=== PATIENT | male | born 1950 | race Caucasian/White ===

== ENCOUNTER 2017-01-14 12:26 | Inpatient (IN) | payer MEDICARE, OTHER ==
--- NOTE | 2017-01-14 12:41 | PDOC ---
History of Present Illness - General History Source: Patient Exam Limitations: Language Barrier - History of Present Illness Initial Comments: 01/14/17 13:52 The patient is a 67-year-old male with a significant past medical history of diabetes, HTN, HLD, CAD s/p cath, a-fib, DVT, COPD, hypothyroidism, prior GI bleed, CVA, renal stones hx, obesity, and prostate and bladder CA (2016), ( compliant with medications), and is sent to the emergency department by his PCP for further evaluation of an abdominal mass and abdominal pain that started 15 days ago. The patient reports that the abdominal pain is located to the left lower quadrant and radiates down the left groin region. He reports the abdominal pain is constant in nature, worse with touch, and is a severity of 10/ 10. The patient denies any recent injury or trauma. The patient speaks Fijian and a rehabilitation therapist was utilized (#[id number]). The patient denies chest pain, back pain, leg pain, shortness of breath, headache and dizziness. The patient denies fever, chills, nausea, vomit, diarrhea and constipation. The patient denies dysuria, frequency, urgency and hematuria. Past surgical history: CABG, venous surgery 3 years ago PCP: Dr. Suazo <Adrianne Sanches - Last Filed: 01/14/17 14:44> <Inge Flores - Last Filed: 01/14/17 14:54> - General Chief Complaint: Pain Stated Complaint: ADMIT, ABD MASS (PCP SENT) Time Seen by Provider: 01/14/17 12:40 Past History <Adrianne Sanches - Last Filed: 01/14/17 14:44> - Past Medical History Anemia: No Asthma: Yes Cancer: Yes (prostate) Cardiac Disorders: Yes (ANGINA, RLE DVT) CVA: Yes (rt side) COPD: Yes CHF: No (atrial fib) DVT: Yes Dementia: No Diabetes: Yes GI Disorders: No Disorders: Yes (renal stones) HTN: Yes Hypercholesterolemia: Yes Liver Disease: No Suicide Attempt (Hx): No Seizures: Yes Thyroid Disease: No - Surgical History Abdominal Surgery: Yes (Hernia repair) Appendectomy: Yes Cardiac Surgery: No Cholecystectomy: Yes Lung Surgery: No Neurologic Surgery: No Orthopedic Surgery: Yes (lft arm surgery--plate) - Immunization History Immunization Up to Date: Yes - Psycho/Social/Smoking Cessation Hx Anxiety: No Suicidal Ideation: No Smoking Status: No Smoking History: Never smoked Have you smoked in the past 12 months: Yes Number of Cigarettes Smoked Daily: 0 If you are a former smoker, when did you quit?: 25 years Hx Alcohol Use: No Drug/Substance Use Hx: No Substance Use Type: None Hx Substance Use Treatment: No <Inge Flores - Last Filed: 01/14/17 14:54> - Past Medical History Allergies/Adverse Reactions: Allergies Allergy/AdvReac Type Severity Reaction Status Date / Time amoxicillin Allergy Mild Rash Verified 01/14/17 12:31 carbamazepine [From Tegretol] Allergy Mild Rash Verified 01/14/17 12:31 cephalexin [Cephalexin] Allergy Mild Rash Verified 01/14/17 12:31 ciprofloxacin Allergy Mild Rash Verified 01/14/17 12:31 fluconazole Allergy Mild Verified 01/14/17 12:31 lamotrigine [From Lamictal] Allergy Mild Rash Verified 01/14/17 12:31 metronidazole Allergy Mild Rash Verified 01/14/17 12:31 phenobarbital Allergy Mild Rash Verified 01/14/17 12:31 phenytoin sodium Allergy Mild Rash Verified 01/14/17 12:31 [From Dilantin] phenytoin sodium extended Allergy Mild Rash Verified 01/14/17 12:31 [From Dilantin] sulfamethoxazole Allergy Mild Rash Verified 01/14/17 12:31 [From Sulfatrim] trimethoprim [From Sulfatrim] Allergy Mild Rash Verified 01/14/17 12:31 amoxicillin trihydrate Allergy Unknown Verified 01/14/17 12:31 [From Augmentin] potassium clavulanate Allergy Unknown Verified 01/14/17 12:31 [From Augmentin] SHRIMP Allergy Mild Rash Uncoded 01/14/17 12:31 ciproflux Allergy Uncoded 01/14/17 12:31 shrimp Allergy Uncoded 01/14/17 12:31 Home Medications: Ambulatory Orders Aspirin [Aspirin EC] 81 mg PO DAILY 02/13/16 Atorvastatin Ca [Lipitor] 20 mg PO HS 02/13/16 Bicalutamide 50 mg PO DAILY 02/13/16 Clonazepam [Klonopin -] 0.5 mg PO TID 02/13/16 Divalproex [Depakote -] 500 mg PO BID 02/13/16 Levetiracetam [Keppra Xr -] 1,000 mg PO TID 02/13/16 Lisinopril 5 mg PO DAILY 02/13/16 Oxybutynin Chloride [Oxybutynin Chloride ER] 10 mg PO DAILY 02/13/16 Ranolazine [Ranexa] 500 mg PO BID 02/13/16 Tamsulosin HCl 0.8 mg PO DAILY 02/13/16 Citalopram Hydrobromide [Citalopram HBr] 10 mg PO DAILY 01/14/17 Fesoterodine Fumarate [Toviaz] 4 mg PO DAILY 01/14/17 Magnesium Oxide 500 mg PO BID 01/14/17 Nitrofurantoin Monohyd/M-Cryst [Macrobid -] 100 mg PO BID 01/14/17 Tramadol HCl [Ultram] 50 mg PO DAILY 01/14/17 Review of Systems - Review of Systems Able to Perform ROS?: Yes Comments:: 01/14/17 13:52 CONSTITUTIONAL: Absent: fever, chills, diaphoresis, generalized weakness, malaise, loss of appetite HEENT: Absent: rhinorrhea, nasal congestion, throat pain, throat swelling, difficulty swallowing, mouth swelling, ear pain, eye pain, visual changes CARDIOVASCULAR: Absent: chest pain, syncope, palpitations, irregular heart rate, lightheadedness , peripheral edema RESPIRATORY: Absent: cough, shortness of breath, dyspnea with exertion, orthopnea, wheezing, stridor, hemoptysis GASTROINTESTINAL: Present: (+) abdominal mass, (+) abdominal pain Absent: abdominal distension, nausea, vomiting, diarrhea, constipation, melena, hematochezia GENITOURINARY: Absent: dysuria, frequency, urgency, hesitancy, hematuria, flank pain, genital pain MUSCULOSKELETAL: Absent: myalgia, arthralgia, joint swelling SKIN: Absent: rash, itching, pallor HEMATOLOGIC/IMMUNOLOGIC: Absent: easy bleeding, easy bruising, lymphadenopathy, frequent infections ENDOCRINE: Absent: unexplained weight gain, unexplained weight loss, heat intolerance, cold intolerance NEUROLOGIC: Absent: headache, focal weakness or paresthesias, dizziness, unsteady gait, seizure, mental status changes, bladder or bowel incontinence PSYCHIATRIC: Absent: anxiety, depression, suicidal or homicidal ideation, hallucinations. <Adrianne Sanches - Last Filed: 01/14/17 14:44> *Physical Exam - Vital Signs Last Vital Signs Temp Pulse Resp BP Pulse Ox 98.1 F 68 18 159/74 97 01/14/17 12:29 01/14/17 12:29 01/14/17 12:29 01/14/17 12:29 01/14/17 12:29 - Physical Exam Comments: 01/14/17 13:53 GENERAL: Well developed, well nourished. Awake and alert. No acute distress. HEENT: Normocephalic, atraumatic. PERRLA, EOMI. No conjunctival pallor. Sclera are non- icteric. Moist mucous membranes. Oropharynx is clear. NECK: Supple. Full ROM. No JVD. Carotid pulses 2+ and symmetric, without bruits. No thyromegaly. No lymphadenopathy. CARDIOVASCULAR: (+) Systolic murmur over the right sternal border. Regular rate and rhythm. No rubs, or gallops. Distal pulses are 2+ and symmetric. PULMONARY: No evidence of respiratory distress. Lungs clear to auscultation bilaterally. No wheezing, rales or rhonchi. ABDOMINAL: (+) Left lower quadrant tender to palpation. (+) Obese abdomen. Soft. Non- distended. No rebound or guarding. No organomegaly. Normoactive bowel sounds. MUSCULOSKELETAL Normal range of motion at all joints. No bony deformities or tenderness. No CVA tenderness. EXTREMITIES: (+) Venous stasis changes to the bilateral lower extremities. (+) Varicose veins visible underneath the skin on the left lower quadrant and left groin area. No cyanosis. No clubbing. No edema. No calf tenderness. SKIN: Warm and dry. Normal capillary refill. No rashes. No jaundice. NEUROLOGICAL: Alert, awake, appropriate. Cranial nerves 2-12 intact. No deficits to light touch and temperature in face, upper extremities and lower extremities. No motor deficits in the in face, upper extremities and lower extremities. Normoreflexic in the upper and lower extremities. Normal speech. Toes are down- going bilaterally. PSYCHIATRIC: Cooperative. Good eye contact. Appropriate mood and affect. <Adrianne Sanches - Last Filed: 01/14/17 14:44> - Vital Signs Last Vital Signs Temp Pulse Resp BP Pulse Ox 98.1 F 68 18 159/74 97 01/14/17 12:29 01/14/17 12:29 01/14/17 12:29 01/14/17 12:29 01/14/17 12:29 <Inge Flores - Last Filed: 01/14/17 14:54> ED Treatment Course - LABORATORY CBC & Chemistry Diagram: 01/14/17 13:26 01/14/17 13:26 - ADDITIONAL ORDERS Additional order review: Laboratory Results 01/14/17 13:26 Urine Color Ltyellow Urine Appearance Clear Urine pH 5.0 Ur Specific [place] 1.016 Urine Protein Negative Urine Glucose (UA) 1+ H Urine Ketones Negative Urine Blood Negative Urine Nitrite Negative Urine Bilirubin Negative Urine Urobilinogen Negative Ur Leukocyte Esterase Negative 01/14/17 13:26 RBC 4.25 MCV 86.9 MCHC 32.6 RDW 16.5 H D MPV 8.3 Neutrophils % Research Development Manager Lymphocytes % Research Development Manager Monocytes % Research Development Manager Eosinophils % Research Development Manager Basophils % Research Development Manager <Adrianne Sanches - Last Filed: 01/14/17 14:44> - LABORATORY CBC & Chemistry Diagram: 01/14/17 13:26 01/14/17 13:26 <Inge Flores - Last Filed: 01/14/17 14:54> Medical Decision Making - Medical Decision Making 01/14/17 12:41 THe pt is a67 year old male with a significant PMH who presents referred from PCP office for LLQ abdominal pain/mass. We ordered CBC, CMP, CXR, EKG, US of abd -soft tissue. Will admit to service. 01/14/17 14:53 US abdomen: superficial thrombosed varicose veins, CBC: elevated WBC. <Inge Flores - Last Filed: 01/14/17 14:54> *DC/Admit/Observation/Transfer - Attestations Scribe Attestion: 01/14/17 13:53 Documentation prepared by Adrianne Sanches, acting as medical technologist blood bank for Sam Chamberlain MD. <Adrianne Sanches - Last Filed: 01/14/17 14:44> - Discharge Dispostion Admit: Yes <Inge Flores - Last Filed: 01/14/17 14:54> Diagnosis at time of Disposition: Abdominal mass, LLQ (left lower quadrant) - Discharge Dispostion Condition at time of disposition: Fair - Referrals
[2017-01-14 13:37] LABS: MCH 28.3 pg (25.7-33.7); MCHC 32.6 g/dl (32.0-35.9); MEAN CELL VOLUME 86.9 fl (80-96); MEAN PLT VOLUME 8.3 fl (7.5-11.1); PLATELET COUNT 114 K/MM3 (134-434); RDW 16.5 % (11.9-15.9); WHITE BLOOD COUNT 10.5 K/mm3 (4.0-10.0)
[2017-01-14 13:39] LABS: URINE APPEARANCE CLEAR; URINE BILIRUBIN NEGATIVE (NEGATIVE); URINE BLOOD NEGATIVE (NEGATIVE); URINE COLOR LTYELLOW; URINE GLUCOSE (UA) 1+ (NEGATIVE); URINE KETONE NEGATIVE (NEGATIVE); URINE LEUK ESTERASE NEGATIVE (NEGATIVE); URINE NITRITE NEGATIVE (NEGATIVE); URINE PROTEIN NEGATIVE (NEGATIVE); URINE UROBILINOGEN NEGATIVE E.U./dl (0.2-1.0)
[2017-01-14 14:04] LABS: HYPOCHROMIA FEW; PLATELET ESTIMATE DECREASED (NORMAL); POLYCHROMASIA 1+
--- NOTE | 2017-01-14 14:54 | PDOC ---
Attending Attestation - Resident Resident Name: Inge Flores - ED Attending Attestation I have performed the following: I have examined & evaluated the patient, The case was reviewed & discussed with the resident, I agree w/resident's findings & plan, Exceptions are as noted - HPI HPI: 01/14/17 14:52 The patient is a 67-year-old male with extensive past medical history, including DVT, who was sent to the emergency department by his primary care physician to be admitted for further evaluation and workup of abdominal pain, with superficial abdominal wall masses. - Physicial Exam PE: 01/14/17 14:53 He is well-appearing and in no acute distress Superficial abdominal wall mass is noted - Medical Decision Making 01/14/17 14:53 Labs and ultrasound noted Clinical impression: Abdominal pain Superficial thrombosed varicose veins of the abdomen
[2017-01-14 14:56] LABS: ALBUMIN 3.9 g/dl (3.4-5.0); ALK PHOS 101 U/L (45-117); ANION GAP 10 (8-16); BILIRUBIN,TOTAL 0.4 mg/dL (0.2-1.0); CALCIUM 9.1 mg/dL (8.5-10.1); CO2 28 mmol/L (21-32); CREATININE 1.2 mg/dL (0.7-1.3); GLUCOSE,RANDOM 121 mg/dL (74-106); SGOT/AST 16 U/L (15-37); SGPT/ALT 20 U/L (12-78); TOT PROT 7.6 g/dl (6.4-8.2)
[2017-01-14 15:29] LABS: INR 1.22 (0.82-1.09); PROTHROMBIN TIME (PATIENT) 13.5 SEC (9.98-11.88)
[2017-01-14 16:32] VITALS: BMI 45.6
[2017-01-14] MEDS ORDERED: PNEUMOC 13-VAL CONJ-DIP CRM/PF 0.5 ML DISP.SYRIN IM ONE (17:00)
[2017-01-14] MEDS ORDERED: clonazePAM 0.5 MG TABLET PO PRN (18:17)
[2017-01-14] MEDS: traMADol HCL 50 MG TABLET PO PRN (18:39)
[2017-01-14] MEDS: ATORVASTATIN CA 20 MG TABLET (FP) PO SCH (21:04)
[2017-01-14] MEDS: RANOLAZINE E.R. 500 MG TABLET (FP) PO SCH (21:04)
[2017-01-14] MEDS: OXYBUTYNIN CHLORIDE 5 MG TABLET PO SCH (21:05)
[2017-01-14] MEDS: DIVALPROEX SODIUM 500 MG TABLET E.C. PO SCH (21:05)
[2017-01-14] MEDS: levETIRAcetam 500 MG TABLET (FP) PO SCH (21:05)
[2017-01-14] MEDS: HEPARIN NA (PORCINE) 5,000 UNITS/ML 1ML VIAL SQ SCH (21:06)
[2017-01-14] MEDS: MAGNESIUM OXIDE 400 MG TABLET (FP) PO SCH (21:06)
[2017-01-15] MEDS: traMADol HCL 50 MG TABLET PO PRN (06:23)
[2017-01-15 08:47] LABS: CHOLESTEROL 151 mg/dL (50-200); LDL CHOLESTEROL (ONLY SJRH) 69 mg/dL (5-100)
[2017-01-15] MEDS: TAMSULOSIN HCL 0.4 MG CAP.ER.24H (FP) PO SCH (08:56)
--- NOTE | 2017-01-15 11:04 | PN ---
Progress Note (short form) - Note Progress Note: patient seen consult dictated. I will discuss case with Dr. Goyal and follow hospital course.
--- NOTE | 2017-01-15 11:23 | CONSULT ---
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 No: AFIB, CHF Pulmonary: Yes: COPD Gastrointestinal: Yes: Diverticulitis, Diverticulosis, Other (hepatic granuloma) Renal/: Yes: Hematuria, Renal Calculi Psych: Yes: Anxiety Endocrine: Yes: Diabetes Mellitus - Past Surgical History Past Surgical History: Yes: Appendectomy, Cholecystectomy, Hernia Repair (x2), Joint Replacement (left shoulder) - Alcohol/Substance Use Hx Alcohol Use: No History of Substance Use: reports: None - Smoking History Smoking history: Former smoker Have you smoked in the past 12 months: Yes Aproximately how many cigarettes per day: 0 If you are a former smoker, when did you quit?: 25 years - Social History Usual Living Arrangement: Other (roomate) ADL: Independent History of Recent Travel: No Home Medications - Allergies Allergies/Adverse Reactions: Allergies Allergy/AdvReac Type Severity Reaction Status Date / Time amoxicillin Allergy Mild Rash Verified 01/14/17 12:31 carbamazepine [From Tegretol] Allergy Mild Rash Verified 01/14/17 12:31 cephalexin [Cephalexin] Allergy Mild Rash Verified 01/14/17 12:31 ciprofloxacin Allergy Mild Rash Verified 01/14/17 12:31 fluconazole Allergy Mild Verified 01/14/17 12:31 lamotrigine [From Lamictal] Allergy Mild Rash Verified 01/14/17 12:31 metronidazole Allergy Mild Rash Verified 01/14/17 12:31 phenobarbital Allergy Mild Rash Verified 01/14/17 12:31 phenytoin sodium Allergy Mild Rash Verified 01/14/17 12:31 [From Dilantin] phenytoin sodium extended Allergy Mild Rash Verified 01/14/17 12:31 [From Dilantin] sulfamethoxazole Allergy Mild Rash Verified 01/14/17 12:31 [From Sulfatrim] trimethoprim [From Sulfatrim] Allergy Mild Rash Verified 01/14/17 12:31 amoxicillin trihydrate Allergy Unknown Verified 01/14/17 12:31 [From Augmentin] potassium clavulanate Allergy Unknown Verified 01/14/17 12:31 [From Augmentin] SHRIMP Allergy Mild Rash Uncoded 01/14/17 12:31 ciproflux Allergy Uncoded 01/14/17 12:31 shrimp Allergy Uncoded 01/14/17 12:31 - Home Medications Home Medications: Ambulatory Orders Aspirin [Aspirin EC] 81 mg PO DAILY 02/13/16 Atorvastatin Ca [Lipitor] 20 mg PO DAILY 02/13/16 Bicalutamide 50 mg PO DAILY 02/13/16 Clonazepam [Klonopin -] 0.5 mg PO TID 02/13/16 Divalproex [Depakote -] 500 mg PO BID 02/13/16 Levetiracetam [Keppra Xr -] 1,000 mg PO TID 02/13/16 Lisinopril 5 mg PO DAILY 02/13/16 Oxybutynin Chloride [Oxybutynin Chloride ER] 10 mg PO DAILY 02/13/16 Ranolazine [Ranexa] 500 mg PO BID 02/13/16 Tamsulosin HCl 0.8 mg PO DAILY 02/13/16 Citalopram Hydrobromide [Citalopram HBr] 10 mg PO DAILY 01/14/17 Fesoterodine Fumarate [Toviaz] 4 mg PO DAILY 01/14/17 Magnesium Oxide 500 mg PO BID 01/14/17 Nitrofurantoin Monohyd/M-Cryst [Macrobid -] 100 mg PO BID 01/14/17 Tramadol HCl [Ultram] 50 mg PO DAILY 01/14/17 Family Disease History - Family Disease History Family Disease History: Diabetes: Mother (htn), CA: Father, Other: Mother Physical Exam Vital Signs: Vital Signs Temperature 97.9 F 01/15/17 07:45 Pulse Rate 57 L 01/15/17 07:45 Respiratory Rate 20 01/15/17 07:45 Blood Pressure 125/64 01/15/17 07:45 O2 Sat by Pulse Oximetry (%) 99 01/14/17 21:00 Assessment/Plan Vascular Surgery The patient is a 67-year-old male with a significant past medical history of diabetes, HTN, HLD, CAD s/p cath, a-fib, DVT, COPD, hypothyroidism, prior GI bleed, CVA, renal stones hx, obesity, and prostate and bladder CA (2016), ( compliant with medications), and is sent to the emergency department by his PCP for further evaluation of an abdominal mass and abdominal pain that started 15 days ago. The patient reports that the abdominal pain is located to the left lower quadrant and radiates down the left groin region. He reports the abdominal pain is constant in nature, worse with touch, and is a severity of 10/ 10. The patient denies any recent injury or trauma. The patient speaks Khmer and a oil well drilling manager was utilized (#[id number]). The patient denies chest pain, back pain, leg pain, shortness of breath, headache and dizziness. The patient denies fever, chills, nausea, vomit, diarrhea and constipation. The patient denies dysuria, frequency, urgency and hematuria. Past surgical history: CABG, venous surgery 3 years ago PCP: Dr. Gabriele WICK head - NC/AT Lung - CTA Heart - RRR abd - soft,nt,nd. In left lower quad -- there is a thrombosed varicose vein. Tender to touch . Rope like feel. EXt - warm, pink. A/P Thrombosed superficial varicose vein on abdominal wall . Would treat as SVT Warm compresses to abd wall, NSAID for pain. No need for AC Can do further imaging with CT scan if ruling out intrabdominal mass. Javier Bundy DO
[2017-01-15] MEDS ORDERED: PT OWN MED DRAWER 7, Y5N ONE (11:29)
[2017-01-15] MEDS: HEPARIN NA (PORCINE) 5,000 UNITS/ML 1ML VIAL SQ SCH ×2 (11:30→22:27)
[2017-01-15] MEDS: RANOLAZINE E.R. 500 MG TABLET (FP) PO SCH ×2 (11:30→22:28)
[2017-01-15] MEDS: DIVALPROEX SODIUM 500 MG TABLET E.C. PO SCH ×2 (11:31→22:23)
[2017-01-15] MEDS: LISINOPRIL 5 MG TABLET (FP) PO SCH (11:31)
[2017-01-15] MEDS: BICALUTAMIDE 50 MG TABLET (FP) PO SCH (11:31)
[2017-01-15] MEDS: levETIRAcetam 500 MG TABLET (FP) PO SCH ×2 (11:31→22:27)
[2017-01-15] MEDS: MAGNESIUM OXIDE 400 MG TABLET (FP) PO SCH ×2 (11:31→22:27)
[2017-01-15] MEDS: CITALOPRAM HYDROBROMIDE 10 MG TABLET (FP) PO SCH (11:31)
[2017-01-15] MEDS: ASPIRIN COATED 81 MG TABLET.EC PO SCH (11:31)
[2017-01-15] MEDS: OXYBUTYNIN CHLORIDE 5 MG TABLET PO SCH ×2 (11:31→22:27)
--- NOTE | 2017-01-15 12:18 | HP ---
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 No: AFIB, CHF Pulmonary: Yes: COPD Gastrointestinal: Yes: Diverticulitis, Diverticulosis, Other (hepatic granuloma) Renal/: Yes: Hematuria, Renal Calculi Heme/Onc: Yes: Cancer (bladder cancer, prostate cancer) Psych: Yes: Anxiety Endocrine: Yes: Diabetes Mellitus - Past Surgical History Past Surgical History: Yes: Appendectomy, Cholecystectomy, Hernia Repair (x2), Joint Replacement (left shoulder) - Smoking History Smoking history: Former smoker Have you smoked in the past 12 months: Yes Aproximately how many cigarettes per day: 0 If you are a former smoker, when did you quit?: 25 years - Alcohol/Substance Use Hx Alcohol Use: No History of Substance Use: reports: None - Social History ADL: Independent History of Recent Travel: No Home Medications - Allergies Allergies/Adverse Reactions: Allergies Allergy/AdvReac Type Severity Reaction Status Date / Time amoxicillin Allergy Mild Rash Verified 01/14/17 12:31 carbamazepine [From Tegretol] Allergy Mild Rash Verified 01/14/17 12:31 cephalexin [Cephalexin] Allergy Mild Rash Verified 01/14/17 12:31 ciprofloxacin Allergy Mild Rash Verified 01/14/17 12:31 fluconazole Allergy Mild Verified 01/14/17 12:31 lamotrigine [From Lamictal] Allergy Mild Rash Verified 01/14/17 12:31 metronidazole Allergy Mild Rash Verified 01/14/17 12:31 phenobarbital Allergy Mild Rash Verified 01/14/17 12:31 phenytoin sodium Allergy Mild Rash Verified 01/14/17 12:31 [From Dilantin] phenytoin sodium extended Allergy Mild Rash Verified 01/14/17 12:31 [From Dilantin] sulfamethoxazole Allergy Mild Rash Verified 01/14/17 12:31 [From Sulfatrim] trimethoprim [From Sulfatrim] Allergy Mild Rash Verified 01/14/17 12:31 amoxicillin trihydrate Allergy Unknown Verified 01/14/17 12:31 [From Augmentin] potassium clavulanate Allergy Unknown Verified 01/14/17 12:31 [From Augmentin] SHRIMP Allergy Mild Rash Uncoded 01/14/17 12:31 ciproflux Allergy Uncoded 01/14/17 12:31 shrimp Allergy Uncoded 01/14/17 12:31 - Home Medications Home Medications: Ambulatory Orders Aspirin [Aspirin EC] 81 mg PO DAILY 02/13/16 Atorvastatin Ca [Lipitor] 20 mg PO DAILY 02/13/16 Bicalutamide 50 mg PO DAILY 02/13/16 Clonazepam [Klonopin -] 0.5 mg PO TID 02/13/16 Divalproex [Depakote -] 500 mg PO BID 02/13/16 Levetiracetam [Keppra Xr -] 1,000 mg PO TID 02/13/16 Lisinopril 5 mg PO DAILY 02/13/16 Oxybutynin Chloride [Oxybutynin Chloride ER] 10 mg PO DAILY 02/13/16 Ranolazine [Ranexa] 500 mg PO BID 02/13/16 Tamsulosin HCl 0.8 mg PO DAILY 02/13/16 Citalopram Hydrobromide [Citalopram HBr] 10 mg PO DAILY 01/14/17 Fesoterodine Fumarate [Toviaz] 4 mg PO DAILY 01/14/17 Magnesium Oxide 500 mg PO BID 01/14/17 Nitrofurantoin Monohyd/M-Cryst [Macrobid -] 100 mg PO BID 01/14/17 Tramadol HCl [Ultram] 50 mg PO DAILY 01/14/17 Family Disease History - Family Disease History Family Disease History: Diabetes: Mother (htn), CA: Father, Other: Mother Review of Systems - Review of Systems Constitutional: denies: Chills, Fever Cardiovascular: denies: Chest Pain Respiratory: denies: SOB Gastrointestinal: reports: Abdominal Pain Physical Examination Vital Signs: Vital Signs Temperature 97.9 F 01/15/17 07:45 Pulse Rate 57 L 01/15/17 07:45 Respiratory Rate 20 01/15/17 07:45 Blood Pressure 125/64 01/15/17 07:45 O2 Sat by Pulse Oximetry (%) 99 01/14/17 21:00 Constitutional: Yes: Calm Cardiovascular: Yes: WNL Respiratory: Yes: WNL Gastrointestinal: Yes: Tenderness (LLQ PROMINENT TENDER BLOOD VESSEL) Edema: No Imaging - Results Chest X-ray: Report Reviewed Ultrasound: Report Reviewed Problem List - Problems (1) Abdominal mass, LLQ (left lower quadrant) Code(s): R19.04 - LEFT LOWER QUADRANT ABDOMINAL SWELLING, MASS AND LUMP (2) CAD (coronary artery disease) Code(s): I25.10 - ATHSCL HEART DISEASE OF [place] CORONARY ARTERY W/O ANG PCTRS (3) CHF (congestive heart failure) Code(s): I50.9 - HEART FAILURE, UNSPECIFIED Qualifiers: Congestive heart failure chronicity: chronic (4) COPD (chronic obstructive pulmonary disease) Code(s): J44.9 - CHRONIC OBSTRUCTIVE PULMONARY DISEASE, UNSPECIFIED (5) Diabetes mellitus type 2 in obese Code(s): E11.9 - TYPE 2 DIABETES MELLITUS WITHOUT COMPLICATIONS E66.9 - OBESITY, UNSPECIFIED (6) DVT (deep venous thrombosis) Code(s): I82.409 - ACUTE EMBOLISM AND THOMBOS UNSP DEEP VN UNSP LOWER EXTREMITY Qualifiers: DVT location: lower extremity Affected thrombotic vein of extremity: unspecified vein of extremity Laterality: left Chronicity: acute Qualified Code(s): I82.402 - Acute embolism and thrombosis of unspecified deep veins of left lower extremity Assessment/Plan The patient is a 67-year-old male with a significant past medical history of diabetes, HTN, HLD, CAD s/p cath, a-fib, DVT, COPD, hypothyroidism, prior GI bleed, CVA, renal stones hx, obesity, and prostate and bladder CA (2016), ( compliant with medications), and is sent to the emergency department by his PCP for further evaluation of an abdominal mass and abdominal pain that started 15 days ago. The patient reports that the abdominal pain is located to the left lower quadrant and radiates down the left groin region. He reports the abdominal pain is constant in nature, worse with touch, and is a severity of 10/ 10. The patient denies any recent injury or trauma. The patient speaks Malay and a industrial truck mechanic was utilized (#[id number]). The patient denies chest pain, back pain, leg pain, shortness of breath, headache and dizziness. The patient denies fever, chills, nausea, vomit, diarrhea and constipation. The patient denies dysuria, frequency, urgency and hematuria. Past surgical history: CABG, venous surgery 3 years ago PCP: Dr. Suazo (1) Abdominal mass, LLQ (left lower quadrant) Code(s): R19.04 - LEFT LOWER QUADRANT ABDOMINAL SWELLING, MASS AND LUMP APPRECIATE VASC SURG CONSULT NO NEED AC H/O DVT HEME CONSULTED TO R/O NEOPLASM CT CHEST/ABD/PELVIS C-/+ TO R/O NEOPLASM (2) CAD (coronary artery disease) Code(s): I25.10 - ATHSCL HEART DISEASE OF [place] CORONARY ARTERY W/O ANG PCTRS HAS AFIB? LAST EKG DID NOT SHOW IT - EKG (3) CHF (congestive heart failure) Code(s): I50.9 - HEART FAILURE, UNSPECIFIED Qualifiers: Congestive heart failure chronicity: chronic (4) COPD (chronic obstructive pulmonary disease) Code(s): J44.9 - CHRONIC OBSTRUCTIVE PULMONARY DISEASE, UNSPECIFIED ALB NEB PRN (5) Diabetes mellitus type 2 in obese Code(s): E11.9 - TYPE 2 DIABETES MELLITUS WITHOUT COMPLICATIONS E66.9 - OBESITY, UNSPECIFIED BGM/ISS (6) DVT (deep venous thrombosis) Code(s): I82.409 - ACUTE EMBOLISM AND THOMBOS UNSP DEEP VN UNSP LOWER EXTREMITY Qualifiers: DVT location: lower extremity Affected thrombotic vein of extremity: unspecified vein of extremity Laterality: left Chronicity: acute Qualified Code(s): I82.402 - Acute embolism and thrombosis of unspecified deep veins of left lower extremity H/O NOT ON AC MANAGER DEPARTMENT FM
[2017-01-15] MEDS ORDERED: ALBUTEROL SO4 0.083% IH SOL 2.5 MG/3 ML VIAL.NEB. NEB PRN (12:27)
--- NOTE | 2017-01-15 12:36 | CON.GI ---
Consult Consult Specialty:: gastroenterology Referred by:: Pippa Suazo/ - History of Present Illness History of Present Illness: 67 y/o obese mal with PMH od DVT was admitted for further evaluation and management of left lower quadrant abdominal wall superficial vein thrombosis. He denies rectal bleeding , melena, dysphagia, weight loss, and change in bowel habits. 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 No: AFIB, CHF Pulmonary: Yes: COPD Gastrointestinal: Yes: Diverticulitis, Diverticulosis, Other (hepatic granuloma) Renal/: Yes: Hematuria, Renal Calculi Psych: Yes: Anxiety Endocrine: Yes: Diabetes Mellitus - Past Surgical History Past Surgical History: Yes: Appendectomy, Cholecystectomy, Hernia Repair (x2), Joint Replacement (left shoulder) - Alcohol/Substance Use Hx Alcohol Use: No History of Substance Use: reports: None - Smoking History Smoking history: Former smoker Have you smoked in the past 12 months: Yes Aproximately how many cigarettes per day: 0 If you are a former smoker, when did you quit?: 25 years - Social History Usual Living Arrangement: Other (roomate) ADL: Independent History of Recent Travel: No Home Medications - Allergies Allergies/Adverse Reactions: Allergies Allergy/AdvReac Type Severity Reaction Status Date / Time amoxicillin Allergy Mild Rash Verified 01/14/17 12:31 carbamazepine [From Tegretol] Allergy Mild Rash Verified 01/14/17 12:31 cephalexin [Cephalexin] Allergy Mild Rash Verified 01/14/17 12:31 ciprofloxacin Allergy Mild Rash Verified 01/14/17 12:31 fluconazole Allergy Mild Verified 01/14/17 12:31 lamotrigine [From Lamictal] Allergy Mild Rash Verified 01/14/17 12:31 metronidazole Allergy Mild Rash Verified 01/14/17 12:31 phenobarbital Allergy Mild Rash Verified 01/14/17 12:31 phenytoin sodium Allergy Mild Rash Verified 01/14/17 12:31 [From Dilantin] phenytoin sodium extended Allergy Mild Rash Verified 01/14/17 12:31 [From Dilantin] sulfamethoxazole Allergy Mild Rash Verified 01/14/17 12:31 [From Sulfatrim] trimethoprim [From Sulfatrim] Allergy Mild Rash Verified 01/14/17 12:31 amoxicillin trihydrate Allergy Unknown Verified 01/14/17 12:31 [From Augmentin] potassium clavulanate Allergy Unknown Verified 01/14/17 12:31 [From Augmentin] SHRIMP Allergy Mild Rash Uncoded 01/14/17 12:31 ciproflux Allergy Uncoded 01/14/17 12:31 shrimp Allergy Uncoded 01/14/17 12:31 - Home Medications Home Medications: Ambulatory Orders Aspirin [Aspirin EC] 81 mg PO DAILY 02/13/16 Atorvastatin Ca [Lipitor] 20 mg PO DAILY 02/13/16 Bicalutamide 50 mg PO DAILY 02/13/16 Clonazepam [Klonopin -] 0.5 mg PO TID 02/13/16 Divalproex [Depakote -] 500 mg PO BID 02/13/16 Levetiracetam [Keppra Xr -] 1,000 mg PO TID 02/13/16 Lisinopril 5 mg PO DAILY 02/13/16 Oxybutynin Chloride [Oxybutynin Chloride ER] 10 mg PO DAILY 02/13/16 Ranolazine [Ranexa] 500 mg PO BID 02/13/16 Tamsulosin HCl 0.8 mg PO DAILY 02/13/16 Citalopram Hydrobromide [Citalopram HBr] 10 mg PO DAILY 01/14/17 Fesoterodine Fumarate [Toviaz] 4 mg PO DAILY 01/14/17 Magnesium Oxide 500 mg PO BID 01/14/17 Nitrofurantoin Monohyd/M-Cryst [Macrobid -] 100 mg PO BID 01/14/17 Tramadol HCl [Ultram] 50 mg PO DAILY 01/14/17 Family Disease History - Family Disease History Family History: Denies (colon and gastric cancer) Family Disease History: Diabetes: Mother (htn), CA: Father, Other: Mother Review of Systems - Review of Systems Constitutional: denies: Fever Eyes: denies: Blind Spots HENT: denies: Difficult Swallowing Neck: denies: Decreased ROM Cardiovascular: denies: Chest Pain Respiratory: denies: SOB Gastrointestinal: reports: Abdominal Pain. denies: Bloating, Constipation, Diarrhea, Indigestion, Melena, Rectal Bleeding, Vomiting Blood Physical Exam-GI Vital Signs: Vital Signs Temperature 97.9 F 01/15/17 07:45 Pulse Rate 57 L 01/15/17 07:45 Respiratory Rate 20 01/15/17 07:45 Blood Pressure 125/64 01/15/17 07:45 O2 Sat by Pulse Oximetry (%) 99 01/14/17 21:00 Constitutional: Yes: Well Nourished Eyes: Yes: Conjunctiva Clear Neck: Yes: Supple Cardiovascular: Yes: Regular Rate and Rhythm Respiratory: Yes: Regular Gastrointestinal Inspection: No: Ascites, Distention ...Palpate: Yes: Soft, Tenderness (large varicose veins, tender in the left lower quadrant). No: Firm/Rigid, Guarding, Hepatomegaly, Splenomegaly Labs: INR, PTT INR 1.22 (0.82-1.09) H 01/14/17 14:50 Problem List - Problems (1) Thrombosis Assessment/Plan: superficial veins of the abdomen r/o underlying malignancy causing hypercoaguable state R> CT of chest, abdomen and pelvis cea, ca19-9, PSA made aware to ff-up for out patient colonoscopy Code(s): I82.90 - ACUTE EMBOLISM AND THROMBOSIS OF UNSPECIFIED VEIN
--- NOTE | 2017-01-15 13:32 | CONS ---
DATE OF CONSULTATION: 01/15/2017 at 11:44 a.m. DIAGNOSIS: Prostate cancer. HISTORY OF PRESENT ILLNESS: The patient was seen in followup in my office yesterday and found to have scrotal pain and subcutaneous nodules. I referred him to Dr. Suazo, who also examined him and directed him to the emergency room for additional workup. In the emergency room, he was admitted for workup of the abdominal pain. The admitting physician noted that the pain was in the left lower quadrant and radiating down into his thigh. It is aggravated by touch, and he denies any recent history of injury or trauma. PAST MEDICAL HISTORY: Significant for hypertension, hyperlipidemia, coronary artery disease, postoperative catheterization, atrial fibrillation, deep vein thrombosis, chronic obstructive pulmonary disease, hypothyroidism, prior GI bleed, renal stones, obesity, prostate and bladder cancer. He received radiation for the prostate cancer in the past. REVIEW OF SYSTEMS: Other than the abdominal pain and the tenderness, he denies any other symptoms. No symptoms related to the head, ears, eyes, nose, and throat. No cardiac, respiratory, gastrointestinal, genitourinary, neurologic, musculoskeletal, hematologic, or allergic complaints. PHYSICAL EXAMINATION: Vital signs: Include a temperature of 97.9 degrees Fahrenheit, his blood pressure is 125/64, his pulse is 57, and his respiratory rate is 20. His KPS is 70. Head, ears, eyes, nose, and throat: Face is symmetric. Tongue is midline. No adenopathy in the neck, axilla, or groin. Heart: Normal heart sounds are present. Lungs: Clear. Abdomen: Tender in the left lower quadrant. No abdominal tenderness on the right side or in the left upper quadrant. He also has pain in the scrotum. X-RAYS: An abdominal ultrasound done yesterday of the subcutaneous nodules was read as thrombosed varicose veins within the subcutaneous tissue of the anterior abdominal wall. IMPRESSION/PLAN: No intervention at this time with regard to radiation. Additional workup may be needed. The cause of the inflammation is not clear, but several etiologies need to be considered. I will discuss the case with Dr. Suazo. LONI OLGUIN M.D. LES/[id number] [facility]
[2017-01-15] MEDS ORDERED: SODIUM CHLORIDE 1,000 ML IV SCH ×2 (15:00→15:07)
[2017-01-15] MEDS: INSULIN SLIDING SCALE (NOVOLOG) 1 VIAL SQ SCH ×2 (17:31→22:21)
--- NOTE | 2017-01-15 18:20 | EKG ---
Test Reason : Blood Pressure : / mmHG Vent. Rate : 054 BPM Atrial Rate : 054 BPM P-R Int : 162 ms QRS Dur : 084 ms QT Int : 442 ms P-R-T Axes : 053 -22 029 degrees QTc Int : 419 ms SINUS BRADYCARDIA OTHERWISE NORMAL ECG WHEN COMPARED WITH ECG OF 14-JAN-2017 13:08, PREMATURE VENTRICULAR COMPLEXES ARE NO LONGER PRESENT Confirmed by KEILA HENRY, ROSIE ([id number]) on 01/15/2017 6:20:25 PM Referred By: Birdie WILDER Confirmed By:ROSIE PEDRAZA MD
--- NOTE | 2017-01-15 18:31 | EKG ---
Test Reason : Blood Pressure : / mmHG Vent. Rate : 066 BPM Atrial Rate : 066 BPM P-R Int : 158 ms QRS Dur : 082 ms QT Int : 410 ms P-R-T Axes : 030 -13 038 degrees QTc Int : 429 ms POOR DATA QUALITY, INTERPRETATION MAY BE ADVERSELY AFFECTED SINUS RHYTHM WITH OCCASIONAL PREMATURE VENTRICULAR COMPLEXES OTHERWISE NORMAL ECG WHEN COMPARED WITH ECG OF 13-FEB-2016 13:26, PREMATURE VENTRICULAR COMPLEXES ARE NOW PRESENT Confirmed by ROSIE PEDRAZA MD ([id number]) on 01/15/2017 6:31:36 PM Referred By: Confirmed By:ROSIE PEDRAZA MD
--- NOTE | 2017-01-15 21:25 | CONSULT ---
Consult - text type - Consultation Consultation Note: 67 y/o obese mal with PMH od DVT was admitted for further evaluation and management of left lower quadrant abdominal wall superficial vein thrombosis. He denies rectal bleeding , melena, dysphagia, weight loss, and change in bowel habits. denies hematuria/hematochezia, does report some loss of appetite. also repots LLQ abd. pain , now for 2 weeks. stopped taking lovenox for 5 days now due to pain. Vicente been o n lovenox for 1 rs. now. ?? 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 No: AFIB, CHF Pulmonary: Yes: COPD Gastrointestinal: Yes: Diverticulitis, Diverticulosis, Other (hepatic granuloma) Renal/: Yes: Hematuria, Renal Calculi Psych: Yes: Anxiety Endocrine: Yes: Diabetes Mellitus - Past Surgical History Past Surgical History: Yes: Appendectomy, Cholecystectomy, Hernia Repair (x2), Joint Replacement (left shoulder) - Smoking History Smoking history: Former smoker - Social History Usual Living Arrangement: Other (roomate) ADL: Independent Home Medications - Allergies Allergies/Adverse Reactions: Allergies Allergy/AdvReac Type Severity Reaction Status Date / Time amoxicillin Allergy Mild Rash Verified 01/14/17 12:31 carbamazepine [From Tegretol] Allergy Mild Rash Verified 01/14/17 12:31 cephalexin [Cephalexin] Allergy Mild Rash Verified 01/14/17 12:31 ciprofloxacin Allergy Mild Rash Verified 01/14/17 12:31 fluconazole Allergy Mild Verified 01/14/17 12:31 lamotrigine [From Lamictal] Allergy Mild Rash Verified 01/14/17 12:31 metronidazole Allergy Mild Rash Verified 01/14/17 12:31 phenobarbital Allergy Mild Rash Verified 01/14/17 12:31 phenytoin sodium Allergy Mild Rash Verified 01/14/17 12:31 [From Dilantin] phenytoin sodium extended Allergy Mild Rash Verified 01/14/17 12:31 [From Dilantin] sulfamethoxazole Allergy Mild Rash Verified 01/14/17 12:31 [From Sulfatrim] trimethoprim [From Sulfatrim] Allergy Mild Rash Verified 01/14/17 12:31 amoxicillin trihydrate Allergy Unknown Verified 01/14/17 12:31 [From Augmentin] potassium clavulanate Allergy Unknown Verified 01/14/17 12:31 [From Augmentin] SHRIMP Allergy Mild Rash Uncoded 01/14/17 12:31 ciproflux Allergy Uncoded 01/14/17 12:31 shrimp Allergy Uncoded 01/14/17 12:31 - Home Medications Home Medications: Ambulatory Orders Aspirin [Aspirin EC] 81 mg PO DAILY 02/13/16 Atorvastatin Ca [Lipitor] 20 mg PO DAILY 02/13/16 Bicalutamide 50 mg PO DAILY 02/13/16 Clonazepam [Klonopin -] 0.5 mg PO TID 02/13/16 Divalproex [Depakote -] 500 mg PO BID 02/13/16 Levetiracetam [Keppra Xr -] 1,000 mg PO TID 02/13/16 Lisinopril 5 mg PO DAILY 02/13/16 Oxybutynin Chloride [Oxybutynin Chloride ER] 10 mg PO DAILY 02/13/16 Ranolazine [Ranexa] 500 mg PO BID 02/13/16 Tamsulosin HCl 0.8 mg PO DAILY 02/13/16 Citalopram Hydrobromide [Citalopram HBr] 10 mg PO DAILY 01/14/17 Fesoterodine Fumarate [Toviaz] 4 mg PO DAILY 01/14/17 Magnesium Oxide 500 mg PO BID 01/14/17 Nitrofurantoin Monohyd/M-Cryst [Macrobid -] 100 mg PO BID 01/14/17 Tramadol HCl [Ultram] 50 mg PO DAILY 01/14/17 Current Medications Generic Name Dose Route Start Last Admin Trade Name Freq PRN Reason Stop Dose Admin Albuterol Sulfate 1 amp 01/15/17 12:27 Ventolin 0.083% Nebulizer Soln - NEB Q6H PRN SHORT OF BREATH/WHEEZING Aspirin 81 mg 01/15/17 10:00 01/15/17 11:31 Ecotrin - PO 81 mg DAILY MICHEL Administration Atorvastatin Calcium 20 mg 01/14/17 22:00 01/15/17 22:27 Lipitor - PO 20 mg HS MICHEL Administration Bicalutamide 50 mg 01/15/17 10:00 01/15/17 11:31 Casodex - PO 50 mg DAILY MICHEL Administration Citalopram Hydrobromide 10 mg 01/15/17 10:00 01/15/17 11:31 Celexa - PO 10 mg DAILY MICHEL Administration Clonazepam 0.5 mg 01/14/17 18:17 Klonopin - PO BID PRN ANXIETY Divalproex Sodium 500 mg 01/14/17 22:00 01/15/17 22:23 Depakote - PO 500 mg BID MICHEL Administration Heparin Sodium (Porcine) 5,000 unit 01/14/17 22:00 01/15/17 22:27 Heparin - SQ 5,000 unit BID MICHEL Administration Sodium Chloride 1,000 mls @ 42 mls/hr 01/15/17 15:07 01/15/17 15:41 Normal Saline - IV 01/16/17 15:00 42 mls/hr ASDIR MICHEL Administration Insulin Aspart 1 vial 01/15/17 16:30 01/15/17 22:21 Novolog Vial Sliding Scale - SQ Not Given ACHS [facility] Protocol Levetiracetam 1,000 mg 01/14/17 22:00 01/15/17 22:27 Keppra - PO 1,000 mg BID MICHEL Administration Lisinopril 5 mg 01/15/17 10:00 01/15/17 11:31 Prinivil PO 5 mg DAILY MICHEL Administration Magnesium Oxide 400 mg 01/14/17 22:00 01/15/17 22:27 Mag-Ox - PO 400 mg BID MICHEL Administration Oxybutynin Chloride 5 mg 01/14/17 22:00 01/15/17 22:27 Ditropan - PO 5 mg BID MICHEL Administration Ranolazine 500 mg 01/14/17 22:00 01/15/17 22:28 Ranexa - PO 500 mg BID MICHEL Administration Tamsulosin HCl 0.8 mg 01/15/17 08:30 01/15/17 08:56 Flomax - PO 0.8 mg DAILY@0830 MICHEL Administration Tramadol HCl 50 mg 01/14/17 18:17 01/15/17 06:23 Ultram - PO 50 mg Q8H PRN Administration PAIN Physical Exam-GI Vital Signs: Vital Signs Temperature 97.9 F 01/15/17 07:45 Pulse Rate 57 L 01/15/17 07:45 Respiratory Rate 20 01/15/17 07:45 Blood Pressure 125/64 01/15/17 07:45 O2 Sat by Pulse Oximetry (%) 99 01/14/17 21:00 Constitutional: Yes: Well Nourished Eyes: Yes: Conjunctiva Clear Neck: Yes: Supple Cardiovascular: Yes: Regular Rate and Rhythm Respiratory: Yes: Regular p/a--thrombosed superficial veins, LLQ tenderness. soft, no guarding/rigidity. BS+ Abnormal Lab Results 01/15/17 06:00 HDL Cholesterol 66 H D a/p 67 m hx cad s/p pci [place] [facility] [place] to mlad and ptca d2; residual 30-50 plad), obesity, dchf/venous insuff/le edema, cva, htn, hld, dm, seizures, copd, prostate/bladder ca, right dvt 2014 s/p cath/groin compression, also LLE DVT in 12/09, here with superficial vein thrombosis of abdominal wall veins. Also h/o pseudogout, h/o ivc filter LLQ abdominal pain -- ?? abdominal wall superficial vein thrombophlebitis. symptoms ongoing for 2 weeeks and increase with movement had been on lovenox for last year since LLE DVT on coumadin. Stopped last week. ? compliance will r/o hematoma check duplex lower ext. scrotal pain --check u/s scrotum h/o bladder cancer --early stgae. Being followed by Dr. Glaser--last cycstoscopy monthago --nl per patient h/o prostate cancer -- S/p RT. on casodex? check PSA Awaitng CT cans to r/o active malignancy given hypercoagulable state will also r/o hematoma check thrombophilia w/u mild thrombocytopenia/nl coags
[2017-01-15] MEDS: ATORVASTATIN CA 20 MG TABLET (FP) PO SCH (22:27)
[2017-01-16] MEDS: INSULIN SLIDING SCALE (NOVOLOG) 1 VIAL SQ SCH ×4 (06:45→21:29)
[2017-01-16] MEDS: TAMSULOSIN HCL 0.4 MG CAP.ER.24H (FP) PO SCH (08:03)
[2017-01-16 08:23] LABS: MCH 28.4 pg (25.7-33.7); MCHC 33.4 g/dl (32.0-35.9); PLATELET COUNT 111 K/MM3 (134-434); RDW 16.3 % (11.9-15.9); WHITE BLOOD COUNT 9.3 K/mm3 (4.0-10.0)
[2017-01-16 08:54] LABS: ALBUMIN 3.5 g/dl (3.4-5.0); ALK PHOS 80 U/L (45-117); ANION GAP 13 (8-16); BILIRUBIN,TOTAL 0.7 mg/dL (0.2-1.0); CALCIUM 9.2 mg/dL (8.5-10.1); CO2 24 mmol/L (21-32); CREATININE 1.1 mg/dL (0.7-1.3); GLUCOSE,RANDOM 93 mg/dL (74-106); SGOT/AST 16 U/L (15-37); SGPT/ALT 16 U/L (12-78); TOT PROT 7.3 g/dl (6.4-8.2)
[2017-01-16] MEDS ORDERED: HEPARIN NA (PORCINE) 5,000 UNITS/ML 1ML VIAL IVPUSH PRN (08:54)
[2017-01-16] MEDS ORDERED: PT OWN MED DRAWER 7, Y5N ONE (10:02)
[2017-01-16] MEDS ORDERED: HEPARIN INFUSION - 500 ML IVPB ONE (10:04)
[2017-01-16] MEDS: levETIRAcetam 500 MG TABLET (FP) PO SCH ×2 (10:10→21:29)
[2017-01-16] MEDS: BICALUTAMIDE 50 MG TABLET (FP) PO SCH (10:10)
[2017-01-16] MEDS: LISINOPRIL 5 MG TABLET (FP) PO SCH (10:10)
[2017-01-16] MEDS: OXYBUTYNIN CHLORIDE 5 MG TABLET PO SCH ×2 (10:10→21:28)
[2017-01-16] MEDS: DIVALPROEX SODIUM 500 MG TABLET E.C. PO SCH ×2 (10:10→21:28)
[2017-01-16] MEDS: MAGNESIUM OXIDE 400 MG TABLET (FP) PO SCH ×2 (10:10→21:29)
[2017-01-16] MEDS: ASPIRIN COATED 81 MG TABLET.EC PO SCH (10:10)
[2017-01-16] MEDS: RANOLAZINE E.R. 500 MG TABLET (FP) PO SCH ×2 (10:10→21:29)
[2017-01-16] MEDS: CITALOPRAM HYDROBROMIDE 10 MG TABLET (FP) PO SCH (10:11)
[2017-01-16] MEDS: HEPARIN - 25,000 UNIT in SODIUM CHLORIDE 495 ML IV SCH ×2 (10:15→11:03)
--- NOTE | 2017-01-16 10:40 | PN ---
Progress Note, Physician Chief Complaint: NO COMPLAINTS - Current Medication List Current Medications: Active Medications Albuterol Sulfate (Ventolin 0.083% Nebulizer Soln -) 1 amp NEB Q6H PRN PRN Reason: SHORT OF BREATH/WHEEZING Aspirin (Ecotrin -) 81 mg PO DAILY [facility] Last Admin: 01/16/17 10:10 Dose: 81 mg Atorvastatin Calcium (Lipitor -) 20 mg PO HS [facility] Last Admin: 01/15/17 22:27 Dose: 20 mg Bicalutamide (Casodex -) 50 mg PO DAILY [facility] Last Admin: 01/16/17 10:10 Dose: 50 mg Citalopram Hydrobromide (Celexa -) 10 mg PO DAILY [facility] Last Admin: 01/16/17 10:11 Dose: 10 mg Clonazepam (Klonopin -) 0.5 mg PO BID PRN PRN Reason: ANXIETY Divalproex Sodium (Depakote -) 500 mg PO BID [facility] Last Admin: 01/16/17 10:10 Dose: 500 mg Heparin Sodium (Porcine) (Heparin -) 1,000 unit IVPUSH PRN PRN PRN Reason: Heparin Heparin Sodium (Porcine) (Heparin -) 5,000 unit IVPUSH PRN PRN PRN Reason: Heparin Sodium Chloride (Normal Saline -) 1,000 mls @ 42 mls/hr IV ASDIR [facility] Stop: 01/16/17 15:00 Last Admin: 01/15/17 15:41 Dose: 42 mls/hr Heparin Sodium (Porcine) 25, (000 unit/ Sodium Chloride) 500 mls @ 20 mls/hr IV TITR MICHEL; 1,000 UNIT/HR PRN Reason: Protocol Last Admin: 01/16/17 10:15 Dose: 20 mls/hr Insulin Aspart (Novolog Vial Sliding Scale -) 1 vial SQ ACHS MICHEL PRN Reason: Protocol Last Admin: 01/16/17 06:45 Dose: Not Given Levetiracetam (Keppra -) 1,000 mg PO BID [facility] Last Admin: 01/16/17 10:10 Dose: 1,000 mg Lisinopril (Prinivil) 5 mg PO DAILY [facility] Last Admin: 01/16/17 10:10 Dose: 5 mg Magnesium Oxide (Mag-Ox -) 400 mg PO BID [facility] Last Admin: 01/16/17 10:10 Dose: 400 mg Oxybutynin Chloride (Ditropan -) 5 mg PO BID [facility] Last Admin: 01/16/17 10:10 Dose: 5 mg Ranolazine (Ranexa -) 500 mg PO BID [facility] Last Admin: 01/16/17 10:10 Dose: 500 mg Tamsulosin HCl (Flomax -) 0.8 mg PO DAILY@0830 [facility] Last Admin: 01/16/17 08:03 Dose: 0.8 mg Tramadol HCl (Ultram -) 50 mg PO Q8H PRN PRN Reason: PAIN Last Admin: 01/15/17 06:23 Dose: 50 mg - Objective Vital Signs: Vital Signs Temperature 98.2 F 01/16/17 08:36 Pulse Rate 56 L 01/16/17 08:36 Respiratory Rate 20 01/16/17 08:36 Blood Pressure 119/62 01/16/17 08:36 O2 Sat by Pulse Oximetry (%) 100 01/15/17 21:00 Constitutional: Yes: Calm Neck: Yes: WNL Cardiovascular: Yes: WNL Respiratory: Yes: WNL Gastrointestinal: Yes: Tenderness (LLQ SUPERFICIAL VEIN) Labs: CBC, BMP 01/16/17 06:30 01/16/17 06:30 INR, PTT INR 1.22 (0.82-1.09) H 01/14/17 14:50 Problem List - Problems (1) Abdominal mass, LLQ (left lower quadrant) Code(s): R19.04 - LEFT LOWER QUADRANT ABDOMINAL SWELLING, MASS AND LUMP (2) CAD (coronary artery disease) Code(s): I25.10 - ATHSCL HEART DISEASE OF [place] CORONARY ARTERY W/O ANG PCTRS (3) CHF (congestive heart failure) Code(s): I50.9 - HEART FAILURE, UNSPECIFIED Qualifiers: Congestive heart failure chronicity: chronic (4) COPD (chronic obstructive pulmonary disease) Code(s): J44.9 - CHRONIC OBSTRUCTIVE PULMONARY DISEASE, UNSPECIFIED (5) Diabetes mellitus type 2 in obese Code(s): E11.9 - TYPE 2 DIABETES MELLITUS WITHOUT COMPLICATIONS E66.9 - OBESITY, UNSPECIFIED (6) DVT (deep venous thrombosis) Code(s): I82.409 - ACUTE EMBOLISM AND THOMBOS UNSP DEEP VN UNSP LOWER EXTREMITY Qualifiers: DVT location: lower extremity Affected thrombotic vein of extremity: unspecified vein of extremity Laterality: left Chronicity: acute Qualified Code(s): I82.402 - Acute embolism and thrombosis of unspecified deep veins of left lower extremity Assessment/Plan (1) Abdominal mass, LLQ (left lower quadrant) Code(s): R19.04 - LEFT LOWER QUADRANT ABDOMINAL SWELLING, MASS AND LUMP APPRECIATE VASC SURG CONSULT CASE D/W HEME -> IV HEPARIN STARTED 2/2 H/O CLOTS H/O DVT HEME CONSULT APPRECIATED F/U CT CHEST/ABD/PELVIS C- (SHRIMP ALLERGY) TO R/O MASS & HEMATOMA (2) CAD (coronary artery disease) Code(s): I25.10 - ATHSCL HEART DISEASE OF [place] CORONARY ARTERY W/O ANG PCTRS HAS AFIB? -> LAST & LAST EKG DID NOT SHOW IT CARDIO ON CASE (3) CHF (congestive heart failure) Code(s): I50.9 - HEART FAILURE, UNSPECIFIED Qualifiers: Congestive heart failure chronicity: chronic (4) COPD (chronic obstructive pulmonary disease) Code(s): J44.9 - CHRONIC OBSTRUCTIVE PULMONARY DISEASE, UNSPECIFIED ALB NEB PRN (5) Diabetes mellitus type 2 in obese Code(s): E11.9 - TYPE 2 DIABETES MELLITUS WITHOUT COMPLICATIONS E66.9 - OBESITY, UNSPECIFIED BGM/ISS (6) DVT (deep venous thrombosis) Code(s): I82.409 - ACUTE EMBOLISM AND THOMBOS UNSP DEEP VN UNSP LOWER EXTREMITY Qualifiers: DVT location: lower extremity Affected thrombotic vein of extremity: unspecified vein of extremity Laterality: left Chronicity: acute Qualified Code(s): I82.402 - Acute embolism and thrombosis of unspecified deep veins of left lower extremity HAS IVC FILTER NOW ON IV HEPARIN F/U DUPLEX & SCROTAL SONO F/U PSA 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
--- NOTE | 2017-01-16 14:53 | PN ---
Progress Note (short form) - Note Progress Note: Patient seen and examined feels better. LLQ pain improved Last Vital Signs Temp Pulse Resp BP Pulse Ox 98.2 F 56 L 20 119/62 98 01/16/17 08:36 01/16/17 08:36 01/16/17 08:36 01/16/17 08:36 01/16/17 09:00 Cor: RSR, No murmurs, No gallops Lungs: Clear to P&A Abd: Soft, Normal bowel sounds, No organomegaly.Decreased varicosities over abdominal wall Ext:No significant edema Skin: stasis dermatitis Abnormal Lab Results 01/15/17 01/16/17 06:00 06:30 RDW 16.3 H Plt Count 111 L Hemoglobin A1c % 7.3 H D Home Medication List Medication Instructions Recorded Confirmed Type Aspirin [Aspirin EC] 81 mg PO DAILY 02/13/16 01/14/17 History Atorvastatin Ca [Lipitor] 20 mg PO DAILY 02/13/16 01/14/17 History Bicalutamide 50 mg PO DAILY 02/13/16 01/14/17 History Clonazepam [Klonopin -] 0.5 mg PO TID 02/13/16 01/14/17 History Divalproex [Depakote -] 500 mg PO BID 02/13/16 01/14/17 History Levetiracetam [Keppra Xr -] 1,000 mg PO TID 02/13/16 01/14/17 History Lisinopril 5 mg PO DAILY 02/13/16 01/14/17 History Oxybutynin Chloride [Oxybutynin 10 mg PO DAILY 02/13/16 01/14/17 History Chloride ER] Ranolazine [Ranexa] 500 mg PO BID 02/13/16 01/14/17 History Tamsulosin HCl 0.8 mg PO DAILY 02/13/16 01/14/17 History Citalopram Hydrobromide 10 mg PO DAILY 01/14/17 01/14/17 History [Citalopram HBr] Fesoterodine Fumarate [Toviaz] 4 mg PO DAILY 01/14/17 01/14/17 History Magnesium Oxide 500 mg PO BID 01/14/17 01/14/17 History Nitrofurantoin Monohyd/M-Cryst 100 mg PO BID 01/14/17 01/14/17 History [Macrobid -] Tramadol HCl [Ultram] 50 mg PO DAILY 01/14/17 01/14/17 History Active Medications Generic Name Dose Route Start Last Admin Trade Name Jamia PRN Reason Stop Dose Admin Albuterol Sulfate 1 amp 01/15/17 12:27 Ventolin 0.083% Nebulizer Soln - NEB Q6H PRN SHORT OF BREATH/WHEEZING Aspirin 81 mg 01/15/17 10:00 01/16/17 10:10 Ecotrin - PO 81 mg DAILY MICHEL Administration Atorvastatin Calcium 20 mg 01/14/17 22:00 01/15/17 22:27 Lipitor - PO 20 mg HS MICHEL Administration Bicalutamide 50 mg 01/15/17 10:00 01/16/17 10:10 Casodex - PO 50 mg DAILY MICHEL Administration Citalopram Hydrobromide 10 mg 01/15/17 10:00 01/16/17 10:11 Celexa - PO 10 mg DAILY MICHEL Administration Clonazepam 0.5 mg 01/14/17 18:17 Klonopin - PO BID PRN ANXIETY Divalproex Sodium 500 mg 01/14/17 22:00 01/16/17 10:10 Depakote - PO 500 mg BID MICHEL Administration Heparin Sodium (Porcine) 1,000 unit 01/16/17 08:54 Heparin - IVPUSH PRN PRN Heparin Heparin Sodium (Porcine) 5,000 unit 01/16/17 08:54 Heparin - IVPUSH PRN PRN Heparin Sodium Chloride 1,000 mls @ 42 mls/hr 01/15/17 15:07 01/15/17 15:41 Normal Saline - IV 01/16/17 15:00 42 mls/hr ASDIR MICHEL Administration Heparin Sodium (Porcine) 25, 500 mls @ 20 mls/hr 01/16/17 10:00 01/16/17 11:03 000 unit/ Sodium Chloride IV 20 mls/hr TITR MICHEL Administration Protocol 1,000 UNIT/HR Insulin Aspart 1 vial 01/15/17 16:30 01/16/17 12:19 Novolog Vial Sliding Scale - SQ Not Given ACHS MICHEL Protocol Levetiracetam 1,000 mg 01/14/17 22:00 01/16/17 10:10 Keppra - PO 1,000 mg BID MICHEL Administration Lisinopril 5 mg 01/15/17 10:00 01/16/17 10:10 Prinivil PO 5 mg DAILY MICHEL Administration Magnesium Oxide 400 mg 01/14/17 22:00 01/16/17 10:10 Mag-Ox - PO 400 mg BID MICHEL Administration Oxybutynin Chloride 5 mg 01/14/17 22:00 01/16/17 10:10 Ditropan - PO 5 mg BID MICHEL Administration Ranolazine 500 mg 01/14/17 22:00 01/16/17 10:10 Ranexa - PO 500 mg BID MICHEL Administration Tamsulosin HCl 0.8 mg 01/15/17 08:30 01/16/17 08:03 Flomax - PO 0.8 mg DAILY@0830 MICHEL Administration Tramadol HCl 50 mg 01/14/17 18:17 01/15/17 06:23 Ultram - PO 50 mg Q8H PRN Administration PAIN A/P 67 m hx cad s/p pci , obesity, dchf/venous insuff/le edema, cva, htn, hld, dm, seizures, copd, prostate/bladder ca, right dvt 2014 s/p cath/groin compression, also LLE DVT in 12/09, here with superficial vein thrombosis of abdominal wall veins. Also h/o pseudogout, h/o ivc filter LLQ abdominal pain -- ?? abdominal wall superficial vein thrombophlebitis. symptoms ongoing for 2 weeeks and increase with movement had been on lovenox for last year since LLE DVT on coumadin. Stopped last week. ? compliance hgb stable. no hematoma Patient wiull need thrombophilia/malignancy w/u restarted heparin h/o bladder cancer --early stgae. Being followed by Dr. Glaser--last cycstoscopy monthago --nl per patient h/o prostate cancer -- S/p RT. on casodex check PSA Awaitng CT cans to r/o active malignancy given hypercoagulable state check thrombophilia w/u mild thrombocytopenia/nl coags/nl Cr/LFts f/u Scan results
[2017-01-16] MEDS: HEPARIN NA (PORCINE) 5,000 UNITS/ML 1ML VIAL IVPUSH PRN ×2 (16:45→22:49)
[2017-01-16] MEDS: ATORVASTATIN CA 20 MG TABLET (FP) PO SCH (21:29)
--- NOTE | 2017-01-17 00:59 | CONS ---
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 Patient has a long and complicated medical history including diabetes, high blood pressure, obesity, diverticulosis, recurrent prostatism with hematuria. He has undergone radiation seed implantation 12 years earlier. The patient complains of bilateral orchalgia. He does not appear to be in any distress. He is on multiple medications including Casodex and Ditropan, a well as Flomax for his prostatism, overactive bladder and prostate cancer. DIAGNOSTICS: The patient underwent a renal ultrasound and this revealed the kidneys to be unremarkable. There was a postvoid residual of 170 mL. No acute pathology was noted. Because of the orchalgia, an ultrasound was performed and this revealed a 4-mm nonspecific hypoechogenic focus noted within the right testicle. This was noted previously. The results were of a very small right-sided hydrocele. Patient has a long history of bilateral orchalgia secondary to prostatism. Multiple urine cultures revealed no growth. His latest white count is 9300. Hemoglobin is 12.2 and hematocrit is 36.5. The patient's BUN is 16 and creatinine is 1.1. Random glucose was 93. His urine was nitrite as well as blood negative. IMPRESSION: At present is to continue with genitourinary treatment including bicalutamide, Flomax, and Ditropan. Will follow as outpatient. Gonzalo [id number]
[2017-01-17] MEDS: INSULIN SLIDING SCALE (NOVOLOG) 1 VIAL SQ SCH ×4 (06:58→22:53)
[2017-01-17] MEDS: TAMSULOSIN HCL 0.4 MG CAP.ER.24H (FP) PO SCH (08:28)
[2017-01-17 08:31] LABS: BILIRUBIN,TOTAL 0.7 mg/dL (0.2-1.0); CALCIUM 9.5 mg/dL (8.5-10.1); CREATININE 1.3 mg/dL (0.7-1.3)
[2017-01-17 08:33] LABS: MCH 28.3 pg (25.7-33.7); MEAN CELL VOLUME 85.8 fl (80-96); MEAN PLT VOLUME 9.5 fl (7.5-11.1); PLATELET COUNT 127 K/MM3 (134-434); RDW 16.2 % (11.9-15.9); WHITE BLOOD COUNT 9.8 K/mm3 (4.0-10.0)
[2017-01-17] MEDS ORDERED: PT OWN MED DRAWER 7, Y5N ONE ×3 (09:26→21:47)
[2017-01-17] MEDS: CITALOPRAM HYDROBROMIDE 10 MG TABLET (FP) PO SCH (09:30)
[2017-01-17] MEDS: BICALUTAMIDE 50 MG TABLET (FP) PO SCH (09:30)
[2017-01-17] MEDS: OXYBUTYNIN CHLORIDE 5 MG TABLET PO SCH ×2 (09:31→22:52)
[2017-01-17] MEDS: MAGNESIUM OXIDE 400 MG TABLET (FP) PO SCH ×2 (09:31→22:53)
[2017-01-17] MEDS: ASPIRIN COATED 81 MG TABLET.EC PO SCH (09:31)
[2017-01-17] MEDS: DIVALPROEX SODIUM 500 MG TABLET E.C. PO SCH ×2 (09:31→22:52)
[2017-01-17] MEDS: levETIRAcetam 500 MG TABLET (FP) PO SCH ×2 (09:31→22:53)
[2017-01-17] MEDS: RANOLAZINE E.R. 500 MG TABLET (FP) PO SCH ×2 (09:32→22:53)
[2017-01-17] MEDS: LISINOPRIL 5 MG TABLET (FP) PO SCH (09:32)
[2017-01-17] MEDS: HEPARIN - 25,000 UNIT in SODIUM CHLORIDE 495 ML IV SCH ×2 (11:40→11:41)
--- NOTE | 2017-01-17 18:24 | PN ---
Progress Note, Physician Chief Complaint: NO COMPLAINTS ANXIOUS TO GO HOME - Current Medication List Current Medications: Active Medications Albuterol Sulfate (Ventolin 0.083% Nebulizer Soln -) 1 amp NEB Q6H PRN PRN Reason: SHORT OF BREATH/WHEEZING Aspirin (Ecotrin -) 81 mg PO DAILY [facility] Last Admin: 01/17/17 09:31 Dose: 81 mg Atorvastatin Calcium (Lipitor -) 20 mg PO HS [facility] Last Admin: 01/16/17 21:29 Dose: 20 mg Bicalutamide (Casodex -) 50 mg PO DAILY [facility] Last Admin: 01/17/17 09:30 Dose: 50 mg Citalopram Hydrobromide (Celexa -) 10 mg PO DAILY [facility] Last Admin: 01/17/17 09:30 Dose: 10 mg Divalproex Sodium (Depakote -) 500 mg PO BID [facility] Last Admin: 01/17/17 09:31 Dose: 500 mg Heparin Sodium (Porcine) (Heparin -) 1,000 unit IVPUSH PRN PRN PRN Reason: Heparin Last Admin: 01/16/17 22:49 Dose: 1,000 unit Heparin Sodium (Porcine) (Heparin -) 5,000 unit IVPUSH PRN PRN PRN Reason: Heparin Heparin Sodium (Porcine) 25, (000 unit/ Sodium Chloride) 500 mls @ 20 mls/hr IV TITR MICHEL; 1,000 UNIT/HR PRN Reason: Protocol Last Admin: 01/17/17 11:41 Dose: Not Given Insulin Aspart (Novolog Vial Sliding Scale -) 1 vial SQ ACHS MICHEL PRN Reason: Protocol Last Admin: 01/17/17 16:34 Dose: Not Given Levetiracetam (Keppra -) 1,000 mg PO BID [facility] Last Admin: 01/17/17 09:31 Dose: 1,000 mg Lisinopril (Prinivil) 5 mg PO DAILY [facility] Last Admin: 01/17/17 09:32 Dose: 5 mg Magnesium Oxide (Mag-Ox -) 400 mg PO BID [facility] Last Admin: 01/17/17 09:31 Dose: 400 mg Oxybutynin Chloride (Ditropan -) 5 mg PO BID [facility] Last Admin: 01/17/17 09:31 Dose: 5 mg Ranolazine (Ranexa -) 500 mg PO BID [facility] Last Admin: 01/17/17 09:32 Dose: 500 mg Tamsulosin HCl (Flomax -) 0.8 mg PO DAILY@0830 [facility] Last Admin: 01/17/17 08:28 Dose: 0.8 mg - Objective Vital Signs: Vital Signs Temperature 97.8 F 01/17/17 15:19 Pulse Rate 68 01/17/17 15:19 Respiratory Rate 18 01/17/17 15:19 Blood Pressure 135/62 01/17/17 15:19 O2 Sat by Pulse Oximetry (%) 98 01/16/17 21:00 Constitutional: Yes: Calm Neck: Yes: WNL Cardiovascular: Yes: WNL Respiratory: Yes: WNL Gastrointestinal: Yes: WNL, Other (LLQ DISTENDED TENDER VEIN) Edema: Yes Integumentary: Yes: Venous Stasis Changes Labs: CBC, BMP 01/17/17 06:30 01/17/17 06:30 INR, PTT INR 1.22 (0.82-1.09) H 01/14/17 14:50 Problem List - Problems (1) Abdominal mass, LLQ (left lower quadrant) Code(s): R19.04 - LEFT LOWER QUADRANT ABDOMINAL SWELLING, MASS AND LUMP (2) CAD (coronary artery disease) Code(s): I25.10 - ATHSCL HEART DISEASE OF [place] CORONARY ARTERY W/O ANG PCTRS (3) CHF (congestive heart failure) Code(s): I50.9 - HEART FAILURE, UNSPECIFIED Qualifiers: Congestive heart failure chronicity: chronic (4) COPD (chronic obstructive pulmonary disease) Code(s): J44.9 - CHRONIC OBSTRUCTIVE PULMONARY DISEASE, UNSPECIFIED (5) Diabetes mellitus type 2 in obese Code(s): E11.9 - TYPE 2 DIABETES MELLITUS WITHOUT COMPLICATIONS E66.9 - OBESITY, UNSPECIFIED (6) DVT (deep venous thrombosis) Code(s): I82.409 - ACUTE EMBOLISM AND THOMBOS UNSP DEEP VN UNSP LOWER EXTREMITY Qualifiers: DVT location: lower extremity Affected thrombotic vein of extremity: unspecified vein of extremity Laterality: left Chronicity: acute Qualified Code(s): I82.402 - Acute embolism and thrombosis of unspecified deep veins of left lower extremity (7) Urinary retention Code(s): R33.9 - RETENTION OF URINE, UNSPECIFIED Assessment/Plan (1) Abdominal mass, LLQ (left lower quadrant) Code(s): R19.04 - LEFT LOWER QUADRANT ABDOMINAL SWELLING, MASS AND LUMP APPRECIATE VASC SURG CONSULT CASE D/W HEME -> IV HEPARIN STARTED 2/2 H/O CLOTS H/O LLE DVT -> CONFIRMED BY DUPLEX HEME CONSULT APPRECIATED CT CHEST/ABD/PELVIS SHOWS NO MASS. (2) CAD (coronary artery disease) Code(s): I25.10 - ATHSCL HEART DISEASE OF [place] CORONARY ARTERY W/O ANG PCTRS HAS AFIB? -> LAST & LAST EKG DID NOT SHOW IT CARDIO ON CASE (3) CHF (congestive heart failure) Code(s): I50.9 - HEART FAILURE, UNSPECIFIED Qualifiers: Congestive heart failure chronicity: chronic (4) COPD (chronic obstructive pulmonary disease) Code(s): J44.9 - CHRONIC OBSTRUCTIVE PULMONARY DISEASE, UNSPECIFIED ALB NEB PRN (5) Diabetes mellitus type 2 in obese Code(s): E11.9 - TYPE 2 DIABETES MELLITUS WITHOUT COMPLICATIONS E66.9 - OBESITY, UNSPECIFIED BGM/ISS (6) DVT (deep venous thrombosis) Code(s): I82.409 - ACUTE EMBOLISM AND THOMBOS UNSP DEEP VN UNSP LOWER EXTREMITY Qualifiers: DVT location: lower extremity Affected thrombotic vein of extremity: unspecified vein of extremity Laterality: left Chronicity: acute Qualified Code(s): I82.402 - Acute embolism and thrombosis of unspecified deep veins of left lower extremity HAS IVC FILTER NOW ON IV HEPARIN REFUSES LOVENOX -> PLANNED ELIQUIS. WILL START IF NO URO & VASC SURG INTERVENTION F/U DUPLEX & SCROTAL SONO F/U PSA CT SHOWS CHRONIC OCCLUSION -> VASC SURG ON CASE (7) Urinary retention Code(s): R33.9 - RETENTION OF URINE, UNSPECIFIED SONO -> RVR 170cc URO CONSULTED Cr 1.3 [employer]
[2017-01-17] MEDS ORDERED: traMADol HCL 50 MG TABLET PO PRN (18:59)
--- NOTE | 2017-01-17 19:01 | PN ---
GI Progress Note Subjective: abdominal pain in the left lower quadrant has improved after iv hydration and in heparin, discussed case with Dr Thomas. He will need chronic anticoagulation to prevent end organ damage including chronic mesenteric vein thrombosis, at present the patient is asymptomatic - Objective Vital Signs: Vital Signs Temperature 97.8 F 01/17/17 15:19 Pulse Rate 68 01/17/17 15:19 Respiratory Rate 18 01/17/17 15:19 Blood Pressure 135/62 01/17/17 15:19 O2 Sat by Pulse Oximetry (%) 98 01/16/17 21:00 Constitutional: No Distress, Obese Eyes: Yes: Conjunctiva Clear HENT: Yes: Atraumatic Neck: Yes: Trachea Midline Cardiovascular: Yes: Regular Rate and Rhythm Respiratory: Yes: CTA Bilaterally ...Palpate: Yes: Soft. No: Firm/Rigid, Guarding, Hepatomegaly, Mass, Pulsatile Mass, Splenomegaly, Tenderness Labs: CBC, BMP 01/17/17 06:30 01/17/17 06:30 INR, PTT INR 1.22 (0.82-1.09) H 01/14/17 14:50 Problem List - Problems (1) Thrombosis Assessment/Plan: causing abdominal pain secondary to vascular compromise R> will need chronic anticoagulation made aware to ff-up, for out patient colonoscopy Code(s): I82.90 - ACUTE EMBOLISM AND THROMBOSIS OF UNSPECIFIED VEIN
[2017-01-17] MEDS ORDERED: oxyCODONE HCL 5 MG TABLET PO PRN (21:29)
[2017-01-17] MEDS ORDERED: INSULIN (NOVOLOG) ASPART 100 UNITS/ML 10ML VIAL ONE (21:45)
--- NOTE | 2017-01-17 22:24 | PN ---
Progress Note (short form) - Note Progress Note: Patient seen and examined feels better. LLQ pain improved Last Vital Signs Temp Pulse Resp BP Pulse Ox 98.2 F 56 L 20 119/62 98 01/16/17 08:36 01/16/17 08:36 01/16/17 08:36 01/16/17 08:36 01/16/17 09:00 Cor: RSR, No murmurs, No gallops Lungs: Clear to P&A Abd: Soft, Normal bowel sounds, No organomegaly.Decreased varicosities over abdominal wall Ext:No significant edema Skin: stasis dermatitis Abnormal Lab Results 01/15/17 01/16/17 06:00 06:30 RDW 16.3 H Plt Count 111 L Hemoglobin A1c % 7.3 H D Home Medication List Medication Instructions Recorded Confirmed Type Aspirin [Aspirin EC] 81 mg PO DAILY 02/13/16 01/14/17 History Atorvastatin Ca [Lipitor] 20 mg PO DAILY 02/13/16 01/14/17 History Bicalutamide 50 mg PO DAILY 02/13/16 01/14/17 History Clonazepam [Klonopin -] 0.5 mg PO TID 02/13/16 01/14/17 History Divalproex [Depakote -] 500 mg PO BID 02/13/16 01/14/17 History Levetiracetam [Keppra Xr -] 1,000 mg PO TID 02/13/16 01/14/17 History Lisinopril 5 mg PO DAILY 02/13/16 01/14/17 History Oxybutynin Chloride [Oxybutynin 10 mg PO DAILY 02/13/16 01/14/17 History Chloride ER] Ranolazine [Ranexa] 500 mg PO BID 02/13/16 01/14/17 History Tamsulosin HCl 0.8 mg PO DAILY 02/13/16 01/14/17 History Citalopram Hydrobromide 10 mg PO DAILY 01/14/17 01/14/17 History [Citalopram HBr] Fesoterodine Fumarate [Toviaz] 4 mg PO DAILY 01/14/17 01/14/17 History Magnesium Oxide 500 mg PO BID 01/14/17 01/14/17 History Nitrofurantoin Monohyd/M-Cryst 100 mg PO BID 01/14/17 01/14/17 History [Macrobid -] Tramadol HCl [Ultram] 50 mg PO DAILY 01/14/17 01/14/17 History Active Medications Generic Name Dose Route Start Last Admin Trade Name Jamia PRN Reason Stop Dose Admin Albuterol Sulfate 1 amp 01/15/17 12:27 Ventolin 0.083% Nebulizer Soln - NEB Q6H PRN SHORT OF BREATH/WHEEZING Aspirin 81 mg 01/15/17 10:00 01/16/17 10:10 Ecotrin - PO 81 mg DAILY MICHEL Administration Atorvastatin Calcium 20 mg 01/14/17 22:00 01/15/17 22:27 Lipitor - PO 20 mg HS MICHEL Administration Bicalutamide 50 mg 01/15/17 10:00 01/16/17 10:10 Casodex - PO 50 mg DAILY MICHEL Administration Citalopram Hydrobromide 10 mg 01/15/17 10:00 01/16/17 10:11 Celexa - PO 10 mg DAILY MICHEL Administration Clonazepam 0.5 mg 01/14/17 18:17 Klonopin - PO BID PRN ANXIETY Divalproex Sodium 500 mg 01/14/17 22:00 01/16/17 10:10 Depakote - PO 500 mg BID MICHEL Administration Heparin Sodium (Porcine) 1,000 unit 01/16/17 08:54 Heparin - IVPUSH PRN PRN Heparin Heparin Sodium (Porcine) 5,000 unit 01/16/17 08:54 Heparin - IVPUSH PRN PRN Heparin Sodium Chloride 1,000 mls @ 42 mls/hr 01/15/17 15:07 01/15/17 15:41 Normal Saline - IV 01/16/17 15:00 42 mls/hr ASDIR MICHEL Administration Heparin Sodium (Porcine) 25, 500 mls @ 20 mls/hr 01/16/17 10:00 01/16/17 11:03 000 unit/ Sodium Chloride IV 20 mls/hr TITR MICHEL Administration Protocol 1,000 UNIT/HR Insulin Aspart 1 vial 01/15/17 16:30 01/16/17 12:19 Novolog Vial Sliding Scale - SQ Not Given ACHS MICHEL Protocol Levetiracetam 1,000 mg 01/14/17 22:00 01/16/17 10:10 Keppra - PO 1,000 mg BID MICHEL Administration Lisinopril 5 mg 01/15/17 10:00 01/16/17 10:10 Prinivil PO 5 mg DAILY MICHEL Administration Magnesium Oxide 400 mg 01/14/17 22:00 01/16/17 10:10 Mag-Ox - PO 400 mg BID MICHEL Administration Oxybutynin Chloride 5 mg 01/14/17 22:00 01/16/17 10:10 Ditropan - PO 5 mg BID MICHEL Administration Ranolazine 500 mg 01/14/17 22:00 01/16/17 10:10 Ranexa - PO 500 mg BID MICHEL Administration Tamsulosin HCl 0.8 mg 01/15/17 08:30 01/16/17 08:03 Flomax - PO 0.8 mg DAILY@0830 MICHEL Administration Tramadol HCl 50 mg 01/14/17 18:17 01/15/17 06:23 Ultram - PO 50 mg Q8H PRN Administration PAIN A/P 67 m hx cad s/p pci , obesity, dchf/venous insuff/le edema, cva, htn, hld, dm, seizures, copd, prostate/bladder ca, right dvt 2014 s/p cath/groin compression, also LLE DVT in 12/09, here with superficial vein thrombosis of abdominal wall veins. Also h/o pseudogout, h/o ivc filter LLQ abdominal pain -- abdominal wall superficial vein thrombophlebitis. symptoms ongoing for 2 weeeks and increase with movement had been on lovenox for last year since LLE DVT on coumadin. Stopped 2 weeks ago ? ? compliance hgb stable. no hematoma CT c/a/p--no obvious malignancy. + granulomatous disease sequela in liver and hilar nodes. 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 Being followed by Dr. Glaser--last cycstoscopy monthago --nl per patient h/o prostate cancer -- S/p RT. on casodex check PSA mild thrombocytopenia/nl coags/nl Cr/LFts will need chronic a/c. discussed in great detail with patient via sign letterer.patient failed coumadin in the past. he is reluctant to do lovenox realizing that it is the most potent in coumadin fsilures. hence will try NOACs. He understands the downsides including lack of antidote. can switch heparin to eliquis 5mg bid ordered thrombophilia w/u needs colonoscopy and f/u for bladder/prostate ca as outpatient discussed with gi team
[2017-01-17] MEDS: ATORVASTATIN CA 20 MG TABLET (FP) PO SCH (22:53)
[2017-01-18 06:07] LABS: CA 19-9 7 U/mL (0-35); PROSTATE SPECIFIC ANTIGEN < 0.10 ng/mL (0.0-4.0)
[2017-01-18] MEDS: INSULIN SLIDING SCALE (NOVOLOG) 1 VIAL SQ SCH ×3 (06:11→16:43)
[2017-01-18] MEDS: TAMSULOSIN HCL 0.4 MG CAP.ER.24H (FP) PO SCH (08:10)
[2017-01-18 08:21] LABS: MCH 28.4 pg (25.7-33.7); MEAN PLT VOLUME 9.2 fl (7.5-11.1); PLATELET COUNT 117 K/MM3 (134-434); RDW 16.3 % (11.9-15.9); WHITE BLOOD COUNT 9.7 K/mm3 (4.0-10.0)
[2017-01-18 09:28] LABS: ALBUMIN 3.5 g/dl (3.4-5.0); ALK PHOS 73 U/L (45-117); ANION GAP 13 (8-16); BILIRUBIN,TOTAL 0.7 mg/dL (0.2-1.0); CALCIUM 9.5 mg/dL (8.5-10.1); CO2 26 mmol/L (21-32); CREATININE 1.2 mg/dL (0.7-1.3); GLUCOSE,RANDOM 91 mg/dL (74-106); SGOT/AST 25 U/L (15-37); SGPT/ALT 23 U/L (12-78); TOT PROT 7.2 g/dl (6.4-8.2)
[2017-01-18] MEDS ORDERED: PT OWN MED DRAWER 7, Y5N ONE ×2 (09:38→17:48)
[2017-01-18] MEDS: DIVALPROEX SODIUM 500 MG TABLET E.C. PO SCH (09:41)
[2017-01-18] MEDS: CITALOPRAM HYDROBROMIDE 10 MG TABLET (FP) PO SCH (09:41)
[2017-01-18] MEDS: BICALUTAMIDE 50 MG TABLET (FP) PO SCH (09:41)
[2017-01-18] MEDS: MAGNESIUM OXIDE 400 MG TABLET (FP) PO SCH (09:42)
[2017-01-18] MEDS: levETIRAcetam 500 MG TABLET (FP) PO SCH (09:42)
[2017-01-18] MEDS: OXYBUTYNIN CHLORIDE 5 MG TABLET PO SCH (09:42)
[2017-01-18] MEDS: ASPIRIN COATED 81 MG TABLET.EC PO SCH (09:42)
[2017-01-18] MEDS: RANOLAZINE E.R. 500 MG TABLET (FP) PO SCH (09:43)
[2017-01-18] MEDS: LISINOPRIL 5 MG TABLET (FP) PO SCH (09:43)
[2017-01-18] MEDS: HEPARIN - 25,000 UNIT in SODIUM CHLORIDE 495 ML IV SCH (11:24)
[2017-01-18 12:30] LABS: PLATELET ESTIMATE DECREASED (NORMAL)
--- NOTE | 2017-01-18 14:12 | DS ---
Physical Examination Vital Signs: Vital Signs Temperature 97.3 F L 01/18/17 09:00 Pulse Rate 59 L 01/18/17 09:00 Respiratory Rate 18 01/18/17 09:00 Blood Pressure 121/62 01/18/17 09:00 O2 Sat by Pulse Oximetry (%) 98 01/16/17 21:00 Findings/Remarks: ANXIOUS TO GO HOME Constitutional: Yes: No Distress Eyes: Yes: WNL HENT: Yes: WNL Neck: Yes: WNL Cardiovascular: Yes: WNL Respiratory: Yes: WNL Gastrointestinal: Yes: Tenderness Renal/: Yes: WNL Musculoskeletal: Yes: Muscle Pain, Muscle Weakness Extremities: Yes: Other Edema: Yes Edema: LLE: 2+, RLE: 2+ Peripheral Pulses WNL: Yes Integumentary: Yes: Pressure Ulcer, Rash, Venous Stasis Changes Wound/Incision: Yes: Dressing Dry and Intact Neurological: Yes: Pre-Existing Deficit, Unsteady Gait ...Motor Strength: LLE, RLE Psychiatric: Yes: Agitated Labs: CBC, BMP 01/18/17 06:30 01/18/17 06:30 Discharge Summary Reason For Visit: LEFT LOWER QUADRANT ABDOMINAL MASS Current Active Problems Abdominal mass, LLQ (left lower quadrant) (Acute) Thrombosis (Acute) Urinary retention (Acute) Procedures: Principal: CT SCAN Other Procedures: SONO TESTICLES Hospital Course: ADMITTED FOR ACUTE THROMBUS, HAS BEEN OFF AC BECAUSE DOES NOT WANT TO TAKE IT, NON-COMPLIANT. RESTARTED IV HEPARIN, WORKED UP BY GI AND ONCOLOGY, STARTED ELIQUIS 5MG BID WITH HOPES HE STAYS ADHERENT TO MEDS. VNS AND PMD F/U Condition: Fair - Instructions Diet, Activity, Other Instructions: ADA/LOW SODIUM/FAT Referrals: Ruth Suazo MD [Primary Care Provider] - Disposition: VNS/HOME HEALTH CARE - Home Medications Comprehensive Discharge Medication List: Ambulatory Orders Aspirin [Aspirin EC] 81 mg PO DAILY 02/13/16 Atorvastatin Ca [Lipitor] 20 mg PO DAILY 02/13/16 Bicalutamide 50 mg PO DAILY 02/13/16 Clonazepam [Klonopin -] 0.5 mg PO TID 02/13/16 Divalproex [Depakote -] 500 mg PO BID 02/13/16 Levetiracetam [Keppra Xr -] 1,000 mg PO TID 02/13/16 Lisinopril 5 mg PO DAILY 02/13/16 Oxybutynin Chloride [Oxybutynin Chloride ER] 10 mg PO DAILY 02/13/16 Ranolazine [Ranexa] 500 mg PO BID 02/13/16 Tamsulosin HCl 0.8 mg PO DAILY 02/13/16 Citalopram Hydrobromide [Citalopram HBr] 10 mg PO DAILY 01/14/17 Fesoterodine Fumarate [Toviaz] 4 mg PO DAILY 01/14/17 Magnesium Oxide 500 mg PO BID 01/14/17 Nitrofurantoin Monohyd/M-Cryst [Macrobid -] 100 mg PO BID 01/14/17 Tramadol HCl [Ultram] 50 mg PO DAILY 01/14/17
[2017-01-18 15:14] VITALS: BP 130/65; PULSE 61; TEMP 98.4
--- NOTE | 2017-01-18 18:38 | HOSP ---
Subjective - Review of Symptoms Events since last encounter: witnessed fall. while patient strapped in stretcher with EMS, stretcher flips over and stretcher hits the ground. I was 15 feet away when i heard the sound of the stretcher hit the floor and quickly assessed the patient while in and out of the stretcher. patient did not hit ground or head, patient fell on right side. patient carefully taking out of stretcher with spine and neck stabilized. patient assess on the ground assessed. PE no point tenderness on spine, chest, extremities, head, abdomen. no visible injuries, patient reports no pain, no discomfort and denies hitting his head or LOC. patient denies hitting any part of his body. shoulders and hips assessed and full range of motion no point tenderness. The patient denies Chest pain, SOB, dizziness, lightheadedness, or palpitation. The patient denies head injury. The patient denies any LOC, PARTIDA, fever, chills, cough, N/V/D, visual changes, neck pain, dysuria, hematuria, frequency, bowel/bladder incontinence or retention, abdominal pain,. The patient. denies other bodily pain or injury. Dr Suazo was called and and would like to see him in the office tomorrow. In light of anticoagulation therapy patient is instructed of bleeding risk and symptoms, and if any PARTIDA, light headedness, CP, palpitations, fevers, chills, n/v /d/, urine or stool discoloration to return to ED. Temp 98.3 hr 62 BP 151/67. Physical Examination Vital Signs: Vital Signs Temperature 98.4 F 01/18/17 15:11 Pulse Rate 61 01/18/17 15:11 Respiratory Rate 18 01/18/17 15:11 Blood Pressure 130/65 01/18/17 15:11 O2 Sat by Pulse Oximetry (%) 98 01/16/17 21:00 Constitutional: Yes: No Distress, Calm, Obese Eyes: Yes: WNL, Conjunctiva Clear, EOM Intact, PERRL HENT: Yes: WNL, Atraumatic, Normocephalic Neck: Yes: WNL, Supple (full range of motion no point tenderness.) Cardiovascular: Yes: WNL (no tappreciated, distent heart sounds) Respiratory: Yes: WNL, Regular, CTA Bilaterally Gastrointestinal: Yes: WNL, Normal Bowel Sounds, Soft, Abdomen, Obese ...Rectal Exam: Yes: Deferred Musculoskeletal: Yes: WNL Extremities: Yes: WNL (no point tendernes, full range of motion, 5/5 strength,) Edema: LLE: Trace, RLE: Trace Neurological: Yes: WNL, Alert, Oriented, Cran Nerves II-XII Intact ...Motor Strength: WNL Psychiatric: Yes: WNL, Alert, Oriented Labs: CBC, BMP 01/18/17 06:30 01/18/17 06:30 Hospitalist Encounter Assessment: s/p fall in light of history and PE finding no imaging is necessary at this time. No lOC, no direct trauma, PE exam benign, vitals normal, patient instructed to see DR Suazo in office tomorrow. contact and will see patient tomorrow in office. patient instructed to reports to the ER or the nearest ER if he has any persistent and worsening symptoms, chest pain, palpitation, fevers, chills, night sweats, Nausea, Vomiting, severe headache dizziness or loss of consciousness. Visit type - Emergency Visit Emergency Visit: Yes ED Registration Date: 01/14/17 Care time: The patient presented to the Emergency Department on the above date and was hospitalized for further evaluation of their emergent condition. - New Patient This patient is new to me today: Yes Date on this admission: 01/14/17 - Critical Care Critical Care patient: No
[2017-01-18] MEDS ORDERED: APIXABAN 5 MG TABLET PO SCH (22:00)
[2017-01-21 10:18] LABS: HIGH DOSE HEPARIN SRA 11 % (0-20); LOW DOSE HEPARIN SRA 4 % (0-20)
== END 2017-01-18 18:30 | disposition home health service (06) | DRG 300 ==
LOC: JER 12:26 → JERBED 14:39 → J8W 15:39
PROVIDERS: ADMIT Family Medicine; ATTEND Family Medicine
DX: I82.90 Acute embolism and thrombosis of unspecified vein (principal); Z68.42 Body mass index [BMI] 45.0-49.9, adult; R19.04 Left lower quadrant abdominal swelling, mass and lump; R33.9 Retention of urine, unspecified; D69.6 Thrombocytopenia, unspecified; J44.9 Chronic obstructive pulmonary disease, unspecified; E11.9 Type 2 diabetes mellitus without complications; Z85.46 Personal history of malignant neoplasm of prostate; Z85.51 Personal history of malignant neoplasm of bladder; Z87.891 Personal history of nicotine dependence; I25.10 Atherosclerotic heart disease of native coronary artery without angina pectoris; Z95.1 Presence of aortocoronary bypass graft; E66.9 Obesity, unspecified; E78.5 Hyperlipidemia, unspecified
CPT/HCPCS: 36415; 71010-TC; 71250-TC; 74176-TC; 76705; 76775-TC; 76856-TC; 76870-TC; 80053; 80061; 81003; 82272; 82542; 83036; 83605; 83690; 83721; 84153; 85025; 85610; 85730; 86022; 86301; 87086; 90670; 93005; 93010; 93970-TC; 99284-25; J1644

== ENCOUNTER 2017-03-20 13:29 | Inpatient (IN) | payer MEDICARE, OTHER ==
--- NOTE | 2017-03-20 13:36 | PDOC ---
History of Present Illness - General History Source: Patient Exam Limitations: No Limitations - History of Present Illness Initial Comments: 03/20/17 15:31 The patient is a 67 year old male with past medical history of hypertension, hyperlipidemia, CAD, s/p cardiac catheterization, A-fib, DVT, hypothyroidism, CVA, renal stones, obesity, and prostate cancer (2016) who presents to the ED with complaints of one day of hematuria. The patient states that today he is experiencing difficulty passing urine as well as some mild suprapubic pain. He denies any fever, recent illness, chills, nausea, vomiting, diarrhea, cough, shortness of breath or chest pain. PCP: Dr. Suazo <Sushila Martinez - Last Filed: 03/20/17 15:31> <Deidre Garcia - Last Filed: 03/20/17 16:51> - General Chief Complaint: Hematuria Stated Complaint: BLOOD IN URINE Time Seen by Provider: 03/20/17 13:34 Past History <Sushila Martinez - Last Filed: 03/20/17 15:31> - Past Medical History Anemia: No Asthma: Yes Cancer: Yes (prostate) Cardiac Disorders: Yes (ANGINA, RLE DVT) CVA: Yes (rt side) COPD: Yes CHF: No (atrial fib) DVT: Yes Dementia: No Diabetes: Yes GI Disorders: No Disorders: Yes (renal stones) HTN: Yes Hypercholesterolemia: Yes Liver Disease: No Suicide Attempt (Hx): No Seizures: Yes Thyroid Disease: No - Surgical History Abdominal Surgery: Yes (Hernia repair) Appendectomy: Yes Cardiac Surgery: No Cholecystectomy: Yes Lung Surgery: No Neurologic Surgery: No Orthopedic Surgery: Yes (lft arm surgery--plate) - Immunization History Immunization Up to Date: Yes - Psycho/Social/Smoking Cessation Hx Anxiety: No Suicidal Ideation: No Smoking Status: No Smoking History: Former smoker Have you smoked in the past 12 months: Yes Number of Cigarettes Smoked Daily: 0 If you are a former smoker, when did you quit?: 25 years Hx Alcohol Use: No Drug/Substance Use Hx: No Substance Use Type: None Hx Substance Use Treatment: No <Deidre Garcia - Last Filed: 03/20/17 16:51> - Past Medical History Allergies/Adverse Reactions: Allergies Allergy/AdvReac Type Severity Reaction Status Date / Time amoxicillin Allergy Mild Rash Verified 01/14/17 12:31 carbamazepine [From Tegretol] Allergy Mild Rash Verified 01/14/17 12:31 cephalexin [Cephalexin] Allergy Mild Rash Verified 01/14/17 12:31 ciprofloxacin Allergy Mild Rash Verified 01/14/17 12:31 fluconazole Allergy Mild Verified 01/14/17 12:31 lamotrigine [From Lamictal] Allergy Mild Rash Verified 01/14/17 12:31 metronidazole Allergy Mild Rash Verified 01/14/17 12:31 phenobarbital Allergy Mild Rash Verified 01/14/17 12:31 phenytoin sodium Allergy Mild Rash Verified 01/14/17 12:31 [From Dilantin] phenytoin sodium extended Allergy Mild Rash Verified 01/14/17 12:31 [From Dilantin] sulfamethoxazole Allergy Mild Rash Verified 01/14/17 12:31 [From Sulfatrim] trimethoprim [From Sulfatrim] Allergy Mild Rash Verified 01/14/17 12:31 amoxicillin trihydrate Allergy Unknown Verified 01/14/17 12:31 [From Augmentin] potassium clavulanate Allergy Unknown Verified 01/14/17 12:31 [From Augmentin] SHRIMP Allergy Mild Rash Uncoded 01/14/17 12:31 ciproflux Allergy Uncoded 01/14/17 12:31 shrimp Allergy Uncoded 01/14/17 12:31 Home Medications: Ambulatory Orders Aspirin [ASA -] 81 mg PO DAILY 03/20/17 Atorvastatin Ca [Lipitor] 20 mg PO HS 03/20/17 Bicalutamide [Casodex -] 50 mg PO DAILY 03/20/17 Citalopram Hydrobromide [Celexa -] 10 mg PO DAILY 03/20/17 Clonazepam [Klonopin -] 0.5 mg PO TID 03/20/17 Divalproex *ER* [Depakote *ER* -] 500 mg PO BID 03/20/17 Ferrous Sulfate [Feosol] 325 mg PO DAILY 03/20/17 Fesoterodine Fumarate [Toviaz] 4 mg PO DAILY 03/20/17 Folic Acid 1 mg PO DAILY 03/20/17 Levetiracetam 1,000 mg PO TID 03/20/17 Lisinopril [Prinivil] 5 mg PO DAILY 03/20/17 Magnesium Oxide [Magnesium] 500 mg PO BID 03/20/17 Nitrofurantoin Macrocrystal [Nitrofurantoin] 100 mg PO BID 03/20/17 Oxybutynin Chloride [Ditropan -] 10 mg PO DAILY 03/20/17 Ranolazine [Ranexa] 500 mg PO BID 03/20/17 Rivaroxaban [Xarelto -] 20 mg PO DAILY 03/20/17 Tamsulosin HCl [Flomax] 0.4 mg PO BID 03/20/17 Tramadol HCl [Ultram -] 50 mg PO DAILY 03/20/17 Review of Systems - Review of Systems Able to Perform ROS?: Yes Comments:: 03/20/17 15:32 GENERAL/CONSTITUTIONAL: No fever or chills. No weakness. HEAD, EYES, EARS, NOSE AND THROAT: No change in vision. No ear pain or discharge. No sore throat. CARDIOVASCULAR: No chest pain or shortness of breath. RESPIRATORY: No cough, wheezing, or hemoptysis. GASTROINTESTINAL: No nausea, vomiting, diarrhea or constipation. GENITOURINARY: Present: hematuria, hesitancy, suprapubic pain No dysuria, frequency. MUSCULOSKELETAL: No joint or muscle swelling or pain. No neck or back pain. SKIN: No rash NEUROLOGIC: No headache, vertigo, loss of consciousness, or change in strength/ sensation. ENDOCRINE: No increased thirst. No abnormal weight change. HEMATOLOGIC/LYMPHATIC: No anemia, easy bleeding, or history of blood clots. ALLERGIC/IMMUNOLOGIC: No hives or skin allergy. All Other Systems: Reviewed and Negative <Sushila Martinez - Last Filed: 03/20/17 15:31> *Physical Exam - Vital Signs Last Vital Signs Temp Pulse Resp BP Pulse Ox 97.6 F 74 20 189/77 98 03/20/17 13:48 03/20/17 13:48 03/20/17 13:48 03/20/17 13:48 03/20/17 13:48 - Physical Exam Comments: 03/20/17 15:33 GENERAL: Awake, alert, and fully oriented, in no acute distress HEAD: No signs of trauma EYES: PERRLA, EOMI, sclera anicteric, conjunctiva clear ENT: Auricles normal inspection, hearing grossly normal, nares patent, oropharynx clear without exudates. Moist mucosa NECK: Normal ROM, supple, no lymphadenopathy, JVD, or masses LUNGS: Breath sounds equal, clear to auscultation bilaterally. No wheezes, and no crackles HEART: Regular rate and rhythm, normal S1 and S2, no murmurs, rubs or gallops ABDOMEN: Suprapubic tenderness, Soft, normoactive bowel sounds. No guarding, no rebound. No masses EXTREMITIES: 3+ pitting edema with chronic stasis changes of bilateral lower extremities. Normal range of motion. No clubbing or cyanosis. No cords, erythema , or tenderness NEUROLOGICAL: Cranial nerves II through XII grossly intact. Normal speech, normal gait SKIN: Warm, Dry, normal turgor, no rashes or lesions noted. <Sushila Martinez - Last Filed: 03/20/17 15:31> ED Treatment Course - ADDITIONAL ORDERS Additional order review: Laboratory Results 03/20/17 14:00 Urine Color Dk. red Urine Appearance Clear Urine pH 7.0 D Urine Protein 3+ H Urine Glucose (UA) Trace H Urine Ketones 1+ H Urine Blood 3+ H Urine Nitrite Positive Urine Bilirubin 3+ H Urine Urobilinogen >=8.0 e.u./dl Ur Leukocyte Esterase 2+ H Urine RBC Urine WBC Moderate Ur Epithelial Cells Moderate Urine Bacteria Moderate Urine Mucus 2+ <Sushila Martinez - Last Filed: 03/20/17 15:31> - LABORATORY CBC & Chemistry Diagram: 03/20/17 15:37 03/20/17 15:37 <Deidre Garcia - Last Filed: 03/20/17 16:51> Medical Decision Making - Medical Decision Making Urine was grossly bloody on initial soto placement- dark maroon in color. Pt reported relief in symptoms upon placement. After the initial urine was emptied from the bag (1800 cc), it started to clear to a more pink color with some blood sediment. As it is clearing, will not irrigate the soto, there does not appear to be acute bleeding. Discussed with Dr. Bo, will admit for serial CBCs, as the amount of blood in the urine appears significant. <Deidre Garcia - Last Filed: 03/20/17 16:51> *DC/Admit/Observation/Transfer - Attestations Scribe Attestion: 03/20/17 15:35 Documentation prepared by Sushila Martinez, acting as chief medical technologist for Deidre Garcia MD. <Sushila Martinez - Last Filed: 03/20/17 15:31> - Discharge Dispostion Admit: Yes <Deidre Garcia - Last Filed: 03/20/17 16:51> Diagnosis at time of Disposition: Hematuria UTI (urinary tract infection) Qualifiers: Urinary tract infection type: site unspecified Hematuria presence: with hematuria Qualified Code(s): N39.0 - Urinary tract infection, site not specified - Discharge Dispostion Condition at time of disposition: Stable - Referrals
[2017-03-20 13:58] VITALS: BMI 42.0
[2017-03-20 14:51] LABS: URINE APPEARANCE CLEAR; URINE BILIRUBIN 3+ (NEGATIVE); URINE COLOR DK. RED; URINE GLUCOSE (UA) TRACE (NEGATIVE); URINE KETONE 1+ (NEGATIVE); URINE UROBILINOGEN >=8.0 E.U./dl E.U./dl (0.2-1.0)
[2017-03-20 14:56] LABS: URINE BLOOD 3+ (NEGATIVE)
[2017-03-20 14:57] LABS: URINE LEUK ESTERASE 2+ (NEGATIVE); URINE NITRITE POSITIVE (NEGATIVE); URINE PROTEIN 3+ (NEGATIVE)
[2017-03-20 15:13] LABS: URINE BACTERIA MODERATE /hpf (NONE SEEN); URINE WBC MODERATE /hpf (3-5)
[2017-03-20 15:14] LABS: URINE MUCUS 2+
[2017-03-20] MEDS ORDERED: NITROFURANTOIN MACROCRYSTAL 50 MG CAPSULE (FP) PO SCH (15:30)
[2017-03-20 15:45] LABS: BASOPHIL 0.9 % (0-2.0); EOSINOPHIL 0.3 % (0-4.5); MCH 27.9 pg (25.7-33.7); MCHC 32.4 g/dl (32.0-35.9); MEAN CELL VOLUME 86.2 fl (80-96); MEAN PLT VOLUME 8.6 fl (7.5-11.1); NEUTROPHILS 86.4 % (42.8-82.8); PLATELET COUNT 139 K/MM3 (134-434); RDW 15.2 % (11.9-15.9); WHITE BLOOD COUNT 12.8 K/mm3 (4.0-10.0)
[2017-03-20 15:59] LABS: INR 1.96 (0.82-1.09); PROTHROMBIN TIME (PATIENT) 21.9 SEC (9.98-11.88)
[2017-03-20 16:18] LABS: ALBUMIN 4.2 g/dl (3.4-5.0); ALK PHOS 103 U/L (45-117); ANION GAP 13 (8-16); BILIRUBIN,TOTAL 0.7 mg/dL (0.2-1.0); CALCIUM 9.7 mg/dL (8.5-10.1); CO2 26 mmol/L (21-32); COCKROFT - GAULT 109.22; CREATININE 1.2 mg/dL (0.7-1.3); GLUCOSE,RANDOM 143 mg/dL (74-106); SGOT/AST 13 U/L (15-37); SGPT/ALT 18 U/L (12-78)
[2017-03-20] MEDS ORDERED: ACETAMINOPHEN 325 MG TABLET (FP) PO PRN (18:28)
[2017-03-20] MEDS ORDERED: D5-1/2NS+20 MEQ KCL - 1,000 ML IV SCH (18:30)
[2017-03-20] MEDS ORDERED: traMADol HCL 50 MG TABLET PO PRN (22:00)
[2017-03-20] MEDS: levETIRAcetam 500 MG TABLET (FP) PO SCH (23:29)
[2017-03-20] MEDS: RANOLAZINE E.R. 500 MG TABLET (FP) PO SCH (23:29)
[2017-03-20] MEDS: TAMSULOSIN HCL 0.4 MG CAP.ER.24H (FP) PO SCH (23:30)
[2017-03-20] MEDS: clonazePAM 0.5 MG TABLET PO SCH (23:30)
[2017-03-20] MEDS: ATORVASTATIN CA 20 MG TABLET (FP) PO SCH (23:30)
[2017-03-20] MEDS: DIVALPROEX NA *ER* EXTEND REL 500 MG TABLET.SA (FP) PO SCH (23:45)
[2017-03-21] MEDS: clonazePAM 0.5 MG TABLET PO SCH ×3 (06:02→22:22)
[2017-03-21] MEDS: levETIRAcetam 500 MG TABLET (FP) PO SCH ×3 (06:03→22:22)
[2017-03-21] MEDS ORDERED: PT OWN MED DRAWER 7, Y5N ONE ×3 (06:42→22:32)
--- NOTE | 2017-03-21 07:22 | EKG ---
Test Reason : Blood Pressure : / mmHG Vent. Rate : 066 BPM Atrial Rate : 066 BPM P-R Int : 138 ms QRS Dur : 086 ms QT Int : 430 ms P-R-T Axes : 042 -20 029 degrees QTc Int : 450 ms NORMAL SINUS RHYTHM NORMAL ECG WHEN COMPARED WITH ECG OF 15-JAN-2017 13:16, NO SIGNIFICANT CHANGE WAS FOUND Confirmed by KYM SANDERS MD (2016) on 03/21/2017 7:21:36 AM Referred By: Confirmed By:KYM SANDERS MD
[2017-03-21 07:23] LABS: BASOPHIL 0.7 % (0-2.0); EOSINOPHIL 0.8 % (0-4.5); MCH 28.8 pg (25.7-33.7); MCHC 33.4 g/dl (32.0-35.9); MEAN CELL VOLUME 86.2 fl (80-96); MEAN PLT VOLUME 8.6 fl (7.5-11.1); NEUTROPHILS 81.5 % (42.8-82.8); PLATELET COUNT 136 K/MM3 (134-434); RDW 15.2 % (11.9-15.9); WHITE BLOOD COUNT 11.1 K/mm3 (4.0-10.0)
[2017-03-21 07:33] LABS: ALBUMIN 3.8 g/dl (3.4-5.0); ANION GAP 7 (8-16); BILIRUBIN,TOTAL 0.7 mg/dL (0.2-1.0); CALCIUM 9.6 mg/dL (8.5-10.1); CO2 29 mmol/L (21-32); COCKROFT - GAULT 119.15; CREATININE 1.1 mg/dL (0.7-1.3); GLUCOSE,RANDOM 147 mg/dL (74-106); SGOT/AST 15 U/L (15-37); SGPT/ALT 17 U/L (12-78); TOT PROT 7.6 g/dl (6.4-8.2)
[2017-03-21 07:34] LABS: ALK PHOS 99 U/L (45-117)
[2017-03-21 07:40] LABS: INR 1.72 (0.82-1.09); PROTHROMBIN TIME (PATIENT) 19.1 SEC (9.98-11.88)
--- NOTE | 2017-03-21 09:53 | HP ---
Admitting History and Physical - Admission History of Present Illness: 67 year old male with past medical history of hypertension, hyperlipidemia, CAD , s/p cardiac catheterization, A-fib, DVT, hypothyroidism, CVA, renal stones, obesity, and prostate cancer (2016) who presents to the ED with complaints of one day of hematuria. The patient states that he was experiencing difficulty passing urine as well as some mild suprapubic pain. He denies any fever, recent illness, chills, nausea, vomiting, diarrhea, cough, shortness of breath or chest pain. PCP: Dr. 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 No: AFIB, CHF Pulmonary: Yes: COPD Gastrointestinal: Yes: Diverticulitis, Diverticulosis, Other (hepatic granuloma) Renal/: Yes: Hematuria, Renal Calculi Heme/Onc: Yes: Cancer (bladder cancer, prostate cancer) Psych: Yes: Anxiety Endocrine: Yes: Diabetes Mellitus - Past Surgical History Past Surgical History: Yes: Appendectomy, Cholecystectomy, Hernia Repair (x2), Joint Replacement (left shoulder) - Smoking History Smoking history: Former smoker Have you smoked in the past 12 months: No Aproximately how many cigarettes per day: 0 If you are a former smoker, when did you quit?: 25 years - Alcohol/Substance Use Hx Alcohol Use: No History of Substance Use: reports: None - Social History ADL: Independent History of Recent Travel: No Home Medications - Allergies Allergies/Adverse Reactions: Allergies Allergy/AdvReac Type Severity Reaction Status Date / Time amoxicillin Allergy Mild Rash Verified 01/14/17 12:31 carbamazepine [From Tegretol] Allergy Mild Rash Verified 01/14/17 12:31 cephalexin [Cephalexin] Allergy Mild Rash Verified 01/14/17 12:31 ciprofloxacin Allergy Mild Rash Verified 01/14/17 12:31 fluconazole Allergy Mild Verified 01/14/17 12:31 lamotrigine [From Lamictal] Allergy Mild Rash Verified 01/14/17 12:31 metronidazole Allergy Mild Rash Verified 01/14/17 12:31 phenobarbital Allergy Mild Rash Verified 01/14/17 12:31 phenytoin sodium Allergy Mild Rash Verified 01/14/17 12:31 [From Dilantin] phenytoin sodium extended Allergy Mild Rash Verified 01/14/17 12:31 [From Dilantin] sulfamethoxazole Allergy Mild Rash Verified 01/14/17 12:31 [From Sulfatrim] trimethoprim [From Sulfatrim] Allergy Mild Rash Verified 01/14/17 12:31 amoxicillin trihydrate Allergy Unknown Verified 01/14/17 12:31 [From Augmentin] potassium clavulanate Allergy Unknown Verified 01/14/17 12:31 [From Augmentin] SHRIMP Allergy Mild Rash Uncoded 01/14/17 12:31 ciproflux Allergy Uncoded 01/14/17 12:31 shrimp Allergy Uncoded 01/14/17 12:31 - Home Medications Home Medications: Ambulatory Orders Aspirin [ASA -] 81 mg PO DAILY 03/20/17 Atorvastatin Ca [Lipitor] 20 mg PO HS 03/20/17 Bicalutamide [Casodex -] 50 mg PO DAILY 03/20/17 Citalopram Hydrobromide [Celexa -] 10 mg PO DAILY 03/20/17 Clonazepam [Klonopin -] 0.5 mg PO TID 03/20/17 Divalproex *ER* [Depakote *ER* -] 500 mg PO BID 03/20/17 Ferrous Sulfate [Feosol] 325 mg PO DAILY 03/20/17 Fesoterodine Fumarate [Toviaz] 4 mg PO DAILY 03/20/17 Folic Acid 1 mg PO DAILY 03/20/17 Levetiracetam 1,000 mg PO TID 03/20/17 Lisinopril [Prinivil] 5 mg PO DAILY 03/20/17 Magnesium Oxide [Magnesium] 500 mg PO BID 03/20/17 Nitrofurantoin Macrocrystal [Nitrofurantoin] 100 mg PO BID 03/20/17 Oxybutynin Chloride [Ditropan -] 10 mg PO DAILY 03/20/17 Ranolazine [Ranexa] 500 mg PO BID 03/20/17 Rivaroxaban [Xarelto -] 20 mg PO DAILY 03/20/17 Tamsulosin HCl [Flomax] 0.4 mg PO BID 03/20/17 Tramadol HCl [Ultram -] 50 mg PO DAILY 03/20/17 Family Disease History - Family Disease History Family Disease History: Diabetes: Mother (htn), CA: Father, Other: Mother Physical Examination Vital Signs: Vital Signs Temperature 97.9 F 03/21/17 06:54 Pulse Rate 73 03/21/17 06:54 Respiratory Rate 16 03/21/17 06:54 Blood Pressure 129/62 03/21/17 06:54 O2 Sat by Pulse Oximetry (%) 100 03/20/17 22:00 Cardiovascular: Yes: Regular Rate and Rhythm Respiratory: Yes: Regular, CTA Bilaterally Gastrointestinal: Yes: Normal Bowel Sounds, Soft Renal/: Yes: Sharma Present, Hematuria Labs: CBC, BMP 03/21/17 06:00 03/21/17 06:00 Problem List - Problems (1) Hematuria Assessment/Plan: SHARMA UROLOGY Code(s): R31.9 - HEMATURIA, UNSPECIFIED (2) CAD (coronary artery disease) Assessment/Plan: STABLE MONITOR Code(s): I25.10 - ATHSCL HEART DISEASE OF [place] CORONARY ARTERY W/O ANG PCTRS (3) COPD (chronic obstructive pulmonary disease) Code(s): J44.9 - CHRONIC OBSTRUCTIVE PULMONARY DISEASE, UNSPECIFIED (4) Diabetes mellitus type 2 in obese Assessment/Plan: BGM Code(s): E11.9 - TYPE 2 DIABETES MELLITUS WITHOUT COMPLICATIONS E66.9 - OBESITY, UNSPECIFIED (5) ESBL (extended spectrum beta-lactamase) producing bacteria infection Assessment/Plan: MUST R/O RECURRENCE INVANZ ID Code(s): A49.9 - BACTERIAL INFECTION, UNSPECIFIED Z16.12 - EXTENDED SPECTRUM BETA LACTAMASE (ESBL) RESISTANCE (6) DVT (deep venous thrombosis) Code(s): I82.409 - ACUTE EMBOLISM AND THOMBOS UNSP DEEP VN UNSP LOWER EXTREMITY Qualifiers: DVT location: lower extremity Affected thrombotic vein of extremity: unspecified vein of extremity Laterality: left Chronicity: acute Qualified Code(s): I82.402 - Acute embolism and thrombosis of unspecified deep veins of left lower extremity (7) Afib Assessment/Plan: RESUME XARELTO Code(s): I48.91 - UNSPECIFIED ATRIAL FIBRILLATION
[2017-03-21] MEDS: OXYBUTYNIN CHLORIDE 5 MG TABLET PO SCH (10:16)
[2017-03-21] MEDS: LISINOPRIL 5 MG TABLET (FP) PO SCH (10:16)
[2017-03-21] MEDS: CITALOPRAM HYDROBROMIDE 10 MG TABLET (FP) PO SCH (10:16)
[2017-03-21] MEDS: FOLIC ACID 1 MG TABLET (FP) PO SCH (10:16)
[2017-03-21] MEDS: RANOLAZINE E.R. 500 MG TABLET (FP) PO SCH ×2 (10:16→22:22)
[2017-03-21] MEDS: ASPIRIN 81 MG CHEWABLE TABLETS PO SCH (10:16)
[2017-03-21] MEDS: FERROUS SO4 325 MG TABLET (FP) PO SCH (10:16)
[2017-03-21] MEDS: TAMSULOSIN HCL 0.4 MG CAP.ER.24H (FP) PO SCH ×2 (10:16→22:23)
[2017-03-21] MEDS: DIVALPROEX NA *ER* EXTEND REL 500 MG TABLET.SA (FP) PO SCH ×2 (10:16→22:23)
[2017-03-21] MEDS: BICALUTAMIDE 50 MG TABLET (FP) PO SCH (10:17)
[2017-03-21] MEDS ORDERED: ERTAPENEM SODIUM 1 GM in SODIUM CHLORIDE 50 ML IVPB SCH (10:45)
--- NOTE | 2017-03-21 12:27 | PN ---
Progress Note (short form) - Note Progress Note: ID consult dictated imp/reccd 67 year old man history of DVT/afib on a/c, history on nephrolithiasis, prostate cancer admitted with gross hematuria no fevers or chills no flank pain gross hematuria uti multiple antibiotic allergies all characterized by mild rash history of esbl ecoli 2016 in urine obtain blood cultures, f/u urine culture contact isolation, will treat with gentamicin (history of seizure disorder) Problem List - Problems (1) Hematuria Code(s): R31.9 - HEMATURIA, UNSPECIFIED (2) UTI (urinary tract infection) Code(s): N39.0 - URINARY TRACT INFECTION, SITE NOT SPECIFIED Qualifiers: Urinary tract infection type: site unspecified Hematuria presence: with hematuria Qualified Code(s): N39.0 - Urinary tract infection, site not specified (3) Allergy to multiple antibiotics Code(s): Z88.1 - ALLERGY STATUS TO OTHER ANTIBIOTIC AGENTS STATUS (4) History of ESBL E. coli infection Code(s): Z86.19 - PERSONAL HISTORY OF OTHER INFECTIOUS AND PARASITIC DISEASES
[2017-03-21] MEDS: INSULIN SLIDING SCALE (NOVOLOG) 1 VIAL SQ SCH ×3 (12:56→21:56)
[2017-03-21] MEDS ORDERED: GENTAMICIN INJECTION 180 MG in SODIUM CHLORIDE 100 ML IVPB ONE (14:00)
[2017-03-21] MEDS: SODIUM CHLORIDE 0.45% 1,000 ML IV SCH (14:22)
[2017-03-21] MEDS: RIVAROXABAN 20 MG TABLET PO SCH (14:23)
--- NOTE | 2017-03-21 16:11 | CON.GU ---
Consult Consult Specialty:: urology Referred by:: Anupam Reason for Consultation:: uti - History of Present Illness Chief Complaint: uti History of Present Illness: Patient with history of TCC of bladder and CAP. Patient on monthly BCG intravesical treatments and Lupron depot injections with casodex. Patient has been doing well. The patient develped urinary frequncy and urgency with dysuria. Patient subsequently had difficulty voiding. Denies nausea, fever, chills, or gross hematuria. 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 No: AFIB, CHF Pulmonary: Yes: COPD Gastrointestinal: Yes: Diverticulitis, Diverticulosis, Other (hepatic granuloma) Renal/: Yes: Hematuria, Renal Calculi Psych: Yes: Anxiety Endocrine: Yes: Diabetes Mellitus - Past Surgical History Past Surgical History: Yes: Appendectomy, Cholecystectomy, Hernia Repair (x2), Joint Replacement (left shoulder) - Alcohol/Substance Use Hx Alcohol Use: No History of Substance Use: reports: None - Smoking History Smoking history: Former smoker Have you smoked in the past 12 months: No Aproximately how many cigarettes per day: 0 If you are a former smoker, when did you quit?: 25 years - Social History Usual Living Arrangement: Other (roomate) ADL: Independent History of Recent Travel: No Home Medications - Allergies Allergies/Adverse Reactions: Allergies Allergy/AdvReac Type Severity Reaction Status Date / Time amoxicillin Allergy Mild Rash Verified 01/14/17 12:31 carbamazepine [From Tegretol] Allergy Mild Rash Verified 01/14/17 12:31 cephalexin [Cephalexin] Allergy Mild Rash Verified 01/14/17 12:31 ciprofloxacin Allergy Mild Rash Verified 01/14/17 12:31 fluconazole Allergy Mild Verified 01/14/17 12:31 lamotrigine [From Lamictal] Allergy Mild Rash Verified 01/14/17 12:31 metronidazole Allergy Mild Rash Verified 01/14/17 12:31 phenobarbital Allergy Mild Rash Verified 01/14/17 12:31 phenytoin sodium Allergy Mild Rash Verified 01/14/17 12:31 [From Dilantin] phenytoin sodium extended Allergy Mild Rash Verified 01/14/17 12:31 [From Dilantin] sulfamethoxazole Allergy Mild Rash Verified 01/14/17 12:31 [From Sulfatrim] trimethoprim [From Sulfatrim] Allergy Mild Rash Verified 01/14/17 12:31 amoxicillin trihydrate Allergy Unknown Verified 01/14/17 12:31 [From Augmentin] potassium clavulanate Allergy Unknown Verified 01/14/17 12:31 [From Augmentin] SHRIMP Allergy Mild Rash Uncoded 01/14/17 12:31 ciproflux Allergy Uncoded 01/14/17 12:31 shrimp Allergy Uncoded 01/14/17 12:31 - Home Medications Home Medications: Ambulatory Orders Aspirin [ASA -] 81 mg PO DAILY 03/20/17 Atorvastatin Ca [Lipitor] 20 mg PO HS 03/20/17 Bicalutamide [Casodex -] 50 mg PO DAILY 03/20/17 Citalopram Hydrobromide [Celexa -] 10 mg PO DAILY 03/20/17 Clonazepam [Klonopin -] 0.5 mg PO TID 03/20/17 Divalproex *ER* [Depakote *ER* -] 500 mg PO BID 03/20/17 Ferrous Sulfate [Feosol] 325 mg PO DAILY 03/20/17 Fesoterodine Fumarate [Toviaz] 4 mg PO DAILY 03/20/17 Folic Acid 1 mg PO DAILY 03/20/17 Levetiracetam 1,000 mg PO TID 03/20/17 Lisinopril [Prinivil] 5 mg PO DAILY 03/20/17 Magnesium Oxide [Magnesium] 500 mg PO BID 03/20/17 Nitrofurantoin Macrocrystal [Nitrofurantoin] 100 mg PO BID 03/20/17 Oxybutynin Chloride [Ditropan -] 10 mg PO DAILY 03/20/17 Ranolazine [Ranexa] 500 mg PO BID 03/20/17 Rivaroxaban [Xarelto -] 20 mg PO DAILY 03/20/17 Tamsulosin HCl [Flomax] 0.4 mg PO BID 03/20/17 Tramadol HCl [Ultram -] 50 mg PO DAILY 03/20/17 Family Disease History - Family Disease History Family Disease History: Diabetes: Mother (htn), CA: Father, Other: Mother Physical Exam- Vital Signs: Vital Signs Temperature 98.1 F 03/21/17 13:59 Pulse Rate 80 03/21/17 13:59 Respiratory Rate 18 03/21/17 13:59 Blood Pressure 127/65 03/21/17 13:59 O2 Sat by Pulse Oximetry (%) 98 03/21/17 10:00 Constitutional: Yes: Well Nourished, No Distress, Calm Eyes: Yes: WNL, Conjunctiva Clear, EOM Intact HENT: Yes: WNL, Atraumatic, Normocephalic Neck: Yes: WNL, Supple, Trachea Midline Cardiovascular: Yes: WNL, Regular Rate and Rhythm Respiratory: Yes: WNL, Regular Gastrointestinal: Yes: WNL, Normal Bowel Sounds, Soft Renal/: Yes: WNL, Soto Present (clear urine draining from soto) Kidneys: Yes: WNL Pelvis: Yes: WNL, Bladder Non Palpable Testicles: Yes: WNL Scrotum: Yes: WNL Penis: Yes: WNL Labs: CBC, BMP 03/21/17 06:00 03/21/17 06:00 Assessment/Plan impression uti bph neurogenic bladder TCC of bladder prostate cancer plan continue anitbiotics as per id continue flomax soto may be d/c'ed randa
--- NOTE | 2017-03-21 17:52 | CONS ---
DATE OF CONSULTATION: DATE OF DICTATION: 03/21/2017 INFECTIOUS DISEASE CONSULTATION REQUESTING PHYSICIAN: Ruiz Bo M.D. CONSULTING PHYSICIAN: Emma Rodriguez M.D. HISTORY OF PRESENT ILLNESS: This is a 67-year-old man with a past medical history of atrial fibrillation, DVT. He is on chronic anticoagulation. He has a history of nephrolithiasis and prostate cancer as well. He presented to the emergency room with 1 day of hematuria. Denied fever, chills, nausea, vomiting, diarrhea, or dysuria. He had gross hematuria. He had a Last catheter placed in the ER and was admitted for further evaluation. He otherwise feels well. He is currently eating lunch. He has no nausea, vomiting, chest pain, abdominal pain, flank pain, and he has a Last in place which is now cleared. PAST MEDICAL HISTORY: Notable for asthma, prostate cancer, he has had a history of right lower extremity DVT. He has had a right-sided CVA, COPD, atrial fibrillation, diabetes, nephrolithiasis, hypertension, hypercholesterolemia, seizure disorder. He has had a hernia repair in the past and appendectomy, cholecystectomy. ALLERGIES: He has multiple allergies, all of which are reported as mild with a rash including AMOXICILLIN, CARBAMAZEPINE, CEPHALEXIN, CIPROFLOXACIN, DIFLUCAN, LAMICTAL, METRONIDAZOLE, PHENOBARBITAL, DILANTIN, BACTRIM, AUGMENTIN, SHRIMP. MEDICATION: His medications at home include aspirin, atorvastatin, Casodex, Celexa, Klonopin, Depakote, Feosol, Toviaz, folic acid, Keppra, lisinopril, magnesium oxide, Macrodantin crystal, Ditropan, Ranexa, Xarelto, Flomax, and Ultram. FAMILY HISTORY: Noncontributory. SOCIAL HISTORY: Lives in the community. REVIEW OF SYSTEMS: Except for hematuria, is otherwise negative. PHYSICAL EXAMINATION: Vital signs: He is afebrile. Temperature is 97.9, pulse is 73, blood pressure is 129/62, respiratory rate 16, he weighs 285 pounds. HEENT: Normocephalic. Eyes are anicteric. Neck: Supple. Lungs: Clear to auscultation. Heart: Regular rate and rhythm. Abdomen: Soft, nontender. Extremities: Without edema. He has a Last is now draining clear urine. LABORATORY: White count on admission was 12.8, today is 11.1. BUN and creatinine are 13 and 1.1, LFTs are normal. Urinalysis has 2+ leukocytes, with moderate red cells and blood. A urine culture has been sent. IMPRESSION: In summary, this is a 67-year-old man with a history of deep vein thrombosis, atrial fibrillation on anticoagulation, history of nephrolithiasis, prostate cancer, admitted with gross hematuria. Has multiple antibiotic allergies all characterized by mild rash. History of Escherichia coli extended-spectrum beta-lactamase on his urine in 2016. Would obtain blood culture, urine culture has been sent, and would treat him, would keep him in contact isolation given the prior extended-spectrum beta-lactamase organism and would treat him with ertapenem. He will be need to be observed carefully as he does have a history of seizure disorder, but he is on his current seizure medications. Further recommendations to follow based on clinical course. Gonzalo [id number]
[2017-03-21] MEDS: ATORVASTATIN CA 20 MG TABLET (FP) PO SCH (22:23)
[2017-03-22] MEDS: clonazePAM 0.5 MG TABLET PO SCH ×3 (05:41→22:58)
[2017-03-22] MEDS: levETIRAcetam 500 MG TABLET (FP) PO SCH ×3 (05:41→22:59)
[2017-03-22] MEDS: SODIUM CHLORIDE 0.45% 1,000 ML IV SCH ×2 (06:05→13:00)
[2017-03-22] MEDS: INSULIN SLIDING SCALE (NOVOLOG) 1 VIAL SQ SCH ×4 (06:05→22:54)
[2017-03-22] MEDS ORDERED: PT OWN MED DRAWER 7, Y5N ONE ×2 (09:31→22:56)
[2017-03-22] MEDS: FERROUS SO4 325 MG TABLET (FP) PO SCH (09:33)
[2017-03-22] MEDS: BICALUTAMIDE 50 MG TABLET (FP) PO SCH (09:33)
[2017-03-22] MEDS: DIVALPROEX NA *ER* EXTEND REL 500 MG TABLET.SA (FP) PO SCH ×2 (09:33→22:58)
[2017-03-22] MEDS: OXYBUTYNIN CHLORIDE 5 MG TABLET PO SCH (09:33)
[2017-03-22] MEDS: LISINOPRIL 5 MG TABLET (FP) PO SCH (09:33)
[2017-03-22] MEDS: FOLIC ACID 1 MG TABLET (FP) PO SCH (09:33)
[2017-03-22] MEDS: CITALOPRAM HYDROBROMIDE 10 MG TABLET (FP) PO SCH (09:33)
[2017-03-22] MEDS: RANOLAZINE E.R. 500 MG TABLET (FP) PO SCH ×2 (09:33→22:58)
[2017-03-22] MEDS: RIVAROXABAN 20 MG TABLET PO SCH (09:33)
[2017-03-22] MEDS: TAMSULOSIN HCL 0.4 MG CAP.ER.24H (FP) PO SCH ×2 (09:34→22:58)
[2017-03-22] MEDS: ASPIRIN 81 MG CHEWABLE TABLETS PO SCH (09:47)
--- NOTE | 2017-03-22 15:42 | HP ---
Admitting History and Physical - Primary Care Physician PCP: Ruth Suazo - Admission Chief Complaint: URINARY FREQUENCY/DYSUREA/ACUTE CYSTITIS History of Present Illness: The patient is a 67 year old male with past medical history of hypertension, hyperlipidemia, CAD, s/p cardiac catheterization, A-fib, DVT, hypothyroidism, CVA, renal stones, obesity, and prostate cancer (2016) who presents to the ED with complaints of one day of hematuria. The patient states that today he is experiencing difficulty passing urine as well as some mild suprapubic pain. He denies any fever, recent illness, chills, nausea, vomiting, diarrhea, cough, shortness of breath or chest pain. 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 No: AFIB, CHF Pulmonary: Yes: COPD Gastrointestinal: Yes: Diverticulitis, Diverticulosis, Other (hepatic granuloma) Renal/: Yes: Hematuria, Renal Calculi Heme/Onc: Yes: Cancer (bladder cancer, prostate cancer) Psych: Yes: Anxiety Endocrine: Yes: Diabetes Mellitus - Past Surgical History Past Surgical History: Yes: Appendectomy, Cholecystectomy, Hernia Repair (x2), Joint Replacement (left shoulder) - Smoking History Smoking history: Former smoker Have you smoked in the past 12 months: No Aproximately how many cigarettes per day: 0 If you are a former smoker, when did you quit?: 25 years - Alcohol/Substance Use Hx Alcohol Use: No History of Substance Use: reports: None - Social History ADL: Independent History of Recent Travel: No Home Medications - Allergies Allergies/Adverse Reactions: Allergies Allergy/AdvReac Type Severity Reaction Status Date / Time amoxicillin Allergy Mild Rash Verified 01/14/17 12:31 carbamazepine [From Tegretol] Allergy Mild Rash Verified 01/14/17 12:31 cephalexin [Cephalexin] Allergy Mild Rash Verified 01/14/17 12:31 ciprofloxacin Allergy Mild Rash Verified 01/14/17 12:31 fluconazole Allergy Mild Verified 01/14/17 12:31 lamotrigine [From Lamictal] Allergy Mild Rash Verified 01/14/17 12:31 metronidazole Allergy Mild Rash Verified 01/14/17 12:31 phenobarbital Allergy Mild Rash Verified 01/14/17 12:31 phenytoin sodium Allergy Mild Rash Verified 01/14/17 12:31 [From Dilantin] phenytoin sodium extended Allergy Mild Rash Verified 01/14/17 12:31 [From Dilantin] sulfamethoxazole Allergy Mild Rash Verified 01/14/17 12:31 [From Sulfatrim] trimethoprim [From Sulfatrim] Allergy Mild Rash Verified 01/14/17 12:31 amoxicillin trihydrate Allergy Unknown Verified 01/14/17 12:31 [From Augmentin] potassium clavulanate Allergy Unknown Verified 01/14/17 12:31 [From Augmentin] SHRIMP Allergy Mild Rash Uncoded 01/14/17 12:31 ciproflux Allergy Uncoded 01/14/17 12:31 shrimp Allergy Uncoded 01/14/17 12:31 - Home Medications Home Medications: Ambulatory Orders Aspirin [ASA -] 81 mg PO DAILY 03/20/17 Atorvastatin Ca [Lipitor] 20 mg PO HS 03/20/17 Bicalutamide [Casodex -] 50 mg PO DAILY 03/20/17 Citalopram Hydrobromide [Celexa -] 10 mg PO DAILY 03/20/17 Clonazepam [Klonopin -] 0.5 mg PO TID 03/20/17 Divalproex *ER* [Depakote *ER* -] 500 mg PO BID 03/20/17 Ferrous Sulfate [Feosol] 325 mg PO DAILY 03/20/17 Fesoterodine Fumarate [Toviaz] 4 mg PO DAILY 03/20/17 Folic Acid 1 mg PO DAILY 03/20/17 Levetiracetam 1,000 mg PO TID 03/20/17 Lisinopril [Prinivil] 5 mg PO DAILY 03/20/17 Magnesium Oxide [Magnesium] 500 mg PO BID 03/20/17 Nitrofurantoin Macrocrystal [Nitrofurantoin] 100 mg PO BID 03/20/17 Oxybutynin Chloride [Ditropan -] 10 mg PO DAILY 03/20/17 Ranolazine [Ranexa] 500 mg PO BID 03/20/17 Rivaroxaban [Xarelto -] 20 mg PO DAILY 03/20/17 Tamsulosin HCl [Flomax] 0.4 mg PO BID 03/20/17 Tramadol HCl [Ultram -] 50 mg PO DAILY 03/20/17 Family Disease History - Family Disease History Family Disease History: Diabetes: Mother (htn), CA: Father, Other: Mother Review of Systems - Review of Systems Constitutional: reports: Loss of Appetite, Weakness Eyes: reports: No Symptoms HENT: reports: No Symptoms Neck: reports: No Symptoms Cardiovascular: reports: No Symptoms Respiratory: reports: No Symptoms Gastrointestinal: reports: No Symptoms Genitourinary: reports: Dysuria, Frequency Breasts: reports: No Symptoms Reported Musculoskeletal: reports: No Symptoms Integumentary: reports: No Symptoms Neurological: reports: Pre-Existing Deficit Endocrine: reports: No Symptoms Physical Examination Vital Signs: Vital Signs Temperature 98.8 F 03/22/17 09:00 Pulse Rate 63 03/22/17 09:00 Respiratory Rate 20 03/22/17 09:00 Blood Pressure 110/54 03/22/17 09:00 O2 Sat by Pulse Oximetry (%) 98 03/22/17 07:36 Constitutional: Yes: Mild Distress Eyes: Yes: WNL HENT: Yes: WNL Neck: Yes: WNL Cardiovascular: Yes: Pulse Irregular Respiratory: Yes: WNL Gastrointestinal: Yes: WNL Renal/: Yes: Last Present Musculoskeletal: Yes: Muscle Weakness Extremities: Yes: WNL Edema: Yes Edema: LLE: 2+, RLE: 2+ Peripheral Pulses WNL: Yes Integumentary: Yes: Rash, Venous Stasis Changes Wound/Incision: Yes: Open to air Neurological: Yes: Pre-Existing Deficit, Unsteady Gait, Weakness ...Motor Strength: LLE, RLE Psychiatric: Yes: WNL Labs: CBC, BMP 03/21/17 06:00 03/21/17 06:00 Imaging - Results Chest X-ray: Report Reviewed Ultrasound: Report Reviewed Problem List - Problems (1) Afib Code(s): I48.91 - UNSPECIFIED ATRIAL FIBRILLATION (2) Hematuria Code(s): R31.9 - HEMATURIA, UNSPECIFIED (3) History of ESBL E. coli infection Code(s): Z86.19 - PERSONAL HISTORY OF OTHER INFECTIOUS AND PARASITIC DISEASES (4) UTI (urinary tract infection) Code(s): N39.0 - URINARY TRACT INFECTION, SITE NOT SPECIFIED Qualifiers: Urinary tract infection type: site unspecified Hematuria presence: with hematuria Qualified Code(s): N39.0 - Urinary tract infection, site not specified (5) Abdominal mass, LLQ (left lower quadrant) Code(s): R19.04 - LEFT LOWER QUADRANT ABDOMINAL SWELLING, MASS AND LUMP (6) Abdominal pain Code(s): R10.9 - UNSPECIFIED ABDOMINAL PAIN Qualifiers: Abdominal location: generalized Qualified Code(s): R10.84 - Generalized abdominal pain (7) Anxiety Code(s): F41.9 - ANXIETY DISORDER, UNSPECIFIED (8) Arthritis of knee, left Code(s): M19.90 - UNSPECIFIED OSTEOARTHRITIS, UNSPECIFIED SITE (9) CAD (coronary artery disease) of artery bypass graft Code(s): I25.810 - ATHEROSCLEROSIS OF CABG W/O ANGINA PECTORIS (10) Diabetes mellitus type 2 in obese Code(s): E11.9 - TYPE 2 DIABETES MELLITUS WITHOUT COMPLICATIONS E66.9 - OBESITY, UNSPECIFIED (11) Seizure Code(s): R56.9 - UNSPECIFIED CONVULSIONS (12) Venous stasis Code(s): I87.8 - OTHER SPECIFIED DISORDERS OF VEINS Assessment/Plan IV ABX ERTAPENEM PER ID OOB TO CHAIR NARINDER ROBLESMAX MONITOR ON AC
[2017-03-22] MEDS ORDERED: WATER IVPB ONE (16:15)
[2017-03-22] MEDS ORDERED: GENTAMICIN IVPB ONE (16:15)
[2017-03-22] MEDS ORDERED: DEXTROSE 5% IVPB ONE (16:15)
--- NOTE | 2017-03-22 16:15 | PN ---
Progress Note (short form) - Note Progress Note: soto is out he is voiding freely no fever no abdominal pain hematuria resolved Vital Signs Period Temp Pulse Resp BP Sys/Bailey Pulse Ox Last 24 Hr 97.8 F-98.8 F 63-76 16-20 110-143/49-74 98-100 cor-rrr lungs clear abd soft,nt ext no edema CBC, BMP 03/21/17 06:00 03/21/17 06:00 Microbiology 03/21/17 13:20 Blood - Peripheral Venous Blood Culture - Preliminary NO GROWTH OBTAINED AFTER 24 HOURS, INCUBATION TO CONTINUE FOR 4 DAYS. 03/21/17 13:00 Blood - Peripheral Venous Blood Culture - Preliminary NO GROWTH OBTAINED AFTER 24 HOURS, INCUBATION TO CONTINUE FOR 4 DAYS. 03/20/17 14:00 Urine - Urine Clean Catch Urine Culture - Preliminary Lactose Fermenting Neg Bacilli a/p hematuria resolved history of bladder cancer/prostate cancer f/u cultures multiple allergies continue gentamicin one dose today history of esbl organisms in the past Problem List - Problems (1) Hematuria Code(s): R31.9 - HEMATURIA, UNSPECIFIED (2) UTI (urinary tract infection) Code(s): N39.0 - URINARY TRACT INFECTION, SITE NOT SPECIFIED Qualifiers: Urinary tract infection type: site unspecified Hematuria presence: with hematuria Qualified Code(s): N39.0 - Urinary tract infection, site not specified (3) Allergy to multiple antibiotics Code(s): Z88.1 - ALLERGY STATUS TO OTHER ANTIBIOTIC AGENTS STATUS (4) History of ESBL E. coli infection Code(s): Z86.19 - PERSONAL HISTORY OF OTHER INFECTIOUS AND PARASITIC DISEASES
[2017-03-22] MEDS: ATORVASTATIN CA 20 MG TABLET (FP) PO SCH (22:58)
[2017-03-23] MEDS: SODIUM CHLORIDE 0.45% 1,000 ML IV SCH ×2 (02:00→13:36)
[2017-03-23] MEDS: INSULIN SLIDING SCALE (NOVOLOG) 1 VIAL SQ SCH ×2 (06:08→12:24)
[2017-03-23] MEDS: levETIRAcetam 500 MG TABLET (FP) PO SCH ×2 (06:28→13:35)
[2017-03-23] MEDS: clonazePAM 0.5 MG TABLET PO SCH ×2 (06:28→13:35)
[2017-03-23 07:21] LABS: MCHC 33.8 g/dl (32.0-35.9); MEAN CELL VOLUME 85.9 fl (80-96); MEAN PLT VOLUME 8.5 fl (7.5-11.1); PLATELET COUNT 124 K/MM3 (134-434); RDW 15.5 % (11.9-15.9); WHITE BLOOD COUNT 10.1 K/mm3 (4.0-10.0)
[2017-03-23 07:46] LABS: CALCIUM 9.3 mg/dL (8.5-10.1); COCKROFT - GAULT 109.22; CREATININE 1.2 mg/dL (0.7-1.3)
[2017-03-23 09:12] VITALS: BP 128/56; PULSE 64; TEMP 97.9
[2017-03-23] MEDS ORDERED: PT OWN MED DRAWER 7, Y5N ONE (10:10)
[2017-03-23] MEDS: ASPIRIN 81 MG CHEWABLE TABLETS PO SCH (10:13)
[2017-03-23] MEDS: CITALOPRAM HYDROBROMIDE 10 MG TABLET (FP) PO SCH (10:14)
[2017-03-23] MEDS: BICALUTAMIDE 50 MG TABLET (FP) PO SCH (10:14)
[2017-03-23] MEDS: DIVALPROEX NA *ER* EXTEND REL 500 MG TABLET.SA (FP) PO SCH (10:14)
[2017-03-23] MEDS: FERROUS SO4 325 MG TABLET (FP) PO SCH (10:15)
[2017-03-23] MEDS: FOLIC ACID 1 MG TABLET (FP) PO SCH (10:15)
[2017-03-23] MEDS: LISINOPRIL 5 MG TABLET (FP) PO SCH (10:15)
[2017-03-23] MEDS: OXYBUTYNIN CHLORIDE 5 MG TABLET PO SCH (10:15)
[2017-03-23] MEDS: RANOLAZINE E.R. 500 MG TABLET (FP) PO SCH (10:16)
[2017-03-23] MEDS: RIVAROXABAN 20 MG TABLET PO SCH (10:16)
--- NOTE | 2017-03-23 10:54 | PN ---
Progress Note, Physician Chief Complaint: AWAKE ALERT NAD - Current Medication List Current Medications: Active Medications Acetaminophen (Tylenol -) 650 mg PO Q4H PRN PRN Reason: FEVER OR PAIN Aspirin (Asa -) 81 mg PO DAILY [facility] Last Admin: 03/23/17 10:13 Dose: 81 mg Atorvastatin Calcium (Lipitor -) 20 mg PO HS [facility] Last Admin: 03/22/17 22:58 Dose: 20 mg Bicalutamide (Casodex -) 50 mg PO DAILY [facility] Last Admin: 03/23/17 10:14 Dose: 50 mg Citalopram Hydrobromide (Celexa -) 10 mg PO DAILY [facility] Last Admin: 03/23/17 10:14 Dose: 10 mg Clonazepam (Klonopin -) 0.5 mg PO TID [facility] Last Admin: 03/23/17 06:28 Dose: 0.5 mg Divalproex Sodium (Depakote *Er* -) 500 mg PO BID [facility] Last Admin: 03/23/17 10:14 Dose: 500 mg Ferrous Sulfate (Feosol -) 325 mg PO DAILY [facility] Last Admin: 03/23/17 10:15 Dose: 325 mg Folic Acid (Folic Acid -) 1 mg PO DAILY [facility] Last Admin: 03/23/17 10:15 Dose: 1 mg Sodium Chloride (1/2 Normal Saline) 1,000 mls @ 75 mls/hr IV ASDIR [facility] Last Admin: 03/23/17 02:00 Dose: 75 mls/hr Insulin Aspart (Novolog Vial Sliding Scale -) 1 vial SQ ACHS [facility] PRN Reason: Protocol Last Admin: 03/23/17 06:08 Dose: Not Given Levetiracetam (Keppra -) 1,000 mg PO TID [facility] Last Admin: 03/23/17 06:28 Dose: 1,000 mg Lisinopril (Prinivil) 5 mg PO DAILY [facility] Last Admin: 03/23/17 10:15 Dose: 5 mg Oxybutynin Chloride (Ditropan -) 10 mg PO DAILY [facility] Last Admin: 03/23/17 10:15 Dose: 10 mg Ranolazine (Ranexa -) 500 mg PO BID [facility] Last Admin: 03/23/17 10:16 Dose: 500 mg Rivaroxaban (Xarelto -) 20 mg PO DAILY [facility] Last Admin: 03/23/17 10:16 Dose: 20 mg Tamsulosin HCl (Flomax -) 0.4 mg PO BID [facility] Last Admin: 03/22/17 22:58 Dose: 0.4 mg Tramadol HCl (Ultram -) 50 mg PO TID PRN - Objective Vital Signs: Vital Signs Temperature 97.9 F 03/23/17 09:00 Pulse Rate 64 03/23/17 09:00 Respiratory Rate 18 03/23/17 09:00 Blood Pressure 128/56 03/23/17 09:00 O2 Sat by Pulse Oximetry (%) 98 03/22/17 20:33 Constitutional: Yes: No Distress Eyes: Yes: WNL HENT: Yes: WNL Neck: Yes: WNL Cardiovascular: Yes: WNL Respiratory: Yes: WNL Gastrointestinal: Yes: WNL Genitourinary: Yes: Other Musculoskeletal: Yes: WNL Extremities: Yes: WNL Edema: Yes Peripheral Pulses WNL: Yes Integumentary: Yes: Pressure Ulcer, Venous Stasis Changes Wound/Incision: Yes: Dressing Dry and Intact Neurological: Yes: Pre-Existing Deficit ...Motor Strength: LLE, RLE Psychiatric: Yes: Other Labs: CBC, BMP 03/23/17 06:20 03/23/17 06:20 INR, PTT INR 1.72 (0.82-1.09) H 03/21/17 06:00 Problem List - Problems (1) Afib Code(s): I48.91 - UNSPECIFIED ATRIAL FIBRILLATION (2) Hematuria Code(s): R31.9 - HEMATURIA, UNSPECIFIED (3) History of ESBL E. coli infection Code(s): Z86.19 - PERSONAL HISTORY OF OTHER INFECTIOUS AND PARASITIC DISEASES (4) UTI (urinary tract infection) Code(s): N39.0 - URINARY TRACT INFECTION, SITE NOT SPECIFIED Qualifiers: Urinary tract infection type: site unspecified Hematuria presence: with hematuria Qualified Code(s): N39.0 - Urinary tract infection, site not specified (5) Abdominal mass, LLQ (left lower quadrant) Code(s): R19.04 - LEFT LOWER QUADRANT ABDOMINAL SWELLING, MASS AND LUMP (6) Abdominal pain Code(s): R10.9 - UNSPECIFIED ABDOMINAL PAIN Qualifiers: Abdominal location: generalized Qualified Code(s): R10.84 - Generalized abdominal pain (7) Anxiety Code(s): F41.9 - ANXIETY DISORDER, UNSPECIFIED (8) Arthritis of knee, left Code(s): M19.90 - UNSPECIFIED OSTEOARTHRITIS, UNSPECIFIED SITE (9) CAD (coronary artery disease) of artery bypass graft Code(s): I25.810 - ATHEROSCLEROSIS OF CABG W/O ANGINA PECTORIS (10) Diabetes mellitus type 2 in obese Code(s): E11.9 - TYPE 2 DIABETES MELLITUS WITHOUT COMPLICATIONS E66.9 - OBESITY, UNSPECIFIED (11) Seizure Code(s): R56.9 - UNSPECIFIED CONVULSIONS (12) Venous stasis Code(s): I87.8 - OTHER SPECIFIED DISORDERS OF VEINS Assessment/Plan IV ABX GENTAMYCIN F/U CULTURES H/O ESBL IN URINE OOB TO CHAIT H/O PROTEIN C DEF? CLOTTING D/O ON ELIQUIS ID F/U APPRECIATED
[2017-03-23] MEDS: TAMSULOSIN HCL 0.4 MG CAP.ER.24H (FP) PO SCH (12:24)
== END 2017-03-23 14:35 | disposition left against medical advice (07) | DRG 723 ==
LOC: JER 13:29 → JERBED 16:33 → J4S 22:02
PROVIDERS: ADMIT Family Medicine; ATTEND Family Medicine
DX: C61 Malignant neoplasm of prostate (principal); N39.0 Urinary tract infection, site not specified; Z68.41 Body mass index [BMI] 40.0-44.9, adult; C67.9 Malignant neoplasm of bladder, unspecified; B96.1 Klebsiella pneumoniae [K. pneumoniae] as the cause of diseases classified elsewhere; I25.119 Atherosclerotic heart disease of native coronary artery with unspecified angina pectoris; Z98.61 Coronary angioplasty status; E78.5 Hyperlipidemia, unspecified; E03.9 Hypothyroidism, unspecified; Z86.73 Personal history of transient ischemic attack (TIA), and cerebral infarction without residual deficits; Z87.442 Personal history of urinary calculi; J44.9 Chronic obstructive pulmonary disease, unspecified; R31.0 Gross hematuria; K57.90 Diverticulosis of intestine, part unspecified, without perforation or abscess without bleeding; E11.9 Type 2 diabetes mellitus without complications; F41.9 Anxiety disorder, unspecified; Z88.1 Allergy status to other antibiotic agents; N31.9 Neuromuscular dysfunction of bladder, unspecified; M17.12 Unilateral primary osteoarthritis, left knee; I87.8 Other specified disorders of veins; R30.0 Dysuria; E66.9 Obesity, unspecified
CPT/HCPCS: 36415; 80048; 80053; 81003; 81015; 85025; 85027; 85610; 86850; 86900; 86901; 87040; 87086; 87186; 93005; 93010; 99284-25

== ENCOUNTER 2017-05-26 12:44 | Observation (INO) | payer MEDICARE, OTHER ==
[2017-05-26] MEDS ORDERED: ASPIRIN 81 MG CHEWABLE TABLETS PO ONE (13:35)
--- NOTE | 2017-05-26 13:38 | PDOC ---
Attending Attestation - Resident Resident Name: CecilOscar jon - ED Attending Attestation I have performed the following: I have examined & evaluated the patient, The case was reviewed & discussed with the resident, I agree w/resident's findings & plan, Exceptions are as noted - HPI HPI: 05/26/17 14:07 67 M with HTN, DM, HLD, CAD s/p MIx2, afib on xarelto, prostate CA presenting with 2 days of worsening DOUGLAS and chest pain. Pt endorses worsening swelling in BLE despite compliance with lasix. Received nitro and aspirin en route by EMS and states that his pain has improved somewhat. Pain is non-exertional, non- pleuritic. - Physicial Exam PE: 05/26/17 14:15 GENERAL: Awake, alert, and fully oriented, in no acute distress HEAD: No signs of trauma EYES: PERRLA, EOMI, sclera anicteric, conjunctiva clear ENT: Auricles normal inspection, hearing grossly normal, nares patent, oropharynx clear without exudates. Moist mucosa NECK: Normal ROM, supple, no lymphadenopathy, JVD, or masses LUNGS: Breath sounds equal, distant, clear to auscultation bilaterally. No wheezes, and no crackles HEART: Regular rate and rhythm, normal S1 and S2, no murmurs, rubs or gallops ABDOMEN: Soft, nontender, normoactive bowel sounds. No guarding, no rebound. No masses EXTREMITIES: 2+ pitting edema in BLE, symmetric NEUROLOGICAL: Cranial nerves II through XII grossly intact. Normal speech, normal gait SKIN: Warm, Dry, normal turgor, no rashes or lesions noted. - Medical Decision Making 05/26/17 14:16 67 M with significant cardiac risk factors presenting with atypical chest pain. Consider ACS vs CHF. EKG nonischemic. However, given cardiac history, will admit to hospital. HEART score at least 4 given age and risk factors. - Labs, trop - CXR - admit 05/26/17 16:37 Trop negative, CXR clear, BNP slightly elevated. Will admit for ACS r/o. Heart Score/ECG Review - History History: Moderately suspicious - Electrocardiogram EKG: Normal - Age Age: >/= 65 - Risk Factors Risk Factors Heart Score: Yes Hx Hypercholesterolemia, Yes Hx Hypertension, Yes Hx Diabetes Based on the list above the patient has:: >/=3 risk factors or Hx atherosclerotic disease - Troponin Troponin: </= normal limit - Score Heart Score - Total: 5 - ECG Intrepretation Rhythm: Regular Rhythm - ECG Impressions Normal ECG: Yes Non-specific ST Elevation: No Ischemic Changes: No
[2017-05-26] MEDS ORDERED: ONDANSETRON 4 MG/2 ML VIAL IVPUSH ONE (13:39)
[2017-05-26] MEDS ORDERED: ONDANSETRON 4 MG/2 ML VIAL ONE (13:45)
[2017-05-26] MEDS ORDERED: ASPIRIN 81 MG CHEWABLE TABLETS ONE (13:45)
--- NOTE | 2017-05-26 13:46 | PDOC ---
History of Present Illness - General Chief Complaint: Chest Pain Stated Complaint: CHEST PAIN Time Seen by Provider: 05/26/17 13:02 History Source: Patient, Pathology Laboratory Director Used (Lisette ALTAMIRANO) Exam Limitations: Language Barrier - History of Present Illness Initial Comments: 05/26/17 13:41 The patient is a 67M with a PMH of HTN, HLD, CAD s/p cath, a-fib, DVT, hypothyroidism, CVA, obesity, prostate CA, and renal stones who presents to the ED with dizziness and CP. The dizziness is described as room spinning and started on Tuesday accompanied by CP, nausea, and shortness of breath. The patient states that he has a burning pain in his chest w/ the nausea. He is also complaining of a headache. History is limited by a language barrier. I used an [employer] who speaks some haitian to translate. Allergies: listed Past History - Past Medical History Allergies/Adverse Reactions: Allergies Allergy/AdvReac Type Severity Reaction Status Date / Time amoxicillin Allergy Mild Rash Verified 05/26/17 13:00 carbamazepine [From Tegretol] Allergy Mild Rash Verified 05/26/17 13:00 cephalexin [Cephalexin] Allergy Mild Rash Verified 05/26/17 13:00 ciprofloxacin Allergy Mild Rash Verified 05/26/17 13:00 fluconazole Allergy Mild Verified 05/26/17 13:00 lamotrigine [From Lamictal] Allergy Mild Rash Verified 05/26/17 13:00 metronidazole Allergy Mild Rash Verified 05/26/17 13:00 phenobarbital Allergy Mild Rash Verified 05/26/17 13:00 phenytoin sodium Allergy Mild Rash Verified 05/26/17 13:00 [From Dilantin] phenytoin sodium extended Allergy Mild Rash Verified 05/26/17 13:00 [From Dilantin] sulfamethoxazole Allergy Mild Rash Verified 05/26/17 13:00 [From Sulfatrim] trimethoprim [From Sulfatrim] Allergy Mild Rash Verified 05/26/17 13:00 amoxicillin trihydrate Allergy Unknown Verified 05/26/17 13:00 [From Augmentin] potassium clavulanate Allergy Unknown Verified 05/26/17 13:00 [From Augmentin] SHRIMP Allergy Mild Rash Uncoded 05/26/17 13:00 ciproflux Allergy Uncoded 05/26/17 13:00 shrimp Allergy Uncoded 05/26/17 13:00 Home Medications: Ambulatory Orders Aspirin [ASA -] 81 mg PO DAILY 03/20/17 Atorvastatin Ca [Lipitor] 20 mg PO HS 03/20/17 Bicalutamide [Casodex -] 50 mg PO DAILY 03/20/17 Citalopram Hydrobromide [Celexa -] 10 mg PO DAILY 03/20/17 Clonazepam [Klonopin -] 0.5 mg PO TID 03/20/17 Divalproex *ER* [Depakote *ER* -] 500 mg PO BID 03/20/17 Ferrous Sulfate [Feosol] 325 mg PO DAILY 03/20/17 Fesoterodine Fumarate [Toviaz] 4 mg PO DAILY 03/20/17 Folic Acid 1 mg PO DAILY 03/20/17 Levetiracetam 1,000 mg PO TID 03/20/17 Lisinopril [Prinivil] 5 mg PO DAILY 03/20/17 Magnesium Oxide [Magnesium] 500 mg PO BID 03/20/17 Oxybutynin Chloride [Ditropan -] 10 mg PO DAILY 03/20/17 Ranolazine [Ranexa] 500 mg PO BID 03/20/17 Rivaroxaban [Xarelto -] 20 mg PO DAILY 03/20/17 Tamsulosin HCl [Flomax] 0.4 mg PO BID 03/20/17 Tramadol HCl [Ultram -] 50 mg PO DAILY 03/20/17 Anemia: No Asthma: Yes Cancer: Yes (prostate) Cardiac Disorders: Yes (ANGINA, RLE DVT) CVA: Yes (rt side) COPD: Yes CHF: No (atrial fib) DVT: Yes Dementia: No Diabetes: Yes GI Disorders: No Disorders: Yes (renal stones) HTN: Yes Hypercholesterolemia: Yes Liver Disease: No Suicide Attempt (Hx): No Seizures: Yes Thyroid Disease: No - Surgical History Abdominal Surgery: Yes (Hernia repair) Appendectomy: Yes Cardiac Surgery: No Cholecystectomy: Yes Lung Surgery: No Neurologic Surgery: No Orthopedic Surgery: Yes (lft arm surgery--plate) - Immunization History Immunization Up to Date: Yes - Psycho/Social/Smoking Cessation Hx Anxiety: No Suicidal Ideation: No Smoking Status: No Smoking History: Former smoker Have you smoked in the past 12 months: No Number of Cigarettes Smoked Daily: 0 If you are a former smoker, when did you quit?: 25 years Information on smoking cessation initiated: No Hx Alcohol Use: No Drug/Substance Use Hx: No Substance Use Type: None Hx Substance Use Treatment: No Review of Systems - Review of Systems Able to Perform ROS?: No *Physical Exam - Vital Signs Last Vital Signs Temp Pulse Resp BP Pulse Ox 98.1 F 73 20 115/60 98 05/26/17 12:57 05/26/17 12:57 05/26/17 12:57 05/26/17 12:57 05/26/17 12:57 - Physical Exam General Appearance: Yes: Nourished, Appropriately Dressed, Mild Distress HEENT: positive: Normal Voice, Hearing Grossly Normal Respiratory/Chest: positive: Lungs Clear, Normal Breath Sounds. negative: Chest Tender, Respiratory Distress Cardiovascular: positive: Regular Rhythm, Regular Rate, S1, S2. negative: Diastolic Murmur, Systolic Murmur Gastrointestinal/Abdominal: positive: Normal Bowel Sounds, Tender (epigastric region), Flat, Soft Integumentary: positive: Normal Color, Swelling, Bruising (Swelling and erythema of b/l lower extremities). negative: Cold, Clammy, Diaphoresis Neurologic: positive: Fully Oriented, Alert, Normal Mood/Affect Heart Score/ECG Review - ECG Impressions Normal ECG: Yes ED Treatment Course - LABORATORY CBC & Chemistry Diagram: 05/26/17 13:39 05/26/17 13:39 - RADIOLOGY Radiology Studies Ordered: Category Date Time Status CHEST PA & LAT [RAD] Stat Radiology 05/26/17 13:35 Ordered Medical Decision Making - Medical Decision Making 05/26/17 13:53 The patient is a 67M with an extensive cardiac history who presents with 4 days of CP, nausea, SOB, and dizziness. I want to rule out ACS, especially with the patient's cardiac history. GERD is also on my differential. I have ordered labs and will await their results and reassess the patient. 05/26/17 17:09 I have spoken with Dr. Suazo, and he agrees to admit the patient to tele obs as a chest pain rule out. He wants a consult to Dr. Yoshi Ozuna for cardiology. He also wants serial enzymes, lipid panels every morning and cardiac enzymes x 3. I will put these orders and consults in. 05/26/17 17:32 Dr. Hughes is line service person for Dr. Yoshi Ozuna. His office has been paged and awaiting the call back. 05/26/17 19:08 Still have not heard from Dr. Hughes. I have paged Dr. Suazo for a different oracle application consultant. 05/26/17 19:[address] Donnelly, night team. *DC/Admit/Observation/Transfer Diagnosis at time of Disposition: Chest pain Qualifiers: Chest pain type: unspecified Qualified Code(s): R07.9 - Chest pain, unspecified - Discharge Dispostion Admit: Yes - Referrals - Attestations Physician Attestion: 05/26/17 17:10 I, Dr. Oscar Moreno, attest that this document has been prepared under my direction and personally reviewed by me in its entirety. I further attest, that it accurately reflects all work, treatment, procedures and medical decision -making performed by me.
[2017-05-26] MEDS ORDERED: PANTOPRAZOLE SODIUM 40 MG in SODIUM CHLORIDE 100 ML IVPB ONE (13:52)
[2017-05-26] MEDS ORDERED: PANTOPRAZOLE SODIUM 40 MG VIAL ONE (14:02)
[2017-05-26 14:14] LABS: BASOPHIL 1.4 % (0-2.0); EOSINOPHIL 0.7 % (0-4.5); MCH 28.3 pg (25.7-33.7); MCHC 32.2 g/dl (32.0-35.9); MEAN CELL VOLUME 87.9 fl (80-96); MEAN PLT VOLUME 9.2 fl (7.5-11.1); NEUTROPHILS 79.4 % (42.8-82.8); PLATELET COUNT 135 K/MM3 (134-434); RDW 15.4 % (11.9-15.9); WHITE BLOOD COUNT 11.8 K/mm3 (4.0-10.0)
[2017-05-26 14:43] LABS: ALBUMIN 3.7 g/dl (3.4-5.0); ANION GAP 10 (8-16); CALCIUM 9.3 mg/dL (8.5-10.1); CO2 28 mmol/L (21-32); CREATININE 1.4 mg/dL (0.7-1.3); GLUCOSE,RANDOM 174 mg/dL (74-106); INR 1.88 (0.82-1.09); SGPT/ALT 23 U/L (12-78)
[2017-05-26 14:47] LABS: ALK PHOS 115 U/L (45-117); BILIRUBIN,TOTAL 0.5 mg/dL (0.2-1.0); TOT PROT 7.4 g/dl (6.4-8.2); TROPONIN I < 0.02 ng/ml (0.00-0.05)
[2017-05-26 14:58] LABS: MAGNESIUM 2.1 mg/dL (1.8-2.4); SGOT/AST 28 U/L (15-37)
[2017-05-26 15:03] LABS: CPK 320 IU/L (39-308)
[2017-05-26] MEDS ORDERED: traMADol HCL 50 MG TABLET PO PRN (18:32)
[2017-05-26] MEDS ORDERED: clonazePAM 0.5 MG TABLET PO PRN (18:32)
[2017-05-26] MEDS ORDERED: ACETAMINOPHEN 325 MG TABLET (FP) PO PRN (18:32)
[2017-05-26] MEDS ORDERED: ATORVASTATIN CA 20 MG TABLET (FP) PO SCH (22:00)
[2017-05-26] MEDS: OXYBUTYNIN CHLORIDE 5 MG TABLET PO SCH (23:49)
[2017-05-26] MEDS: DIVALPROEX SODIUM 500 MG TABLET E.C. PO SCH (23:49)
[2017-05-26] MEDS: levETIRAcetam 500 MG TABLET (FP) PO SCH (23:50)
[2017-05-26] MEDS: MAGNESIUM OXIDE 400 MG TABLET (FP) PO SCH (23:51)
[2017-05-26] MEDS: INSULIN SLIDING SCALE (NOVOLOG) 1 VIAL SQ SCH (23:51)
[2017-05-26] MEDS: RANOLAZINE E.R. 500 MG TABLET (FP) PO SCH (23:51)
[2017-05-27 00:30] VITALS: BMI 43.7
[2017-05-27 01:14] LABS: CPK 269 IU/L (39-308); TROPONIN I < 0.02 ng/ml (0.00-0.05)
[2017-05-27] MEDS: INSULIN SLIDING SCALE (NOVOLOG) 1 VIAL SQ SCH ×2 (06:14→11:08)
[2017-05-27 08:20] LABS: MCHC 32.9 g/dl (32.0-35.9); MEAN CELL VOLUME 88.1 fl (80-96); PLATELET COUNT 124 K/MM3 (134-434); RDW 15.1 % (11.9-15.9); WHITE BLOOD COUNT 9.4 K/mm3 (4.0-10.0)
[2017-05-27] MEDS ORDERED: TAMSULOSIN HCL 0.4 MG CAP.ER.24H (FP) PO SCH (08:30)
[2017-05-27 08:56] LABS: ALBUMIN 3.2 g/dl (3.4-5.0); ALK PHOS 85 U/L (45-117); ANION GAP 7 (8-16); BILIRUBIN,TOTAL 0.4 mg/dL (0.2-1.0); CALCIUM 8.8 mg/dL (8.5-10.1); CHOLESTEROL 129 mg/dL (50-200); CO2 29 mmol/L (21-32); CREATININE 1.3 mg/dL (0.7-1.3); GLUCOSE,RANDOM 130 mg/dL (74-106); LDL CHOLESTEROL (ONLY SJRH) 58 mg/dL (5-100); SGOT/AST 14 U/L (15-37); SGPT/ALT 19 U/L (12-78); TOT PROT 6.7 g/dl (6.4-8.2)
[2017-05-27] MEDS: MAGNESIUM OXIDE 400 MG TABLET (FP) PO SCH (09:35)
[2017-05-27] MEDS: levETIRAcetam 500 MG TABLET (FP) PO SCH (09:35)
[2017-05-27] MEDS: OXYBUTYNIN CHLORIDE 5 MG TABLET PO SCH (09:35)
[2017-05-27] MEDS: RANOLAZINE E.R. 500 MG TABLET (FP) PO SCH (09:36)
[2017-05-27] MEDS: DIVALPROEX SODIUM 500 MG TABLET E.C. PO SCH (09:36)
[2017-05-27] MEDS ORDERED: RIVAROXABAN 20 MG TABLET PO SCH (10:00)
[2017-05-27] MEDS ORDERED: ASPIRIN COATED 81 MG TABLET.EC PO SCH (10:00)
[2017-05-27] MEDS ORDERED: FOLIC ACID 1 MG TABLET (FP) PO SCH (10:00)
[2017-05-27] MEDS ORDERED: CITALOPRAM HYDROBROMIDE 10 MG TABLET (FP) PO SCH (10:00)
[2017-05-27] MEDS ORDERED: LISINOPRIL 5 MG TABLET (FP) PO SCH (10:00)
[2017-05-27] MEDS ORDERED: BICALUTAMIDE 50 MG TABLET (FP) PO SCH (10:00)
--- NOTE | 2017-05-27 10:28 | EKG ---
Test Reason : Blood Pressure : / mmHG Vent. Rate : 069 BPM Atrial Rate : 069 BPM P-R Int : 166 ms QRS Dur : 082 ms QT Int : 410 ms P-R-T Axes : 044 -25 028 degrees QTc Int : 439 ms NORMAL SINUS RHYTHM NORMAL ECG WHEN COMPARED WITH ECG OF 20-MAR-2017 15:47, NO SIGNIFICANT CHANGE WAS FOUND Confirmed by MILTON BUNCH MD ([id number]) on 05/27/2017 10:27:44 AM Referred By: Confirmed By:MILTON BUNCH MD
[2017-05-27 10:29] VITALS: BP 120/64; PULSE 55; TEMP 98
--- NOTE | 2017-05-27 11:41 | HP ---
Admitting History and Physical - Primary Care Physician PCP: Ruth Suazo - Admission Chief Complaint: chest pain History of Present Illness: history of dm,htn,lipidemia,protein c def, ovesity, old cva, prostate cancer on casodex and radiation therapy in past, presents with chest pain for 1 day substernal, with dyspnea. 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 No: AFIB, CHF Pulmonary: Yes: COPD Gastrointestinal: Yes: Diverticulitis, Diverticulosis, Other (hepatic granuloma) Renal/: Yes: Hematuria, Renal Calculi Heme/Onc: Yes: Cancer (bladder cancer, prostate cancer) Psych: Yes: Anxiety Endocrine: Yes: Diabetes Mellitus - Past Surgical History Past Surgical History: Yes: Appendectomy, Cholecystectomy, Hernia Repair (x2), Joint Replacement (left shoulder) - Smoking History Smoking history: Former smoker Have you smoked in the past 12 months: No Aproximately how many cigarettes per day: 0 If you are a former smoker, when did you quit?: 25 years - Alcohol/Substance Use Hx Alcohol Use: No History of Substance Use: reports: None - Social History ADL: Independent History of Recent Travel: No Home Medications - Allergies Allergies/Adverse Reactions: Allergies Allergy/AdvReac Type Severity Reaction Status Date / Time amoxicillin Allergy Mild Rash Verified 05/26/17 13:00 carbamazepine [From Tegretol] Allergy Mild Rash Verified 05/26/17 13:00 cephalexin [Cephalexin] Allergy Mild Rash Verified 05/26/17 13:00 ciprofloxacin Allergy Mild Rash Verified 05/26/17 13:00 fluconazole Allergy Mild Verified 05/26/17 13:00 lamotrigine [From Lamictal] Allergy Mild Rash Verified 05/26/17 13:00 metronidazole Allergy Mild Rash Verified 05/26/17 13:00 phenobarbital Allergy Mild Rash Verified 05/26/17 13:00 phenytoin sodium Allergy Mild Rash Verified 05/26/17 13:00 [From Dilantin] phenytoin sodium extended Allergy Mild Rash Verified 05/26/17 13:00 [From Dilantin] sulfamethoxazole Allergy Mild Rash Verified 05/26/17 13:00 [From Sulfatrim] trimethoprim [From Sulfatrim] Allergy Mild Rash Verified 05/26/17 13:00 amoxicillin trihydrate Allergy Unknown Verified 05/26/17 13:00 [From Augmentin] potassium clavulanate Allergy Unknown Verified 05/26/17 13:00 [From Augmentin] SHRIMP Allergy Mild Rash Uncoded 05/26/17 13:00 ciproflux Allergy Uncoded 05/26/17 13:00 shrimp Allergy Uncoded 05/26/17 13:00 - Home Medications Home Medications: Ambulatory Orders Aspirin [ASA -] 81 mg PO DAILY 03/20/17 Atorvastatin Ca [Lipitor] 20 mg PO HS 03/20/17 Bicalutamide [Casodex -] 50 mg PO DAILY 03/20/17 Citalopram Hydrobromide [Celexa -] 10 mg PO DAILY 03/20/17 Clonazepam [Klonopin -] 0.5 mg PO TID 03/20/17 Divalproex *ER* [Depakote *ER* -] 500 mg PO BID 03/20/17 Ferrous Sulfate [Feosol] 325 mg PO DAILY 03/20/17 Fesoterodine Fumarate [Toviaz] 4 mg PO DAILY 03/20/17 Folic Acid 1 mg PO DAILY 03/20/17 Levetiracetam 1,000 mg PO TID 03/20/17 Lisinopril [Prinivil] 5 mg PO DAILY 03/20/17 Magnesium Oxide [Magnesium] 500 mg PO BID 03/20/17 Oxybutynin Chloride [Ditropan -] 10 mg PO DAILY 03/20/17 Ranolazine [Ranexa] 500 mg PO BID 03/20/17 Rivaroxaban [Xarelto -] 20 mg PO DAILY 03/20/17 Tamsulosin HCl [Flomax -] 0.4 mg PO BID 03/20/17 Tramadol HCl [Ultram -] 50 mg PO DAILY 03/20/17 Family Disease History - Family Disease History Family Disease History: Diabetes: Mother (htn), CA: Father, Other: Mother Review of Systems - Review of Systems Constitutional: reports: No Symptoms Eyes: reports: No Symptoms HENT: reports: No Symptoms Neck: reports: No Symptoms Cardiovascular: reports: Chest Pain, Shortness of Breath Respiratory: reports: SOB Gastrointestinal: reports: No Symptoms Genitourinary: reports: No Symptoms Musculoskeletal: reports: Muscle Weakness Integumentary: reports: Eczema, Erythema, Rash Neurological: reports: Pre-Existing Deficit, Unsteady Gait, Weakness Endocrine: reports: No Symptoms Hematology/Lymphatic: reports: No Symptoms Psychiatric: reports: Depression Physical Examination Vital Signs: Vital Signs Temperature 98 F 05/27/17 10:00 Pulse Rate 55 L 05/27/17 10:00 Respiratory Rate 18 05/27/17 10:00 Blood Pressure 120/64 05/27/17 10:00 O2 Sat by Pulse Oximetry (%) 100 05/27/17 10:00 Findings/Remarks: in bed comfortable, no pain Constitutional: Yes: No Distress Eyes: Yes: WNL HENT: Yes: WNL Neck: Yes: WNL Cardiovascular: Yes: WNL Respiratory: Yes: WNL Gastrointestinal: Yes: WNL Renal/: Yes: WNL Musculoskeletal: Yes: Muscle Weakness Extremities: Yes: WNL Edema: Yes Edema: LLE: 1+, RLE: 1+ Peripheral Pulses WNL: Yes Integumentary: Yes: Venous Stasis Changes Wound/Incision: Yes: Clean/Dry Neurological: Yes: Pre-Existing Deficit ...Motor Strength: LLE, RLE Psychiatric: Yes: WNL Labs: CBC, BMP 05/27/17 05:35 05/27/17 05:35 Problem List - Problems (1) Chest pain Code(s): R07.9 - CHEST PAIN, UNSPECIFIED Qualifiers: Chest pain type: unspecified Qualified Code(s): R07.9 - Chest pain, unspecified Assessment/Plan kept for observation for cardiac enzymes patient admitted under observation protocol telemetry monitoring lipid profile a1c cardiac enzymes x 3 sets all negative f/u tuesday at my office 9am for follow up
--- NOTE | 2017-05-27 11:44 | DS ---
Physical Examination Vital Signs: Vital Signs Temperature 98 F 05/27/17 10:00 Pulse Rate 55 L 05/27/17 10:00 Respiratory Rate 18 05/27/17 10:00 Blood Pressure 120/64 05/27/17 10:00 O2 Sat by Pulse Oximetry (%) 100 05/27/17 10:00 Constitutional: Yes: No Distress Eyes: Yes: WNL HENT: Yes: WNL Neck: Yes: WNL Cardiovascular: Yes: WNL Respiratory: Yes: WNL Gastrointestinal: Yes: WNL Renal/: Yes: WNL Musculoskeletal: Yes: WNL Extremities: Yes: WNL Edema: Yes Edema: LLE: 1+, RLE: 1+ Peripheral Pulses WNL: Yes Integumentary: Yes: Venous Stasis Changes Wound/Incision: Yes: Clean/Dry Neurological: Yes: Pre-Existing Deficit, Unsteady Gait ...Motor Strength: LLE, RLE Psychiatric: Yes: Other Labs: CBC, BMP 05/27/17 05:35 05/27/17 05:35 Discharge Summary Reason For Visit: CHEST PAIN Current Active Problems Chest pain (Acute) Hospital Course: ADMITTED FOR OBSERVATION OF CHEST PAIN, CARDIAC ENZYMES NEGATIVE FOR TROPONONS, WILL F/U OUT PATIENT TOMORROW AT OUR OFFICE Tuesday Condition: Improved - Instructions Diet, Activity, Other Instructions: ADA/LOW FAT/LOW SALT Tuesday APPT Referrals: Ruth Suazo MD [Primary Care Provider] - Disposition: VNS/HOME HEALTH CARE - Home Medications Comprehensive Discharge Medication List: Ambulatory Orders Aspirin [ASA -] 81 mg PO DAILY 03/20/17 Atorvastatin Ca [Lipitor] 20 mg PO HS 03/20/17 Bicalutamide [Casodex -] 50 mg PO DAILY 03/20/17 Citalopram Hydrobromide [Celexa -] 10 mg PO DAILY 03/20/17 Clonazepam [Klonopin -] 0.5 mg PO TID 03/20/17 Divalproex *ER* [Depakote *ER* -] 500 mg PO BID 03/20/17 Ferrous Sulfate [Feosol] 325 mg PO DAILY 03/20/17 Fesoterodine Fumarate [Toviaz] 4 mg PO DAILY 03/20/17 Folic Acid 1 mg PO DAILY 03/20/17 Levetiracetam 1,000 mg PO TID 03/20/17 Lisinopril [Prinivil] 5 mg PO DAILY 03/20/17 Magnesium Oxide [Magnesium] 500 mg PO BID 03/20/17 Oxybutynin Chloride [Ditropan -] 10 mg PO DAILY 03/20/17 Ranolazine [Ranexa] 500 mg PO BID 03/20/17 Rivaroxaban [Xarelto -] 20 mg PO DAILY 03/20/17 Tamsulosin HCl [Flomax -] 0.4 mg PO BID 03/20/17 Tramadol HCl [Ultram -] 50 mg PO DAILY 03/20/17
== END 2017-05-27 14:04 | disposition home health service (06) ==
LOC: JER 12:44 → SUPCPDRO 12:44 → JERBED 17:11 → J4W 23:25
PROVIDERS: ADMIT Family Medicine; ATTEND Family Medicine
PROC: 3E033GC Introduction of Other Therapeutic Substance into Peripheral Vein, Percutaneous Approach (ICD-10-PCS; principal; 2017-05-26)
DX: R07.9 Chest pain, unspecified (principal); I10 Essential (primary) hypertension; I50.9 Heart failure, unspecified; I25.10 Atherosclerotic heart disease of native coronary artery without angina pectoris; I25.2 Old myocardial infarction; I48.91 Unspecified atrial fibrillation; Z79.01 Long term (current) use of anticoagulants; E78.5 Hyperlipidemia, unspecified; E11.9 Type 2 diabetes mellitus without complications; E03.9 Hypothyroidism, unspecified; E66.9 Obesity, unspecified; F41.9 Anxiety disorder, unspecified; Z85.46 Personal history of malignant neoplasm of prostate; J45.909 Unspecified asthma, uncomplicated; Z85.51 Personal history of malignant neoplasm of bladder; Z68.41 Body mass index [BMI] 40.0-44.9, adult; Z88.1 Allergy status to other antibiotic agents; Z88.8 Allergy status to other drugs, medicaments and biological substances; Z91.013 Allergy to seafood; Z79.82 Long term (current) use of aspirin; Z86.718 Personal history of other venous thrombosis and embolism; Z87.442 Personal history of urinary calculi; Z86.69 Personal history of other diseases of the nervous system and sense organs; Z87.891 Personal history of nicotine dependence; Z92.21 Personal history of antineoplastic chemotherapy
CPT/HCPCS: 36415; 71020-TC; 80053; 80061; 82553; 83721; 83735; 83880; 84484; 85025; 85027; 85610; 85730; 93005; 93010; 99285-25; G0378

== ENCOUNTER 2017-06-29 17:21 | Emergency (ER) | payer MEDICARE, OTHER ==
--- NOTE | 2017-06-29 17:30 | PDOC ---
Attending Attestation - Resident Resident Name: Adilson Merino - ED Attending Attestation I have performed the following: I have examined & evaluated the patient, The case was reviewed & discussed with the resident, I agree w/resident's findings & plan, Exceptions are as noted - Medical Decision Making 06/29/17 17:30 I, Dr. Yamel Staples, DO, attest that this document has been prepared under my direction and personally reviewed by me in its entirety. I further attest, that it accurately reflects all work, treatment, procedures and medical decision -making performed by me. <Yamel Staples - Last Filed: 06/29/17 17:45> - HPI HPI: 06/29/17 18:54 The patient is a 67 year old salvadorean speaking male with significant past medical history of hypertension, hyperlipidemia, diabetes, bladder CA and prostate CA who presents to the ED for bilateral flank pain and hematuria that began earlier this morning. History given via [employer]. States he now has suprapubic pain, dysuria, urgency and frequency. Denies nausea, vomiting, or diarrhea. States he is currently on xarelto. He also reports having hematuria in the past when he was here and eloped before getting worked up. The patient denies fever, chills, cough, SOB, chest pain, and palpitations. - Physicial Exam PE: 06/29/17 18:54 GENERAL: Awake, alert, and fully oriented, in no acute distress HEAD: No signs of trauma EYES: PERRLA, EOMI, sclera anicteric, conjunctiva clear ENT: Auricles normal inspection, hearing grossly normal, nares patent, oropharynx clear without exudates. Moist mucosa NECK: Normal ROM, supple, no lymphadenopathy, JVD, or masses LUNGS: Breath sounds equal, clear to auscultation bilaterally. No wheezes, and no crackles HEART: Regular rate and rhythm, normal S1 and S2, no murmurs, rubs or gallops ABDOMEN: Soft, lower abdominal and suprapubic tenderness, normoactive bowel sounds. Mild voluntary guarding with no rebound. No masses. Bedside renal ultrasound was done, which showed negative for hydro or large visualize clots in the bladder. MUSCULOSKELETAL: Bilateral CVA tenderness. EXTREMITIES: Normal range of motion. Trace edema bilaterally. Chronic venous stasis changes bilateral lower extremities. No clubbing or cyanosis. No cords, erythema, or tenderness NEUROLOGICAL: Cranial nerves II through XII grossly intact. Normal speech SKIN: Warm, Dry, normal turgor, no rashes or lesions noted. - Medical Decision Making 06/29/17 18:54 Documentation prepared by Esme Boothe, acting as pesticide use medical coordinator for Yamel Staples DO, MD/. <Esme Boothe - Last Filed: 06/29/17 18:54> Heart Score/ECG Review - ECG Intrepretation Comment:: 06/29/17 17:45 sinus at 68, nl axis, nl interval, no acute st/t wave findings, baseline artifact <Yamel Staples - Last Filed: 06/29/17 17:45>
--- NOTE | 2017-06-29 17:33 | PDOC ---
History of Present Illness - General Stated Complaint: ABDOMINAL PAIN Time Seen by Provider: 06/29/17 17:28 - History of Present Illness Initial Comments: 06/29/17 17:32 67 yo Liberian speaking M with h/o HTN, DM, HLD, cardiac stent x 2, bladder and prostate ca. s/p radiation who presents w/ gross hematuria. Reports that over past 24-48 hours he has experienced worsening BL flank pain, suprapubic pain, increased urinary frequency and urgency, and dribbling of blood when attempting urination this AM. Endorses difficulty with urination. Evaluated in ED ( 01/07) for similar complaint but eloped. Denies fevers/chills, SOB, chest pain, GI complaints. Denies NSAID use. Currently on Xarelto. Tobacco cessation 30 years ago. Denies alcohol intake. Past History - Past Medical History Allergies/Adverse Reactions: Allergies Allergy/AdvReac Type Severity Reaction Status Date / Time amoxicillin trihydrate Allergy Verified 01/10/17 14:01 [From Augmentin] ciprofloxacin Allergy Verified 01/10/17 14:01 fluconazole Allergy Verified 01/10/17 14:01 metronidazole Allergy Verified 01/10/17 14:01 phenobarbital Allergy Verified 01/10/17 14:01 potassium clavulanate Allergy Verified 01/10/17 14:01 [From Augmentin] shrimp Allergy Verified 01/10/17 14:02 Home Medications: Ambulatory Orders Aspirin [ASA -] 81 mg PO DAILY 06/29/17 Atorvastatin Ca [Lipitor] 20 mg PO HS 06/29/17 Bicalutamide [Casodex] 50 mg PO DAILY 06/29/17 Citalopram Hydrobromide [Citalopram HBr] 10 mg PO DAILY 06/29/17 Ferrous Sulfate 325 mg PO DAILY 06/29/17 Folic Acid 0.4 mg PO DAILY 06/29/17 Levofloxacin [Levaquin -] 500 mg PO DAILY #14 tablet 06/29/17 Lisinopril 10 mg PO DAILY 06/29/17 Oxybutynin Chloride [Oxybutynin Chloride ER] 10 mg PO DAILY 06/29/17 Ranolazine [Ranexa] 500 mg PO BID 06/29/17 Rivaroxaban [Xarelto -] 20 mg PO DAILY 06/29/17 Tamsulosin HCl [Flomax] 0.4 mg PO DAILY 06/29/17 Cancer: Yes (prostate) Diabetes: Yes HTN: Yes Hypercholesterolemia: Yes Seizures: Yes - Surgical History Appendectomy: Yes Cardiac Surgery: Yes Cholecystectomy: Yes - Psycho/Social/Smoking Cessation Hx Suicidal Ideation: No Smoking History: Never smoked ED Treatment Course - LABORATORY CBC & Chemistry Diagram: 06/29/17 18:29 06/29/17 18:29 - RADIOLOGY Radiograph Interpretation: 06/29/17 21:26 EXAM#: TYPE/EXAM: RESULT: CT/ABDOMEN PELVIS CT W/O CONTR Abdomen and pelvis CT (without contrast) Clinical information: abdominal pain Multiplanar imaging was performed. As requested no intravenous or enteric contrast was administered. Extensive atherosclerotic coronary artery calcifications are noted. Small calcified left hilar lymph node consistent with prior granulomatous disease. No evidence of pneumoperitoneum, free intraperitoneal fluid or bowel obstruction. A very small amount of air is seen within the urinary bladder lumen. The urinary bladder demonstrates demonstrates mild diffuse wall thickening which may be physiologic in nature due to underdistention. Soft tissue detail at the level of the lower third of the pelvis is somewhat limited due to beam hardening artifact associated with body habitus. Colonic diverticulosis is noted without CT evidence of acute diverticulitis. Status post cholecystectomy. No definite biliary tract dilatation is seen. There is no gross CT evidence of choledocholithiasis. Several punctate calcified hepatic granulomas are noted. The spleen, pancreas, adrenal glands and kidneys demonstrate no obvious noncontrast pathology. There is no aortic aneurysm. Extensive atherosclerotic aortic wall calcification is seen. Several nonspecific mildly enlarged left lower periaortic retroperitoneal lymph nodes are noted. No gross small bowel pathology is identified. The appendix cannot be definitely identified however there are no obvious indirect CT signs of acute appendicitis. IMPRESSION: Extensive atherosclerotic calcifications are noted along the coronary arteries and aortoiliac arteries. A very small amount of air is seen within the urinary bladder lumen - ? recent catheterization, ? gas-forming infection. The urinary bladder demonstrates mild diffuse wall thickening which could be physiologic due to underdistention versus secondary to acute or chronic cystitis. Correlate clinically. Status post cholecystectomy. Colonic diverticulosis without CT evidence of acute diverticulitis. Small calcified hepatic granulomas. Medical Decision Making - Medical Decision Making 06/29/17 20:35 67 yo Liberian speaking M with h/o HTN, DM, HLD, cardiac stent x 2, bladder and prostate ca. s/p radiation who presents w/ gross hematuria. Reports that over past 24-48 hours he has experienced worsening BL flank pain, suprapubic pain, increased urinary frequency and urgency, and dribbling of blood when attempting urination this AM. Physical exam reveals diffuse ttp throuhgout abdomen and BL CVA ttp. Hemodynamically stable. Evaluated in ED ( 01/07) for similar complaint but eloped. Denies fevers/chills, SOB, chest pain, GI complaints. Denies NSAID use. Currently on Xarelto. Tobacco cessation 30 years ago. Denies alcohol intake. DDx: Colitis , diverticulosis, cystitis, pyelonephritis. ED Course: UA: 1 + Leuk Esterase, 3 + Blood, Cloudy CT Abdomen Pelvis: IMPRESSION: Extensive atherosclerotic calcifications are noted along the coronary arteries and aortoiliac arteries. A very small amount of air is seen within the urinary bladder lumen - ? recent catheterization, ? gas-forming infection. The urinary bladder demonstrates mild diffuse wall thickening which could be physiologic due to underdistention versus secondary to acute or chronic cystitis. Correlate clinically. Status post cholecystectomy. Colonic diverticulosis without CT evidence of acute diverticulitis. Small calcified hepatic granulomas. Pt. Pain improved following morphine. Per. Dr. Suazo have pt. f/u tomorrow and start Levaquin 500 mg. *DC/Admit/Observation/Transfer Diagnosis at time of Disposition: Cystitis Diverticulosis Qualifiers: Diverticulosis site: diverticulosis of large intestine Diverticulosis bleeding : diverticulosis without bleeding Qualified Code(s): K57.30 - Diverticulosis of large intestine without perforation or abscess without bleeding - Discharge Dispostion Disposition: HOME Condition at time of disposition: Improved Admit: No - Prescriptions Prescriptions: Levofloxacin [Levaquin -] 500 mg PO DAILY #14 tablet - Patient Instructions Printed Discharge Instructions: DI for Diverticulosis Additional Instructions: Please follow up with Dr. Suazo tomorrow and take antibiotic as prescribed. Return to ED if you experience any nausea/vomiting, fevers/chills, or worsening symptoms.
[2017-06-29 18:27] VITALS: PULSE 68; TEMP 98.4; BMI 40.3
[2017-06-29] MEDS ORDERED: ONDANSETRON 4 MG/2 ML VIAL IVPUSH ONE (18:44)
[2017-06-29] MEDS ORDERED: morphine CARPU-JECT 4 MG/1 ML DISP.SYRIN IVPUSH ONE (18:44)
[2017-06-29 18:55] LABS: MCH 29.4 pg (25.7-33.7); MCHC 34.1 g/dl (32.0-35.9); MEAN CELL VOLUME 86.2 fl (80-96); MEAN PLT VOLUME 8.7 fl (7.5-11.1); PLATELET COUNT 133 K/MM3 (134-434); RDW 15.1 % (11.9-15.9); WHITE BLOOD COUNT 10.7 K/mm3 (4.0-10.0)
[2017-06-29 19:08] LABS: INR 1.69 (0.82-1.09); PROTHROMBIN TIME (PATIENT) 18.8 SEC (9.98-11.88)
[2017-06-29 19:11] LABS: ACTIVATED PTT 37.5 SECONDS (26.9-34.4)
[2017-06-29 19:36] LABS: URINE APPEARANCE CLOUDY; URINE BILIRUBIN NEGATIVE (NEGATIVE); URINE BLOOD 3+ (NEGATIVE); URINE COLOR YELLOW; URINE GLUCOSE (UA) 1+ (NEGATIVE); URINE KETONE NEGATIVE (NEGATIVE); URINE NITRITE NEGATIVE (NEGATIVE); URINE UROBILINOGEN NEGATIVE mg/dL (0.2-1.0)
[2017-06-29 19:39] LABS: URINE LEUK ESTERASE 1+ (NEGATIVE); URINE PROTEIN 1+ (NEGATIVE)
[2017-06-29 19:53] LABS: PLATELET COMMENT2 NO CLOTTING DETECTED; PLATELET ESTIMATE SLT DECREASED (NORMAL); TOTAL CELLS COUNTED 100
[2017-06-29] MEDS ORDERED: morphine CARPU-JECT 4 MG/1 ML DISP.SYRIN ONE (19:53)
[2017-06-29] MEDS ORDERED: ONDANSETRON 4 MG/2 ML VIAL ONE (19:53)
[2017-06-29 19:54] LABS: BASOPHIL (MANUAL) 1 % (0-2.0); METAMYELOCYTE 2 % (0-2); MYELOCYTE 1 % (0-2); REACTIVE LYMPHOCYTES 1 % (0-80)
[2017-06-29] MEDS ORDERED: morphine CARPU-JECT 2 MG/1 ML DISP.SYRIN IM ONE (20:17)
[2017-06-29] MEDS ORDERED: ONDANSETRON 4 MG TABLET PO ONE (20:17)
[2017-06-29] MEDS ORDERED: ONDANSETRON *ODT* 4 MG TABLET ONE (20:22)
[2017-06-29 20:23] LABS: URINE BACTERIA FEW /hpf (NONE SEEN); URINE MUCUS RARE; URINE RBC 3050 /hpf (0-3); URINE WBC 208 /hpf (3-5)
[2017-06-29 20:27] LABS: ALBUMIN 3.8 g/dl (3.4-5.0); ALK PHOS 106 U/L (45-117); ANION GAP 16 (8-16); BILIRUBIN,TOTAL 0.4 mg/dL (0.2-1.0); CO2 20 mmol/L (21-32); CREATININE 1.5 mg/dL (0.7-1.3); GLUCOSE,RANDOM 135 mg/dL (74-106); SGOT/AST 19 U/L (15-37); SGPT/ALT 22 U/L (12-78); TOT PROT 7.6 g/dl (6.4-8.2)
[2017-06-29 22:00] VITALS: BP 108/58
[2017-06-29 23:56] LABS: CALCIUM 9.3 mg/dL (8.5-10.1)
--- NOTE | 2017-06-30 12:18 | EKG ---
Test Reason : Blood Pressure : / mmHG Vent. Rate : 068 BPM Atrial Rate : 068 BPM P-R Int : 138 ms QRS Dur : 076 ms QT Int : 410 ms P-R-T Axes : 033 -22 023 degrees QTc Int : 435 ms POOR DATA QUALITY, INTERPRETATION MAY BE ADVERSELY AFFECTED NORMAL SINUS RHYTHM LOW VOLTAGE QRS NONSPECIFIC ST ABNORMALITY ABNORMAL ECG NO PREVIOUS ECGS AVAILABLE Confirmed by TRINITY NEWMAN MD ([id number]) on 06/30/2017 12:18:28 PM Referred By: Confirmed By:TRINITY NEWMAN MD
--- NOTE | 2017-07-02 14:53 | PDOC ---
Patient Follow-up (Call Back) - Post ED Follow - Up Disposition at time of original discharge: HOME Reason for Call Back: Abnwl. Microbiology (Orozco resistant klebsiella on ucx ( only sensitive to IV abx including the penems, resistant to levaquin which pt is on) I called pt, not feeling well. Told to return to ED immediately which pt agrees to)
== END 2017-06-29 22:07 | disposition home or self-care (01) ==
LOC: JER 17:21 → MERGE 17:21 → JER 22:07
PROC: 3E023NZ Introduction of Analgesics, Hypnotics, Sedatives into Muscle, Percutaneous Approach (ICD-10-PCS; principal; 2017-06-29)
DX: N30.01 Acute cystitis with hematuria (principal); K57.30 Diverticulosis of large intestine without perforation or abscess without bleeding; I25.10 Atherosclerotic heart disease of native coronary artery without angina pectoris; I10 Essential (primary) hypertension; Z95.5 Presence of coronary angioplasty implant and graft; E11.9 Type 2 diabetes mellitus without complications; E78.00 Pure hypercholesterolemia, unspecified; Z85.46 Personal history of malignant neoplasm of prostate; Z85.51 Personal history of malignant neoplasm of bladder; Z79.01 Long term (current) use of anticoagulants; B96.89 Other specified bacterial agents as the cause of diseases classified elsewhere
CPT/HCPCS: 36415; 74176-TC; 80053; 81003; 81015; 83880; 85025; 85610; 85730; 87086; 87186; 93005; 93010; 99284-25

== ENCOUNTER 2017-07-19 19:58 | Emergency (ER) | payer MEDICARE, OTHER ==
[2017-07-19 20:16] VITALS: BP 133/70; PULSE 74; TEMP 98.1; BMI 32.3
--- NOTE | 2017-07-19 21:38 | PDOC ---
History of Present Illness - History of Present Illness Initial Comments: 07/19/17 22:05 The patient is a 67 year old male, with a significant past medical history of a- fib, DVT, nephrolithiasis, prostate cancer and bladder cancer, who presents to the emergency department with urinary retention earlier today. He saw his urologist today and had a urological procedure and bladder biopsy done. Sent to ER for urinary retention. He denies any recent fevers, chills, headache or dizziness. He denies any recent nausea, vomit, diarrhea or constipation. He denies any recent chest pain or shortness of breath. Allergies:amoxicillin carbamazepine cephalexin ciprofloxacin fluconazole lamotrigine metronidazole phenobarbital phenytoin sodium sulfamethoxazole trimethoprim amoxicillin trihydrate potassium clavulanate shrimp Past surgical history: urological procedure Social History: Nonsmoker. Denies EtOH use and recreational drug use. Urologist: Devan Nugent <Penny Duran - Last Filed: 07/19/17 22:07> <Linda Alegre - Last Filed: 07/19/17 22:52> - General Chief Complaint: Hematuria Stated Complaint: GROIN PAIN Time Seen by Provider: 07/19/17 20:34 Past History <Penny Duran - Last Filed: 07/19/17 22:07> - Past Medical History Anemia: No Asthma: Yes Cancer: Yes (prostate) Cardiac Disorders: Yes (ANGINA, RLE DVT) CVA: Yes (rt side) COPD: Yes CHF: No (atrial fib) DVT: Yes Dementia: No Diabetes: Yes GI Disorders: No Disorders: Yes (renal stones) HTN: Yes Hypercholesterolemia: Yes Liver Disease: No Seizures: Yes Thyroid Disease: No - Surgical History Abdominal Surgery: Yes (Hernia repair) Appendectomy: Yes Cardiac Surgery: Yes Cholecystectomy: Yes Lung Surgery: No Neurologic Surgery: No Orthopedic Surgery: Yes (lft arm surgery--plate) - Immunization History Immunization Up to Date: Yes - Suicide/Smoking/Psychosocial Hx Smoking Status: No Smoking History: Never smoked Have you smoked in the past 12 months: No Number of Cigarettes Smoked Daily: 0 If you are a former smoker, when did you quit?: 25 years Hx Alcohol Use: No Drug/Substance Use Hx: No Substance Use Type: None Hx Substance Use Treatment: No <Linda Alegre - Last Filed: 07/19/17 22:52> - Past Medical History Allergies/Adverse Reactions: Allergies Allergy/AdvReac Type Severity Reaction Status Date / Time amoxicillin Allergy Mild Rash Verified 07/19/17 20:14 carbamazepine [From Tegretol] Allergy Mild Rash Verified 07/19/17 20:14 cephalexin [Cephalexin] Allergy Mild Rash Verified 07/19/17 20:14 ciprofloxacin Allergy Mild Rash Verified 07/19/17 20:14 fluconazole Allergy Mild Verified 07/19/17 20:14 lamotrigine [From Lamictal] Allergy Mild Rash Verified 07/19/17 20:14 metronidazole Allergy Mild Rash Verified 07/19/17 20:14 phenobarbital Allergy Mild Rash Verified 07/19/17 20:14 phenytoin sodium Allergy Mild Rash Verified 07/19/17 20:14 [From Dilantin] phenytoin sodium extended Allergy Mild Rash Verified 07/19/17 20:14 [From Dilantin] sulfamethoxazole Allergy Mild Rash Verified 07/19/17 20:14 [From Sulfatrim] trimethoprim [From Sulfatrim] Allergy Mild Rash Verified 07/19/17 20:14 amoxicillin trihydrate Allergy Unknown Verified 07/19/17 20:14 [From Augmentin] potassium clavulanate Allergy Unknown Verified 07/19/17 20:14 [From Augmentin] shrimp Allergy Verified 07/19/17 20:14 SHRIMP Allergy Mild Rash Uncoded 07/19/17 20:14 ciproflux Allergy Uncoded 07/19/17 20:14 shrimp Allergy Uncoded 07/19/17 20:14 Home Medications: Ambulatory Orders Aspirin [ASA -] 81 mg PO DAILY 03/20/17 Atorvastatin Ca [Lipitor] 20 mg PO HS 03/20/17 Bicalutamide [Casodex -] 50 mg PO DAILY 03/20/17 Citalopram Hydrobromide [Celexa -] 10 mg PO DAILY 03/20/17 Clonazepam [Klonopin -] 0.5 mg PO TID 03/20/17 Divalproex *ER* [Depakote *ER* -] 500 mg PO BID 03/20/17 Ferrous Sulfate [Feosol] 325 mg PO DAILY 03/20/17 Fesoterodine Fumarate [Toviaz] 4 mg PO DAILY 03/20/17 Folic Acid 1 mg PO DAILY 03/20/17 Levetiracetam 1,000 mg PO TID 03/20/17 Lisinopril [Prinivil] 5 mg PO DAILY 03/20/17 Magnesium Oxide [Magnesium] 500 mg PO BID 03/20/17 Oxybutynin Chloride [Ditropan -] 10 mg PO DAILY 03/20/17 Ranolazine [Ranexa] 500 mg PO BID 03/20/17 Rivaroxaban [Xarelto -] 20 mg PO DAILY 03/20/17 Tamsulosin HCl [Flomax -] 0.4 mg PO BID 03/20/17 Tramadol HCl [Ultram -] 50 mg PO DAILY 03/20/17 Aspirin [ASA -] 81 mg PO DAILY 06/29/17 Atorvastatin Ca [Lipitor] 20 mg PO HS 06/29/17 Bicalutamide [Casodex] 50 mg PO DAILY 06/29/17 Citalopram Hydrobromide [Citalopram HBr] 10 mg PO DAILY 06/29/17 Ferrous Sulfate 325 mg PO DAILY 06/29/17 Folic Acid 0.4 mg PO DAILY 06/29/17 Levofloxacin [Levaquin -] 500 mg PO DAILY #14 tablet 06/29/17 Lisinopril 10 mg PO DAILY 06/29/17 Oxybutynin Chloride [Oxybutynin Chloride ER] 10 mg PO DAILY 06/29/17 Ranolazine [Ranexa] 500 mg PO BID 06/29/17 Rivaroxaban [Xarelto -] 20 mg PO DAILY 06/29/17 Tamsulosin HCl [Flomax] 0.4 mg PO DAILY 06/29/17 Abd/GI Specific PMHX - Complaint Specific PMHX GERD: No <Linda Alegre - Last Filed: 07/19/17 22:52> Review of Systems - Review of Systems Comments:: 07/19/17 22:02 CONSTITUTIONAL: Absent: fever, no chills, no fatigue EYES: Absent: visual changes ENT: Absent: ear pain, no sore throat CARDIOVASCULAR: Absent: chest pain, no palpitations RESPIRATORY: Absent: cough, no SOB GI: Absent: abdominal pain, no nausea, no vomiting, no constipation, no diarrhea GENITOURINARY: Present: urinary retention. Absent: dysuria, no frequency MUSCULOSKELETAL: Absent: back pain, no arthralgia, no myalgia SKIN: Absent: rash NEURO: Absent: headache <Penny Duran - Last Filed: 07/19/17 22:07> *Physical Exam - Vital Signs Last Vital Signs Temp Pulse Resp BP Pulse Ox 98.1 F 74 18 133/70 100 07/19/17 20:14 07/19/17 20:14 07/19/17 20:14 07/19/17 20:14 07/19/17 20:14 - Physical Exam Comments: 07/19/17 22:01 GENERAL: +Morbidly obese. Well-appearing, well-nourished. No apparent distress. HEENT: Normocephalic, atraumatic. PERRL, EOM intact. CARDIOVASCULAR: Normal S1, S2. Regular rate and rhythm. PULMONARY: Clear to auscultation bilaterally. ABDOMEN: Protuberant. Soft, non-distended, non-tender. EXTREMITIES: Chronic venous stasis in legs. Normal ROM in all four extremities. SKIN: Warm, dry. NEUROLOGICAL: Alert, oriented 3X. No focal neurological deficits <Penny Duran - Last Filed: 07/19/17 22:07> - Vital Signs Last Vital Signs Temp Pulse Resp BP Pulse Ox 98.1 F 74 18 133/70 100 07/19/17 20:14 07/19/17 20:14 07/19/17 20:14 07/19/17 20:14 07/19/17 20:14 <Linda Alegre - Last Filed: 07/19/17 22:52> *DC/Admit/Observation/Transfer - Attestations Scribe Attestion: 07/19/17 22:03 Documentation prepared by Penny Duran, acting as medical technologist hematology for Linda Alegre MD. <Penny Duran - Last Filed: 07/19/17 22:07> <Linda Alegre - Last Filed: 07/19/17 22:52> Diagnosis at time of Disposition: Urinary retention - Discharge Dispostion Disposition: HOME Condition at time of disposition: Stable - Referrals Referrals: Devan Nugent MD [Staff Physician] - - Patient Instructions Printed Discharge Instructions: DI for Urinary Retention in Men Additional Instructions: please see Dr Michelet Berg as soon as possible this week supervisor cellars your antibiotics that your doctor already prescribed today Print Language: CITIZEN OF [place]
[2017-07-19 22:15] LABS: URINE APPEARANCE CLOUDY; URINE BILIRUBIN NEGATIVE (NEGATIVE); URINE BLOOD 2+ (NEGATIVE); URINE COLOR RED; URINE GLUCOSE (UA) 3+ (NEGATIVE); URINE KETONE NEGATIVE (NEGATIVE); URINE LEUK ESTERASE TRACE (NEGATIVE); URINE NITRITE NEGATIVE (NEGATIVE); URINE UROBILINOGEN NEGATIVE mg/dL (0.2-1.0)
[2017-07-19 22:41] LABS: URINE PROTEIN 2+ (NEGATIVE)
[2017-07-19 22:45] LABS: URINE BACTERIA MANY /hpf (NONE SEEN); URINE MUCUS FEW; URINE RBC 1147 /hpf (0-3); URINE WBC 282 /hpf (3-5)
== END 2017-07-19 23:44 | disposition home or self-care (01) ==
LOC: JER 19:58
PROC: 0T9B70Z Drainage of Bladder with Drainage Device, Via Natural or Artificial Opening (ICD-10-PCS; principal; 2017-07-19)
DX: R33.8 Other retention of urine (principal); I48.91 Unspecified atrial fibrillation; Z79.01 Long term (current) use of anticoagulants; J44.9 Chronic obstructive pulmonary disease, unspecified; J45.909 Unspecified asthma, uncomplicated; I10 Essential (primary) hypertension; E78.00 Pure hypercholesterolemia, unspecified; E11.9 Type 2 diabetes mellitus without complications; Z87.442 Personal history of urinary calculi; Z86.73 Personal history of transient ischemic attack (TIA), and cerebral infarction without residual deficits; Z86.718 Personal history of other venous thrombosis and embolism; Z79.82 Long term (current) use of aspirin; Z85.46 Personal history of malignant neoplasm of prostate; Z85.51 Personal history of malignant neoplasm of bladder
CPT/HCPCS: 81003; 81015; 99282-25

== ENCOUNTER 2017-07-26 10:17 | Inpatient (IN) | payer MEDICARE, OTHER ==
--- NOTE | 2017-07-26 11:42 | PDOC ---
History of Present Illness <Raul Manzo - Last Filed: 07/26/17 14:12> - General History Source: Patient Exam Limitations: No Limitations - History of Present Illness Initial Comments: 07/26/17 15:33 The patient is a 67 year old male, with a significant past medical history of A- fib, DVT, nephrolithiasis, prostate cancer and bladder cancer, HLD who presents to the emergency department with dysuria and lower abdominal pain. Patient was admitted to [facility] one week ago for urinary retention, a soto catheter was placed. Patient was discharged to follow up with his Urologist-- Michelet Berg. Patient was sent in for possible UTI and IV abx. Patient denies any fever, chills. He denies chest pain, headache or dizziness. He denies nausea, vomit, diarrhea or constipation. He denied frequency, urgency or hematuria. <Silva Zaragoza - Last Filed: 07/26/17 15:34> - General Chief Complaint: Urinary Problem Stated Complaint: + KLEBSIELLA PNE IN URINE Time Seen by Provider: 07/26/17 10:58 Past History - Past Medical History Anemia: No Asthma: Yes Cancer: Yes (bladder, prostate) Cardiac Disorders: Yes (ANGINA, RLE DVT) CVA: Yes (rt side) COPD: Yes CHF: No (atrial fib) DVT: Yes Dementia: No Diabetes: Yes Dialysis: No GI Disorders: No Disorders: Yes (renal stones) HTN: Yes Hypercholesterolemia: Yes Kidney Stones: Yes Liver Disease: No Seizures: Yes Thyroid Disease: No Lung CA: No Other medical history: obesity, epillepsy - Surgical History Abdominal Surgery: Yes (Hernia repair) Appendectomy: Yes Cardiac Surgery: Yes Cholecystectomy: Yes Gastric Stapling: No GI Surgery: No Lung Surgery: No Neurologic Surgery: No Orthopedic Surgery: Yes (lft arm surgery--plate) - Immunization History Immunization Up to Date: Yes - Suicide/Smoking/Psychosocial Hx Smoking Status: No Smoking History: Never smoked Have you smoked in the past 12 months: No Number of Cigarettes Smoked Daily: 0 If you are a former smoker, when did you quit?: 25 years Information on smoking cessation initiated: No Hx Alcohol Use: No Drug/Substance Use Hx: No Substance Use Type: None Hx Substance Use Treatment: No <Raul Manzo - Last Filed: 07/26/17 14:12> <Silva Zaragoza Last Filed: 07/26/17 15:34> - Past Medical History Allergies/Adverse Reactions: Allergies Allergy/AdvReac Type Severity Reaction Status Date / Time amoxicillin Allergy Mild Rash Verified 07/26/17 10:25 carbamazepine [From Tegretol] Allergy Mild Rash Verified 07/26/17 10:25 cephalexin [Cephalexin] Allergy Mild Rash Verified 07/26/17 10:25 ciprofloxacin Allergy Mild Rash Verified 07/26/17 10:25 fluconazole Allergy Mild Verified 07/26/17 10:25 lamotrigine [From Lamictal] Allergy Mild Rash Verified 07/26/17 10:25 metronidazole Allergy Mild Rash Verified 07/26/17 10:25 phenobarbital Allergy Mild Rash Verified 07/26/17 10:25 phenytoin sodium Allergy Mild Rash Verified 07/26/17 10:25 [From Dilantin] phenytoin sodium extended Allergy Mild Rash Verified 07/26/17 10:25 [From Dilantin] sulfamethoxazole Allergy Mild Rash Verified 07/26/17 10:25 [From Sulfatrim] trimethoprim [From Sulfatrim] Allergy Mild Rash Verified 07/26/17 10:25 amoxicillin trihydrate Allergy Unknown Verified 07/26/17 10:25 [From Augmentin] potassium clavulanate Allergy Unknown Verified 07/26/17 10:25 [From Augmentin] shrimp Allergy Verified 07/26/17 10:25 SHRIMP Allergy Mild Rash Uncoded 07/26/17 10:25 ciproflux Allergy Uncoded 07/26/17 10:25 shrimp Allergy Uncoded 07/26/17 10:25 Home Medications: Ambulatory Orders Aspirin [ASA -] 81 mg PO DAILY 03/20/17 Atorvastatin Ca [Lipitor] 20 mg PO HS 03/20/17 Bicalutamide [Casodex -] 50 mg PO DAILY 03/20/17 Citalopram Hydrobromide [Celexa -] 10 mg PO DAILY 03/20/17 Clonazepam [Klonopin -] 0.5 mg PO TID 03/20/17 Divalproex *ER* [Depakote *ER* -] 500 mg PO BID 03/20/17 Ferrous Sulfate [Feosol] 325 mg PO DAILY 03/20/17 Fesoterodine Fumarate [Toviaz] 4 mg PO DAILY 03/20/17 Folic Acid 1 mg PO DAILY 03/20/17 Levetiracetam 1,000 mg PO TID 03/20/17 Lisinopril [Prinivil] 5 mg PO DAILY 03/20/17 Magnesium Oxide [Magnesium] 500 mg PO BID 03/20/17 Oxybutynin Chloride [Ditropan -] 10 mg PO DAILY 03/20/17 Ranolazine [Ranexa] 500 mg PO BID 03/20/17 Rivaroxaban [Xarelto -] 20 mg PO DAILY 03/20/17 Tamsulosin HCl [Flomax -] 0.4 mg PO BID 03/20/17 Tramadol HCl [Ultram -] 50 mg PO DAILY 03/20/17 Aspirin [ASA -] 81 mg PO DAILY 06/29/17 Atorvastatin Ca [Lipitor] 20 mg PO HS 06/29/17 Bicalutamide [Casodex] 50 mg PO DAILY 06/29/17 Citalopram Hydrobromide [Citalopram HBr] 10 mg PO DAILY 06/29/17 Ferrous Sulfate 325 mg PO DAILY 06/29/17 Folic Acid 0.4 mg PO DAILY 06/29/17 Levofloxacin [Levaquin -] 500 mg PO DAILY #14 tablet 06/29/17 Lisinopril 10 mg PO DAILY 06/29/17 Oxybutynin Chloride [Oxybutynin Chloride ER] 10 mg PO DAILY 06/29/17 Ranolazine [Ranexa] 500 mg PO BID 06/29/17 Rivaroxaban [Xarelto -] 20 mg PO DAILY 06/29/17 Tamsulosin HCl [Flomax] 0.4 mg PO DAILY 06/29/17 Abd/GI Specific PMHX - Complaint Specific PMHX GERD: No <Raul Manzo - Last Filed: 07/26/17 14:12> Review of Systems - Review of Systems Able to Perform ROS?: Yes Comments:: 07/26/17 15:33 CONSTITUTIONAL: No reported: Fever, Chills, Diaphoresis, Generalized Weakness, Malaise, Loss of Appetite HEENT: No reported: Rhinorrhea, Nasal Congestion, Throat Pain, Throat Swelling, Difficulty Swallowing, Mouth Swelling, Ear Pain, Eye Pain, Visual Changes CARDIOVASCULAR: No reported: Chest Pain, Syncope, Palpitations, Irregular Heart Rate, Lightheadedness, Peripheral Edema RESPIRATORY: No reported: Cough, Shortness of Breath, SOB with Exertion, Orthopnea, Wheezing , Stridor, Hemoptysis GASTROINTESTINAL: +lower abdominal pain. No reported: Abdominal Distension, Nausea, Vomiting, Diarrhea, Constipation, Melena, Hematochezia GENITOURINARY: + dysuria. No reported: Frequency, Urgency, Hesitancy, Flank Pain, Genital Pain MUSCULOSKELETAL: No reported: Myalgia, Arthralgia, Joint Swelling, Back pain, Neck Pain SKIN: No reported: Rash, Itching, Pallor HEMEATOLOGIC/IMMUNOLOGIC: No reported: Easy Bleeding, Easy Bruising, Lymphadenopathy, Frequent infections ENDOCRINE: No reported: Unexplained Weight Gain, Unexplained Weight Loss, Heat Intolerance , Cold Intolerance NEUROLOGIC: No reported: Headache, Focal Weakness, Paresthesias, Vertigo, Lightheadedness, Unsteady Gait, Seizure, Mental Status Changes, Incontinence PSYCHIATRIC: No reported: Anxiety, Depression <Silva Zaragoza - Last Filed: 07/26/17 15:34> *Physical Exam - Vital Signs Last Vital Signs Temp Pulse Resp BP Pulse Ox 98.3 F 69 19 108/53 99 07/26/17 10:23 07/26/17 10:23 07/26/17 10:23 07/26/17 10:23 07/26/17 10:23 <Raul Manzo - Last Filed: 07/26/17 14:12> - Vital Signs Last Vital Signs Temp Pulse Resp BP Pulse Ox 98.3 F 69 19 108/53 99 07/26/17 10:23 07/26/17 10:23 07/26/17 10:23 07/26/17 10:23 07/26/17 10:23 - Physical Exam Comments: 07/26/17 15:33 GENERAL: The patient is awake, alert, and fully oriented, Nontoxic - in no acute distress. obese HEAD: Normocephalic, atraumatic. EYES: extraocular movements intact, sclera anicteric, conjunctiva clear. ENT: Normal voice, Moist mucous membranes. NECK: Normal range of motion, supple LUNGS: Breath sounds equal, clear to auscultation bilaterally. No wheezes, no rhonchi, no rales. HEART: Regular rate and rhythm, normal S1 and S2 without murmur, rub or gallop. ABDOMEN: soto w leg bag in place, Soft, nontender, normoactive bowel sounds. No guarding, no rebound. . No CVA tenderness EXTREMITIES: Normal range of motion, chronic venous changes in b/l LE w/ edema NEUROLOGICAL: No facial assymetry, Normal speech, moving all 4 extremities spontaneously and symmetrically. PSYCH: Normal mood, normal affect. SKIN: Warm, Dry, normal turgor, <NikSilva - Last Filed: 07/26/17 15:34> Heart Score/ECG Review - ECG Impressions Comment:: 07/26/17 12:56 Twelve-lead EKG was performed and reviewed by me. There is normal sinus rhythm with a normal rate. 86rate of 62 The axis is normal. The intervals are normal. There is normal R wave progression There are no ST or T wave abnormalities. <Raul Manzo - Last Filed: 07/26/17 14:12> ED Treatment Course - LABORATORY CBC & Chemistry Diagram: 07/26/17 12:00 07/26/17 12:13 - RADIOLOGY Radiology Studies Ordered: Category Date Time Status CHEST - PA [RAD] Stat Radiology 07/26/17 11:15 Completed <Raul Manzo - Last Filed: 07/26/17 14:12> - LABORATORY CBC & Chemistry Diagram: 07/26/17 12:00 07/26/17 12:13 - ADDITIONAL ORDERS Additional order review: Laboratory Results 07/26/17 12:00 Urine Color Red Urine Appearance Cloudy Urine pH 6.0 Urine Protein 2+ H Urine Glucose (UA) 3+ H Urine Ketones Negative Urine Blood 3+ H Urine Nitrite Negative Urine Bilirubin Negative Urine Urobilinogen Negative 07/26/17 12:00 RBC 3.63 L MCV 88.0 MCHC 32.7 RDW 15.4 MPV 9.0 Neutrophils % No Result Required. Lymphocytes % No Result Required. <Silva Zaragoza - Last Filed: 07/26/17 15:34> Medical Decision Making - Medical Decision Making 07/26/17 11:44 67y M hx of afib on xeralto, asthma copd, htn, hl, recenturianry retention s/p leg bag, sent to the ED for evaluation and IVABx by his urologist due to extensive allergies. the pt is endorses dysuria but otherwise denies any complaints will d/w dr. love and dr. john possible admission for iv abx A portion of this note was documented by scribe services under my direction. I have reviewed the details of the note, within reason, and agree with the documentation with the following case summary and management plan written by me 07/26/17 12:[address] michelet campos admission for ivabx pts culture shows senstiivity to amikacin, cefoxitin, iminpenem, ticaricillin, cefotetan, ertrpenem and piperacillin/tazobactam pt has rash to some 3rd generation cephs, will try zosyn and will closely monitor for any allergic reactions will await labs, and dw dr. love regarding admission 07/26/17 13:[address] hull agree with admission to [facility] for further management Case discussed in detail with admitting physician including history, physical exam and ancillary studies. Admitting physician has assumed care for the patient, will follow all pending diagnostics and will complete the evaluation and treatment. 07/26/17 14:12 case was inadvertently admitted to dr. vaca service buts dr maxwell Vazquez - i discussed with dr. vazquez and he will admit the pt under his service. dr. hull is aware <Raul Manzo - Last Filed: 07/26/17 14:12> - Medical Decision Making 07/26/17 12:20 Paged [facility] office. Patient's case discussed. <Silva Zaragoza - Last Filed: 07/26/17 15:34> *DC/Admit/Observation/Transfer - Discharge Dispostion Admit: Yes <Raul Manzo - Last Filed: 07/26/17 14:12> - Attestations Scribe Attestion: 07/26/17 15:34 Documentation prepared by Silva Zaragoza, acting as medical office administrator for Raul Manzo MD <Silva Zaragoza - Last Filed: 07/26/17 15:34> Diagnosis at time of Disposition: UTI (urinary tract infection) Qualifiers: Urinary tract infection type: site unspecified Hematuria presence: with hematuria Qualified Code(s): N39.0 - Urinary tract infection, site not specified - Referrals
[2017-07-26 12:15] LABS: URINE APPEARANCE CLOUDY; URINE BILIRUBIN NEGATIVE (NEGATIVE); URINE BLOOD 3+ (NEGATIVE); URINE COLOR RED; URINE GLUCOSE (UA) 3+ (NEGATIVE); URINE KETONE NEGATIVE (NEGATIVE); URINE LEUK ESTERASE TRACE (NEGATIVE); URINE NITRITE NEGATIVE (NEGATIVE); URINE UROBILINOGEN NEGATIVE mg/dL (0.2-1.0)
[2017-07-26 12:16] LABS: MCH 28.8 pg (25.7-33.7); MCHC 32.7 g/dl (32.0-35.9); PLATELET COUNT 158 K/MM3 (134-434); RDW 15.4 % (11.9-15.9); URINE PROTEIN 2+ (NEGATIVE)
[2017-07-26] MEDS ORDERED: PIPERACILLIN/TAZOB 4.5 GM/100 ML PRE-DOCKED IVPB ONE (12:23)
[2017-07-26 12:29] LABS: URINE RBC 7441 /hpf (0-3); URINE WBC 45 /hpf (3-5)
[2017-07-26 12:34] LABS: ALBUMIN 3.6 g/dl (3.4-5.0); ALK PHOS 96 U/L (45-117); ANION GAP 8 (8-16); BILIRUBIN,TOTAL 0.4 mg/dL (0.2-1.0); CALCIUM 9.2 mg/dL (8.5-10.1); CO2 28 mmol/L (21-32); CREATININE 1.1 mg/dL (0.7-1.3); GLUCOSE,RANDOM 199 mg/dL (74-106); SGPT/ALT 19 U/L (12-78); TOT PROT 7.1 g/dl (6.4-8.2)
[2017-07-26 12:35] LABS: SGOT/AST 30 U/L (15-37)
[2017-07-26 13:00] LABS: PLATELET ESTIMATE ADEQUATE (NORMAL); TOTAL CELLS COUNTED 100
[2017-07-26 13:01] LABS: BASOPHIL (MANUAL) 2 % (0-2.0); MYELOCYTE 1 % (0-2)
[2017-07-26] MEDS ORDERED: PIPERACILLIN/TAZOB 4.5 GM 100 ML IVPB ONE (13:11)
[2017-07-26] MEDS ORDERED: DIVALPROEX NA *ER* EXTEND REL 500 MG TABLET.SA (FP) PO ONE (14:29)
[2017-07-26] MEDS ORDERED: ACETAMINOPHEN 325 MG TABLET (FP) PO PRN (14:29)
[2017-07-26] MEDS ORDERED: clonazePAM 0.5 MG TABLET PO PRN (14:29)
[2017-07-26] MEDS: levETIRAcetam 500 MG TABLET (FP) PO SCH (14:43)
[2017-07-26 15:18] LABS: C-REACTIVE PROTEIN 1.2 MG/DL (0.00-0.3)
--- NOTE | 2017-07-26 16:24 | CON.ID ---
Consult Consult Specialty:: infectious diseases Reason for Consultation:: repeated uti - History of Present Illness Chief Complaint: dysuria and abd pain History of Present Illness: 67 year old male, with a significant past medical history of A-fib, DVT, nephrolithiasis, prostate cancer and bladder cancer, HLD who presents to the emergency department with dysuria and lower abdominal pain. Patient was admitted to [facility] one week ago for urinary retention, a soto catheter was placed. Patient was discharged to follow up with his Urologist-- Michelet Berg. Patient was sent in for possible UTI and IV abx. Patient denies any fever, chills. He denies chest pain, headache or dizziness. He denies nausea, vomit, diarrhea or constipation. He denied frequency, urgency or hematuria. 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 Cardio/Vascular: Yes: Deep Vein Thrombosis, CAD, HTN Pulmonary: Yes: COPD Gastrointestinal: Yes: Diverticulosis, Diverticulitis, Other Renal/: Yes: Hematuria, Renal Calculi Psych: Yes: Anxiety Endocrine: Yes: Diabetes Mellitus - Past Surgical History Past Surgical History: Yes: Hernia Repair, Appendectomy, Joint Replacement, Cholecystectomy - Alcohol/Substance Use Hx Alcohol Use: No History of Substance Use: reports: None - Smoking History Smoking history: Never smoked Have you smoked in the past 12 months: No Aproximately how many cigarettes per day: 0 If you are a former smoker, when did you quit?: 25 years - Social History Usual Living Arrangement: Other (roomate) ADL: Independent History of Recent Travel: No Home Medications - Allergies Allergies/Adverse Reactions: Allergies Allergy/AdvReac Type Severity Reaction Status Date / Time amoxicillin Allergy Mild Rash Verified 07/26/17 10:25 carbamazepine [From Tegretol] Allergy Mild Rash Verified 07/26/17 10:25 cephalexin [Cephalexin] Allergy Mild Rash Verified 07/26/17 10:25 ciprofloxacin Allergy Mild Rash Verified 07/26/17 10:25 fluconazole Allergy Mild Verified 07/26/17 10:25 lamotrigine [From Lamictal] Allergy Mild Rash Verified 07/26/17 10:25 metronidazole Allergy Mild Rash Verified 07/26/17 10:25 phenobarbital Allergy Mild Rash Verified 07/26/17 10:25 phenytoin sodium Allergy Mild Rash Verified 07/26/17 10:25 [From Dilantin] phenytoin sodium extended Allergy Mild Rash Verified 07/26/17 10:25 [From Dilantin] sulfamethoxazole Allergy Mild Rash Verified 07/26/17 10:25 [From Sulfatrim] trimethoprim [From Sulfatrim] Allergy Mild Rash Verified 07/26/17 10:25 amoxicillin trihydrate Allergy Unknown Verified 07/26/17 10:25 [From Augmentin] potassium clavulanate Allergy Unknown Verified 07/26/17 10:25 [From Augmentin] shrimp Allergy Verified 07/26/17 10:25 SHRIMP Allergy Mild Rash Uncoded 07/26/17 10:25 ciproflux Allergy Uncoded 07/26/17 10:25 shrimp Allergy Uncoded 07/26/17 10:25 - Home Medications Home Medications: Ambulatory Orders Aspirin [ASA -] 81 mg PO DAILY 03/20/17 Atorvastatin Ca [Lipitor] 20 mg PO HS 03/20/17 Bicalutamide [Casodex -] 50 mg PO DAILY 03/20/17 Citalopram Hydrobromide [Celexa -] 10 mg PO DAILY 03/20/17 Clonazepam [Klonopin -] 0.5 mg PO TID 03/20/17 Divalproex *ER* [Depakote *ER* -] 500 mg PO BID 03/20/17 Ferrous Sulfate [Feosol] 325 mg PO DAILY 03/20/17 Fesoterodine Fumarate [Toviaz] 4 mg PO DAILY 03/20/17 Folic Acid 1 mg PO DAILY 03/20/17 Levetiracetam 1,000 mg PO TID 03/20/17 Lisinopril [Prinivil] 5 mg PO DAILY 03/20/17 Magnesium Oxide [Magnesium] 500 mg PO BID 03/20/17 Oxybutynin Chloride [Ditropan -] 10 mg PO DAILY 03/20/17 Ranolazine [Ranexa] 500 mg PO BID 03/20/17 Rivaroxaban [Xarelto -] 20 mg PO DAILY 03/20/17 Tamsulosin HCl [Flomax -] 0.4 mg PO BID 03/20/17 Tramadol HCl [Ultram -] 50 mg PO DAILY 03/20/17 Aspirin [ASA -] 81 mg PO DAILY 06/29/17 Atorvastatin Ca [Lipitor] 20 mg PO HS 06/29/17 Bicalutamide [Casodex] 50 mg PO DAILY 06/29/17 Citalopram Hydrobromide [Citalopram HBr] 10 mg PO DAILY 06/29/17 Ferrous Sulfate 325 mg PO DAILY 06/29/17 Folic Acid 0.4 mg PO DAILY 06/29/17 Levofloxacin [Levaquin -] 500 mg PO DAILY #14 tablet 06/29/17 Lisinopril 10 mg PO DAILY 06/29/17 Oxybutynin Chloride [Oxybutynin Chloride ER] 10 mg PO DAILY 06/29/17 Ranolazine [Ranexa] 500 mg PO BID 06/29/17 Rivaroxaban [Xarelto -] 20 mg PO DAILY 06/29/17 Tamsulosin HCl [Flomax] 0.4 mg PO DAILY 06/29/17 Family Disease History - Family Disease History Family Disease History: Diabetes: Mother (htn), CA: Father, Other: Mother Review of Systems - Review of Systems Constitutional: reports: No Symptoms Eyes: reports: No Symptoms HENT: reports: No Symptoms Neck: reports: No Symptoms Cardiovascular: reports: No Symptoms Respiratory: reports: No Symptoms Gastrointestinal: reports: No Symptoms Genitourinary: reports: Burning, Dysuria. denies: Flank Pain Musculoskeletal: reports: No Symptoms Integumentary: reports: No Symptoms Neurological: reports: No Symptoms Endocrine: reports: No Symptoms Hematology/Lymphatic: reports: No Symptoms Psychiatric: reports: No Symptoms Physical Exam Vital Signs: Vital Signs Temperature 98.3 F 07/26/17 10:23 Pulse Rate 69 07/26/17 10:23 Respiratory Rate 19 07/26/17 10:23 Blood Pressure 108/53 07/26/17 10:23 O2 Sat by Pulse Oximetry (%) 99 07/26/17 10:23 Constitutional: Yes: Well Nourished, Calm, Obese Eyes: Yes: Conjunctiva Clear HENT: Yes: Atraumatic Neck: Yes: Supple Cardiovascular: Yes: Regular Rate and Rhythm Respiratory: Yes: Regular, CTA Bilaterally Gastrointestinal: Yes: Normal Bowel Sounds, Soft Renal/: Yes: Soto Present, Other (suprapubic tenderness) Musculoskeletal: Yes: WNL Extremities: Yes: WNL Neurological: Yes: Alert, Oriented Psychiatric: Yes: Alert, Oriented Imaging - Results Chest X-ray: Report Reviewed, Image Reviewed Assessment/Plan Problem List - Problems (1) UTI (urinary tract infection) Code(s): N39.0 - URINARY TRACT INFECTION, SITE NOT SPECIFIED Qualifiers: Urinary tract infection type: site unspecified Hematuria presence: with hematuria Qualified Code(s): N39.0 - Urinary tract infection, site not specified; N39.0 - Urinary tract infection, site not specified; R31.9 - Hematuria, unspecified; R31.9 - Hematuria, unspecified (2) Abdominal pain Code(s): R10.9 - UNSPECIFIED ABDOMINAL PAIN Qualifiers: Abdominal location: generalized Qualified Code(s): R10.84 - Generalized abdominal pain; R10.84 - Generalized abdominal pain (3) Afib Code(s): I48.91 - UNSPECIFIED ATRIAL FIBRILLATION (4) Allergy to multiple antibiotics Code(s): Z88.1 - ALLERGY STATUS TO OTHER ANTIBIOTIC AGENTS STATUS (5) Anxiety Code(s): F41.9 - ANXIETY DISORDER, UNSPECIFIED (6) Cystitis Code(s): N30.90 - CYSTITIS, UNSPECIFIED WITHOUT HEMATURIA (7) Diabetes mellitus type 2 in obese Code(s): E11.9 - TYPE 2 DIABETES MELLITUS WITHOUT COMPLICATIONS E66.9 - OBESITY, UNSPECIFIED (8) ESBL (extended spectrum beta-lactamase) producing bacteria infection Code(s): A49.9 - BACTERIAL INFECTION, UNSPECIFIED Z16.12 - EXTENDED SPECTRUM BETA LACTAMASE (ESBL) RESISTANCE patient with failed treatment from uti the problem is where is it coming from plan i am going to start on zosyn nitially we will wait for urine cx to be back if it is esbl i will change abx also probably will order a prostatic scan rest as per primary
[2017-07-26 16:38] VITALS: BMI 44.3
--- NOTE | 2017-07-26 16:51 | HP ---
Admitting History and Physical - Primary Care Physician PCP: Ruth Suazo - Admission Chief Complaint: PELVIC PAIN/UTI/FAILED ON ORAL ANTIBIOTICS FOR 4 WEEKS History of Present Illness: 67 Y/O MALE WITH A LONG COMPLICATED HISTORY OF OLD CVA/HTN/DM/LIPIDEMIA/ PROSTATE CA/CHRONIC DVT/PROTEIN C DEF? 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 Cardiovascular: Yes: Deep Vein Thrombosis, CAD, HTN Pulmonary: Yes: COPD Gastrointestinal: Yes: Diverticulosis, Diverticulitis, Other Renal/: Yes: Hematuria, Renal Calculi Heme/Onc: Yes: Cancer (bladder cancer, prostate cancer) Psych: Yes: Anxiety Endocrine: Yes: Diabetes Mellitus - Past Surgical History Past Surgical History: Yes: Hernia Repair, Appendectomy, Joint Replacement, Cholecystectomy - Smoking History Smoking history: Former smoker Have you smoked in the past 12 months: No Aproximately how many cigarettes per day: 0 If you are a former smoker, when did you quit?: 25 years - Alcohol/Substance Use Hx Alcohol Use: No History of Substance Use: reports: None - Social History ADL: Independent History of Recent Travel: No Home Medications - Allergies Allergies/Adverse Reactions: Allergies Allergy/AdvReac Type Severity Reaction Status Date / Time amoxicillin Allergy Mild Rash Verified 07/26/17 10:25 carbamazepine [From Tegretol] Allergy Mild Rash Verified 07/26/17 10:25 cephalexin [Cephalexin] Allergy Mild Rash Verified 07/26/17 10:25 ciprofloxacin Allergy Mild Rash Verified 07/26/17 10:25 fluconazole Allergy Mild Verified 07/26/17 10:25 lamotrigine [From Lamictal] Allergy Mild Rash Verified 07/26/17 10:25 metronidazole Allergy Mild Rash Verified 07/26/17 10:25 phenobarbital Allergy Mild Rash Verified 07/26/17 10:25 phenytoin sodium Allergy Mild Rash Verified 07/26/17 10:25 [From Dilantin] phenytoin sodium extended Allergy Mild Rash Verified 07/26/17 10:25 [From Dilantin] sulfamethoxazole Allergy Mild Rash Verified 07/26/17 10:25 [From Sulfatrim] trimethoprim [From Sulfatrim] Allergy Mild Rash Verified 07/26/17 10:25 amoxicillin trihydrate Allergy Unknown Verified 07/26/17 10:25 [From Augmentin] potassium clavulanate Allergy Unknown Verified 07/26/17 10:25 [From Augmentin] shrimp Allergy Verified 07/26/17 10:25 SHRIMP Allergy Mild Rash Uncoded 07/26/17 10:25 ciproflux Allergy Uncoded 07/26/17 10:25 shrimp Allergy Uncoded 07/26/17 10:25 - Home Medications Home Medications: Ambulatory Orders Aspirin [ASA -] 81 mg PO DAILY 03/20/17 Atorvastatin Ca [Lipitor] 20 mg PO HS 03/20/17 Bicalutamide [Casodex -] 50 mg PO DAILY 03/20/17 Citalopram Hydrobromide [Celexa -] 10 mg PO DAILY 03/20/17 Clonazepam [Klonopin -] 0.5 mg PO TID 03/20/17 Divalproex *ER* [Depakote *ER* -] 500 mg PO BID 03/20/17 Ferrous Sulfate [Feosol] 325 mg PO DAILY 03/20/17 Fesoterodine Fumarate [Toviaz] 4 mg PO DAILY 03/20/17 Folic Acid 1 mg PO DAILY 03/20/17 Levetiracetam 1,000 mg PO TID 03/20/17 Lisinopril [Prinivil] 5 mg PO DAILY 03/20/17 Magnesium Oxide [Magnesium] 500 mg PO BID 03/20/17 Oxybutynin Chloride [Ditropan -] 10 mg PO DAILY 03/20/17 Ranolazine [Ranexa] 500 mg PO BID 03/20/17 Rivaroxaban [Xarelto -] 20 mg PO DAILY 03/20/17 Tamsulosin HCl [Flomax -] 0.4 mg PO BID 03/20/17 Tramadol HCl [Ultram -] 50 mg PO DAILY 03/20/17 Aspirin [ASA -] 81 mg PO DAILY 06/29/17 Atorvastatin Ca [Lipitor] 20 mg PO HS 06/29/17 Bicalutamide [Casodex] 50 mg PO DAILY 06/29/17 Citalopram Hydrobromide [Citalopram HBr] 10 mg PO DAILY 06/29/17 Ferrous Sulfate 325 mg PO DAILY 06/29/17 Folic Acid 0.4 mg PO DAILY 06/29/17 Levofloxacin [Levaquin -] 500 mg PO DAILY #14 tablet 06/29/17 Lisinopril 10 mg PO DAILY 06/29/17 Oxybutynin Chloride [Oxybutynin Chloride ER] 10 mg PO DAILY 06/29/17 Ranolazine [Ranexa] 500 mg PO BID 06/29/17 Rivaroxaban [Xarelto -] 20 mg PO DAILY 06/29/17 Tamsulosin HCl [Flomax] 0.4 mg PO DAILY 06/29/17 Family Disease History - Family Disease History Family Disease History: Diabetes: Mother (htn), CA: Father, Other: Mother Review of Systems - Review of Systems Constitutional: reports: Weakness Eyes: reports: No Symptoms HENT: reports: No Symptoms Neck: reports: No Symptoms Cardiovascular: reports: No Symptoms Respiratory: reports: No Symptoms Gastrointestinal: reports: No Symptoms Genitourinary: reports: Flank Pain, Pain Breasts: reports: No Symptoms Reported Musculoskeletal: reports: Muscle Weakness Integumentary: reports: Rash Neurological: reports: Pre-Existing Deficit Endocrine: reports: No Symptoms Hematology/Lymphatic: reports: No Symptoms Psychiatric: reports: Depression Physical Examination Vital Signs: Vital Signs Temperature 98.3 F 07/26/17 10:23 Pulse Rate 59 L 07/26/17 16:32 Respiratory Rate 18 07/26/17 16:32 Blood Pressure 129/59 07/26/17 16:32 O2 Sat by Pulse Oximetry (%) 100 07/26/17 16:32 Constitutional: Yes: Moderate Distress Eyes: Yes: WNL HENT: Yes: WNL Neck: Yes: WNL Cardiovascular: Yes: WNL Respiratory: Yes: WNL Gastrointestinal: Yes: WNL Renal/: Yes: CVA Tenderness - Left, CVA Tenderness - Right, Other Musculoskeletal: Yes: Muscle Weakness Edema: Yes Edema: LLE: 2+, RLE: 2+ Peripheral Pulses WNL: Yes Integumentary: Yes: Venous Stasis Changes Wound/Incision: Yes: Dressing Dry and Intact Neurological: Yes: Loss of Sensation, Pre-Existing Deficit, Unsteady Gait, Weakness ...Motor Strength: LLE, RLE Psychiatric: Yes: Other Problem List - Problems (1) UTI (urinary tract infection) Code(s): N39.0 - URINARY TRACT INFECTION, SITE NOT SPECIFIED Qualifiers: Urinary tract infection type: site unspecified Hematuria presence: with hematuria Qualified Code(s): N39.0 - Urinary tract infection, site not specified; N39.0 - Urinary tract infection, site not specified; R31.9 - Hematuria, unspecified; R31.9 - Hematuria, unspecified (2) Abdominal pain Code(s): R10.9 - UNSPECIFIED ABDOMINAL PAIN Qualifiers: Abdominal location: generalized Qualified Code(s): R10.84 - Generalized abdominal pain; R10.84 - Generalized abdominal pain (3) Afib Code(s): I48.91 - UNSPECIFIED ATRIAL FIBRILLATION (4) Allergy to multiple antibiotics Code(s): Z88.1 - ALLERGY STATUS TO OTHER ANTIBIOTIC AGENTS STATUS (5) Anxiety Code(s): F41.9 - ANXIETY DISORDER, UNSPECIFIED (6) Cystitis Code(s): N30.90 - CYSTITIS, UNSPECIFIED WITHOUT HEMATURIA (7) Diabetes mellitus type 2 in obese Code(s): E11.9 - TYPE 2 DIABETES MELLITUS WITHOUT COMPLICATIONS E66.9 - OBESITY, UNSPECIFIED (8) ESBL (extended spectrum beta-lactamase) producing bacteria infection Code(s): A49.9 - BACTERIAL INFECTION, UNSPECIFIED Z16.12 - EXTENDED SPECTRUM BETA LACTAMASE (ESBL) RESISTANCE Assessment/Plan IV ABX ID CONSULT [facility] PT SNF
[2017-07-26] MEDS: MEROPENEM 1 GM in DEXTROSE 5%-WATER - 100 ML IVPB SCH (19:25)
--- NOTE | 2017-07-26 20:06 | EKG ---
Test Reason : Blood Pressure : / mmHG Vent. Rate : 062 BPM Atrial Rate : 062 BPM P-R Int : 166 ms QRS Dur : 086 ms QT Int : 428 ms P-R-T Axes : 056 005 050 degrees QTc Int : 434 ms NORMAL SINUS RHYTHM RSR' IN V2 BASELINE ARTIFACT LOW VOLTAGE QRS BORDERLINE ECG WHEN COMPARED WITH ECG OF 26-MAY-2017 13:09, NO SIGNIFICANT CHANGE WAS FOUND REPEAT EKG IF CLINICALLY INDICATED Confirmed by RASHAWN CHUA MD ([id number]) on 07/26/2017 8:06:26 PM Referred By: Confirmed By:RASHAWN CHUA MD
[2017-07-26] MEDS: ATORVASTATIN CA 20 MG TABLET (FP) PO SCH (21:04)
[2017-07-26] MEDS: RANOLAZINE E.R. 500 MG TABLET (FP) PO SCH (21:04)
[2017-07-26] MEDS: OXYBUTYNIN CHLORIDE 5 MG TABLET PO SCH (21:04)
[2017-07-26] MEDS ORDERED: INSULIN (NOVOLOG) ASPART 100 UNITS/ML 10ML VIAL ONE (21:27)
[2017-07-26] MEDS: INSULIN SLIDING SCALE (NOVOLOG) 1 VIAL SQ SCH (21:32)
[2017-07-27] MEDS ORDERED: PT OWN MED DRAWER 7, Y5N ONE ×3 (01:20→16:00)
[2017-07-27] MEDS: MEROPENEM 1 GM in DEXTROSE 5%-WATER - 100 ML IVPB SCH ×3 (01:59→17:13)
[2017-07-27] MEDS: INSULIN SLIDING SCALE (NOVOLOG) 1 VIAL SQ SCH ×4 (06:30→21:20)
[2017-07-27] MEDS: TAMSULOSIN HCL 0.4 MG CAP.ER.24H (FP) PO SCH (07:40)
[2017-07-27 08:44] LABS: ALBUMIN 3.3 g/dl (3.4-5.0); ALK PHOS 85 U/L (45-117); ANION GAP 7 (8-16); BILIRUBIN,TOTAL 0.7 mg/dL (0.2-1.0); CALCIUM 8.7 mg/dL (8.5-10.1); CO2 28 mmol/L (21-32); CREATININE 1.2 mg/dL (0.7-1.3); GLUCOSE,RANDOM 126 mg/dL (74-106); SGOT/AST 21 U/L (15-37); SGPT/ALT 19 U/L (12-78); TOT PROT 6.8 g/dl (6.4-8.2)
[2017-07-27] MEDS: BICALUTAMIDE 50 MG TABLET (FP) PO SCH (10:35)
[2017-07-27] MEDS: CITALOPRAM HYDROBROMIDE 10 MG TABLET (FP) PO SCH (10:35)
[2017-07-27] MEDS: RANOLAZINE E.R. 500 MG TABLET (FP) PO SCH ×2 (10:35→21:19)
[2017-07-27] MEDS: FOLIC ACID 1 MG TABLET (FP) PO SCH (10:35)
[2017-07-27] MEDS: levETIRAcetam 500 MG TABLET (FP) PO SCH (10:35)
[2017-07-27] MEDS: RIVAROXABAN 20 MG TABLET PO SCH (10:35)
[2017-07-27] MEDS: OXYBUTYNIN CHLORIDE 5 MG TABLET PO SCH ×2 (10:35→21:19)
--- NOTE | 2017-07-27 11:28 | PN ---
Progress Note, Physician Chief Complaint: AWAKE ALERT NAD - Current Medication List Current Medications: Active Medications Acetaminophen (Tylenol -) 650 mg PO Q6H PRN PRN Reason: FEVER OR PAIN Atorvastatin Calcium (Lipitor -) 20 mg PO HS [facility] Last Admin: 07/26/17 21:04 Dose: 20 mg Bicalutamide (Casodex -) 50 mg PO DAILY [facility] Last Admin: 07/27/17 10:35 Dose: 50 mg Citalopram Hydrobromide (Celexa -) 10 mg PO DAILY [facility] Last Admin: 07/27/17 10:35 Dose: 10 mg Clonazepam (Klonopin -) 0.5 mg PO BID PRN PRN Reason: ANXIETY Folic Acid (Folic Acid -) 1 mg PO DAILY [facility] Last Admin: 07/27/17 10:35 Dose: 1 mg Meropenem 1 gm/ Dextrose 100 mls @ 100 mls/hr IVPB Q8H-IV MICHEL PRN Reason: Protocol Last Admin: 07/27/17 10:35 Dose: 100 mls/hr Insulin Aspart (Novolog Vial Sliding Scale -) 1 vial SQ ACHS MICHEL PRN Reason: Protocol Last Admin: 07/27/17 06:30 Dose: Not Given Levetiracetam (Keppra -) 1,000 mg PO DAILY [facility] Last Admin: 07/27/17 10:35 Dose: 1,000 mg Oxybutynin Chloride (Ditropan -) 5 mg PO BID [facility] Last Admin: 07/27/17 10:35 Dose: 5 mg Ranolazine (Ranexa -) 500 mg PO BID [facility] Last Admin: 07/27/17 10:35 Dose: 500 mg Rivaroxaban (Xarelto -) 20 mg PO DAILY [facility] Last Admin: 07/27/17 10:35 Dose: 20 mg Tamsulosin HCl (Flomax -) 0.4 mg PO DAILY@0830 [facility] Last Admin: 07/27/17 07:40 Dose: 0.4 mg - Objective Vital Signs: Vital Signs Temperature 98.2 F 07/27/17 06:00 Pulse Rate 60 07/27/17 06:00 Respiratory Rate 20 07/27/17 06:00 Blood Pressure 141/81 07/27/17 06:00 O2 Sat by Pulse Oximetry (%) 99 07/26/17 21:00 Constitutional: Yes: No Distress Eyes: Yes: WNL HENT: Yes: WNL Neck: Yes: WNL Cardiovascular: Yes: WNL Respiratory: Yes: WNL Gastrointestinal: Yes: WNL Genitourinary: Yes: Incontinence Musculoskeletal: Yes: Muscle Weakness Extremities: Yes: WNL Edema: Yes Edema: LLE: 2+, RLE: 2+ Peripheral Pulses WNL: Yes Integumentary: Yes: Rash, Venous Stasis Changes Wound/Incision: Yes: Dressing Dry and Intact Neurological: Yes: Pre-Existing Deficit, Unsteady Gait, Weakness ...Motor Strength: LLE, RLE Psychiatric: Yes: Other Labs: CBC, BMP 07/27/17 06:45 Problem List - Problems (1) UTI (urinary tract infection) Code(s): N39.0 - URINARY TRACT INFECTION, SITE NOT SPECIFIED Qualifiers: Urinary tract infection type: site unspecified Hematuria presence: with hematuria Qualified Code(s): N39.0 - Urinary tract infection, site not specified; N39.0 - Urinary tract infection, site not specified; R31.9 - Hematuria, unspecified; R31.9 - Hematuria, unspecified (2) Abdominal pain Code(s): R10.9 - UNSPECIFIED ABDOMINAL PAIN Qualifiers: Abdominal location: generalized Qualified Code(s): R10.84 - Generalized abdominal pain; R10.84 - Generalized abdominal pain (3) Afib Code(s): I48.91 - UNSPECIFIED ATRIAL FIBRILLATION (4) Allergy to multiple antibiotics Code(s): Z88.1 - ALLERGY STATUS TO OTHER ANTIBIOTIC AGENTS STATUS (5) Anxiety Code(s): F41.9 - ANXIETY DISORDER, UNSPECIFIED (6) Cystitis Code(s): N30.90 - CYSTITIS, UNSPECIFIED WITHOUT HEMATURIA (7) Diabetes mellitus type 2 in obese Code(s): E11.9 - TYPE 2 DIABETES MELLITUS WITHOUT COMPLICATIONS E66.9 - OBESITY, UNSPECIFIED (8) ESBL (extended spectrum beta-lactamase) producing bacteria infection Code(s): A49.9 - BACTERIAL INFECTION, UNSPECIFIED Z16.12 - EXTENDED SPECTRUM BETA LACTAMASE (ESBL) RESISTANCE Assessment/Plan IV ABX ID CONSULT [facility] PT SNF
--- NOTE | 2017-07-27 15:09 | PN ---
Progress Note, Physician History of Present Illness: patient doing well no issues says he is feeling better - Current Medication List Current Medications: Active Medications Acetaminophen (Tylenol -) 650 mg PO Q6H PRN PRN Reason: FEVER OR PAIN Atorvastatin Calcium (Lipitor -) 20 mg PO HS [facility] Last Admin: 07/26/17 21:04 Dose: 20 mg Bicalutamide (Casodex -) 50 mg PO DAILY [facility] Last Admin: 07/27/17 10:35 Dose: 50 mg Citalopram Hydrobromide (Celexa -) 10 mg PO DAILY [facility] Last Admin: 07/27/17 10:35 Dose: 10 mg Clonazepam (Klonopin -) 0.5 mg PO BID PRN PRN Reason: ANXIETY Folic Acid (Folic Acid -) 1 mg PO DAILY [facility] Last Admin: 07/27/17 10:35 Dose: 1 mg Meropenem 1 gm/ Dextrose 100 mls @ 100 mls/hr IVPB Q8H-IV MICHEL PRN Reason: Protocol Last Admin: 07/27/17 10:35 Dose: 100 mls/hr Insulin Aspart (Novolog Vial Sliding Scale -) 1 vial SQ ACHS [facility] PRN Reason: Protocol Last Admin: 07/27/17 11:53 Dose: Not Given Levetiracetam (Keppra -) 1,000 mg PO DAILY [facility] Last Admin: 07/27/17 10:35 Dose: 1,000 mg Oxybutynin Chloride (Ditropan -) 5 mg PO BID [facility] Last Admin: 07/27/17 10:35 Dose: 5 mg Ranolazine (Ranexa -) 500 mg PO BID [facility] Last Admin: 07/27/17 10:35 Dose: 500 mg Rivaroxaban (Xarelto -) 20 mg PO DAILY [facility] Last Admin: 07/27/17 10:35 Dose: 20 mg Tamsulosin HCl (Flomax -) 0.4 mg PO DAILY@0830 [facility] Last Admin: 07/27/17 07:40 Dose: 0.4 mg - Objective Vital Signs: Vital Signs Temperature 98 F 07/27/17 14:10 Pulse Rate 64 07/27/17 14:10 Respiratory Rate 18 07/27/17 14:10 Blood Pressure 121/60 07/27/17 14:10 O2 Sat by Pulse Oximetry (%) 99 07/26/17 21:00 Constitutional: Yes: No Distress, Calm, Obese Cardiovascular: Yes: Regular Rate and Rhythm Respiratory: Yes: Regular, CTA Bilaterally Gastrointestinal: Yes: Normal Bowel Sounds, Soft Genitourinary: Yes: Last Present Musculoskeletal: Yes: WNL Extremities: Yes: WNL Neurological: Yes: Alert, Oriented Psychiatric: Yes: Alert, Oriented Labs: CBC, BMP 07/27/17 06:45 Assessment/Plan Problem List - Problems (1) UTI (urinary tract infection) Code(s): N39.0 - URINARY TRACT INFECTION, SITE NOT SPECIFIED Qualifiers: Urinary tract infection type: site unspecified Hematuria presence: with hematuria Qualified Code(s): N39.0 - Urinary tract infection, site not specified; N39.0 - Urinary tract infection, site not specified; R31.9 - Hematuria, unspecified; R31.9 - Hematuria, unspecified (2) Abdominal pain Code(s): R10.9 - UNSPECIFIED ABDOMINAL PAIN Qualifiers: Abdominal location: generalized Qualified Code(s): R10.84 - Generalized abdominal pain; R10.84 - Generalized abdominal pain (3) Afib Code(s): I48.91 - UNSPECIFIED ATRIAL FIBRILLATION (4) Allergy to multiple antibiotics Code(s): Z88.1 - ALLERGY STATUS TO OTHER ANTIBIOTIC AGENTS STATUS (5) Anxiety Code(s): F41.9 - ANXIETY DISORDER, UNSPECIFIED (6) Cystitis Code(s): N30.90 - CYSTITIS, UNSPECIFIED WITHOUT HEMATURIA (7) Diabetes mellitus type 2 in obese Code(s): E11.9 - TYPE 2 DIABETES MELLITUS WITHOUT COMPLICATIONS E66.9 - OBESITY, UNSPECIFIED (8) ESBL (extended spectrum beta-lactamase) producing bacteria infection Code(s): A49.9 - BACTERIAL INFECTION, UNSPECIFIED Z16.12 - EXTENDED SPECTRUM BETA LACTAMASE (ESBL) RESISTANCE patient growing lactose fermenting bacilli plan continue zosyn ordered prostatic study await for identification of the bacteria rest as per primary team
[2017-07-27] MEDS: ATORVASTATIN CA 20 MG TABLET (FP) PO SCH (21:19)
[2017-07-28] MEDS ORDERED: PT OWN MED DRAWER 7, Y5N ONE ×4 (01:22→21:34)
[2017-07-28] MEDS: MEROPENEM 1 GM in DEXTROSE 5%-WATER - 100 ML IVPB SCH ×2 (01:26→09:28)
[2017-07-28] MEDS: INSULIN SLIDING SCALE (NOVOLOG) 1 VIAL SQ SCH ×4 (06:12→22:28)
[2017-07-28] MEDS: RIVAROXABAN 20 MG TABLET PO SCH (09:29)
[2017-07-28] MEDS: BICALUTAMIDE 50 MG TABLET (FP) PO SCH (09:29)
[2017-07-28] MEDS: OXYBUTYNIN CHLORIDE 5 MG TABLET PO SCH ×2 (09:29→22:24)
[2017-07-28] MEDS: CITALOPRAM HYDROBROMIDE 10 MG TABLET (FP) PO SCH (09:30)
[2017-07-28] MEDS: levETIRAcetam 500 MG TABLET (FP) PO SCH (09:30)
[2017-07-28] MEDS: TAMSULOSIN HCL 0.4 MG CAP.ER.24H (FP) PO SCH (09:30)
[2017-07-28] MEDS: RANOLAZINE E.R. 500 MG TABLET (FP) PO SCH ×2 (09:30→22:24)
[2017-07-28] MEDS: FOLIC ACID 1 MG TABLET (FP) PO SCH (09:30)
--- NOTE | 2017-07-28 11:29 | PN ---
Progress Note, Physician Chief Complaint: awake alert nad - Current Medication List Current Medications: Active Medications Acetaminophen (Tylenol -) 650 mg PO Q6H PRN PRN Reason: FEVER OR PAIN Atorvastatin Calcium (Lipitor -) 20 mg PO HS [facility] Last Admin: 07/27/17 21:19 Dose: 20 mg Bicalutamide (Casodex -) 50 mg PO DAILY [facility] Last Admin: 07/28/17 09:29 Dose: 50 mg Citalopram Hydrobromide (Celexa -) 10 mg PO DAILY [facility] Last Admin: 07/28/17 09:30 Dose: 10 mg Clonazepam (Klonopin -) 0.5 mg PO BID PRN PRN Reason: ANXIETY Folic Acid (Folic Acid -) 1 mg PO DAILY [facility] Last Admin: 07/28/17 09:30 Dose: 1 mg Meropenem 1 gm/ Dextrose 100 mls @ 100 mls/hr IVPB Q8H-IV [facility]HEL PRN Reason: Protocol Last Admin: 07/28/17 09:28 Dose: 100 mls/hr Insulin Aspart (Novolog Vial Sliding Scale -) 1 vial SQ ACHS MICHEL PRN Reason: Protocol Last Admin: 07/28/17 06:12 Dose: Not Given Levetiracetam (Keppra -) 1,000 mg PO DAILY [facility] Last Admin: 07/28/17 09:30 Dose: 1,000 mg Oxybutynin Chloride (Ditropan -) 5 mg PO BID [facility] Last Admin: 07/28/17 09:29 Dose: 5 mg Ranolazine (Ranexa -) 500 mg PO BID [facility] Last Admin: 07/28/17 09:30 Dose: 500 mg Rivaroxaban (Xarelto -) 20 mg PO DAILY [facility] Last Admin: 07/28/17 09:29 Dose: 20 mg Tamsulosin HCl (Flomax -) 0.4 mg PO DAILY@0830 [facility] Last Admin: 07/28/17 09:30 Dose: 0.4 mg - Objective Vital Signs: Vital Signs Temperature 97.6 F 07/28/17 08:31 Pulse Rate 64 07/28/17 08:31 Respiratory Rate 18 07/28/17 08:31 Blood Pressure 136/75 07/28/17 08:31 O2 Sat by Pulse Oximetry (%) 99 07/28/17 09:00 Constitutional: Yes: No Distress Eyes: Yes: WNL HENT: Yes: WNL Neck: Yes: WNL Cardiovascular: Yes: WNL Respiratory: Yes: WNL Gastrointestinal: Yes: WNL Genitourinary: Yes: Sharma Present Musculoskeletal: Yes: Muscle Weakness Extremities: Yes: WNL Edema: Yes Edema: LLE: 2+, RLE: 2+ Integumentary: Yes: Rash, Venous Stasis Changes Wound/Incision: Yes: Dressing Dry and Intact Neurological: Yes: Pre-Existing Deficit, Unsteady Gait ...Motor Strength: LLE, RLE Psychiatric: Yes: Other Labs: CBC, BMP 07/27/17 06:45 Problem List - Problems (1) UTI (urinary tract infection) Code(s): N39.0 - URINARY TRACT INFECTION, SITE NOT SPECIFIED Qualifiers: Urinary tract infection type: site unspecified Hematuria presence: with hematuria Qualified Code(s): N39.0 - Urinary tract infection, site not specified; N39.0 - Urinary tract infection, site not specified; R31.9 - Hematuria, unspecified; R31.9 - Hematuria, unspecified (2) Abdominal pain Code(s): R10.9 - UNSPECIFIED ABDOMINAL PAIN Qualifiers: Abdominal location: generalized Qualified Code(s): R10.84 - Generalized abdominal pain; R10.84 - Generalized abdominal pain (3) Afib Code(s): I48.91 - UNSPECIFIED ATRIAL FIBRILLATION (4) Allergy to multiple antibiotics Code(s): Z88.1 - ALLERGY STATUS TO OTHER ANTIBIOTIC AGENTS STATUS (5) Anxiety Code(s): F41.9 - ANXIETY DISORDER, UNSPECIFIED (6) Cystitis Code(s): N30.90 - CYSTITIS, UNSPECIFIED WITHOUT HEMATURIA (7) Diabetes mellitus type 2 in obese Code(s): E11.9 - TYPE 2 DIABETES MELLITUS WITHOUT COMPLICATIONS E66.9 - OBESITY, UNSPECIFIED (8) ESBL (extended spectrum beta-lactamase) producing bacteria infection Code(s): A49.9 - BACTERIAL INFECTION, UNSPECIFIED Z16.12 - EXTENDED SPECTRUM BETA LACTAMASE (ESBL) RESISTANCE Assessment/Plan IV ABX ID FOLLOW UP AC OOB TO CHAIR PT EVAL MAINTAIN SHARMA CATH
[2017-07-28] MEDS ORDERED: INSULIN (NOVOLOG) ASPART 100 UNITS/ML 10ML VIAL ONE ×2 (11:44→21:33)
--- NOTE | 2017-07-28 14:17 | PN ---
Progress Note, Physician History of Present Illness: patient doing well no issues - Current Medication List Current Medications: Active Medications Acetaminophen (Tylenol -) 650 mg PO Q6H PRN PRN Reason: FEVER OR PAIN Atorvastatin Calcium (Lipitor -) 20 mg PO HS [facility] Last Admin: 07/27/17 21:19 Dose: 20 mg Bicalutamide (Casodex -) 50 mg PO DAILY [facility] Last Admin: 07/28/17 09:29 Dose: 50 mg Citalopram Hydrobromide (Celexa -) 10 mg PO DAILY [facility] Last Admin: 07/28/17 09:30 Dose: 10 mg Clonazepam (Klonopin -) 0.5 mg PO BID PRN PRN Reason: ANXIETY Folic Acid (Folic Acid -) 1 mg PO DAILY [facility] Last Admin: 07/28/17 09:30 Dose: 1 mg Ertapenem 1 gm/ Sodium (Chloride) 50 mls @ 50 mls/hr IVPB DAILY [facility] PRN Reason: Protocol Insulin Aspart (Novolog Vial Sliding Scale -) 1 vial SQ ACHS [facility] PRN Reason: Protocol Last Admin: 07/28/17 11:31 Dose: Not Given Levetiracetam (Keppra -) 1,000 mg PO DAILY [facility] Last Admin: 07/28/17 09:30 Dose: 1,000 mg Oxybutynin Chloride (Ditropan -) 5 mg PO BID [facility] Last Admin: 07/28/17 09:29 Dose: 5 mg Ranolazine (Ranexa -) 500 mg PO BID [facility] Last Admin: 07/28/17 09:30 Dose: 500 mg Rivaroxaban (Xarelto -) 20 mg PO DAILY [facility] Last Admin: 07/28/17 09:29 Dose: 20 mg Tamsulosin HCl (Flomax -) 0.4 mg PO DAILY@0830 [facility] Last Admin: 07/28/17 09:30 Dose: 0.4 mg - Objective Vital Signs: Vital Signs Temperature 98.4 F 07/28/17 13:33 Pulse Rate 63 07/28/17 13:33 Respiratory Rate 18 07/28/17 13:33 Blood Pressure 142/57 07/28/17 13:33 O2 Sat by Pulse Oximetry (%) 99 07/28/17 09:00 Constitutional: Yes: No Distress, Calm Cardiovascular: Yes: Regular Rate and Rhythm Respiratory: Yes: Regular, CTA Bilaterally Gastrointestinal: Yes: Normal Bowel Sounds, Soft Musculoskeletal: Yes: WNL Extremities: Yes: WNL Neurological: Yes: Alert, Oriented Psychiatric: Yes: Alert Labs: CBC, BMP 07/27/17 06:45 Assessment/Plan Problem List - Problems (1) UTI (urinary tract infection) Code(s): N39.0 - URINARY TRACT INFECTION, SITE NOT SPECIFIED Qualifiers: Urinary tract infection type: site unspecified Hematuria presence: with hematuria Qualified Code(s): N39.0 - Urinary tract infection, site not specified; N39.0 - Urinary tract infection, site not specified; R31.9 - Hematuria, unspecified; R31.9 - Hematuria, unspecified (2) Abdominal pain Code(s): R10.9 - UNSPECIFIED ABDOMINAL PAIN Qualifiers: Abdominal location: generalized Qualified Code(s): R10.84 - Generalized abdominal pain; R10.84 - Generalized abdominal pain (3) Afib Code(s): I48.91 - UNSPECIFIED ATRIAL FIBRILLATION (4) Allergy to multiple antibiotics Code(s): Z88.1 - ALLERGY STATUS TO OTHER ANTIBIOTIC AGENTS STATUS (5) Anxiety Code(s): F41.9 - ANXIETY DISORDER, UNSPECIFIED (6) Cystitis Code(s): N30.90 - CYSTITIS, UNSPECIFIED WITHOUT HEMATURIA (7) Diabetes mellitus type 2 in obese Code(s): E11.9 - TYPE 2 DIABETES MELLITUS WITHOUT COMPLICATIONS E66.9 - OBESITY, UNSPECIFIED (8) ESBL (extended spectrum beta-lactamase) producing bacteria infection Code(s): A49.9 - BACTERIAL INFECTION, UNSPECIFIED Z16.12 - EXTENDED SPECTRUM BETA LACTAMASE (ESBL) RESISTANCE patient growing lactose fermenting bacilli plan cx report noted will switch to ertapenam prostatic study result noted rest as per primary team will need full 2 weeks of abx
[2017-07-28] MEDS: ERTAPENEM SODIUM 1 GM in SODIUM CHLORIDE 50 ML IVPB SCH (17:54)
[2017-07-28] MEDS: ATORVASTATIN CA 20 MG TABLET (FP) PO SCH (22:24)
[2017-07-29] MEDS: INSULIN SLIDING SCALE (NOVOLOG) 1 VIAL SQ SCH ×3 (06:40→16:30)
[2017-07-29] MEDS: TAMSULOSIN HCL 0.4 MG CAP.ER.24H (FP) PO SCH (08:16)
[2017-07-29] MEDS ORDERED: INSULIN (NOVOLOG) ASPART 100 UNITS/ML 10ML VIAL ONE (11:13)
[2017-07-29] MEDS: CITALOPRAM HYDROBROMIDE 10 MG TABLET (FP) PO SCH (11:21)
[2017-07-29] MEDS: FOLIC ACID 1 MG TABLET (FP) PO SCH (11:21)
[2017-07-29] MEDS: BICALUTAMIDE 50 MG TABLET (FP) PO SCH (11:21)
[2017-07-29] MEDS: ERTAPENEM SODIUM 1 GM in SODIUM CHLORIDE 50 ML IVPB SCH (11:21)
[2017-07-29] MEDS: OXYBUTYNIN CHLORIDE 5 MG TABLET PO SCH (11:21)
[2017-07-29] MEDS: RIVAROXABAN 20 MG TABLET PO SCH (11:22)
[2017-07-29] MEDS: RANOLAZINE E.R. 500 MG TABLET (FP) PO SCH (11:22)
[2017-07-29] MEDS: levETIRAcetam 500 MG TABLET (FP) PO SCH (11:22)
[2017-07-29] MEDS ORDERED: PT OWN MED DRAWER 7, Y5N ONE (12:19)
[2017-07-29] MEDS ORDERED: PICC LINE 8 ML FLUSH PROTOCOL IVPUSH PRN (12:23)
--- NOTE | 2017-07-29 12:28 | DS ---
Physical Examination Vital Signs: Vital Signs Temperature 98.0 F 07/29/17 05:30 Pulse Rate 63 07/29/17 05:30 Respiratory Rate 16 07/29/17 05:30 Blood Pressure 143/70 07/29/17 05:30 O2 Sat by Pulse Oximetry (%) 99 07/28/17 21:00 Constitutional: Yes: No Distress Eyes: Yes: WNL HENT: Yes: WNL Neck: Yes: WNL Cardiovascular: Yes: WNL Respiratory: Yes: WNL Gastrointestinal: Yes: WNL Renal/: Yes: WNL Musculoskeletal: Yes: Muscle Weakness Extremities: Yes: WNL Edema: No Peripheral Pulses WNL: Yes Integumentary: Yes: Venous Stasis Changes Wound/Incision: Yes: Dressing Dry and Intact Neurological: Yes: Pre-Existing Deficit, Unsteady Gait, Weakness ...Motor Strength: LLE, RLE Psychiatric: Yes: Other Labs: CBC, BMP 07/27/17 06:45 Discharge Summary Reason For Visit: UTI Current Active Problems UTI (urinary tract infection) (Acute) Procedures: Principal: PICC LINE Other Procedures: LABS Hospital Course: ADMITTED CHRONIC UTI, PICC LINE WITH 14 DAYS IV ABX - Instructions Diet, Activity, Other Instructions: LOW SODIUM/ADA CHECJ LABS WEEKLY Referrals: Devan Nugent MD [Primary Care Provider] - [facility] - Home Medications Comprehensive Discharge Medication List: Ambulatory Orders Aspirin [ASA -] 81 mg PO DAILY 03/20/17 Atorvastatin Ca [Lipitor] 20 mg PO HS 03/20/17 Bicalutamide [Casodex -] 50 mg PO DAILY 03/20/17 Citalopram Hydrobromide [Celexa -] 10 mg PO DAILY 03/20/17 Clonazepam [Klonopin -] 0.5 mg PO TID 03/20/17 Divalproex *ER* [Depakote *ER* -] 500 mg PO BID 03/20/17 Ferrous Sulfate [Feosol] 325 mg PO DAILY 03/20/17 Fesoterodine Fumarate [Toviaz] 4 mg PO DAILY 03/20/17 Folic Acid 1 mg PO DAILY 03/20/17 Levetiracetam 1,000 mg PO TID 03/20/17 Lisinopril [Prinivil] 5 mg PO DAILY 03/20/17 Magnesium Oxide [Magnesium] 500 mg PO BID 03/20/17 Oxybutynin Chloride [Ditropan -] 10 mg PO DAILY 03/20/17 Ranolazine [Ranexa] 500 mg PO BID 03/20/17 Rivaroxaban [Xarelto -] 20 mg PO DAILY 03/20/17 Tamsulosin HCl [Flomax -] 0.4 mg PO BID 03/20/17 Tramadol HCl [Ultram -] 50 mg PO DAILY 03/20/17 Aspirin [ASA -] 81 mg PO DAILY 06/29/17 Atorvastatin Ca [Lipitor] 20 mg PO HS 06/29/17 Bicalutamide [Casodex] 50 mg PO DAILY 06/29/17 Citalopram Hydrobromide [Citalopram HBr] 10 mg PO DAILY 06/29/17 Ferrous Sulfate 325 mg PO DAILY 06/29/17 Folic Acid 0.4 mg PO DAILY 06/29/17 Levofloxacin [Levaquin -] 500 mg PO DAILY #14 tablet 06/29/17 Lisinopril 10 mg PO DAILY 06/29/17 Oxybutynin Chloride [Oxybutynin Chloride ER] 10 mg PO DAILY 06/29/17 Ranolazine [Ranexa] 500 mg PO BID 06/29/17 Rivaroxaban [Xarelto -] 20 mg PO DAILY 06/29/17 Tamsulosin HCl [Flomax] 0.4 mg PO DAILY 06/29/17 Acetaminophen [Tylenol .Regular Strength -] 650 mg PO Q6H PRN #0 tablet Atorvastatin Ca [Lipitor] 20 mg PO HS tablet 07/29/17 Bicalutamide [Casodex -] 50 mg PO DAILY tablet 07/29/17 Citalopram Hydrobromide [Celexa -] 10 mg PO DAILY tablet 07/29/17 Clonazepam [Klonopin -] 0.5 mg PO BID PRN #0 tablet MDD 2 07/29/17 Ertapenem Sodium [Invanz -] 1 gm IVPB DAILY 14 Days 07/29/17 Folic Acid - 1 mg PO DAILY tablet 07/29/17 Insulin Sliding Scale [Novolog Vial Sliding Scale -] 1 vial SQ ACHS units 07/29 Levetiracetam [Keppra -] 1,000 mg PO DAILY tablet 07/29/17 Oxybutynin Chloride [Ditropan -] 5 mg PO BID tablet 07/29/17 Picc Line Flush [Picc Line Flush -] 8 ml IVPUSH PRN PRN #0 ml 07/29/17 Ranolazine [Ranexa -] 500 mg PO BID tab 07/29/17 Rivaroxaban [Xarelto -] 20 mg PO DAILY tablet 07/29/17
[2017-07-29 14:47] VITALS: BP 124/66; PULSE 66; TEMP 98.6
--- NOTE | 2017-07-29 15:30 | PN ---
Progress Note, Physician History of Present Illness: stable no new issues - Current Medication List Current Medications: Active Medications Acetaminophen (Tylenol -) 650 mg PO Q6H PRN PRN Reason: FEVER OR PAIN Atorvastatin Calcium (Lipitor -) 20 mg PO HS [facility] Last Admin: 07/28/17 22:24 Dose: 20 mg Bicalutamide (Casodex -) 50 mg PO DAILY [facility] Last Admin: 07/29/17 11:21 Dose: 50 mg Citalopram Hydrobromide (Celexa -) 10 mg PO DAILY [facility] Last Admin: 07/29/17 11:21 Dose: 10 mg Clonazepam (Klonopin -) 0.5 mg PO BID PRN PRN Reason: ANXIETY Folic Acid (Folic Acid -) 1 mg PO DAILY [facility] Last Admin: 07/29/17 11:21 Dose: 1 mg IV Flush (Picc Line Flush) 8 ml IVPUSH PRN PRN PRN Reason: Protocol Ertapenem 1 gm/ Sodium (Chloride) 50 mls @ 100 mls/hr IVPB DAILY [facility] PRN Reason: Protocol Last Admin: 07/29/17 11:21 Dose: 100 mls/hr Insulin Aspart (Novolog Vial Sliding Scale -) 1 vial SQ ACHS [facility] PRN Reason: Protocol Last Admin: 07/29/17 11:22 Dose: Not Given Levetiracetam (Keppra -) 1,000 mg PO DAILY [facility] Last Admin: 07/29/17 11:22 Dose: 1,000 mg Oxybutynin Chloride (Ditropan -) 5 mg PO BID [facility] Last Admin: 07/29/17 11:21 Dose: 5 mg Ranolazine (Ranexa -) 500 mg PO BID [facility] Last Admin: 07/29/17 11:22 Dose: 500 mg Rivaroxaban (Xarelto -) 20 mg PO DAILY [facility] Last Admin: 07/29/17 11:22 Dose: 20 mg Tamsulosin HCl (Flomax -) 0.4 mg PO DAILY@0830 [facility] Last Admin: 07/29/17 08:16 Dose: 0.4 mg - Objective Vital Signs: Vital Signs Temperature 98.6 F 07/29/17 14:43 Pulse Rate 66 07/29/17 14:43 Respiratory Rate 18 07/29/17 14:43 Blood Pressure 124/66 07/29/17 14:43 O2 Sat by Pulse Oximetry (%) 99 07/28/17 21:00 Constitutional: Yes: No Distress, Calm Cardiovascular: Yes: Regular Rate and Rhythm Respiratory: Yes: Regular, CTA Bilaterally Gastrointestinal: Yes: Normal Bowel Sounds, Soft Musculoskeletal: Yes: WNL Extremities: Yes: WNL Neurological: Yes: Alert, Oriented Psychiatric: Yes: Alert, Oriented Labs: CBC, BMP 07/27/17 06:45 Assessment/Plan Problem List - Problems (1) UTI (urinary tract infection) Code(s): N39.0 - URINARY TRACT INFECTION, SITE NOT SPECIFIED Qualifiers: Urinary tract infection type: site unspecified Hematuria presence: with hematuria Qualified Code(s): N39.0 - Urinary tract infection, site not specified; N39.0 - Urinary tract infection, site not specified; R31.9 - Hematuria, unspecified; R31.9 - Hematuria, unspecified (2) Abdominal pain Code(s): R10.9 - UNSPECIFIED ABDOMINAL PAIN Qualifiers: Abdominal location: generalized Qualified Code(s): R10.84 - Generalized abdominal pain; R10.84 - Generalized abdominal pain (3) Afib Code(s): I48.91 - UNSPECIFIED ATRIAL FIBRILLATION (4) Allergy to multiple antibiotics Code(s): Z88.1 - ALLERGY STATUS TO OTHER ANTIBIOTIC AGENTS STATUS (5) Anxiety Code(s): F41.9 - ANXIETY DISORDER, UNSPECIFIED (6) Cystitis Code(s): N30.90 - CYSTITIS, UNSPECIFIED WITHOUT HEMATURIA (7) Diabetes mellitus type 2 in obese Code(s): E11.9 - TYPE 2 DIABETES MELLITUS WITHOUT COMPLICATIONS E66.9 - OBESITY, UNSPECIFIED (8) ESBL (extended spectrum beta-lactamase) producing bacteria infection Code(s): A49.9 - BACTERIAL INFECTION, UNSPECIFIED Z16.12 - EXTENDED SPECTRUM BETA LACTAMASE (ESBL) RESISTANCE patient growing lactose fermenting bacilli plan continue abx for a total of 14 days rest as per primary team and urology
--- NOTE | 2017-08-04 11:50 | PN ---
Progress Note (short form) - Note Progress Note: DIAGNOSIS ADDENDUM: UTI FROM [facility] CATHETER INDUCED Problem List - Problems (1) UTI (urinary tract infection) Code(s): N39.0 - URINARY TRACT INFECTION, SITE NOT SPECIFIED Qualifiers: Urinary tract infection type: site unspecified Hematuria presence: with hematuria Qualified Code(s): N39.0 - Urinary tract infection, site not specified; N39.0 - Urinary tract infection, site not specified; R31.9 - Hematuria, unspecified; R31.9 - Hematuria, unspecified (2) Abdominal pain Code(s): R10.9 - UNSPECIFIED ABDOMINAL PAIN Qualifiers: Abdominal location: generalized Qualified Code(s): R10.84 - Generalized abdominal pain; R10.84 - Generalized abdominal pain (3) Afib Code(s): I48.91 - UNSPECIFIED ATRIAL FIBRILLATION (4) Allergy to multiple antibiotics Code(s): Z88.1 - ALLERGY STATUS TO OTHER ANTIBIOTIC AGENTS STATUS (5) Anxiety Code(s): F41.9 - ANXIETY DISORDER, UNSPECIFIED (6) Cystitis Code(s): N30.90 - CYSTITIS, UNSPECIFIED WITHOUT HEMATURIA (7) Diabetes mellitus type 2 in obese Code(s): E11.9 - TYPE 2 DIABETES MELLITUS WITHOUT COMPLICATIONS E66.9 - OBESITY, UNSPECIFIED (8) ESBL (extended spectrum beta-lactamase) producing bacteria infection Code(s): A49.9 - BACTERIAL INFECTION, UNSPECIFIED Z16.12 - EXTENDED SPECTRUM BETA LACTAMASE (ESBL) RESISTANCE
== END 2017-07-29 19:37 | DRG 699 ==
LOC: JER 10:17 → JERBED 13:15 → J6S 17:50
PROVIDERS: ADMIT Family Medicine; ATTEND Family Medicine
PROC: 02HV33Z Insertion of Infusion Device into Superior Vena Cava, Percutaneous Approach (ICD-10-PCS; principal; 2017-07-29)
PROC: B548ZZA Ultrasonography of Superior Vena Cava, Guidance (ICD-10-PCS; 2017-07-29)
PROC: B518ZZA Fluoroscopy of Superior Vena Cava, Guidance (ICD-10-PCS; 2017-07-29)
DX: T83.518A Infection and inflammatory reaction due to other urinary catheter, initial encounter (principal); N39.0 Urinary tract infection, site not specified; Z68.41 Body mass index [BMI] 40.0-44.9, adult; Y84.6 Urinary catheterization as the cause of abnormal reaction of the patient, or of later complication, without mention of misadventure at the time of the procedure; Y92.122 Bedroom in nursing home as the place of occurrence of the external cause; I48.91 Unspecified atrial fibrillation; B96.1 Klebsiella pneumoniae [K. pneumoniae] as the cause of diseases classified elsewhere; Z16.12 Extended spectrum beta lactamase (ESBL) resistance; E66.9 Obesity, unspecified; E11.9 Type 2 diabetes mellitus without complications; I10 Essential (primary) hypertension; G40.909 Epilepsy, unspecified, not intractable, without status epilepticus; Z79.01 Long term (current) use of anticoagulants; E78.5 Hyperlipidemia, unspecified; I25.10 Atherosclerotic heart disease of native coronary artery without angina pectoris; Z86.718 Personal history of other venous thrombosis and embolism; Z85.46 Personal history of malignant neoplasm of prostate; Z85.51 Personal history of malignant neoplasm of bladder; Z86.73 Personal history of transient ischemic attack (TIA), and cerebral infarction without residual deficits; Z87.891 Personal history of nicotine dependence; K57.30 Diverticulosis of large intestine without perforation or abscess without bleeding; Z79.4 Long term (current) use of insulin
CPT/HCPCS: 36415; 36569; 71010-TC; 76856-TC; 77001-TC; 80053; 81003; 81015; 85025; 85651; 86140; 87081; 87086; 87186; 93005; 93010; 97116-GP; 97161-GP; 99283-25; C1751

== ENCOUNTER 2017-10-26 15:12 | Emergency (ER) | payer MEDICARE, OTHER ==
[2017-10-26 15:53] VITALS: BP 124/62; PULSE 77; TEMP 97.8; BMI 46.2
--- NOTE | 2017-10-26 16:24 | PDOC ---
History of Present Illness - General Chief Complaint: Pain Stated Complaint: ABDOMINAL PAIN Time Seen by Provider: 10/26/17 16:23 History Source: Patient Exam Limitations: No Limitations - History of Present Illness Initial Comments: 10/26/17 16:42 This is a 67 year old male, with a significant past medical history of A-fib, DVT, nephrolithiasis, prostate cancer and bladder cancer s/p XRT, HLD h/o recurrent hernias who presents to the emergency department with a complaint of RLQ pain Pt states he had a prior inguinal hernia which was repaired He was seen by his PMD in September and told that he has a recurrent hernia Over the past 2 weeks, he has noted severe Right lower abdominal pain NO fevers or chills No hematuria, no dysuria No nausea, vomiting, diarrhea Pt has not been able to eat at his baseline He has noted no rash Denies trauma Past History - Past Medical History Allergies/Adverse Reactions: Allergies Allergy/AdvReac Type Severity Reaction Status Date / Time amoxicillin Allergy Mild Rash Verified 10/26/17 15:53 carbamazepine [From Tegretol] Allergy Mild Rash Verified 10/26/17 15:53 cephalexin [Cephalexin] Allergy Mild Rash Verified 10/26/17 15:53 ciprofloxacin Allergy Mild Rash Verified 10/26/17 15:53 fluconazole Allergy Mild Verified 10/26/17 15:53 lamotrigine [From Lamictal] Allergy Mild Rash Verified 10/26/17 15:53 metronidazole Allergy Mild Rash Verified 10/26/17 15:53 phenobarbital Allergy Mild Rash Verified 10/26/17 15:53 phenytoin sodium Allergy Mild Rash Verified 10/26/17 15:53 [From Dilantin] phenytoin sodium extended Allergy Mild Rash Verified 10/26/17 15:53 [From Dilantin] sulfamethoxazole Allergy Mild Rash Verified 10/26/17 15:53 [From Sulfatrim] trimethoprim [From Sulfatrim] Allergy Mild Rash Verified 10/26/17 15:53 amoxicillin trihydrate Allergy Unknown Verified 10/26/17 15:53 [From Augmentin] potassium clavulanate Allergy Unknown Verified 10/26/17 15:53 [From Augmentin] shrimp Allergy Verified 10/26/17 15:53 SHRIMP Allergy Mild Rash Uncoded 10/26/17 15:53 ciproflux Allergy Uncoded 10/26/17 15:53 shrimp Allergy Uncoded 10/26/17 15:53 Home Medications: Ambulatory Orders Aspirin 81 mg PO DAILY 10/26/17 Atorvastatin Ca [Lipitor] 20 mg PO HS 10/26/17 Bicalutamide 50 mg PO DAILY 10/26/17 Citalopram Hydrobromide [Celexa -] 10 mg PO DAILY 10/26/17 Clonazepam [Klonopin -] 0.5 mg PO TID 10/26/17 Divalproex Sodium 500 mg PO BID 10/26/17 Ferrous Sulfate 325 mg PO BID 10/26/17 Fesoterodine Fumarate [Toviaz] 4 mg PO DAILY 10/26/17 Levetiracetam 250 mg PO TID 10/26/17 Lisinopril 5 mg PO DAILY 10/26/17 Magnesium Oxide [Magnesium] 500 mg PO BID 10/26/17 Nitrofurantoin Macrocrystal [Nitrofurantoin] 100 mg PO BID 10/26/17 Oxybutynin Chloride [Oxybutynin Chloride ER] 10 mg PO DAILY 10/26/17 Ranolazine [Ranexa] 500 mg PO BID 10/26/17 Rivaroxaban [Xarelto -] 20 mg PO DAILY 10/26/17 Tamsulosin HCl 0.4 mg PO BID 10/26/17 Anemia: No Asthma: Yes Cancer: Yes (bladder, prostate) Cardiac Disorders: Yes (ANGINA, RLE DVT) CVA: Yes (rt side) COPD: Yes CHF: (atrial fib) DVT: Yes Dementia: No Diabetes: Yes Dialysis: No GI Disorders: No Disorders: Yes (renal stones) HTN: Yes Hypercholesterolemia: Yes Kidney Stones: Yes Liver Disease: No Seizures: Yes Thyroid Disease: No Lung CA: No - Surgical History Abdominal Surgery: Yes (Hernia repair) Appendectomy: Yes Cardiac Surgery: Yes Cholecystectomy: Yes Gastric Stapling: No GI Surgery: No Lung Surgery: No Neurologic Surgery: No Orthopedic Surgery: Yes (ORIF LUE) - Immunization History Immunization Up to Date: Yes - Suicide/Smoking/Psychosocial Hx Smoking Status: No Smoking History: Unknown if ever smoked Have you smoked in the past 12 months: No Number of Cigarettes Smoked Daily: 0 If you are a former smoker, when did you quit?: 25 years Information on smoking cessation initiated: No Hx Alcohol Use: No Drug/Substance Use Hx: No Substance Use Type: None Hx Substance Use Treatment: No Review of Systems - Review of Systems Able to Perform ROS?: Yes Comments:: 10/26/17 16:46 GENERAL/CONSTITUTIONAL: No: fever, chills, weakness, loss of appetite. HEAD, EYES, EARS, NOSE AND THROAT: No: change in vision, ear pain, discharge, sore throat, throat swelling. CARDIOVASCULAR: No: chest pain, lightheadedness, palpitations, syncope RESPIRATORY: No: cough, shortness of breath, wheezing, hemoptysis, stridor. GASTROINTESTINAL: Yes: Right lower abdominal pain No: nausea, vomiting, diarrhea , GENITOURINARY: No: dysuria, hematuria, frequency, urgency, flank pain. MUSCULOSKELETAL: No: back pain, neck pain, joint pain, muscle swelling or pain SKIN AND BREASTS: No: lesions, pallor, rash or easy bruising. NEUROLOGIC: No: headache, vertigo, paresthesias, weakness ENDOCRINE: No: unexplained weight gain or loss HEMATOLOGIC/LYMPHATIC: No: anemia, easy bleeding, swelling nodes. *Physical Exam - Vital Signs Last Vital Signs Temp Pulse Resp BP Pulse Ox 97.8 F 77 18 124/62 100 10/26/17 15:51 10/26/17 15:51 10/26/17 15:51 10/26/17 15:51 10/26/17 15:51 - Physical Exam Comments: 10/26/17 16:47 GENERAL: The patient is in no acute distress, morbidly obese. HEAD: Normal EYES: PERRLA, EOMI, sclera anicteric, conjunctiva clear. ENT: Ears normal, nares patent, oropharynx clear without exudates. Moist mucous membranes. NECK: Normal range of motion, supple without lymphadenopathy, JVD, or masses. LUNGS: Breath sounds equal, clear to auscultation bilaterally. No wheezes, and no crackles. HEART:Regular rate and rhythm, normal S1 and S2 without murmur, rub or gallop. ABDOMEN: Soft, right lower abdominal tenderness to palpation, patient has pain when patient is is moved, no masses felt in right groin, hypoactive bowel sounds. No guarding, no rebound. Remainder patient's abdomen nontender EXTREMITIES: Normal range of motion, no edema. NEUROLOGICAL: Cranial nerves II through XII grossly intact. Normal speech. No focal neurological deficits. MUSCULOSKELETAL: Back non-tender to palpation, no CVA tenderness SKIN: Warm, Dry, normal turgor, no rashes or lesions noted. ED Treatment Course - LABORATORY CBC & Chemistry Diagram: 10/26/17 18:38 10/26/17 16:34 Medical Decision Making - Medical Decision Making 10/26/17 16:48 67-year-old male presented to emergency department with a complaint of abdominal pain. Differential diagnosis includes but is not limited to: Intra-abdominal infection, small bowel obstruction, recurrent hernia Will do: Labs, CT, pain medication Will reassess Labs pending CT pending Pt signed out to Dr Catalan *DC/Admit/Observation/Transfer Diagnosis at time of Disposition: Abdominal pain - Discharge Dispostion Disposition: HOME Condition at time of disposition: Stable - Referrals Referrals: Ruth Johnson MD [Primary Care Provider] - - Patient Instructions Printed Discharge Instructions: DI for Abdominal Pain-Adult Additional Instructions: Please follow up with Dr. Johnson in the morning. Take all your medication as well the Tylenol #3. Return if any problems. - Post Discharge Activity
[2017-10-26] MEDS ORDERED: morphine CARPU-JECT 4 MG/1 ML DISP.SYRIN IVPUSH ONE (17:04)
[2017-10-26 17:12] LABS: URINE APPEARANCE CLEAR; URINE BILIRUBIN NEGATIVE (NEGATIVE); URINE BLOOD NEGATIVE (NEGATIVE); URINE COLOR LTYELLOW; URINE GLUCOSE (UA) 3+ (NEGATIVE); URINE KETONE NEGATIVE (NEGATIVE); URINE LEUK ESTERASE NEGATIVE (NEGATIVE); URINE NITRITE NEGATIVE (NEGATIVE); URINE PROTEIN NEGATIVE (NEGATIVE); URINE UROBILINOGEN NEGATIVE mg/dL (0.2-1.0)
[2017-10-26 17:42] LABS: ALBUMIN 3.9 g/dl (3.4-5.0); ANION GAP 8 (8-16); BILIRUBIN,TOTAL 0.4 mg/dL (0.2-1.0); BLOOD UREA NITROGEN 25 mg/dL (7-18); CALCIUM 9.3 mg/dL (8.5-10.1); CHLORIDE 100 mmol/L (98-107); CO2 27 mmol/L (21-32); CREATININE 1.3 mg/dL (0.7-1.3); GLUCOSE,RANDOM 219 mg/dL (74-106); SGPT/ALT 24 U/L (12-78); SODIUM 135 mmol/L (136-145); TOT PROT 7.9 g/dl (6.4-8.2)
[2017-10-26 17:43] LABS: ALK PHOS 124 U/L (45-117)
[2017-10-26 17:45] LABS: INR 1.21 (0.82-1.09); PROTHROMBIN TIME (PATIENT) 13.7 SEC (9.98-11.88)
[2017-10-26 17:55] LABS: POTASSIUM 4.3 mmol/L (3.5-5.1); SGOT/AST 17 U/L (15-37)
[2017-10-26] MEDS ORDERED: morphine CARPU-JECT 10 MG/1 ML DISP.SYRIN ONE (18:03)
[2017-10-26 18:47] LABS: BASO % 0.4 % (0-2.0); EOS % 1.3 % (0-4.5); HEMATOCRIT 34.2 % (35.4-49); HEMOGLOBIN 11.3 GM/dL (11.7-16.9); MCH 28.5 pg (25.7-33.7); MCHC 32.9 g/dl (32.0-35.9); MEAN CELL VOLUME 86.7 fl (80-96); NEUT % 77.3 % (42.8-82.8); PLATELET COUNT 143 K/MM3 (134-434); RBC 3.94 M/mm3 (4.00-5.60); RDW 15.8 % (11.9-15.9); WHITE BLOOD COUNT 9.9 K/mm3 (4.0-10.0)
[2017-10-26] MEDS ORDERED: ACETAMINOPHEN WITH CODEINE 300MG/30MG TABLET PO ONE (22:11)
--- NOTE | 2017-10-26 22:12 | PDOC ---
*Physical Exam - Vital Signs Last Vital Signs Temp Pulse Resp BP Pulse Ox 97.8 F 77 18 124/62 100 10/26/17 15:51 10/26/17 15:51 10/26/17 15:51 10/26/17 15:51 10/26/17 15:51 ED Treatment Course - LABORATORY CBC & Chemistry Diagram: 10/26/17 18:38 10/26/17 16:34 - ADDITIONAL ORDERS Additional order review: Laboratory Results 10/26/17 10/26/17 10/26/17 16:43 16:40 16:34 PT with INR INR Sodium Potassium Chloride Carbon Dioxide Anion Gap BUN Creatinine Creat Clearance w eGFR Random Glucose Lactic Acid 1.9 Calcium Total Bilirubin AST ALT Alkaline Phosphatase Total Protein Albumin Urine Color Ltyellow Urine Appearance Clear Urine pH 5.0 Ur Specific Morris 1.014 Urine Protein Negative Urine Glucose (UA) 3+ H Urine Ketones Negative Urine Blood Negative Urine Nitrite Negative Urine Bilirubin Negative Urine Urobilinogen Negative Blood Type O POSITIVE Antibody Screen Negative 10/26/17 10/26/17 16:34 16:34 PT with INR 13.70 H INR 1.21 H Sodium 135 L Potassium 4.3 Chloride 100 Carbon Dioxide 27 Anion Gap 8 BUN 25 H D Creatinine 1.3 Creat Clearance w eGFR 55.06 Random Glucose 219 H D Lactic Acid Calcium 9.3 Total Bilirubin 0.4 D AST 17 ALT 24 D Alkaline Phosphatase 124 H D Total Protein 7.9 Albumin 3.9 Urine Color Urine Appearance Urine pH Ur Specific Morris Urine Protein Urine Glucose (UA) Urine Ketones Urine Blood Urine Nitrite Urine Bilirubin Urine Urobilinogen Blood Type Antibody Screen 10/26/17 18:38 RBC 3.94 L MCV 86.7 MCHC 32.9 RDW 15.8 MPV 9.0 Neutrophils % 77.3 Lymphocytes % 5.0 L D Monocytes % 16.0 H Eosinophils % 1.3 D Basophils % 0.4 - RADIOLOGY Radiology Studies Ordered: Category Date Time Status ABDOMEN & PELVIS CT W/O CONTR [CT] Stat CT Scan 10/26/17 19:58 Completed - Medications Given in the ED: ED Medications Discontinued Medications Generic Name Dose Route Start Last Admin Trade Name Freq PRN Reason Stop Dose Admin Morphine Sulfate 4 mg 10/26/17 17:04 10/26/17 18:06 Morphine Injection - IVPUSH 10/26/17 17:05 4 mg ONCE ONE Administration Medical Decision Making - Medical Decision Making 10/26/17 22:13 Ct scan shows no SBO or hernia. Pt has a stable DVT in the abdomen. Pt will be discharged and follow up with Dr. Johnson *DC/Admit/Observation/Transfer Diagnosis at time of Disposition: Abdominal pain - Discharge Dispostion Disposition: HOME Condition at time of disposition: Stable Admit: No - Referrals Referrals: Ruth Johnson MD [Primary Care Provider] - - Patient Instructions Printed Discharge Instructions: DI for Abdominal Pain-Adult Additional Instructions: Please follow up with Dr. Johnson in the morning. Take all your medication as well the Tylenol #3. Return if any problems. - Post Discharge Activity
[2017-10-26] MEDS ORDERED: ACETAMINOPHEN WITH CODEINE 300MG/30MG TABLET ONE (22:15)
== END 2017-10-26 22:30 | disposition home or self-care (01) ==
LOC: JER 15:12
PROC: 3E033NZ Introduction of Analgesics, Hypnotics, Sedatives into Peripheral Vein, Percutaneous Approach (ICD-10-PCS; principal; 2017-10-26)
DX: R10.31 Right lower quadrant pain (principal); I48.91 Unspecified atrial fibrillation; Z79.01 Long term (current) use of anticoagulants; I10 Essential (primary) hypertension; E78.00 Pure hypercholesterolemia, unspecified; Z86.718 Personal history of other venous thrombosis and embolism; Z86.69 Personal history of other diseases of the nervous system and sense organs; Z87.442 Personal history of urinary calculi; I69.851 Hemiplegia and hemiparesis following other cerebrovascular disease affecting right dominant side; Z85.46 Personal history of malignant neoplasm of prostate; Z85.51 Personal history of malignant neoplasm of bladder
CPT/HCPCS: 36415; 74176-TC; 80053; 81003; 83605; 85025; 85610; 86850; 86900; 86901; 87086; 99282-25; Q9967

== ENCOUNTER 2018-03-08 08:43 | Day surgery (SDC) | payer MEDICARE, OTHER ==
[~2018-03-08 08:43] MED LIST: PHENYLEPHRINE/KETOROLAC 4 ML VIAL IO ONE
[2018-03-08] MEDS ORDERED: ACETAMINOPHEN 325 MG TABLET (FP) PO PRN (08:53)
[2018-03-08] MEDS ORDERED: CIPROFLOXACIN 0.3% EYE DROPS 5 ML BOTTLE ONE (08:55)
[2018-03-08] MEDS ORDERED: FLURBIPROFEN 0.03% OPHTH SOLN 2.5 ML BOTTLE ONE (08:55)
[2018-03-08] MEDS ORDERED: TROPICAMIDE 1% OPHTH SOLN 15 ML BOTTLE ONE (08:56)
[2018-03-08] MEDS ORDERED: PHENYLEPHRINE 2.5% OPHTH SOLN 15 ML BOTTLE ONE (08:56)
[2018-03-08] MEDS ORDERED: CYCLOPENTOLATE HCL 1% OPHTH SOLN 2 ML BOTTLE ONE (08:56)
[2018-03-08] MEDS ORDERED: CYCLOPENTOLATE HCL 1% OPHTH SOLN 2 ML BOTTLE OP SCH (09:00)
[2018-03-08] MEDS ORDERED: FLURBIPROFEN 0.03% OPHTH SOLN 2.5 ML BOTTLE OP SCH (09:00)
[2018-03-08] MEDS ORDERED: PHENYLEPHRINE 2.5% OPHTH SOLN 15 ML BOTTLE OP SCH (09:00)
[2018-03-08] MEDS ORDERED: TROPICAMIDE 1% OPHTH SOLN 15 ML BOTTLE OP SCH (09:00)
[2018-03-08] MEDS ORDERED: CIPROFLOXACIN HCL 0.3% OPHTH 2.5ML BOTTLE OP SCH (09:00)
[2018-03-08 09:40] VITALS: BMI 45.6
[2018-03-08 09:46] VITALS: BP 105/55; PULSE 65; TEMP 98.2
== END 2018-03-08 09:30 | disposition home or self-care (01) ==
LOC: JASU-SURG 08:43
PROVIDERS: ATTEND Ophthalmology
PROC: 08Q0XZZ Repair Right Eye, External Approach (ICD-10-PCS; principal; 2018-03-08)
DX: Z53.8 Procedure and treatment not carried out for other reasons (principal)

== ENCOUNTER 2018-03-22 08:39 | Day surgery (SDC) | payer MEDICARE, OTHER ==
[2018-03-21 10:21] VITALS: BMI 45.6
[~2018-03-22 08:39] MED LIST changes: +ACETAMINOPHEN 325 MG TABLET (FP) PO PRN; +CHONDROITIN SU A/HYALUR SOD 1 KIT IO ONE; +CIPROFLOXACIN HCL 0.3% OPHTH 2.5ML BOTTLE OP SCH; +CYCLOPENTOLATE HCL 1% OPHTH SOLN 2 ML BOTTLE OP SCH; +FLURBIPROFEN 0.03% OPHTH SOLN 2.5 ML BOTTLE OP SCH; +PHENYLEPHRINE 2.5% OPHTH SOLN 15 ML BOTTLE OP SCH; +TROPICAMIDE 1% OPHTH SOLN 15 ML BOTTLE OP SCH
[2018-03-22] MEDS ORDERED: CIPROFLOXACIN 0.3% EYE DROPS 5 ML BOTTLE ONE (09:32)
[2018-03-22] MEDS ORDERED: FLURBIPROFEN 0.03% OPHTH SOLN 2.5 ML BOTTLE ONE (09:32)
[2018-03-22] MEDS ORDERED: PHENYLEPHRINE 2.5% OPHTH SOLN 15 ML BOTTLE ONE (09:33)
[2018-03-22] MEDS ORDERED: TROPICAMIDE 1% OPHTH SOLN 15 ML BOTTLE ONE (09:33)
[2018-03-22] MEDS ORDERED: CYCLOPENTOLATE HCL 1% OPHTH SOLN 2 ML BOTTLE ONE (09:33)
[2018-03-22] MEDS ORDERED: MIDAZOLAM HCL 2 MG/2 ML SINGLE DOSE VIAL ONE (10:26)
[2018-03-22] MEDS ORDERED: LIDOCAINE HCL/PF 1% SDV 5ML VIAL ONE (10:34)
[2018-03-22] MEDS ORDERED: TETRACAINE 0.5% OPHTH SOLN 2 ML BOTTLE ONE (10:34)
[2018-03-22] MEDS ORDERED: CHONDROITIN SU A/HYALUR SOD 1 KIT ONE (10:37)
[2018-03-22] MEDS ORDERED: TETRACAINE 0.5% OPHTH SOLN 2 ML BOTTLE TP ONE (10:54)
[2018-03-22] MEDS ORDERED: LIDOCAINE HCL 1% PRESERVATIVE FREE - 30ML VIAL IO ONE (11:00)
[2018-03-22] MEDS ORDERED: CHONDROITIN SU A/HYALUR SOD 1 KIT IO ONE (11:01)
[2018-03-22] MEDS ORDERED: PHENYLEPHRINE/KETOROLAC 4 ML VIAL IO ONE (11:06)
[2018-03-22 12:31] VITALS: BP 139/72; PULSE 59; TEMP 98.4
--- NOTE | 2018-03-22 12:46 | SPEC ---
DATE OF OPERATION: DATE OF DICTATION: 03/22/2018 PREOPERATIVE DIAGNOSIS: Cataract, left eye. POSTOPERATIVE DIAGNOSIS: Cataract, left eye. PROCEDURE: Phacoemulsification of left cataract with posterior chamber intraocular lens implantation, the lens used [id number], 21.0-diopter power, serial number [id number]. SURGEON: Susu Harrell MD ANESTHESIA: Topical, MAC. COMPLICATIONS: None. PROCEDURE: The patient was brought to the operating room and correctly identified along with the operative site and the correct intraocular lens silveira. The patient was then prepped and draped in the usual sterile fashion including 5% Betadine solution in the conjunctival sac and an eyelid drape. An eyelid speculum was then placed in the eye. A paracentesis port was created and approximately 0.5 mL of preservative-free lidocaine was then injected into the eye. Viscoelastic was then injected to inflate the anterior chamber. A temporal clear corneal wound was created. A continuous circular capsulorrhexis was performed. The nucleus was then hydrodissected with BSS and removed with phacoemulsification. The remaining cortical material was irrigated and aspirated. Viscoelastic was injected to inflate the capsular bag and the intraocular lens was then implanted into the capsular bag. The remaining Viscoelastic was irrigated and aspirated from the eye. The IOL was noted to be well centered and completely covered by the anterior capsulorrhexis. Topical vancomycin was placed and the eye patched and shielded. All wounds were tested and found to be watertight. No suture was placed. The eye was then shielded. The patient was then discharged from the operating room in stable condition. SUSU HARRELL M.D. JOSE [id number]
[2018-03-22] MEDS ORDERED: ONDANSETRON 4 MG/2 ML VIAL IVPUSH PRN (15:49)
[2018-03-22] MEDS ORDERED: ACETAMINOPHEN 325 MG TABLET (FP) PO PRN (15:49)
[2018-03-22] MEDS ORDERED: LACTATED RINGERS SOLUTION 1,000 ML IV SCH (16:15)
== END 2018-03-22 12:10 | disposition home or self-care (01) ==
LOC: JASU-SURG 08:39
PROVIDERS: ATTEND Ophthalmology
PROC: 08RK3JZ Replacement of Left Lens with Synthetic Substitute, Percutaneous Approach (ICD-10-PCS; principal; 2018-03-22 11:00)
DX: H26.9 Unspecified cataract (principal)
CPT/HCPCS: 82962; C9447

== ENCOUNTER 2018-05-26 16:45 | Inpatient (IN) | payer MEDICARE, OTHER ==
--- NOTE | 2018-05-26 17:26 | PDOC ---
History of Present Illness - History of Present Illness Initial Comments: 05/26/18 17:26 Patient is a 68 year old male morbidly obese male with a PMH of AFib (on Xarelto ), HTN, HLD, DM, Prostate CA, Bladder CA, lymphedema and chronic L knee pain ( ambulates intermittently with a walker) presents to our ED following an unwitnessed fall at home. Patient states the last thing he recalls is standing at the kitchen counter cutting a block cheese and the he fell on his left side. Patient does not recall how he got to his living room, however states he called his neighbor (@ bedside) and asked her to bring him to the hospital. Cannot endorse or deny any pre-fall chest pain, shortness of breath, nausea, lightheadedness. Complaining of neck pain as well as L shoulder and arm pain. States he took his medications today, but cannot recall the names of his medications. States he is at his baseline mental status, confirmed by neighbor @ bedside. Patient denies any current fevers, chills, abdominal pain, chest pain, shortness of breath, sick contacts or recent travel. Allergies: as per EMR Social history: Former smoker. Denies the use of alcohol or recreational drugs. Surgical history: Stent x2, LUE ORIF, Hernia Repair PMD: Dr. Suazo As per EMR, patient was last evaluated in our ED in April 2018 for a similar presentation except pain was in R sided. During course of evaluation Head CT was negative for acute bleed or ischemia and cardiologic evaluation showed normal echo, no ECG changes indicating acute coronary event. <Shanique Rascon - Last Filed: 05/27/18 09:18> <Maureen Alcantara - Last Filed: 05/29/18 11:01> - General Chief Complaint: Syncope/Near Syncope Stated Complaint: FALL Time Seen by Provider: 05/26/18 16:54 Past History - Past Medical History Anemia: No Asthma: Yes Cancer: Yes (bladder, prostate) Cardiac Disorders: Yes (ANGINA, RLE DVT) CVA: Yes (rt side) COPD: Yes CHF: (atrial fib,) DVT: Yes Dementia: No Diabetes: Yes Dialysis: No GI Disorders: No Disorders: Yes (renal stones) HTN: Yes Hypercholesterolemia: Yes Kidney Stones: Yes Liver Disease: No Seizures: Yes Thyroid Disease: No Lung CA: No - Surgical History Abdominal Surgery: Yes (Hernia repair) Appendectomy: Yes Cardiac Surgery: Yes (stentx2) Cholecystectomy: Yes Gastric Stapling: No GI Surgery: No Lung Surgery: No Neurologic Surgery: No Orthopedic Surgery: Yes (ORIF LUE) - Immunization History Immunization Up to Date: Yes - Suicide/Smoking/Psychosocial Hx Smoking Status: No Smoking History: Former smoker Have you smoked in the past 12 months: No Number of Cigarettes Smoked Daily: 0 If you are a former smoker, when did you quit?: 25+ years Information on smoking cessation initiated: No Hx Alcohol Use: No Drug/Substance Use Hx: No Substance Use Type: None Hx Substance Use Treatment: No <Shanique Rascon - Last Filed: 05/27/18 09:18> <Maureen Alcantara - Last Filed: 05/29/18 11:01> - Past Medical History Allergies/Adverse Reactions: Allergies Allergy/AdvReac Type Severity Reaction Status Date / Time amoxicillin Allergy Mild Rash Verified 05/26/18 17:06 carbamazepine [From Tegretol] Allergy Mild Rash Verified 05/26/18 17:06 cephalexin [Cephalexin] Allergy Mild Rash Verified 05/26/18 17:06 ciprofloxacin Allergy Mild Rash Verified 05/26/18 17:06 fluconazole Allergy Mild Verified 05/26/18 17:06 lamotrigine [From Lamictal] Allergy Mild Rash Verified 05/26/18 17:06 metronidazole Allergy Mild Rash Verified 05/26/18 17:06 phenobarbital Allergy Mild Rash Verified 05/26/18 17:06 phenytoin sodium Allergy Mild Rash Verified 05/26/18 17:06 [From Dilantin] phenytoin sodium extended Allergy Mild Rash Verified 05/26/18 17:06 [From Dilantin] sulfamethoxazole Allergy Mild Rash Verified 05/26/18 17:06 [From Sulfatrim] trimethoprim [From Sulfatrim] Allergy Mild Rash Verified 05/26/18 17:06 amoxicillin trihydrate Allergy Unknown Verified 05/26/18 17:06 [From Augmentin] potassium clavulanate Allergy Unknown Verified 05/26/18 17:06 [From Augmentin] shrimp Allergy Verified 05/26/18 17:06 SHRIMP Allergy Mild Rash Uncoded 05/26/18 17:06 ciproflux Allergy Uncoded 05/26/18 17:06 shrimp Allergy Uncoded 05/26/18 17:06 Home Medications: Ambulatory Orders Aspirin 81 mg PO DAILY 10/26/17 Atorvastatin Ca [Lipitor] 20 mg PO HS 10/26/17 Bicalutamide 50 mg PO DAILY 10/26/17 Citalopram Hydrobromide [Celexa -] 10 mg PO DAILY 10/26/17 Divalproex Sodium 500 mg PO BID 10/26/17 Ferrous Sulfate 325 mg PO BID 10/26/17 Levetiracetam 200 mg PO TID 10/26/17 Lisinopril 5 mg PO DAILY 10/26/17 Magnesium Oxide [Magnesium] 500 mg PO BID 10/26/17 Oxybutynin Chloride [Oxybutynin Chloride ER] 10 mg PO DAILY 10/26/17 Ranolazine [Ranexa] 500 mg PO BID 10/26/17 Rivaroxaban [Xarelto -] 20 mg PO DAILY 10/26/17 Tamsulosin HCl 0.4 mg PO BID 10/26/17 clonazePAM [Klonopin -] 0.5 mg PO TID 10/26/17 Fesoterodine Fumarate [Toviaz] 4 mg PO DAILY 03/08/18 Folic Acid 1 mg PO DAILY 03/08/18 Acetaminophen [Tylenol .Regular Strength -] 650 mg PO Q6H PRN tablet 05/08/18 Insulin Detemir [Levemir Flextouch] 100 unit SQ DAILY #4 insuln.pen 05/08/18 Insulin Lispro [Humalog Kwikpen U-200] 200 unit SQ TID #4 insuln.pen 05/08/18 Insulin Sliding Scale [Novolog Vial Sliding Scale -] 1 vial SQ ACHS units 05/08 Sitagliptin Phosphate [Januvia -] 100 mg PO DAILY@0700 ud 05/08/18 metFORMIN HCL [Glucophage -] 500 mg PO DAILY@0700 tablet 05/08/18 Acetaminophen [Tylenol .Regular Strength -] 650 mg PO Q6H PRN tablet 05/29/18 Aspirin Coated [Ecotrin -] 81 mg PO DAILY tablet.ec 05/29/18 Atorvastatin Ca [Lipitor] 40 mg PO HS tablet 05/29/18 Citalopram Hydrobromide [Celexa -] 10 mg PO DAILY tablet 05/29/18 Ferrous Sulfate [Feosol] 325 mg PO BID ud 05/29/18 Insulin Sliding Scale [Novolog Vial Sliding Scale -] 1 vial SQ ACHS units 05/29 Lisinopril [Prinivil] 5 mg PO DAILY tablet 05/29/18 Mupirocin Ointment [Bactroban Ointment (For Decolonization) -] 1 applic NS BID applic 05/29/18 Oxybutynin Chloride [Ditropan -] 5 mg PO BID tablet 05/29/18 Ranolazine [Ranexa -] 500 mg PO BID tab 05/29/18 Rivaroxaban [Xarelto -] 20 mg PO DAILY@1800 tablet 05/29/18 Tamsulosin HCl [Flomax -] 0.4 mg PO DAILY@0830 cap.er.24h 05/29/18 clonazePAM [Klonopin -] 1 mg PO BID tablet MDD 2 05/29/18 levETIRAcetam [Keppra -] 1,000 mg PO BID tablet 05/29/18 metFORMIN HCL [Glucophage -] 500 mg PO BID@0700,1630 tablet 05/29/18 *Physical Exam - Vital Signs Last Vital Signs Temp Pulse Resp BP Pulse Ox 99.1 F 62 15 107/63 98 05/26/18 17:06 05/26/18 17:06 05/26/18 17:06 05/26/18 17:06 05/26/18 17:06 - Physical Exam Comments: 05/27/18 08:39 Alert, awake, moves all 4 extremities, obese CV: S1/S2, (+) systolic murmur Respiratory: scattered rhonchi B/L, no wheezes/crackles Abdomen: soft, no TTP, (+) bowel sounds MSK: limited ROM of RUE, R shoulder TTP, L/T/S spinal TTP Neuro: A&O x3, CN II-XI intact; gait not evaluated 2/2 to patient's clinical condition Extremity: 2+ DP pulses, B/L LE lymphedema <Shanique Rascon - Last Filed: 05/27/18 09:18> - Vital Signs Last Vital Signs Temp Pulse Resp BP Pulse Ox 97.9 F 59 L 22 124/75 99 05/29/18 08:00 05/29/18 08:00 05/29/18 09:00 05/29/18 08:00 05/29/18 09:00 <Maureen Alcantara - Last Filed: 05/29/18 11:01> Procedures - Central Line Central Line Lumen: triple Central Line Position: internal jugular (R) Anesthesia: 1% Lidocaine Amount of anesthesia (ccs): 2 Complications: none Post Central Line Insertion: sutured, good blood return, position confirmed w/ CXR <Maureen Alcantara - Last Filed: 05/29/18 11:01> ED Treatment Course - LABORATORY CBC & Chemistry Diagram: 05/27/18 05:30 05/27/18 05:30 <Shanique Rascon - Last Filed: 05/27/18 09:18> - LABORATORY CBC & Chemistry Diagram: 05/29/18 05:30 05/29/18 05:30 - ADDITIONAL ORDERS Additional order review: 05/26/18 19:40 Urine Culture - Final Urine - Urine Last NO GROWTH OBTAINED 05/26/18 05/26/18 18:20 17:47 RBC 4.13 MCV 84.1 MCHC 33.2 RDW 15.0 MPV 8.9 Neutrophils % 83.9 H Lymphocytes % 2.9 L Monocytes % 11.6 H Eosinophils % 1.3 Basophils % 0.3 POC Glucometer [id number] - Medications Given in the ED: ED Medications Discontinued Medications Generic Name Dose Route Start Last Admin Trade Name Jamia PRN Reason Stop Dose Admin Fentanyl 100 mcg 05/26/18 22:31 05/26/18 22:39 Sublimaze Injection - IVPUSH 05/26/18 22:32 100 mcg ONCE ONE Administration Propofol 1,000,000 mcg in 100 mls @ 43.545 mls/hr 05/26/18 20:30 05/26/18 20: 00 Diprivan - IVPB 10 mcg/kg/min TITR MICHEL 8.709 mls/hr Titration Protocol 50 MCG/KG/MIN Midazolam HCl 100 mg/ Sodium 100 mls @ 1 mls/hr 05/26/18 23:00 05/27/18 07:30 Chloride IVPB 0 mg/hr TITR MICHEL 0 mls/hr Titration Protocol 1 MG/HR Heparin Sodium/Dextrose 25,000 units in 500 mls @ 20 mls/hr 05/26/18 23:15 16:28 Heparin Infusion - IVPB 1,200 units/hr TITR MICHEL 24 mls/hr Titration Protocol 1,000 UNITS/HR Dextrose/Sodium Chloride 1,000 mls @ 42 mls/hr 05/27/18 09:15 05/27/18 10:38 D5-1/2ns - IV 42 mls/hr ASDIR MICHEL Administration Levetiracetam 1,000 mg 05/26/18 19:06 05/26/18 20:00 Keppra Injection - IVPB 05/26/18 19:07 1,000 mg ONCE ONE Administration Levetiracetam 1,000 mg 05/27/18 10:00 05/28/18 22:47 Keppra Injection - IVPB 1,000 mg BID MICHEL Administration Midazolam HCl 2 mg 05/26/18 20:15 05/26/18 20:30 Versed - IVPUSH 05/26/18 20:16 2 mg ONCE ONE Administration Midazolam HCl 2 mg 05/26/18 22:23 05/26/18 21:06 Versed - IVPUSH 05/26/18 22:24 2 mg ONCE ONE Administration Midazolam HCl 2 mg 05/26/18 22:23 05/26/18 21:39 Versed - IVPUSH 05/26/18 22:24 2 mg ONCE ONE Administration Midazolam HCl 2 mg 05/26/18 22:24 05/26/18 22:01 Versed - IVPUSH 05/26/18 22:25 2 mg ONCE ONE Administration Potassium Chloride 20 meq 05/27/18 14:00 05/27/18 16:26 Potassium Chloride 20 Meq Premix Ivpb - IVPB 05/27/18 14:01 20 meq ONCE ONE Administration <Maureen Alcantara - Last Filed: 05/29/18 11:01> Medical Decision Making - Medical Decision Making 05/26/18 17:45 68 year old male presents following an unwitnessed fall with head trauma, uncertain LOC. H/o of similar presentation 1 month previous. VS unremarkable. PE significant for limited ROM of RUE as well as C-spine. Will CT head/C-spine + L/T/S imaging and RUE imaging. EKG/Troponin to r/o cardiac fall etiology. Basic labs to r/o electrolyte derangement. EKG shows NSR HR 62, no DOMINGO/STD, TWI in , V4, poor R wave progression V1-V6 consistent with prior ECG dated 05/04/18. 05/26/18 19:23 Patient becomes unresponsive during course of admission, PEERLA, GCS 3 BP 203/165, other VS unremarkable Emergent CT showed no bleed, patient remains non-verbal/non-responsive. Intubated for airway protection w/Propofol gtt for sedation. Infectious work-up + U tox pending. Review of EMR shows patient on Keppra @ home uncertain of medication adherence as patient does not report seizure disorder and had sub-therapeutic Keppra levels on previous admission. Suspect post concussive seizure. 1 gram Keppra. 05/26/18 20:09 ABG shows respiratory acidosis (7.2/53/77/93) - decreased FiO2. Case d/w Dr. Mayer (covering for Dr. Escalante who evaluated patient 04/2018) - neurology agrees with continuing Keppra; recommends 750 mg BID BP 130's-140's/70's-80's Witnessed seizure with R sided horizontal nystagmus. Will stop Propofol given radically improved BP, switch to Versed. Fentanyl for continued sedation. 05/26/18 22:36 Central line access obtained (R IJV). Confirmed with CXR. Patient admitted to ICU. 05/26/18 22:[address] for spinal imaging. RUE imagining pending. 05/26/18 22:58 Patient transferred to ICU. Clinical suspicion for post concussive seizure. Patient evaluated @ 0300 in ICU following shift change. Remains sedated on Versed drip. VS unremarkable. Nursing staff indicates extubation planned in the a.m. <Shanique Rascon - Last Filed: 05/27/18 09:18> *DC/Admit/Observation/Transfer - Discharge Dispostion Decision to Admit order: Yes <Shanique Rascon - Last Filed: 05/27/18 09:18> <Maureen Alcantara - Last Filed: 05/29/18 11:01> Diagnosis at time of Disposition: Seizure Fall Qualifiers: Encounter type: initial encounter Qualified Code(s): W19.XXXA - Unspecified fall, initial encounter - Discharge Dispostion Disposition: [facility] Condition at time of disposition: Fair
[2018-05-26 17:59] LABS: BASO % 0.3 % (0-2.0); EOS % 1.3 % (0-4.5); HEMATOCRIT 34.8 % (35.4-49); HEMOGLOBIN 11.6 GM/dL (11.7-16.9); LYMPH % 2.9 % (8-40); MCHC 33.2 g/dl (32.0-35.9); MEAN CELL VOLUME 84.1 fl (80-96); MEAN PLT VOLUME 8.9 fl (7.5-11.1); MONO % 11.6 % (3.8-10.2); NEUT % 83.9 % (42.8-82.8); PLATELET COUNT 145 K/MM3 (134-434); RBC 4.13 M/mm3 (4.00-5.60); WHITE BLOOD COUNT 12.5 K/mm3 (4.0-10.0)
[2018-05-26] MEDS ORDERED: RAPID SEQUENCE INTUBATION KIT NR ONE (18:30)
[2018-05-26] MEDS ORDERED: ETOMIDATE 20 MG/10 ML AMPUL IVPUSH ONE (18:34)
[2018-05-26] MEDS ORDERED: PROPOFOL 1,000,000 MCG/100 ML VIAL ONE (19:01)
[2018-05-26] MEDS ORDERED: levETIRAcetam 500 MG/5 ML INJECTION VIAL IVPB ONE ×2 (19:06→20:02)
[2018-05-26 19:30] LABS: ALBUMIN 3.9 g/dl (3.4-5.0); ANION GAP 8 (8-16); BILIRUBIN,TOTAL 0.5 mg/dL (0.2-1.0); BLOOD UREA NITROGEN 17 mg/dL (7-18); CALCIUM 9.1 mg/dL (8.5-10.1); CHLORIDE 104 mmol/L (98-107); CO2 28 mmol/L (21-32); CREATININE 1.2 mg/dL (0.7-1.3); GLUCOSE,RANDOM 128 mg/dL (74-106); SGOT/AST 16 U/L (15-37); SGPT/ALT 19 U/L (12-78); SODIUM 140 mmol/L (136-145); TOT PROT 7.4 g/dl (6.4-8.2)
[2018-05-26 19:31] LABS: ALK PHOS 88 U/L (45-117)
--- NOTE | 2018-05-26 19:36 | PDOC ---
Attending Attestation - HPI HPI: 05/26/18 21:49 The patient is a 68 year old male with significant past medical history of asthma, angina, RLE DVT, rt side CVA, COPD, CHF, renal stones, seizures, Afib ( Xarelto), HTN, HLD, DM, prostate CA, bladder CA, lymphedema and chronic L knee pain presents to the emergency department s/p fall at home. Of note, the patient lives alone at home and is accompanied today by his neighbor. The patient occasionally ambulates with a walker at baseline. ROS limited due to mental status and obtundation. Allergies: amoxicillin, carbamazepine, cephalexin, (for more see EMR) Surgical history: appendectomy, cholecysectomy, stent x2, hernia repair Social history: none reported PCP: Dr. Suazo <Bethany Parmar - Last Filed: 05/26/18 22:14> - Resident Resident Name: Shanique Rascon - ED Attending Attestation I have performed the following: I have examined & evaluated the patient, The case was reviewed & discussed with the resident, I agree w/resident's findings & plan, Exceptions are as noted - Physicial Exam PE: 05/26/18 19:45 Obtunded, obese male, PERRL, nl conjunctiva; neck supple, FROM. lungs rhonchi, irreg irregular, abdomen soft obese, nontender warm and well perfused. +venous dermatitis, +peripheral edema of pitting nature, normal color, unresponsive to voice or pain stimuli, no spontaneous movements. mild right lower facial droop. 05/29/18 11:04 - Critical Care Time Total Critical Care Time: 60 (AMS, status epilepticus.) Critical Care Statement: The care of this patient involved high complexity decision making to prevent further life threatening deterioration of the patient 's condition and/or to evaluate & treat vital organ system(s) failure or risk of failure. - Medical Decision Making 05/26/18 19:43 Nannette Bryant 68 year old male morbidly obese male with a PMH of AFib (on Xarelto) , HTN, HLD, DM, Prostate CA, Bladder CA, lymphedema and chronic L knee pain ( ambulates intermittently with a walker) presents to our ED following an unwitnessed fall at home. while in the ED ~6pm, became unresponsive, GCS 3. emergently intubated CT head neg for bleed on dry scan. emergently intubated by me under direct laryngoscopy, central line for access and hemodynamic monitoring. EKG nonspecific T wave abnormalities. metabolic/infectious workup. possibly post concussive/head injury seizure given he had urinary incontinence. Propofol gtt for seizure/sedation, keppra for seizure. while in resus room, witnessed seizure and Right lateral gaze nystagmus suggesting seizure. will titrate off propofol, ICU requesting versed pushes/gtt. labs unremarkable, trop and CK neg, Utox and UA neg. mild leukocytosis and coags elevated - stress response vs. seizure. also ABG with hypercarbic resp acidosis, so will adjust vent sentings to blow off CO2 and normalize PH, FiO2 down to 50%. RIJ central line for access and drips and hemdynamic monitoring by resident w/o complications, under US guidance. guidewire removed. no abx for now, no fever, syncope from seizure suspected, possibly post traumatic. has soto, OGT, CXR to confirm central line and ETT. RIJ line confirmed terminating at SVC junction, ETT confirmed as well. additional CT scans to r/o injury given unwitnessed fall. admitted to ICU bed for continued medical management, ICU consult called.. Neuro cs, spoke with Dr. Cardona for seizure concern. maintain [facility] will consult upstairs. 05/29/18 11:02 <Maureen Alcantara - Last Filed: 05/29/18 11:05> Heart Score/ECG Review - ECG Impressions Normal ECG: No Comment:: 05/26/18 21:42 EKG normal sinus rhythm, no interval abnormalities, narrow QRS, ST and T wave segments and morphology normal. Nonspecific T wave abnormalities in V1-2 <Maureen Alcantara - Last Filed: 05/29/18 11:05> Procedures - Intubation Time of Intubation: 06:30 Blade used: Mac Tube Size (Fr): 8.0 Medications: Etomidate, Rocuronium Tube position @ lip (cm): 24 Tube position confirmed by: Direct visualization, CO2 detector, Chest x-ray, Breath sounds Breath Sounds after Intubation: equal Intubation Complications: O2 saturation decreased Post Intubation Xray: Yes (ETT confirmed, End Tidal CO2 confirmed) <Maureen Alcantara - Last Filed: 05/29/18 11:05> Attestations - Attestations 05/26/18 21:50 Documentation prepared by Bethany Parmar, acting as director medical economics for Maureen Alcantara MD. <Bethany Parmar - Last Filed: 05/26/18 22:14> - Attestations Physician Attestation: 05/29/18 11:05 I agree with the scribe note as reviewed and dictated, additional MDM by me. <Maureen Alcantara - Last Filed: 05/29/18 11:05>
[2018-05-26 19:57] LABS: URINE APPEARANCE CLEAR; URINE BILIRUBIN NEGATIVE (<2.0 mg/dL); URINE COLOR YELLOW; URINE GLUCOSE (UA) 1+ (NEGATIVE); URINE KETONE NEGATIVE (NEGATIVE); URINE LEUK ESTERASE NEGATIVE (NEGATIVE); URINE NITRITE NEGATIVE (NEGATIVE); URINE PROTEIN NEGATIVE (NEGATIVE); URINE UROBILINOGEN NEGATIVE mg/dL (0.2-1.0)
[2018-05-26 20:05] LABS: INR 2.11 (0.83-1.09); PROTHROMBIN TIME (PATIENT) 23.8 SEC (9.7-13.0)
[2018-05-26 20:08] LABS: ACTIVATED PTT 36.9 SECONDS (25.2-36.5)
[2018-05-26 20:14] LABS: EPI CELLS RARE /HPF (FEW)
[2018-05-26] MEDS ORDERED: MIDAZOLAM HCL 2 MG/2 ML SINGLE DOSE VIAL IVPUSH ONE ×4 (20:15→22:24)
[2018-05-26] MEDS ORDERED: MIDAZOLAM HCL 2 MG/2 ML SINGLE DOSE VIAL ONE ×4 (20:18→22:01)
[2018-05-26 20:19] LABS: ALLENS TEST POSITIVE; ARTERIAL BLD GAS O2 SATURATION 93.3 % (90-98.9); ARTERIAL BLOOD GAS BASE EXCESS -1.7 meq/l (-2-2); ARTERIAL BLOOD GAS PCO2 53.4 mmHg (35-45); ARTERIAL BLOOD GAS PO2 77.1 mmHg (80-100)
[2018-05-26 20:21] LABS: CARBOXYHEMOGLOBIN 1.4 gm% (0.5-2.0)
[2018-05-26 20:21] LABS: ARTERIAL BLOOD GAS pH 7.29 (7.35-7.45)
[2018-05-26] MEDS ORDERED: PROPOFOL 1,000,000 MCG/100 ML VIAL IVPB SCH (20:30)
[2018-05-26 20:34] LABS: COCAINE, UR NEGATIVE ng/ml (CUTOFF=300); METHADONE, UR NEGATIVE ng/ml (CUTOFF=300); OPIATES, URI NEGATIVE ng/ml (CUTOFF=300); PHENCYCLIDINE,URINE NEGATIVE ng/ml (CUTOFF=25); URINE AMPHETAMINES NEGATIVE ng/ml (CUTOFF=500); URINE BARBITURATES NEGATIVE ng/ml (CUTOFF=200); URINE BENZODIAZEPINES NEGATIVE ng/ml (CUTOFF=200)
--- NOTE | 2018-05-26 21:00 | CONSULT ---
Consultation: UPDATE: While pt arriving to unit pt is following commands appropriately lifting extremities with 5/5 strength when asked to. Continue slight sedation overnight and will hold sedation in AM for potential extubation. Currently pt denies any pain including chest pain, abdominal pain, back pain, fevers/chills, dysuria/polyuria. Confirmed with head nodding to yes/no questions. CONSULT REQUEST: ICU Resident HISTORY OF PRESENT ILLNESS: 68yo M with history of DVT, Afib (taking Xarelto), Type 2 DM, prior seizure disorder (?), and previous syncopal event hospitalization earlier who presented today with another syncopal event of unknown etiology. During ED course pt became unresponsive and unfortunately was intubated immediately. Pt's history was taken from chart and ED sign-out. Unknown if pt followed-up on outpatient cardiology or neurology workup after his previous admission Upon arrival to my exam pt was intubated and sedated on propofol gtt and during examination pt began to have R head twitches and R horizontal nystagmus in both eyes. REVIEW OF SYSTEMS: Unable to ascertain PHYSICAL EXAMINATION Vital Signs - 24 hr 05/26/18 05/26/18 05/26/18 17:06 18:24 18:57 Temperature 99.1 F Pulse Rate 62 Pulse Rate [ 63 99 H Apical] Respiratory 15 18 14 Rate Blood Pressure 107/63 Blood Pressure 175/66 203/165 [Left Arm] O2 Sat by Pulse 98 100 99 Oximetry (%) 05/26/18 05/26/18 05/26/18 19:19 19:20 19:22 Temperature Pulse Rate 87 Pulse Rate [ 63 Apical] Respiratory 16 14 Rate Blood Pressure Blood Pressure 175/66 [Left Arm] O2 Sat by Pulse 100 96 Oximetry (%) 05/26/18 05/26/18 20:15 20:39 Temperature Pulse Rate Pulse Rate [ 72 Apical] Respiratory 14 21 Rate Blood Pressure Blood Pressure 114/72 [Left Arm] O2 Sat by Pulse 100 Oximetry (%) GENERAL: Intubated and sedated on propofol HEENT: NC/AT, DENNISE, no scleral icterus or conjunctival injections, no papilledema on ophthalmoscopic exam, ETT noted with MMM NECK: Soft, no JVD, structurally stable, no lymphadenopathy LUNGS: CTA bilaterally. No wheezes, and no crackles. AC mode of vent: TV 450, FiO2 100%, PEEP 5, RR 14 HEART: RRR, normal S1 and S2 without murmur appreciated ABDOMEN: Soft, nondistended, tenderness could not be assessed, normoactive bowel sounds, no guarding, no masses. MUSCULOSKELETAL: Normal range of motion at all joints. No bony deformities or tenderness. No CVA tenderness. EXTREMITIES: Chronic lymphedema (?), 2+ distal pulses throughout, Cap refill <2 seconds. NEUROLOGICAL: Could not fully assess. Gag reflex fully intact, R nystagmus noted during brief event, babinski downgoing in both extremities, muscular tone normal, patellar reflexes 2/4. SKIN: Venous stasis changes noted b/l in lower extremities. No other rashes/ lesions appreciated Laboratory Results - last 24 hr 05/26/18 05/26/18 05/26/18 17:47 17:47 18:09 WBC 12.5 H RBC 4.13 Hgb 11.6 L Hct 34.8 L MCV 84.1 MCH 28.0 MCHC 33.2 RDW 15.0 Plt Count 145 MPV 8.9 Absolute Neuts (auto) 10.5 Neutrophils % 83.9 H Lymphocytes % 2.9 L Monocytes % 11.6 H Eosinophils % 1.3 Basophils % 0.3 Nucleated RBC % 0 PT with INR INR PTT (Actin FS) Anticoagulation Therapy Puncture Site ABG pH ABG pCO2 at Pt Temp ABG pO2 at Pt Temp ABG HCO3 ABG O2 Sat (Measured) ABG O2 Content ABG Base Excess Darius Test Carboxyhemoglobin Methemoglobin O2 Delivery Device Oxygen Flow Rate Vent Mode Vent Rate Mechanical Rate PEEP Pressure Support Vent Sodium Cancelled Potassium Cancelled Chloride Cancelled Carbon Dioxide Cancelled Anion Gap Cancelled BUN Cancelled Creatinine Cancelled Creat Clearance w eGFR Cancelled POC Glucometer Random Glucose Cancelled Calcium Cancelled Total Bilirubin Cancelled AST Cancelled ALT Cancelled Alkaline Phosphatase Cancelled Creatine Kinase Cancelled Creatine Kinase Index CK-MB (CK-2) Troponin I Cancelled Total Protein Cancelled Albumin Cancelled Urine Color Urine Appearance Urine pH Ur Specific [place] Urine Protein Urine Glucose (UA) Urine Ketones Urine Blood Urine Nitrite Urine Bilirubin Urine Urobilinogen Ur Leukocyte Esterase Urine WBC (Auto) Urine RBC (Auto) Ur Epithelial Cells Opiates Screen Methadone Screen Barbiturate Screen Phencyclidine Screen Ur Amphetamines Screen MDMA (Ecstasy) Screen Benzodiazepines Screen Cocaine Screen U Marijuana (THC) Screen Blood Type Antibody Screen 05/26/18 05/26/18 05/26/18 18:20 18:55 18:55 WBC RBC Hgb Hct MCV MCH MCHC RDW Plt Count MPV Absolute Neuts (auto) Neutrophils % Lymphocytes % Monocytes % Eosinophils % Basophils % Nucleated RBC % PT with INR INR PTT (Actin FS) Anticoagulation Therapy Puncture Site ABG pH ABG pCO2 at Pt Temp ABG pO2 at Pt Temp ABG HCO3 ABG O2 Sat (Measured) ABG O2 Content ABG Base Excess Darius Test Carboxyhemoglobin Methemoglobin O2 Delivery Device Oxygen Flow Rate Vent Mode Vent Rate Mechanical Rate PEEP Pressure Support Vent Sodium 140 Potassium 4.0 Chloride 104 Carbon Dioxide 28 Anion Gap 8 BUN 17 Creatinine 1.2 Creat Clearance w eGFR > 60 POC Glucometer 151.81776 Random Glucose 128 H D Calcium 9.1 Total Bilirubin 0.5 AST 16 ALT 19 Alkaline Phosphatase 88 Creatine Kinase 183 Creatine Kinase Index 0.6 CK-MB (CK-2) 1.20 Troponin I < 0.02 Total Protein 7.4 Albumin 3.9 Urine Color Urine Appearance Urine pH Ur Specific [place] Urine Protein Urine Glucose (UA) Urine Ketones Urine Blood Urine Nitrite Urine Bilirubin Urine Urobilinogen Ur Leukocyte Esterase Urine WBC (Auto) Urine RBC (Auto) Ur Epithelial Cells Opiates Screen Methadone Screen Barbiturate Screen Phencyclidine Screen Ur Amphetamines Screen MDMA (Ecstasy) Screen Benzodiazepines Screen Cocaine Screen U Marijuana (THC) Screen Blood Type Antibody Screen 05/26/18 05/26/18 05/26/18 19:40 19:40 19:40 WBC RBC Hgb Hct MCV MCH MCHC RDW Plt Count MPV Absolute Neuts (auto) Neutrophils % Lymphocytes % Monocytes % Eosinophils % Basophils % Nucleated RBC % PT with INR 23.80 H INR 2.11 H PTT (Actin FS) 36.9 H Anticoagulation Therapy Puncture Site ABG pH ABG pCO2 at Pt Temp ABG pO2 at Pt Temp ABG HCO3 ABG O2 Sat (Measured) ABG O2 Content ABG Base Excess Darius Test Carboxyhemoglobin Methemoglobin O2 Delivery Device Oxygen Flow Rate Vent Mode Vent Rate Mechanical Rate PEEP Pressure Support Vent Sodium Potassium Chloride Carbon Dioxide Anion Gap BUN Creatinine Creat Clearance w eGFR POC Glucometer Random Glucose Calcium Total Bilirubin AST ALT Alkaline Phosphatase Creatine Kinase Creatine Kinase Index CK-MB (CK-2) Troponin I Total Protein Albumin Urine Color Yellow Urine Appearance Clear Urine pH 5.0 D Ur Specific [place] 1.018 Urine Protein Negative Urine Glucose (UA) 1+ H Urine Ketones Negative Urine Blood 2+ H Urine Nitrite Negative Urine Bilirubin Negative Urine Urobilinogen Negative Ur Leukocyte Esterase Negative Urine WBC (Auto) 1 Urine RBC (Auto) 73 Ur Epithelial Cells Rare Opiates Screen Methadone Screen Barbiturate Screen Phencyclidine Screen Ur Amphetamines Screen MDMA (Ecstasy) Screen Benzodiazepines Screen Cocaine Screen U Marijuana (THC) Screen Blood Type O POSITIVE Antibody Screen Negative 05/26/18 05/26/18 05/26/18 19:51 19:52 20:04 WBC RBC Hgb Hct MCV MCH MCHC RDW Plt Count MPV Absolute Neuts (auto) Neutrophils % Lymphocytes % Monocytes % Eosinophils % Basophils % Nucleated RBC % PT with INR INR PTT (Actin FS) Anticoagulation Therapy No Result Required. Puncture Site Left radial ABG pH 7.29 L ABG pCO2 at Pt Temp 53.4 H ABG pO2 at Pt Temp 77.1 L ABG HCO3 24.9 ABG O2 Sat (Measured) 93.3 ABG O2 Content 14.1 L ABG Base Excess -1.7 Darius Test Positive Carboxyhemoglobin 1.4 Methemoglobin 1.2 O2 Delivery Device Vent Oxygen Flow Rate 100 Vent Mode A/c Vent Rate 16 Mechanical Rate Yes PEEP 5.0 Pressure Support Vent 425 Sodium Potassium Chloride Carbon Dioxide Anion Gap BUN Creatinine Creat Clearance w eGFR POC Glucometer Random Glucose Calcium Total Bilirubin AST ALT Alkaline Phosphatase Creatine Kinase Creatine Kinase Index CK-MB (CK-2) Troponin I Total Protein Albumin Urine Color Urine Appearance Urine pH Ur Specific [place] Urine Protein Urine Glucose (UA) Urine Ketones Urine Blood Urine Nitrite Urine Bilirubin Urine Urobilinogen Ur Leukocyte Esterase Urine WBC (Auto) Urine RBC (Auto) Ur Epithelial Cells Opiates Screen Negative Methadone Screen Negative Barbiturate Screen Negative Phencyclidine Screen Negative Ur Amphetamines Screen Negative MDMA (Ecstasy) Screen Negative Benzodiazepines Screen Negative Cocaine Screen Negative U Marijuana (THC) Screen Negative Blood Type Antibody Screen Active Medications Generic Name Dose Route Start Last Admin Trade Name Freq PRN Reason Stop Dose Admin Propofol 1,000,000 mcg in 100 mls @ 43.545 mls/hr 05/26/18 20:30 05/26/18 20: 00 Diprivan - IVPB 10 mcg/kg/min TITR MICHEL 8.709 mls/hr Titration Protocol 50 MCG/KG/MIN ASSESSMENT/PLAN: Syncopal event ?seizure disorder h/o Afib h/o DVT?? Type 2 DM HTN h/o CVA Given witnesses seizure will start versed gtt while intubated Continue intubation and wean to optimal settings --Sedation vacation tomorrow AM for assessment of neuro status and seizure activity Neurology already consulted by ER: --Keppra load given in ER; continue Keppra 1gm BID IVPB --Likely will receive EEG per neuro Utox noted to be negative CXR showing: Poor inspiratory effort with leftward rotation of pt ETT appropriately above carrie Costophrenic angles not clearly visualized however could be due to technique and poor insp. effort Central line in RA; will pull back 2cm as measured on radiograph to get to SVC/RA junction BGM with ISS ACHS --will adjust based on pt sensitivity to insulin --holding Januvia due to NPO status and high risk of hypoglycemia Holding antihypertensives currently; normotensive with sedation on board FEN: Fluids: None indicated currently Electrolyte abnormalities: None Nutrition: NPO while intubated PPX: DVT - Heparin gtt on board due to Atrial fibrillation GI - Not currently indicated; if pt is intubated >2days will start PPI vs. H2 -lucie Dispo: ICU monitoring due to respiratory comprise 2/2 to ? seizure activity Sam Medel, DO - IM PGY-2
--- NOTE | 2018-05-26 22:08 | HP ---
CHIEF COMPLAINT: PCP: HISTORY OF PRESENT ILLNESS: This is a 68 y/o man with a past medical history of Afib (on Xarelto), HTN, HLD , DM, Prostate Ca, Bladder Ca, Lymphedema, Severe Obesity, Prostate Ca, Bladder Ca. Chronic L- knee pain. Who presents to the ED following an unwitnessed fall at home. Per ED records, patient had reported standing in his kitchen then passing out and could not recall events, contacting a friend for transport to the ED for evaluation. At that time, patient denied fever, chills, cough, SOB. CP, palpitations, AP, N/V/D, constipation, dysuria. While in the ED at 1800, patient became unresponsive, GCS 3. emergently intubated, was treated for post concussive seizures, Neurology aware, started on loading dose of Keppra, and admitted to ICU. ER course was notable for: (1) Head CT- neg ICH (2) EKG-NSR no interval abnormalities, narrow QRS, ST and T wave segments and morphology normal. Nonspecific T wave abnormalities in V1-2 (3) Chest Xray- Cardiomegaly, ?vascular changes Recent Travel: Unknown PAST MEDICAL HISTORY: See HPI PAST SURGICAL HISTORY: Hernia Repair Appendectomy Joint Replacement Cholecystectomy Social History: Smoking: Former Alcohol: Unknown Drugs: Unknown Lives alone, independent Family History: Mother: DM, HTN Father: OA Allergies amoxicillin Allergy (Mild, Verified 05/26/18 17:06) Rash carbamazepine [From Tegretol] Allergy (Mild, Verified 05/26/18 17:06) Rash cephalexin [Cephalexin] Allergy (Mild, Verified 05/26/18 17:06) Rash ciprofloxacin Allergy (Mild, Verified 05/26/18 17:06) Rash fluconazole Allergy (Mild, Verified 05/26/18 17:06) lamotrigine [From Lamictal] Allergy (Mild, Verified 05/26/18 17:06) Rash metronidazole Allergy (Mild, Verified 05/26/18 17:06) Rash phenobarbital Allergy (Mild, Verified 05/26/18 17:06) Rash phenytoin sodium [From Dilantin] Allergy (Mild, Verified 05/26/18 17:06) Rash phenytoin sodium extended [From Dilantin] Allergy (Mild, Verified 05/26/18 17:06 ) Rash sulfamethoxazole [From Sulfatrim] Allergy (Mild, Verified 05/26/18 17:06) Rash trimethoprim [From Sulfatrim] Allergy (Mild, Verified 05/26/18 17:06) Rash amoxicillin trihydrate [From Augmentin] Allergy (Unknown, Verified 05/26/18 17: 06) potassium clavulanate [From Augmentin] Allergy (Unknown, Verified 05/26/18 17:06 ) shrimp Allergy (Verified 05/26/18 17:06) SHRIMP Allergy (Mild, Uncoded 05/26/18 17:06) Rash ciproflux Allergy (Uncoded 05/26/18 17:06) shrimp Allergy (Uncoded 05/26/18 17:06) HOME MEDICATIONS: Home Medications Medication Instructions Recorded Aspirin 81 mg PO DAILY 10/26/17 Atorvastatin Ca [Lipitor] 20 mg PO HS 10/26/17 Bicalutamide 50 mg PO DAILY 10/26/17 Citalopram Hydrobromide [Celexa -] 10 mg PO DAILY 10/26/17 Divalproex Sodium 500 mg PO BID 10/26/17 Ferrous Sulfate 325 mg PO BID 10/26/17 Levetiracetam 200 mg PO TID 10/26/17 Lisinopril 5 mg PO DAILY 10/26/17 Magnesium Oxide [Magnesium] 500 mg PO BID 10/26/17 Oxybutynin Chloride [Oxybutynin 10 mg PO DAILY 10/26/17 Chloride ER] Ranolazine [Ranexa] 500 mg PO BID 10/26/17 Rivaroxaban [Xarelto -] 20 mg PO DAILY 10/26/17 Tamsulosin HCl 0.4 mg PO BID 10/26/17 clonazePAM [Klonopin -] 0.5 mg PO TID 10/26/17 Fesoterodine Fumarate [Toviaz] 4 mg PO DAILY 03/08/18 Folic Acid 1 mg PO DAILY 03/08/18 Acetaminophen [Tylenol .Regular 650 mg PO Q6H PRN tablet 05/08/18 Strength -] Insulin Detemir [Levemir Flextouch] 100 unit SQ DAILY #4 insuln.pen 05/08/18 Insulin Lispro [Humalog Kwikpen 200 unit SQ TID #4 insuln.pen 05/08/18 U-200] Insulin Sliding Scale [Novolog 1 vial SQ ACHS units 05/08/18 Vial Sliding Scale -] Sitagliptin Phosphate [Januvia -] 100 mg PO DAILY@0700 ud 05/08/18 metFORMIN HCL [Glucophage -] 500 mg PO DAILY@0700 tablet 05/08/18 REVIEW OF SYSTEMS Unable to Obtain- Unresponsive, Intubated CONSTITUTIONAL: Absent: fever, chills, diaphoresis, generalized weakness, malaise, loss of appetite, weight change HEENT: Absent: rhinorrhea, nasal congestion, throat pain, throat swelling, difficulty swallowing, mouth swelling, ear pain, eye pain, visual changes CARDIOVASCULAR: Absent: chest pain, syncope, palpitations, irregular heart rate, lightheadedness , peripheral edema RESPIRATORY: Absent: cough, shortness of breath, dyspnea with exertion, orthopnea, wheezing, stridor, hemoptysis GASTROINTESTINAL: Absent: abdominal pain, abdominal distension, nausea, vomiting, diarrhea, constipation, melena, hematochezia GENITOURINARY: Absent: dysuria, frequency, urgency, hesitancy, hematuria, flank pain, genital pain MUSCULOSKELETAL: Absent: myalgia, arthralgia, joint swelling, back pain, neck pain SKIN: Absent: rash, itching, pallor HEMATOLOGIC/IMMUNOLOGIC: Absent: easy bleeding, easy bruising, lymphadenopathy, frequent infections ENDOCRINE: Absent: unexplained weight gain, unexplained weight loss, heat intolerance, cold intolerance NEUROLOGIC: Absent: headache, focal weakness or paresthesias, dizziness, unsteady gait, seizure, mental status changes, bladder or bowel incontinence PSYCHIATRIC: Absent: anxiety, depression, suicidal or homicidal ideation, hallucinations. PHYSICAL EXAMINATION Vital Signs - 24 hr 05/26/18 05/26/18 05/26/18 17:06 18:24 18:57 Temperature 99.1 F Pulse Rate 62 Pulse Rate [ 63 99 H Apical] Respiratory 15 18 14 Rate Blood Pressure 107/63 Blood Pressure 175/66 203/165 [Left Arm] O2 Sat by Pulse 98 100 99 Oximetry (%) 05/26/18 05/26/18 05/26/18 19:19 19:20 19:22 Temperature Pulse Rate 87 Pulse Rate [ 63 Apical] Respiratory 16 14 Rate Blood Pressure Blood Pressure 175/66 [Left Arm] O2 Sat by Pulse 100 96 Oximetry (%) 05/26/18 05/26/18 05/26/18 20:15 20:39 21:00 Temperature Pulse Rate Pulse Rate [ 72 72 Apical] Respiratory 14 21 16 Rate Blood Pressure Blood Pressure 114/72 133/80 [Left Arm] O2 Sat by Pulse 100 100 Oximetry (%) GENERAL: Intubated and Sedated on Propofol HEAD: Normal with no signs of trauma. EYES: Pupils equal, round and reactive to light, sclera anicteric, conjunctiva clear. No lid lag. EARS, NOSE, THROAT: Ears normal, nares patent, oropharynx clear without exudates. Moist mucous membranes. NECK: Passive range of motion, supple without lymphadenopathy, JVD, or masses. LUNGS: Breath sounds coarse scattered rhonchi throughout. Intubated on MV. No accessory muscle use HEART: Regular rate and rhythm, normal S1 and S2 without murmur, rub or gallop. ABDOMEN: Obese, soft, nontender, not distended, normoactive bowel sounds, no guarding, no rebound, no masses. No hepatomegaly or splenomegaly. MUSCULOSKELETAL: Passive range of motion at all joints. No bony deformities or tenderness. No CVA tenderness. UPPER EXTREMITIES: 2+ pulses, warm, well-perfused. No cyanosis. No clubbing. No peripheral edema. LOWER EXTREMITIES:B/L Chronic lymphedema 2+ pulses, warm, well-perfused. No calf tenderness. NEUROLOGICAL: Patellar Reflex 2/4, intubated on MV, GCS 3. PSYCHIATRIC: Unable to assess intubated and sedated. SKIN: Venous Stasis changes B/L LE, Warm, dry, normal turgor, no rashes, normal capillary refill. Laboratory Results - last 24 hr 05/26/18 05/26/18 05/26/18 17:47 17:47 18:09 WBC 12.5 H RBC 4.13 Hgb 11.6 L Hct 34.8 L MCV 84.1 MCH 28.0 MCHC 33.2 RDW 15.0 Plt Count 145 MPV 8.9 Absolute Neuts (auto) 10.5 Neutrophils % 83.9 H Lymphocytes % 2.9 L Monocytes % 11.6 H Eosinophils % 1.3 Basophils % 0.3 Nucleated RBC % 0 PT with INR INR PTT (Actin FS) Anticoagulation Therapy Puncture Site ABG pH ABG pCO2 at Pt Temp ABG pO2 at Pt Temp ABG HCO3 ABG O2 Sat (Measured) ABG O2 Content ABG Base Excess Darius Test Carboxyhemoglobin Methemoglobin O2 Delivery Device Oxygen Flow Rate Vent Mode Vent Rate Mechanical Rate PEEP Pressure Support Vent Sodium Cancelled Potassium Cancelled Chloride Cancelled Carbon Dioxide Cancelled Anion Gap Cancelled BUN Cancelled Creatinine Cancelled Creat Clearance w eGFR Cancelled POC Glucometer Random Glucose Cancelled Calcium Cancelled Total Bilirubin Cancelled AST Cancelled ALT Cancelled Alkaline Phosphatase Cancelled Creatine Kinase Cancelled Creatine Kinase Index CK-MB (CK-2) Troponin I Cancelled Total Protein Cancelled Albumin Cancelled Urine Color Urine Appearance Urine pH Ur Specific [place] Urine Protein Urine Glucose (UA) Urine Ketones Urine Blood Urine Nitrite Urine Bilirubin Urine Urobilinogen Ur Leukocyte Esterase Urine WBC (Auto) Urine RBC (Auto) Ur Epithelial Cells Opiates Screen Methadone Screen Barbiturate Screen Phencyclidine Screen Ur Amphetamines Screen MDMA (Ecstasy) Screen Benzodiazepines Screen Cocaine Screen U Marijuana (THC) Screen Blood Type Antibody Screen 05/26/18 05/26/18 05/26/18 18:20 18:55 18:55 WBC RBC Hgb Hct MCV MCH MCHC RDW Plt Count MPV Absolute Neuts (auto) Neutrophils % Lymphocytes % Monocytes % Eosinophils % Basophils % Nucleated RBC % PT with INR INR PTT (Actin FS) Anticoagulation Therapy Puncture Site ABG pH ABG pCO2 at Pt Temp ABG pO2 at Pt Temp ABG HCO3 ABG O2 Sat (Measured) ABG O2 Content ABG Base Excess Darius Test Carboxyhemoglobin Methemoglobin O2 Delivery Device Oxygen Flow Rate Vent Mode Vent Rate Mechanical Rate PEEP Pressure Support Vent Sodium 140 Potassium 4.0 Chloride 104 Carbon Dioxide 28 Anion Gap 8 BUN 17 Creatinine 1.2 Creat Clearance w eGFR > 60 POC Glucometer [phone] Random Glucose 128 H D Calcium 9.1 Total Bilirubin 0.5 AST 16 ALT 19 Alkaline Phosphatase 88 Creatine Kinase 183 Creatine Kinase Index 0.6 CK-MB (CK-2) 1.20 Troponin I < 0.02 Total Protein 7.4 Albumin 3.9 Urine Color Urine Appearance Urine pH Ur Specific [place] Urine Protein Urine Glucose (UA) Urine Ketones Urine Blood Urine Nitrite Urine Bilirubin Urine Urobilinogen Ur Leukocyte Esterase Urine WBC (Auto) Urine RBC (Auto) Ur Epithelial Cells Opiates Screen Methadone Screen Barbiturate Screen Phencyclidine Screen Ur Amphetamines Screen MDMA (Ecstasy) Screen Benzodiazepines Screen Cocaine Screen U Marijuana (THC) Screen Blood Type Antibody Screen 05/26/18 05/26/18 05/26/18 19:40 19:40 19:40 WBC RBC Hgb Hct MCV MCH MCHC RDW Plt Count MPV Absolute Neuts (auto) Neutrophils % Lymphocytes % Monocytes % Eosinophils % Basophils % Nucleated RBC % PT with INR 23.80 H INR 2.11 H PTT (Actin FS) 36.9 H Anticoagulation Therapy Puncture Site ABG pH ABG pCO2 at Pt Temp ABG pO2 at Pt Temp ABG HCO3 ABG O2 Sat (Measured) ABG O2 Content ABG Base Excess Darius Test Carboxyhemoglobin Methemoglobin O2 Delivery Device Oxygen Flow Rate Vent Mode Vent Rate Mechanical Rate PEEP Pressure Support Vent Sodium Potassium Chloride Carbon Dioxide Anion Gap BUN Creatinine Creat Clearance w eGFR POC Glucometer Random Glucose Calcium Total Bilirubin AST ALT Alkaline Phosphatase Creatine Kinase Creatine Kinase Index CK-MB (CK-2) Troponin I Total Protein Albumin Urine Color Yellow Urine Appearance Clear Urine pH 5.0 D Ur Specific [place] 1.018 Urine Protein Negative Urine Glucose (UA) 1+ H Urine Ketones Negative Urine Blood 2+ H Urine Nitrite Negative Urine Bilirubin Negative Urine Urobilinogen Negative Ur Leukocyte Esterase Negative Urine WBC (Auto) 1 Urine RBC (Auto) 73 Ur Epithelial Cells Rare Opiates Screen Methadone Screen Barbiturate Screen Phencyclidine Screen Ur Amphetamines Screen MDMA (Ecstasy) Screen Benzodiazepines Screen Cocaine Screen U Marijuana (THC) Screen Blood Type O POSITIVE Antibody Screen Negative 05/26/18 05/26/18 05/26/18 19:51 19:52 20:04 WBC RBC Hgb Hct MCV MCH MCHC RDW Plt Count MPV Absolute Neuts (auto) Neutrophils % Lymphocytes % Monocytes % Eosinophils % Basophils % Nucleated RBC % PT with INR INR PTT (Actin FS) Anticoagulation Therapy No Result Required. Puncture Site Left radial ABG pH 7.29 L ABG pCO2 at Pt Temp 53.4 H ABG pO2 at Pt Temp 77.1 L ABG HCO3 24.9 ABG O2 Sat (Measured) 93.3 ABG O2 Content 14.1 L ABG Base Excess -1.7 Darius Test Positive Carboxyhemoglobin 1.4 Methemoglobin 1.2 O2 Delivery Device Vent Oxygen Flow Rate 100 Vent Mode A/c Vent Rate 16 Mechanical Rate Yes PEEP 5.0 Pressure Support Vent 425 Sodium Potassium Chloride Carbon Dioxide Anion Gap BUN Creatinine Creat Clearance w eGFR POC Glucometer Random Glucose Calcium Total Bilirubin AST ALT Alkaline Phosphatase Creatine Kinase Creatine Kinase Index CK-MB (CK-2) Troponin I Total Protein Albumin Urine Color Urine Appearance Urine pH Ur Specific [place] Urine Protein Urine Glucose (UA) Urine Ketones Urine Blood Urine Nitrite Urine Bilirubin Urine Urobilinogen Ur Leukocyte Esterase Urine WBC (Auto) Urine RBC (Auto) Ur Epithelial Cells Opiates Screen Negative Methadone Screen Negative Barbiturate Screen Negative Phencyclidine Screen Negative Ur Amphetamines Screen Negative MDMA (Ecstasy) Screen Negative Benzodiazepines Screen Negative Cocaine Screen Negative U Marijuana (THC) Screen Negative Blood Type Antibody Screen ASSESSMENT/PLAN: This is a 68 y/o man from home with a past medical history of Afib (on Xarelto) , HTN, HLD, DM, Prostate Ca, Bladder Ca, Lymphedema, Severe Obesity, Chronic L- Knee Pain. Admitted to ICU for Seizure Activity for further evaluation of their emergent condition. Plan: 1. Seizure Activity - Likely possible due to post concussion vs ?Seizure Disorder vs Infection - Admit to ICU - Cardiac monitoring - Head CT- neg ICH - Appreciate Neurology consult - Appreciate [facility] [employer] consult - Keppra given in ED, will continue - Seizure Precautions - Aspiration Precautions - Continue vent settings,titrate accordingly: TV 450, Fio2 50, R 20, Peep 5 - Continue sedation, titrate - UDT-pending - Monitor CBC, BMP - Consider EEG 2. Atrial Fibrillation - EKG- SR 62bpm Nonspecific ST abnormality, no significant change compared to prior study - [id number] Score 4 - Currently on Xarelto 3. Hypertension - sub optimal - Monitor BP - Continue home meds via NGT when placed - Monitor renal function 4. Diabetes Mellitus - stable - BGMs - Hold home meds 5. Hyperlipidemia - stable - Continue home med 6. FEN - D51/2NS@42cc/hr - Replete lytes prn - NPO 7. DVT ppx - SCDs - Continue Xarelto Code Status: Full Code Dispo: Requires Inpatient Care Visit type - Emergency Visit Emergency Visit: Yes ED Registration Date: 05/26/18 Care time: The patient presented to the Emergency Department on the above date and was hospitalized for further evaluation of their emergent condition. - New Patient This patient is new to me today: Yes Date on this admission: 05/26/18 - Critical Care Critical Care patient: Yes Total Critical Care Time (in minutes): 35 Critical Care Statement: The care of this patient involved high complexity decision making to prevent further life threatening deterioration of the patient 's condition and/or to evaluate & treat vital organ system(s) failure or risk of failure. Hospitalist Screening - Colonoscopy Questionnaire Colonoscopy Questionnaire: Colonoscopy Questionnaire - Patient: 50 - 75 years old and never had a screening colonoscopy: Unknown History of colon or rectal polyps, or CA: Unknown History of IBD, Crohn's disease or UC: Unknown History of abdominal radiation therapy as a child: Unknown - Relative: 1 with colon or rectal CA, or polyps at age 60 or younger: Unknown Colon or rectal CA diagnosed at age 45 or younger: Unknown Multiple relatives with colon or rectal CA: Unknown - Outcome: Screening Result: Negative Screen
[2018-05-26 22:43] LABS: ARTERIAL BLOOD GAS PCO2 39.9 mmHg (35-45); ARTERIAL BLOOD GAS pH 7.39 (7.35-7.45)
[2018-05-26 22:44] LABS: ALLENS TEST POSITIVE; ARTERIAL BLD GAS O2 SATURATION 99.5 % (90-98.9); ARTERIAL BLOOD GAS BASE EXCESS -0.6 meq/l (-2-2)
[2018-05-26] MEDS ORDERED: MIDAZOLAM 100 MG in SODIUM CHLORIDE 100 ML IVPB SCH (23:00)
[2018-05-26] MEDS ORDERED: HEPARIN NA (PORCINE) 5,000 UNITS/ML 1ML VIAL IVPUSH PRN ×2 (23:14)
[2018-05-26] MEDS ORDERED: HEPARIN INFUSION - 25,000 UNITS/500 ML INFUS.BAG IVPB SCH (23:15)
[2018-05-27] MEDS ORDERED: HEPARIN NA (PORCINE) 5,000 UNITS/ML 1ML VIAL SQ SCH (06:00)
[2018-05-27 06:06] LABS: HEMATOCRIT 33.1 % (35.4-49); MCHC 33.1 g/dl (32.0-35.9); MEAN CELL VOLUME 84.4 fl (80-96); PLATELET COUNT 117 K/MM3 (134-434); RBC 3.92 M/mm3 (4.00-5.60); RDW 14.9 % (11.9-15.9); WHITE BLOOD COUNT 13.4 K/mm3 (4.0-10.0)
[2018-05-27 06:27] LABS: ALBUMIN 3.4 g/dl (3.4-5.0); ANION GAP 7 (8-16); BILIRUBIN,TOTAL 0.9 mg/dL (0.2-1.0); BLOOD UREA NITROGEN 13 mg/dL (7-18); CALCIUM 8.6 mg/dL (8.5-10.1); CHLORIDE 102 mmol/L (98-107); CO2 26 mmol/L (21-32); GLUCOSE,RANDOM 154 mg/dL (74-106); MAGNESIUM 1.8 mg/dL (1.8-2.4); PHOSPHOROUS 3.5 mg/dL (2.5-4.9); POTASSIUM 3.4 mmol/L (3.5-5.1); SGOT/AST 20 U/L (15-37); SGPT/ALT 18 U/L (12-78); SODIUM 135 mmol/L (136-145)
[2018-05-27 06:28] LABS: ALK PHOS 84 U/L (45-117); TOT PROT 6.8 g/dl (6.4-8.2)
[2018-05-27] MEDS: INSULIN SLIDING SCALE (NOVOLOG) 1 VIAL SQ SCH ×4 (06:48→23:02)
--- NOTE | 2018-05-27 09:06 | EKG ---
Test Reason : Blood Pressure : / mmHG Vent. Rate : 062 BPM Atrial Rate : 062 BPM P-R Int : 148 ms QRS Dur : 084 ms QT Int : 424 ms P-R-T Axes : 056 -29 019 degrees QTc Int : 430 ms POOR DATA QUALITY, INTERPRETATION MAY BE ADVERSELY AFFECTED NORMAL SINUS RHYTHM LOW VOLTAGE QRS NONSPECIFIC ST ABNORMALITY ABNORMAL ECG WHEN COMPARED WITH ECG OF 03-MAY-2018 16:41, NO SIGNIFICANT CHANGE WAS FOUND Confirmed by CHARLA TILLMAN MD ([id number]) on 05/27/2018 9:05:26 AM Referred By: Confirmed By:CHARLA TILLMAN MD
[2018-05-27] MEDS ORDERED: DEXTROSE 5%-0.45% SALINE 1,000 ML IV SCH (09:15)
[2018-05-27 10:03] LABS: ARTERIAL BLD GAS O2 SATURATION 98.9 % (90-98.9); ARTERIAL BLOOD GAS BASE EXCESS -0.6 meq/l (-2-2); ARTERIAL BLOOD GAS PCO2 41.9 mmHg (35-45); ARTERIAL BLOOD GAS pH 7.38 (7.35-7.45)
[2018-05-27 10:12] LABS: ALLENS TEST POSITIVE
[2018-05-27] MEDS: levETIRAcetam 500 MG/5 ML INJECTION VIAL IVPB SCH ×2 (10:39→21:54)
--- NOTE | 2018-05-27 12:45 | PN ---
Teaching Attending Note Name of Resident: Gadiel Tran ATTENDING PHYSICIAN STATEMENT I saw and evaluated the patient. I reviewed the resident's note and discussed the case with the resident. I agree with the resident's findings and plan as documented. SUBJECTIVE: Pt seen and examined in the ICU. Intubated, awake off sedation this AM. Placed on CPAP/PS with good tidal volumes and respiratory rate and subsequently extubated during rounds this AM. OBJECTIVE: Vital Signs Period Temp Pulse Resp BP Sys/Bailey Pulse Ox Last 24 Hr 98.2 F-99.1 F 57-99 14-27 107-203/63-165 96-100 Intake & Output 05/24/18 05/25/18 05/26/18 05/27/18 23:59 23:59 23:59 23:59 Intake Total 200 Output Total 200 1200 Balance -200 -1000 Weight 145.15 kg 142.626 kg Gen: extubated Heart: RRR Lung: decreased breath sounds at the bases Abd: soft, nontender Ext: no edema CBC, BMP 05/27/18 05:30 05/27/18 05:30 Active Medications Chlorhexidine Gluconate (Hibiclens For Decolonization -) 1 applic TP HS MICHEL Heparin Sodium (Porcine) (Heparin -) 1,000 unit IVPUSH PRN PRN PRN Reason: Heparin Heparin Sodium (Porcine) (Heparin -) 5,000 unit IVPUSH PRN PRN PRN Reason: Heparin Midazolam HCl 100 mg/ Sodium (Chloride) 100 mls @ 1 mls/hr IVPB TITR MICHEL; Protocol Last Titration: 05/27/18 07:30 Dose: 0 mg/hr, 0 mls/hr Heparin Sodium/Dextrose (Heparin Infusion -) 25,000 units in 500 mls @ 20 mls/ hr IVPB TITR MICHEL; Protocol Last Titration: 05/27/18 07:43 Dose: 1,100 units/hr, 22 mls/hr Dextrose/Sodium Chloride (D5-1/2ns -) 1,000 mls @ 42 mls/hr IV ASDIR MICHEL Last Admin: 05/27/18 10:38 Dose: 42 mls/hr Insulin Aspart (Novolog Vial Sliding Scale -) 1 vial SQ ACHS [facility]; Protocol Last Admin: 05/27/18 06:48 Dose: 2 units Levetiracetam (Keppra Injection -) 1,000 mg IVPB BID MICHEL Last Admin: 05/27/18 10:39 Dose: 1,000 mg Mupirocin (Bactroban Ointment (For Decolonization) -) 1 applic NS BID [facility] Stop: 06/01/18 09:59 ASSESSMENT AND PLAN: Syncope Seizure Episode Acute Respiratory Failure Seizure Disorder Atrial fibrillation HTN DM h/o CVA - pt extubated - continue antiepileptics - rate controlled - continue anticoagulation - PO as tolerated - d/c IVF if tolerating PO - replete lytes - can transfer to floor later this PO if remains stable critical care time spent in reviewing chart, evaluating patient and formulating plan 35 min
[2018-05-27] MEDS: MUPIROCIN 2% TOPICAL OINTMENT FOR DECOLONIZATION NS SCH ×2 (13:41→21:54)
--- NOTE | 2018-05-27 13:46 | CON.NEURO ---
Consult Consult Specialty:: Brendan Referred by:: ER Reason for Consultation:: Syncopy - History of Present Illness History of Present Illness: this is 68-year-old right-handed Ukrainian-speaking man with complicated medical history Patient has been under my neurological care over 12 years for seizure disorder I was called by the emergency room yesterday that the patient fainted History of the present illness 68-year-old right-handed man with present medical significant for *Seizure disorder *Pseudoseizure * Osteoarthritis * TIAs * Coronary artery disease * Moderate obesity Patient presented to the emergency room with a chief complaint of fall and head trauma Patient was wide awake in the emergency room walking and talking Patient had a sudden onset of loss of consciousness No true seizure I spoke to the emergency room at that Patient was intubated and admitted to the medical ICU This morning patient was arousable and he was extubated I spoke to the service crew leader No report of any seizure activity I so the patient in the medical ICU he was awake alert oriented He recognized me with the name immediately Patient with normal attention span I had a long history with this patient treating him for seizure/pseudoseizure Patient refused to go to a psychiatrist due to cultural background There is no family history of seizure Patient used to live with significant other who will take care of him - History Source History Provided By: Medical Record Limitations to Obtaining History: Clinical Condition - Past Medical History 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, 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 Cardio/Vascular: Yes: CAD, Deep Vein Thrombosis, HTN, Other (paroxysmal atrial fibrillation) Pulmonary: Yes: COPD Gastrointestinal: Yes: Diverticulosis, Diverticulitis, Other Renal/: Yes: Hematuria, Renal Calculi Psych: Yes: Anxiety Endocrine: Yes: Diabetes Mellitus - Past Surgical History Past Surgical History: Yes: Hernia Repair, Appendectomy, Joint Replacement, Cholecystectomy - Alcohol/Substance Use Hx Alcohol Use: No History of Substance Use: reports: None - Smoking History Smoking history: Former smoker Have you smoked in the past 12 months: No Aproximately how many cigarettes per day: 0 If you are a former smoker, when did you quit?: 25+ years - Social History Usual Living Arrangement: Other (roomate) ADL: Independent History of Recent Travel: No Home Medications - Allergies Allergies/Adverse Reactions: Allergies Allergy/AdvReac Type Severity Reaction Status Date / Time amoxicillin Allergy Mild Rash Verified 05/26/18 17:06 carbamazepine [From Tegretol] Allergy Mild Rash Verified 05/26/18 17:06 cephalexin [Cephalexin] Allergy Mild Rash Verified 05/26/18 17:06 ciprofloxacin Allergy Mild Rash Verified 05/26/18 17:06 fluconazole Allergy Mild Verified 05/26/18 17:06 lamotrigine [From Lamictal] Allergy Mild Rash Verified 05/26/18 17:06 metronidazole Allergy Mild Rash Verified 05/26/18 17:06 phenobarbital Allergy Mild Rash Verified 05/26/18 17:06 phenytoin sodium Allergy Mild Rash Verified 05/26/18 17:06 [From Dilantin] phenytoin sodium extended Allergy Mild Rash Verified 05/26/18 17:06 [From Dilantin] sulfamethoxazole Allergy Mild Rash Verified 05/26/18 17:06 [From Sulfatrim] trimethoprim [From Sulfatrim] Allergy Mild Rash Verified 05/26/18 17:06 amoxicillin trihydrate Allergy Unknown Verified 05/26/18 17:06 [From Augmentin] potassium clavulanate Allergy Unknown Verified 05/26/18 17:06 [From Augmentin] shrimp Allergy Verified 05/26/18 17:06 SHRIMP Allergy Mild Rash Uncoded 05/26/18 17:06 ciproflux Allergy Uncoded 05/26/18 17:06 shrimp Allergy Uncoded 05/26/18 17:06 - Home Medications Home Medications: Ambulatory Orders Aspirin 81 mg PO DAILY 10/26/17 Atorvastatin Ca [Lipitor] 20 mg PO HS 10/26/17 Bicalutamide 50 mg PO DAILY 10/26/17 Citalopram Hydrobromide [Celexa -] 10 mg PO DAILY 10/26/17 Divalproex Sodium 500 mg PO BID 10/26/17 Ferrous Sulfate 325 mg PO BID 10/26/17 Levetiracetam 200 mg PO TID 10/26/17 Lisinopril 5 mg PO DAILY 10/26/17 Magnesium Oxide [Magnesium] 500 mg PO BID 10/26/17 Oxybutynin Chloride [Oxybutynin Chloride ER] 10 mg PO DAILY 10/26/17 Ranolazine [Ranexa] 500 mg PO BID 10/26/17 Rivaroxaban [Xarelto -] 20 mg PO DAILY 10/26/17 Tamsulosin HCl 0.4 mg PO BID 10/26/17 clonazePAM [Klonopin -] 0.5 mg PO TID 10/26/17 Fesoterodine Fumarate [Toviaz] 4 mg PO DAILY 03/08/18 Folic Acid 1 mg PO DAILY 03/08/18 Acetaminophen [Tylenol .Regular Strength -] 650 mg PO Q6H PRN tablet 05/08/18 Insulin Detemir [Levemir Flextouch] 100 unit SQ DAILY #4 insuln.pen 05/08/18 Insulin Lispro [Humalog Kwikpen U-200] 200 unit SQ TID #4 insuln.pen 05/08/18 Insulin Sliding Scale [Novolog Vial Sliding Scale -] 1 vial SQ ACHS units 05/08 Sitagliptin Phosphate [Januvia -] 100 mg PO DAILY@0700 ud 05/08/18 metFORMIN HCL [Glucophage -] 500 mg PO DAILY@0700 tablet 05/08/18 Family Disease History - Family Disease History Family Disease History: Diabetes: Mother (htn), CA: Father, Other: Mother Review of Systems - Review of Systems Neurological: reports: Headache, Incoordination, Numbness Physical Exam-Neuro Vital Signs: Vital Signs Temperature 98.7 F 05/27/18 10:00 Pulse Rate 58 L 05/27/18 12:00 Respiratory Rate 22 05/27/18 12:00 Blood Pressure 128/70 05/27/18 12:00 O2 Sat by Pulse Oximetry (%) 99 05/27/18 11:40 Constitutional: Yes: Well Nourished Neck: Yes: WNL Cardiovascular: Yes: WNL Labs: CBC, BMP 05/27/18 05:30 05/27/18 05:30 INR, PTT INR 2.11 (0.83-1.09) H 05/26/18 19:40 - Neuro Exam Level Of Consciousness: Yes: Oriented to Person, Oriented to Place, Oriented to Time Eyes: Yes: PERRLA Speech: WNL Dominant Hand: Right Cranial Nerves II-XII Intact: Yes Gag: Present DTR's: 0 Left Bicep, 0 Right Bicep, 0 Left Tricep, 0 Right Tricep, 0 Left Brachioradialis, 0 Right Brachioradialis Response to light touch: Normal Response to pain prick: Normal Response to temperature: Abnormal Response to vibration: Abnormal Coordination: Normal: Finger to Nose Motor Strength: 2/5: Right Leg, 3/5: Left Arm, Right Arm, Left Leg Gait: Deferred Imaging - Results Cat Scan: Image Reviewed Problem List - Problems (1) Syncope Assessment/Plan: 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
[2018-05-27] MEDS ORDERED: POTASSIUM CHLORIDE 20 MEQ PREMIX IVPB 100 ML IVPB ONE (14:00)
[2018-05-27] MEDS ORDERED: LORazepam 1 MG TABLET PO PRN (14:30)
--- NOTE | 2018-05-27 15:57 | PN ---
Progress Note, Physician Chief Complaint: EVENTS AND NOTES REVIEWED AWAKE ALERTX2 NO DISTRESS EXTUBATED - Current Medication List Current Medications: Active Medications Chlorhexidine Gluconate (Hibiclens For Decolonization -) 1 applic TP HS MICHEL Heparin Sodium (Porcine) (Heparin -) 1,000 unit IVPUSH PRN PRN PRN Reason: Heparin Heparin Sodium (Porcine) (Heparin -) 5,000 unit IVPUSH PRN PRN PRN Reason: Heparin Heparin Sodium/Dextrose (Heparin Infusion -) 25,000 units in 500 mls @ 20 mls/ hr IVPB TITR [facility]; Protocol Last Titration: 05/27/18 07:43 Dose: 1,100 units/hr, 22 mls/hr Dextrose/Sodium Chloride (D5-1/2ns -) 1,000 mls @ 42 mls/hr IV ASDIR [facility] Last Admin: 05/27/18 10:38 Dose: 42 mls/hr Insulin Aspart (Novolog Vial Sliding Scale -) 1 vial SQ ACHS [facility]; Protocol Last Admin: 05/27/18 13:42 Dose: Not Given Levetiracetam (Keppra Injection -) 1,000 mg IVPB BID [facility] Last Admin: 05/27/18 10:39 Dose: 1,000 mg Lorazepam (Ativan -) 2 mg PO DAILY PRN PRN Reason: ANXIETY Mupirocin (Bactroban Ointment (For Decolonization) -) 1 applic NS BID [facility] Stop: 06/01/18 09:59 Last Admin: 05/27/18 13:41 Dose: 1 applic - Objective Vital Signs: Vital Signs Temperature 97.8 F 05/27/18 14:00 Pulse Rate 63 05/27/18 14:00 Respiratory Rate 20 05/27/18 14:00 Blood Pressure 126/67 05/27/18 14:00 O2 Sat by Pulse Oximetry (%) 99 05/27/18 11:40 Constitutional: Yes: Mild Distress Eyes: Yes: WNL HENT: Yes: WNL Neck: Yes: WNL Cardiovascular: Yes: Pulse Irregular Respiratory: Yes: WNL Gastrointestinal: Yes: WNL Genitourinary: Yes: Incontinence Musculoskeletal: Yes: Muscle Weakness Extremities: Yes: Other Edema: Yes Peripheral Pulses WNL: Yes Integumentary: Yes: Pressure Ulcer, Rash, Venous Stasis Changes Wound/Incision: Yes: Dressing Dry and Intact Neurological: Yes: Pre-Existing Deficit, Unsteady Gait, Weakness ...Motor Strength: LLE, RLE Psychiatric: Yes: Other Labs: CBC, BMP 05/27/18 05:30 05/27/18 05:30 INR, PTT INR 2.11 (0.83-1.09) H 05/26/18 19:40 Problem List - Problems (1) Endotracheally intubated Code(s): Z97.8 - PRESENCE OF OTHER SPECIFIED DEVICES (2) Fall Code(s): W19.XXXA - UNSPECIFIED FALL, INITIAL ENCOUNTER Qualifiers: Encounter type: initial encounter Qualified Code(s): W19.XXXA - Unspecified fall, initial encounter (3) Seizure Code(s): R56.9 - UNSPECIFIED CONVULSIONS (4) Syncope Code(s): R55 - SYNCOPE AND COLLAPSE (5) Afib Code(s): I48.91 - UNSPECIFIED ATRIAL FIBRILLATION Assessment/Plan EXTUBATED BREATHING ON 2LNC DM CONTROL CHECK BGM PT EVAL NEUROLOGY EVAL ON AC FOR AFIB
[2018-05-27] MEDS ORDERED: INSULIN (NOVOLOG) ASPART 100 UNITS/ML 10ML VIAL ONE (17:03)
[2018-05-27] MEDS: RIVAROXABAN 20 MG TABLET PO SCH (21:53)
[2018-05-27] MEDS: CHLORHEXIDINE GLUCONATE 4% CLEANSER FOR DECOLONIZATION TP SCH (21:54)
--- NOTE | 2018-05-27 22:36 | PN ---
Physical Exam: SUBJECTIVE: Patient seen and examined this am and pm in icu. Pt extubated today , resting in bed comfortably. Denies any chest pain or sob. OBJECTIVE: Vital Signs Period Temp Pulse Resp BP Sys/Bailey Pulse Ox Last 24 Hr 97.8 F-98.7 F 57-73 14-27 126-161/60-86 99-100 GENERAL: AAOx3. NAD. HEAD: Normal with no signs of trauma. EYES: PERRL, extraocular movements intact, sclera anicteric, conjunctiva clear. No ptosis. ENT: WNL NECK: Trachea midline, full range of motion, supple. LUNGS: Decreased BS at bases HEART: Regular rate and rhythm, S1, S2 without murmur, rub or gallop. ABDOMEN: Obese, ND, NT. EXTREMITIES: Lymphadema b/l lower extremities. SKIN: Lymphadema. Laboratory Results - last 24 hr 05/26/18 05/26/18 05/27/18 22:26 22:36 05:30 WBC 13.4 H RBC 3.92 L Hgb 11.0 L Hct 33.1 L MCV 84.4 MCH 28.0 MCHC 33.1 RDW 14.9 Plt Count 117 L MPV 9.0 PTT (Actin FS) Anticoagulation Therapy No Result Required. Puncture Site Right radial ABG pH 7.39 ABG pCO2 at Pt Temp 39.9 D ABG pO2 at Pt Temp 208.0 H* ABG HCO3 23.7 ABG O2 Sat (Measured) 99.5 H ABG O2 Content 15.3 ABG Base Excess -0.6 Darius Test Positive O2 Delivery Device Vent Oxygen Flow Rate 70% Vent Mode A/c Vent Rate 20 Mechanical Rate Yes PEEP 5.0 Pressure Support Vent 450 Sodium Potassium Chloride Carbon Dioxide Anion Gap BUN Creatinine Creat Clearance w eGFR POC Glucometer Random Glucose Lactic Acid 1.1 Calcium Phosphorus Magnesium Total Bilirubin AST ALT Alkaline Phosphatase Total Protein Albumin 05/27/18 05/27/18 05/27/18 05:30 05:30 06:38 WBC RBC Hgb Hct MCV MCH MCHC RDW Plt Count MPV PTT (Actin FS) 42.0 H Anticoagulation Therapy Puncture Site ABG pH ABG pCO2 at Pt Temp ABG pO2 at Pt Temp ABG HCO3 ABG O2 Sat (Measured) ABG O2 Content ABG Base Excess Darius Test O2 Delivery Device Oxygen Flow Rate Vent Mode Vent Rate Mechanical Rate PEEP Pressure Support Vent Sodium 135 L Potassium 3.4 L Chloride 102 Carbon Dioxide 26 Anion Gap 7 L BUN 13 Creatinine 1.0 Creat Clearance w eGFR > 60 POC Glucometer 178.56851 Random Glucose 154 H D Lactic Acid Calcium 8.6 Phosphorus 3.5 Magnesium 1.8 Total Bilirubin 0.9 AST 20 D ALT 18 Alkaline Phosphatase 84 Total Protein 6.8 Albumin 3.4 05/27/18 05/27/18 05/27/18 09:45 11:57 14:50 WBC RBC Hgb Hct MCV MCH MCHC RDW Plt Count MPV PTT (Actin FS) 40.5 H Anticoagulation Therapy Puncture Site Left radial ABG pH 7.38 ABG pCO2 at Pt Temp 41.9 ABG pO2 at Pt Temp 119.0 H D ABG HCO3 24.1 ABG O2 Sat (Measured) 98.9 ABG O2 Content 15.3 ABG Base Excess -0.6 Darius Test Positive O2 Delivery Device Ventilator Oxygen Flow Rate 35% Vent Mode Simv/psv Vent Rate 19 Mechanical Rate Yes PEEP 5.0 Pressure Support Vent 450 Sodium Potassium Chloride Carbon Dioxide Anion Gap BUN Creatinine Creat Clearance w eGFR POC Glucometer [phone] Random Glucose Lactic Acid Calcium Phosphorus Magnesium Total Bilirubin AST ALT Alkaline Phosphatase Total Protein Albumin 05/27/18 17:00 WBC RBC Hgb Hct MCV MCH MCHC RDW Plt Count MPV PTT (Actin FS) Anticoagulation Therapy Puncture Site ABG pH ABG pCO2 at Pt Temp ABG pO2 at Pt Temp ABG HCO3 ABG O2 Sat (Measured) ABG O2 Content ABG Base Excess Darius Test O2 Delivery Device Oxygen Flow Rate Vent Mode Vent Rate Mechanical Rate PEEP Pressure Support Vent Sodium Potassium Chloride Carbon Dioxide Anion Gap BUN Creatinine Creat Clearance w eGFR POC Glucometer [phone] Random Glucose Lactic Acid Calcium Phosphorus Magnesium Total Bilirubin AST ALT Alkaline Phosphatase Total Protein Albumin Active Medications Generic Name Dose Route Start Last Admin Trade Name Freq PRN Reason Stop Dose Admin Chlorhexidine Gluconate 1 applic 05/27/18 22:00 05/27/18 21:54 Hibiclens For Decolonization - TP 1 applic HS MICHEL Administration Insulin Aspart 1 vial 05/27/18 07:00 05/27/18 17:57 Novolog Vial Sliding Scale - SQ 4 units ACHS MICHEL Administration Protocol Levetiracetam 1,000 mg 05/27/18 10:00 05/27/18 21:54 Keppra Injection - IVPB 1,000 mg BID MICHEL Administration Lorazepam 2 mg 05/27/18 14:30 Ativan - PO DAILY PRN ANXIETY Mupirocin 1 applic 05/27/18 10:00 05/27/18 21:54 Bactroban Ointment (For Decolonization) - NS 06/01/18 09:59 1 applic BID MICHEL Administration Rivaroxaban 20 mg 05/27/18 21:00 05/27/18 21:53 Xarelto - PO 20 mg DAILY@1800 MICHEL Administration ASSESSMENT/PLAN: 68 y/o gentleman with a PMH of AFib (on Xarelto), HTN, HLD, DM, Prostate CA, Bladder CA, lymphedema and chronic L knee pain (ambulates intermittently with a walker) presented to [facility] following an unwitnessed fall at home. Seizure D/O - Admit to ICU - Cardiac monitoring - Head CT- neg ICH - Dr Obrien on board - Keppra 1,000 mg IVPB BID - Seizure Precautions - Aspiration Precautions - Urine Toxicology- Negative - EEG -Ativan 2 mg PO Daily -Prolactin Level - Keppra Level - Depakote Level AFIB, HTN -Xarelto 20 mg po daily FEN No Fluids Monitor Electrolyes Soft Diabetic Diet DVT ppx: Xarelto 20 mg po daily Visit type - Emergency Visit Emergency Visit: Yes ED Registration Date: 05/26/18 Care time: The patient presented to the Emergency Department on the above date and was hospitalized for further evaluation of their emergent condition. - New Patient This patient is new to me today: Yes Date on this admission: 05/27/18 - Critical Care Critical Care patient: Yes Total Critical Care Time (in minutes): 35 Critical Care Statement: The care of this patient involved high complexity decision making to prevent further life threatening deterioration of the patient 's condition and/or to evaluate & treat vital organ system(s) failure or risk of failure.
[2018-05-28 06:08] LABS: BASO % 0.8 % (0-2.0); HEMOGLOBIN 10.6 GM/dL (11.7-16.9); LYMPH % 2.8 % (8-40); MCH 27.8 pg (25.7-33.7); MCHC 33.2 g/dl (32.0-35.9); MEAN CELL VOLUME 83.8 fl (80-96); MEAN PLT VOLUME 8.9 fl (7.5-11.1); MONO % 14.7 % (3.8-10.2); NEUT % 79.7 % (42.8-82.8); PLATELET COUNT 123 K/MM3 (134-434); RBC 3.82 M/mm3 (4.00-5.60); RDW 15.1 % (11.9-15.9); WHITE BLOOD COUNT 11.5 K/mm3 (4.0-10.0)
[2018-05-28] MEDS: INSULIN SLIDING SCALE (NOVOLOG) 1 VIAL SQ SCH ×4 (06:29→22:48)
[2018-05-28 06:36] LABS: CALCIUM 8.3 mg/dL (8.5-10.1); CHLORIDE 101 mmol/L (98-107); POTASSIUM 3.7 mmol/L (3.5-5.1); SODIUM 136 mmol/L (136-145)
[2018-05-28 06:42] LABS: ALK PHOS 77 U/L (45-117); ANION GAP 6 (8-16); BILIRUBIN,TOTAL 0.6 mg/dL (0.2-1.0); BLOOD UREA NITROGEN 9 mg/dL (7-18); CO2 29 mmol/L (21-32); CREATININE 0.9 mg/dL (0.7-1.3); GLUCOSE,RANDOM 133 mg/dL (74-106); MAGNESIUM 1.9 mg/dL (1.8-2.4); PHOSPHOROUS 2.4 mg/dL (2.5-4.9); SGOT/AST 15 U/L (15-37); SGPT/ALT 16 U/L (12-78); TOT PROT 6.4 g/dl (6.4-8.2)
[2018-05-28] MEDS: MUPIROCIN 2% TOPICAL OINTMENT FOR DECOLONIZATION NS SCH ×2 (10:00→22:47)
[2018-05-28] MEDS: levETIRAcetam 500 MG/5 ML INJECTION VIAL IVPB SCH ×2 (10:00→22:47)
--- NOTE | 2018-05-28 12:03 | PN ---
Teaching Attending Note Name of Resident: Sam Medel ATTENDING PHYSICIAN STATEMENT I saw and evaluated the patient. I reviewed the resident's note and discussed the case with the resident. I agree with the resident's findings and plan as documented. SUBJECTIVE: Pt seen and examined in the ICU. Remains extubated. No further seizure episodes. OBJECTIVE: Vital Signs Period Temp Pulse Resp BP Sys/Bailey Pulse Ox Last 24 Hr 97.8 F 60-81 20-23 90-126/53-78 99-99 Intake & Output 05/25/18 05/26/18 05/27/18 05/28/18 23:59 23:59 23:59 23:59 Intake Total 1102 240 Output Total 200 2850 600 Balance -200 -4044 -360 Weight 145.15 kg 142.626 kg Gen: NAD at rest Heart: RRR Lung: decreased breath sounds at the bases Abd: soft, nontender Ext: no edema CBC, BMP 05/28/18 05:30 05/28/18 05:30 Active Medications Chlorhexidine Gluconate (Hibiclens For Decolonization -) 1 applic TP HS [facility] Last Admin: 05/27/18 21:54 Dose: 1 applic Insulin Aspart (Novolog Vial Sliding Scale -) 1 vial SQ ACHS [facility]; Protocol Last Admin: 05/28/18 06:29 Dose: 2 units Levetiracetam (Keppra Injection -) 1,000 mg IVPB BID [facility] Last Admin: 05/28/18 10:00 Dose: 1,000 mg Lorazepam (Ativan -) 2 mg PO DAILY PRN PRN Reason: ANXIETY Mupirocin (Bactroban Ointment (For Decolonization) -) 1 applic NS BID [facility] Stop: 06/01/18 09:59 Last Admin: 05/28/18 10:00 Dose: 1 applic Rivaroxaban (Xarelto -) 20 mg PO DAILY@1800 [facility] Last Admin: 05/27/18 21:53 Dose: 20 mg ASSESSMENT AND PLAN: Syncope Seizure Episode s/p Acute Respiratory Failure Seizure Disorder Atrial fibrillation HTN DM h/o CVA - continue antiepileptics - rate controlled - continue anticoagulation - PO as tolerated - can transfer to floor
--- NOTE | 2018-05-28 12:38 | PN ---
Physical Exam: SUBJECTIVE: No acute events overnight. Pt was extubated yesterday and is tolerating well. No seizure activity noted since initial symptoms in ER. Pt has no complaints at this time. OBJECTIVE: Vital Signs Period Temp Pulse Resp BP Sys/Bailey Pulse Ox Last 24 Hr 97.8 F 60-81 20-23 90-126/53-78 99-99 GENERAL: NAD, alert, and fully oriented HEENT: NC/AT, EOMi, DENNISE, MMM NECK: No JVD LUNGS: CTA bilaterally, no wheezes, no crackles, no accessory muscle use. HEART: RRR, S1, S2 without murmur ABDOMEN: Soft, NT/ND, normoactive bowel sounds, no guarding, no masses. EXTREMITIES: 2+ DP pulses, warm, well-perfused, no edema. NEUROLOGICAL: Nonfocal exam. Strength 5/5 in distal extremity lakhani, sensation intact throughout. No dysarthria, gait not observed PSYCH: Normal mood, normal affect. SKIN: Warm, dry, no rashes or lesions noted Laboratory Results - last 24 hr 05/27/18 05/27/18 05/27/18 06:38 14:50 17:00 WBC RBC Hgb Hct MCV MCH MCHC RDW Plt Count MPV Absolute Neuts (auto) Neutrophils % Lymphocytes % Monocytes % Eosinophils % Basophils % Nucleated RBC % PTT (Actin FS) 40.5 H Sodium Potassium Chloride Carbon Dioxide Anion Gap BUN Creatinine Creat Clearance w eGFR POC Glucometer 178.55549 205.83319 Random Glucose Calcium Phosphorus Magnesium Total Bilirubin AST ALT Alkaline Phosphatase Total Protein Albumin Valproic Acid 05/27/18 05/27/18 05/28/18 22:15 22:20 05:30 WBC RBC Hgb Hct MCV MCH MCHC RDW Plt Count MPV Absolute Neuts (auto) Neutrophils % Lymphocytes % Monocytes % Eosinophils % Basophils % Nucleated RBC % PTT (Actin FS) Sodium Potassium Chloride Carbon Dioxide Anion Gap BUN Creatinine Creat Clearance w eGFR POC Glucometer 148.29174 178.86058 Random Glucose Calcium Phosphorus Magnesium Total Bilirubin AST ALT Alkaline Phosphatase Total Protein Albumin Valproic Acid 3.5 L 05/28/18 05/28/18 05:30 05:30 WBC 11.5 H RBC 3.82 L Hgb 10.6 L Hct 32.0 L MCV 83.8 MCH 27.8 MCHC 33.2 RDW 15.1 Plt Count 123 L MPV 8.9 Absolute Neuts (auto) 9.2 Neutrophils % 79.7 Lymphocytes % 2.8 L Monocytes % 14.7 H Eosinophils % 2.0 Basophils % 0.8 Nucleated RBC % 0 PTT (Actin FS) Sodium 136 Potassium 3.7 Chloride 101 Carbon Dioxide 29 Anion Gap 6 L BUN 9 Creatinine 0.9 Creat Clearance w eGFR > 60 POC Glucometer Random Glucose 133 H Calcium 8.3 L Phosphorus 2.4 L D Magnesium 1.9 Total Bilirubin 0.6 AST 15 D ALT 16 Alkaline Phosphatase 77 Total Protein 6.4 Albumin 3.0 L Valproic Acid Active Medications Generic Name Dose Route Start Last Admin Trade Name Freq PRN Reason Stop Dose Admin Chlorhexidine Gluconate 1 applic 05/27/18 22:00 05/27/18 21:54 Hibiclens For Decolonization - TP 1 applic HS MICHEL Administration Insulin Aspart 1 vial 05/27/18 07:00 05/28/18 06:29 Novolog Vial Sliding Scale - SQ 2 units ACHS MICHEL Administration Protocol Levetiracetam 1,000 mg 05/27/18 10:00 05/28/18 10:00 Keppra Injection - IVPB 1,000 mg BID MICHEL Administration Lorazepam 2 mg 05/27/18 14:30 Ativan - PO DAILY PRN ANXIETY Mupirocin 1 applic 05/27/18 10:00 05/28/18 10:00 Bactroban Ointment (For Decolonization) - NS 06/01/18 09:59 1 applic BID MICHEL Administration Rivaroxaban 20 mg 05/27/18 21:00 05/27/18 21:53 Xarelto - PO 20 mg DAILY@1800 MICHEL Administration ASSESSMENT/PLAN: Syncopal event ? seizure disorder h/o Afib Type 2 DM HTN h/o CVA Neuro: Continue Keppra 1gm BID IVPB Ativan 2mg qDaily PO PRN for anxiety Neurology on board; appreciate recommendations Respiratory: S/p Extubation; tolerating RA Cardiac: Continue Xarelto 20mg qdaily Currently sinus rhythm with good rate Endocrine: Continue ISS and BGM ACHS Pending glucose trends can reinitiate home glycemic control medications FEN: Fluids: None; tolerating PO Electrolyte abnormalities: Nutrition: PPX: DVT - Xarelto on board GI - Not indicated Dispo: Transfer to /S Case discussed with Dr. Arthur Medel, DO - IM PGY-2 Visit type - Emergency Visit Emergency Visit: No - New Patient This patient is new to me today: No - Critical Care Critical Care patient: No
--- NOTE | 2018-05-28 12:50 | PN ---
Progress Note, Physician Chief Complaint: AWAKE ALERT NO NEW EVENTS OVERNIGHT - Current Medication List Current Medications: Active Medications Chlorhexidine Gluconate (Hibiclens For Decolonization -) 1 applic TP HS [facility] Last Admin: 05/27/18 21:54 Dose: 1 applic Insulin Aspart (Novolog Vial Sliding Scale -) 1 vial SQ ACHS [facility]; Protocol Last Admin: 05/28/18 06:29 Dose: 2 units Levetiracetam (Keppra Injection -) 1,000 mg IVPB BID [facility] Last Admin: 05/28/18 10:00 Dose: 1,000 mg Lorazepam (Ativan -) 2 mg PO DAILY PRN PRN Reason: ANXIETY Mupirocin (Bactroban Ointment (For Decolonization) -) 1 applic NS BID [facility] Stop: 06/01/18 09:59 Last Admin: 05/28/18 10:00 Dose: 1 applic Rivaroxaban (Xarelto -) 20 mg PO DAILY@1800 [facility] Last Admin: 05/27/18 21:53 Dose: 20 mg - Objective Vital Signs: Vital Signs Temperature 97.8 F 05/27/18 14:00 Pulse Rate 67 05/28/18 08:00 Respiratory Rate 20 05/28/18 09:00 Blood Pressure 114/62 05/28/18 08:00 O2 Sat by Pulse Oximetry (%) 99 05/28/18 09:00 Constitutional: Yes: No Distress Eyes: Yes: WNL HENT: Yes: WNL Neck: Yes: WNL Cardiovascular: Yes: WNL Respiratory: Yes: WNL Gastrointestinal: Yes: WNL Genitourinary: Yes: WNL Musculoskeletal: Yes: Muscle Weakness Extremities: Yes: Deformity Edema: Yes Edema: LLE: 2+, RLE: 2+ Peripheral Pulses WNL: Yes Integumentary: Yes: Rash, Venous Stasis Changes Wound/Incision: Yes: Dressing Dry and Intact Neurological: Yes: Pre-Existing Deficit, Unsteady Gait, Weakness ...Motor Strength: LLE, RLE Psychiatric: Yes: Other Labs: CBC, BMP 05/28/18 05:30 05/28/18 05:30 INR, PTT INR 2.11 (0.83-1.09) H 05/26/18 19:40 Problem List - Problems (1) Endotracheally intubated Code(s): Z97.8 - PRESENCE OF OTHER SPECIFIED DEVICES (2) Fall Code(s): W19.XXXA - UNSPECIFIED FALL, INITIAL ENCOUNTER Qualifiers: Encounter type: initial encounter Qualified Code(s): W19.XXXA - Unspecified fall, initial encounter (3) Seizure Code(s): R56.9 - UNSPECIFIED CONVULSIONS (4) Syncope Code(s): R55 - SYNCOPE AND COLLAPSE (5) Afib Code(s): I48.91 - UNSPECIFIED ATRIAL FIBRILLATION Assessment/Plan EXTUBATED BREATHING ON 2LNC DM CONTROL CHECK BGM PT EVAL NEUROLOGY EVAL ON AC FOR AFIB/COAGULOPATHY WILL NEED SNF
[2018-05-28 14:22] VITALS: BMI 52.2
[2018-05-28] MEDS: RIVAROXABAN 20 MG TABLET PO SCH (17:34)
[2018-05-28] MEDS ORDERED: RIVAROXABAN 20 MG TABLET PO SCH (20:15)
[2018-05-28] MEDS: CHLORHEXIDINE GLUCONATE 4% CLEANSER FOR DECOLONIZATION TP SCH (22:48)
[2018-05-28] MEDS ORDERED: ACETAMINOPHEN 325 MG TABLET (FP) PO PRN (23:24)
[2018-05-29 06:03] LABS: HEMATOCRIT 32.8 % (35.4-49); HEMOGLOBIN 10.8 GM/dL (11.7-16.9); MCH 27.6 pg (25.7-33.7); MEAN CELL VOLUME 83.6 fl (80-96); MEAN PLT VOLUME 8.8 fl (7.5-11.1); PLATELET COUNT 125 K/MM3 (134-434); RBC 3.92 M/mm3 (4.00-5.60); RDW 14.9 % (11.9-15.9); WHITE BLOOD COUNT 12.9 K/mm3 (4.0-10.0)
[2018-05-29] MEDS: INSULIN SLIDING SCALE (NOVOLOG) 1 VIAL SQ SCH ×2 (06:23→12:22)
[2018-05-29 06:33] LABS: ANION GAP 6 (8-16); CHLORIDE 101 mmol/L (98-107); CO2 29 mmol/L (21-32); POTASSIUM 3.5 mmol/L (3.5-5.1); SODIUM 136 mmol/L (136-145)
[2018-05-29 06:38] LABS: BLOOD UREA NITROGEN 11 mg/dL (7-18); CALCIUM 8.6 mg/dL (8.5-10.1); GLUCOSE,RANDOM 142 mg/dL (74-106)
[2018-05-29] MEDS ORDERED: metFORMIN HCL 500 MG TABLET (FP) PO SCH (07:00)
--- NOTE | 2018-05-29 07:49 | DS ---
Physical Examination Vital Signs: Vital Signs Temperature 98.4 F 05/29/18 02:00 Pulse Rate 59 L 05/29/18 06:00 Respiratory Rate 22 05/29/18 06:00 Blood Pressure 145/73 05/29/18 06:00 O2 Sat by Pulse Oximetry (%) 99 05/28/18 20:49 Constitutional: Yes: No Distress Eyes: Yes: WNL HENT: Yes: WNL Neck: Yes: WNL Cardiovascular: Yes: Pulse Irregular Respiratory: Yes: WNL Gastrointestinal: Yes: WNL Renal/: Yes: WNL Musculoskeletal: Yes: Muscle Weakness Extremities: Yes: Deformity Edema: Yes Edema: LLE: 2+, RLE: 2+ Peripheral Pulses WNL: Yes Integumentary: Yes: WNL, Pressure Ulcer, Venous Stasis Changes Wound/Incision: Yes: Dressing Dry and Intact Neurological: Yes: Pre-Existing Deficit, Unsteady Gait, Weakness ...Motor Strength: LLE, RLE Psychiatric: Yes: Other Labs: CBC, BMP 05/29/18 05:30 05/29/18 05:30 Discharge Summary Reason For Visit: FALL Current Active Problems Endotracheally intubated (Acute) Fall (Acute) Seizure (Acute) Syncope (Acute) Procedures: Principal: intubated for syncope and unresponsive Hospital Course: in icu, extubated, followed, treated with alejandra for seizure disorder Condition: Fair - Instructions Diet, Activity, Other Instructions: diabetic diet snf see dr vazquez after discharge from snf Referrals: Ruth Vazquez MD [Primary Care Provider] - Disposition: INTERMEDIATE FACILITY - Home Medications Comprehensive Discharge Medication List: Ambulatory Orders Aspirin 81 mg PO DAILY 10/26/17 Atorvastatin Ca [Lipitor] 20 mg PO HS 10/26/17 Bicalutamide 50 mg PO DAILY 10/26/17 Citalopram Hydrobromide [Celexa -] 10 mg PO DAILY 10/26/17 Divalproex Sodium 500 mg PO BID 10/26/17 Ferrous Sulfate 325 mg PO BID 10/26/17 Levetiracetam 200 mg PO TID 10/26/17 Lisinopril 5 mg PO DAILY 10/26/17 Magnesium Oxide [Magnesium] 500 mg PO BID 10/26/17 Oxybutynin Chloride [Oxybutynin Chloride ER] 10 mg PO DAILY 10/26/17 Ranolazine [Ranexa] 500 mg PO BID 10/26/17 Rivaroxaban [Xarelto -] 20 mg PO DAILY 10/26/17 Tamsulosin HCl 0.4 mg PO BID 10/26/17 clonazePAM [Klonopin -] 0.5 mg PO TID 10/26/17 Fesoterodine Fumarate [Toviaz] 4 mg PO DAILY 03/08/18 Folic Acid 1 mg PO DAILY 03/08/18 Acetaminophen [Tylenol .Regular Strength -] 650 mg PO Q6H PRN tablet 05/08/18 Insulin Detemir [Levemir Flextouch] 100 unit SQ DAILY #4 insuln.pen 05/08/18 Insulin Lispro [Humalog Kwikpen U-200] 200 unit SQ TID #4 insuln.pen 05/08/18 Insulin Sliding Scale [Novolog Vial Sliding Scale -] 1 vial SQ ACHS units 05/08 Sitagliptin Phosphate [Januvia -] 100 mg PO DAILY@0700 ud 05/08/18 metFORMIN HCL [Glucophage -] 500 mg PO DAILY@0700 tablet 05/08/18 Acetaminophen [Tylenol .Regular Strength -] 650 mg PO Q6H PRN tablet 05/29/18 Aspirin Coated [Ecotrin -] 81 mg PO DAILY tablet.ec 05/29/18 Atorvastatin Ca [Lipitor] 40 mg PO HS tablet 05/29/18 Citalopram Hydrobromide [Celexa -] 10 mg PO DAILY tablet 05/29/18 Ferrous Sulfate [Feosol] 325 mg PO BID ud 05/29/18 Insulin Sliding Scale [Novolog Vial Sliding Scale -] 1 vial SQ ACHS units 05/29 Lisinopril [Prinivil] 5 mg PO DAILY tablet 05/29/18 Mupirocin Ointment [Bactroban Ointment (For Decolonization) -] 1 applic NS BID applic 05/29/18 Oxybutynin Chloride [Ditropan -] 5 mg PO BID tablet 05/29/18 Ranolazine [Ranexa -] 500 mg PO BID tab 05/29/18 Rivaroxaban [Xarelto -] 20 mg PO DAILY@1800 tablet 05/29/18 Tamsulosin HCl [Flomax -] 0.4 mg PO DAILY@0830 cap.er.24h 05/29/18 clonazePAM [Klonopin -] 1 mg PO BID tablet MDD 2 05/29/18 levETIRAcetam [Keppra -] 1,000 mg PO BID tablet 05/29/18 metFORMIN HCL [Glucophage -] 500 mg PO BID@0700,1630 tablet 05/29/18
[2018-05-29] MEDS ORDERED: TAMSULOSIN HCL 0.4 MG CAP.ER.24H (FP) PO SCH (08:30)
[2018-05-29] MEDS: MUPIROCIN 2% TOPICAL OINTMENT FOR DECOLONIZATION NS SCH (09:32)
[2018-05-29] MEDS ORDERED: PT OWN MED DRAWER 7, Y5N ONE (09:48)
[2018-05-29] MEDS ORDERED: ASPIRIN COATED 81 MG TABLET.EC PO SCH (10:00)
[2018-05-29] MEDS ORDERED: levETIRAcetam 500 MG TABLET (FP) PO SCH (10:00)
[2018-05-29] MEDS ORDERED: clonazePAM 0.5 MG TABLET PO SCH (10:00)
[2018-05-29] MEDS ORDERED: FERROUS SO4 325 MG TABLET (FP) PO SCH (10:00)
[2018-05-29] MEDS ORDERED: RANOLAZINE E.R. 500 MG TABLET (FP) PO SCH (10:00)
[2018-05-29] MEDS ORDERED: CITALOPRAM HYDROBROMIDE 10 MG TABLET (FP) PO SCH (10:00)
[2018-05-29] MEDS ORDERED: LISINOPRIL 5 MG TABLET (FP) PO SCH (10:00)
[2018-05-29] MEDS ORDERED: OXYBUTYNIN CHLORIDE 5 MG TABLET PO SCH (10:00)
--- NOTE | 2018-05-29 12:05 | PN ---
Teaching Attending Note Name of Resident: Gadiel Tran ATTENDING PHYSICIAN STATEMENT I saw and evaluated the patient. I reviewed the resident's note and discussed the case with the resident. I agree with the resident's findings and plan as documented. SUBJECTIVE: Pt seen and examined in the ICU. No issues overnight. Awaiting bed on floor. Tolerating PO. OBJECTIVE: Vital Signs Period Temp Pulse Resp BP Sys/Bailey Pulse Ox Last 24 Hr 97.9 F-98.4 F 58-79 20-22 122-169/52-83 99-99 Intake & Output 05/26/18 05/27/18 05/28/18 05/29/18 23:59 23:59 23:59 23:59 Intake Total 1102 1260 Output Total 200 2850 1800 400 Balance -200 -1748 -540 -400 Weight 145.15 kg 142.626 kg 142.428 kg 140.614 kg Gen: NAD at rest Heart: RRR Lung: decreased breath sounds at the bases Abd: soft, nontender Ext: no edema CBC, BMP 05/29/18 05:30 05/29/18 05:30 Active Medications Acetaminophen (Tylenol -) 650 mg PO Q6H PRN PRN Reason: PAIN 1-5 OR FEVER Aspirin (Ecotrin -) 81 mg PO DAILY [facility] Last Admin: 05/29/18 09:31 Dose: 81 mg Atorvastatin Calcium (Lipitor -) 40 mg PO HS [facility] Chlorhexidine Gluconate (Hibiclens For Decolonization -) 1 applic TP [facility] Last Admin: 05/28/18 22:48 Dose: 1 applic Citalopram Hydrobromide (Celexa -) 10 mg PO DAILY [facility] Last Admin: 05/29/18 09:51 Dose: 10 mg Clonazepam (Klonopin -) 1 mg PO BID [facility] Last Admin: 05/29/18 09:31 Dose: 1 mg Ferrous Sulfate (Feosol -) 325 mg PO BID [facility] Last Admin: 05/29/18 09:31 Dose: 325 mg Insulin Aspart (Novolog Vial Sliding Scale -) 1 vial SQ [facility]; Protocol Last Admin: 05/29/18 06:23 Dose: 2 units Levetiracetam (Keppra -) 1,000 mg PO BID [facility] Last Admin: 05/29/18 09:31 Dose: 1,000 mg Lisinopril (Prinivil) 5 mg PO DAILY [facility] Last Admin: 05/29/18 09:31 Dose: 5 mg Metformin HCl (Glucophage -) 500 mg PO BID@0700,1630 [facility] Last Admin: 05/29/18 06:24 Dose: 500 mg Mupirocin (Bactroban Ointment (For Decolonization) -) 1 applic NS BID [facility] Stop: 06/01/18 09:59 Last Admin: 05/29/18 09:32 Dose: 1 applic Oxybutynin Chloride (Ditropan -) 5 mg PO BID [facility] Last Admin: 05/29/18 09:31 Dose: 5 mg Ranolazine (Ranexa -) 500 mg PO BID [facility] Last Admin: 05/29/18 09:31 Dose: 500 mg Rivaroxaban (Xarelto -) 20 mg PO DAILY@1800 [facility] Last Admin: 05/28/18 17:34 Dose: 20 mg Tamsulosin HCl (Flomax -) 0.4 mg PO DAILY@0830 [facility] Last Admin: 05/29/18 09:31 Dose: 0.4 mg ASSESSMENT AND PLAN: Syncope Seizure Episode s/p Acute Respiratory Failure Seizure Disorder Atrial fibrillation HTN DM h/o CVA - continue antiepileptics - rate controlled - continue anticoagulation - PO as tolerated - can transfer to floor or d/c home
[2018-05-29] MEDS ORDERED: INSULIN (NOVOLOG) ASPART 100 UNITS/ML 10ML VIAL ONE (12:07)
[2018-05-29 14:02] VITALS: BP 138/68; PULSE 69; TEMP 98.2
--- NOTE | 2018-05-29 20:26 | PN ---
Physical Exam: SUBJECTIVE: Patient seen and examined this am in icu. Resting in bed comfortably , offers no new complaints. Denies cp, sob, or ronquillo. Pt discharged this afternoon. OBJECTIVE: Vital Signs Period Temp Pulse Resp BP Sys/Bailey Pulse Ox Last 24 Hr 97.9 F-98.4 F 58-72 20-22 122-145/58-75 99-99 GENERAL: AAOx3. HEAD: NC/AT EYES:EOMI. ENT: MMM NECK: No JVD. LUNGS: Decreased at bases. HEART: RRR, MRG, s1,s2+ ABDOMEN: Morbidly obese. EXTREMITIES: Lymphadema B/L. NEUROLOGICAL: CN 2-12 intact. PSYCH: Normal mood, normal affect. SKIN: Lymphadema lower extremities. Laboratory Results - last 24 hr 05/28/18 05/28/18 05/28/18 05:21 05:30 13:26 WBC RBC Hgb Hct MCV MCH MCHC RDW Plt Count MPV Sodium Potassium Chloride Carbon Dioxide Anion Gap BUN Creatinine Creat Clearance w eGFR POC Glucometer 157.97726 191.46729 Random Glucose Calcium Prolactin 10.8 05/28/18 05/28/18 05/29/18 17:37 22:16 05:30 WBC 12.9 H RBC 3.92 L Hgb 10.8 L Hct 32.8 L MCV 83.6 MCH 27.6 MCHC 33.0 RDW 14.9 Plt Count 125 L MPV 8.8 Sodium Potassium Chloride Carbon Dioxide Anion Gap BUN Creatinine Creat Clearance w eGFR POC Glucometer 181.45487 194.77152 Random Glucose Calcium Prolactin 05/29/18 05/29/18 05/29/18 05:30 06:02 12:19 WBC RBC Hgb Hct MCV MCH MCHC RDW Plt Count MPV Sodium 136 Potassium 3.5 Chloride 101 Carbon Dioxide 29 Anion Gap 6 L BUN 11 Creatinine 1.0 Creat Clearance w eGFR > 60 POC Glucometer 158.48239 151.17741 Random Glucose 142 H Calcium 8.6 Prolactin 05/29/18 16:09 WBC RBC Hgb Hct MCV MCH MCHC RDW Plt Count MPV Sodium Potassium Chloride Carbon Dioxide Anion Gap BUN Creatinine Creat Clearance w eGFR POC Glucometer 202.41566 Random Glucose Calcium Prolactin ASSESSMENT/PLAN: 68 y/o gentleman with a PMH of AFib (on Xarelto), HTN, HLD, DM, Prostate CA, Bladder CA, lymphedema and chronic L knee pain (ambulates intermittently with a walker) presented to [facility] following an unwitnessed fall at home. Seizure D/O - Admit to ICU - Cardiac monitoring - Head CT- neg ICH - Dr Obrien on board - Keppra 1,000 mg IVPB BID - Seizure Precautions - Aspiration Precautions - Urine Toxicology- Negative - EEG -Ativan 2 mg PO Daily -Prolactin Level - Keppra Level - Depakote Level AFIB, HTN -Xarelto 20 mg po daily FEN No Fluids Monitor Electrolyes Soft Diabetic Diet DVT ppx: Xarelto 20 mg po daily Dispo Pt D/C'ed today. Visit type - Emergency Visit Emergency Visit: Yes ED Registration Date: 05/26/18 Care time: The patient presented to the Emergency Department on the above date and was hospitalized for further evaluation of their emergent condition. - New Patient This patient is new to me today: No - Critical Care Critical Care patient: Yes Total Critical Care Time (in minutes): 35 Critical Care Statement: The care of this patient involved high complexity decision making to prevent further life threatening deterioration of the patient 's condition and/or to evaluate & treat vital organ system(s) failure or risk of failure.
[2018-05-29] MEDS ORDERED: ATORVASTATIN CA 40 MG TABLET (FP) PO SCH (22:00)
== END 2018-05-29 17:02 | disposition home or self-care (01) | DRG 100 ==
LOC: JER 16:45 → JERBED 20:37 → JICU 22:02
PROVIDERS: ADMIT Internal Medicine; ATTEND Family Medicine
PROC: 5A1935Z Respiratory Ventilation, Less than 24 Consecutive Hours (ICD-10-PCS; principal; 2018-05-26)
PROC: 0BH17EZ Insertion of Endotracheal Airway into Trachea, Via Natural or Artificial Opening (ICD-10-PCS; 2018-05-26)
PROC: 02H633Z Insertion of Infusion Device into Right Atrium, Percutaneous Approach (ICD-10-PCS; 2018-05-26)
DX: G40.909 Epilepsy, unspecified, not intractable, without status epilepticus (principal); J96.00 Acute respiratory failure, unspecified whether with hypoxia or hypercapnia; E87.2 Acidosis; Z68.43 Body mass index [BMI] 50.0-59.9, adult; E66.01 Morbid (severe) obesity due to excess calories; I48.91 Unspecified atrial fibrillation; J44.9 Chronic obstructive pulmonary disease, unspecified; Z86.718 Personal history of other venous thrombosis and embolism; Z86.73 Personal history of transient ischemic attack (TIA), and cerebral infarction without residual deficits; I11.0 Hypertensive heart disease with heart failure; E78.5 Hyperlipidemia, unspecified; Z79.01 Long term (current) use of anticoagulants; I50.9 Heart failure, unspecified; E11.9 Type 2 diabetes mellitus without complications; Z79.4 Long term (current) use of insulin; M25.562 Pain in left knee; Z87.891 Personal history of nicotine dependence; C61 Malignant neoplasm of prostate; C67.9 Malignant neoplasm of bladder, unspecified; R55 Syncope and collapse; I25.10 Atherosclerotic heart disease of native coronary artery without angina pectoris; W19.XXXA Unspecified fall, initial encounter; Y93.89 Activity, other specified; Y92.098 Other place in other non-institutional residence as the place of occurrence of the external cause; Y99.8 Other external cause status
CPT/HCPCS: 36415; 36600; 70450-TC; 71045-TC-FY; 72125-TC; 72128-TC; 72131-TC; 80048; 80053; 80164; 80307; 81003; 81015; 82375; 82550; 82553; 82803; 82962; 83050; 83605; 83735; 84100; 84146; 84484; 85025; 85027; 85610; 85730; 86850; 86900; 86901; 87086; 93005; 93010; 94002; 97116-GP; 97161-GP; 99285-25; J1644

== ENCOUNTER 2018-09-29 16:51 | Inpatient (IN) | payer MEDICARE, OTHER ==
[2018-09-29 17:02] VITALS: BMI 56.5
--- NOTE | 2018-09-29 17:02 | PDOC ---
History of Present Illness - General Chief Complaint: Edema Stated Complaint: LEG PAIN Time Seen by Provider: 09/29/18 17:02 - History of Present Illness Initial Comments: 68 year old male morbidly obese male with a PMH of AFib (on Xarelto), HTN, HLD , DM, Prostate CA, Bladder CA, lymphedema and chronic L knee pain (ambulates intermittently with a walker but now states he is now mostly wheelchair bound) presents to the ED fro left knee pain, swelling, and warmth that he states isn' t any worse except for the pain. Denies fevers, chills, nausea, vomiting, diarrhea, chest pain, SOB, headaches, palpitations, or other symptoms. 09/29/18 17:03 Past History - Past Medical History Allergies/Adverse Reactions: Allergies Allergy/AdvReac Type Severity Reaction Status Date / Time amoxicillin Allergy Mild Rash Verified 09/29/18 17:01 carbamazepine [From Tegretol] Allergy Mild Rash Verified 09/29/18 17:01 cephalexin [Cephalexin] Allergy Mild Rash Verified 09/29/18 17:01 ciprofloxacin Allergy Mild Rash Verified 09/29/18 17:01 fluconazole Allergy Mild Verified 09/29/18 17:01 lamotrigine [From Lamictal] Allergy Mild Rash Verified 09/29/18 17:01 metronidazole Allergy Mild Rash Verified 09/29/18 17:01 phenobarbital Allergy Mild Rash Verified 09/29/18 17:01 phenytoin sodium Allergy Mild Rash Verified 09/29/18 17:01 [From Dilantin] phenytoin sodium extended Allergy Mild Rash Verified 09/29/18 17:01 [From Dilantin] sulfamethoxazole Allergy Mild Rash Verified 09/29/18 17:01 [From Sulfatrim] trimethoprim [From Sulfatrim] Allergy Mild Rash Verified 09/29/18 17:01 amoxicillin trihydrate Allergy Unknown Verified 09/29/18 17:01 [From Augmentin] potassium clavulanate Allergy Unknown Verified 09/29/18 17:01 [From Augmentin] shrimp Allergy Verified 09/29/18 17:01 SHRIMP Allergy Mild Rash Uncoded 09/29/18 17:01 ciproflux Allergy Uncoded 09/29/18 17:01 shrimp Allergy Uncoded 09/29/18 17:01 Home Medications: Ambulatory Orders Aspirin 81 mg PO DAILY 09/29/18 Atorvastatin Ca [Lipitor] 20 mg PO HS 09/29/18 Bicalutamide 50 mg PO DAILY 09/29/18 Citalopram Hydrobromide [Celexa -] 10 mg PO DAILY 09/29/18 Clonazepam 5 mg PO TID 09/29/18 Divalproex [Depakote -] 500 mg PO BID 09/29/18 Ferrous Sulfate [Ferosul] 220 mg PO BID 09/29/18 Fesoterodine Fumarate [Toviaz] 4 mg PO DAILY 09/29/18 Folic Acid 1 mg PO DAILY 09/29/18 Levetiracetam 1,000 mg PO TID 09/29/18 Lisinopril [Zestril] 5 mg PO DAILY 09/29/18 Magnesium Oxide [Magnesium] 500 mg PO BID 09/29/18 Nitrofurantoin Macrocrystal [Nitrofurantoin] 100 mg PO BID 09/29/18 Oxybutynin Chloride [Ditropan Xl] 10 mg PO DAILY 09/29/18 Ranolazine [Ranexa -] 500 mg PO BID 09/29/18 Rivaroxaban [Xarelto -] 20 mg PO DAILY 09/29/18 Tamsulosin HCl [Flomax] 0.4 mg PO DAILY 09/29/18 Anemia: No Asthma: Yes Cancer: Yes (bladder, prostate) Cardiac Disorders: Yes (ANGINA, RLE DVT) CVA: Yes (rt side) COPD: Yes CHF: (atrial fib,) DVT: Yes Dementia: No Diabetes: Yes Dialysis: No GI Disorders: No Disorders: Yes (renal stones) HTN: Yes Hypercholesterolemia: Yes Kidney Stones: Yes Liver Disease: No Seizures: Yes Thyroid Disease: No Lung CA: No - Surgical History Abdominal Surgery: Yes (Hernia repair) Appendectomy: Yes Cardiac Surgery: Yes (stentx2) Cholecystectomy: Yes Gastric Stapling: No GI Surgery: No Lung Surgery: No Neurologic Surgery: No Orthopedic Surgery: Yes (ORIF LUE) - Immunization History Immunization Up to Date: Yes - Suicide/Smoking/Psychosocial Hx Smoking Status: No Smoking History: Never smoked Have you smoked in the past 12 months: No Number of Cigarettes Smoked Daily: 0 If you are a former smoker, when did you quit?: 25+ years Information on smoking cessation initiated: No Hx Alcohol Use: No Drug/Substance Use Hx: No Substance Use Type: None Hx Substance Use Treatment: No Review of Systems - Review of Systems Constitutional: No: Chills, Diaphoresis, Fever, Loss of Appetite HEENTM: No: Eye Pain, Blurred Vision, Tearing Respiratory: No: Cough, Orthopnea, Shortness of Breath Cardiac (ROS): Yes: Edema. No: Irregular Heart Rate, Lightheadedness, Palpitations ABD/GI: No: Diarrhea, Nausea, Vomiting : No: Burning, Dysuria Musculoskeletal: Yes: Joint Pain, Joint Swelling, Joint Stiffness. No: Back Pain Integumentary: Yes: Erythema, Lesions, Rash. No: Bruising Neurological: No: Numbness, Paresthesia, Tremors Psychiatric: No: Anxiety, Depression Hematologic/Lymphatic: No: Anemia, Blood Clots, Easy Bleeding *Physical Exam - Vital Signs Last Vital Signs Temp Pulse Resp BP Pulse Ox 97.0 F L 73 16 120/63 100 09/29/18 16:51 09/29/18 16:51 09/29/18 16:51 09/29/18 16:51 09/29/18 16:51 - Physical Exam General Appearance: Yes: Nourished, Appropriately Dressed, Obese. No: Apparent Distress HEENT: positive: EOMI, JULIETA, Normal ENT Inspection, Normal Voice Neck: positive: Trachea midline, Normal Thyroid, Supple. negative: Tender, Rigid Respiratory/Chest: positive: Lungs Clear, Normal Breath Sounds. negative: Chest Tender, Respiratory Distress, Accessory Muscle Use Cardiovascular: positive: Regular Rhythm, Regular Rate Gastrointestinal/Abdominal: positive: Normal Bowel Sounds, Flat, Soft. negative : Tender Lymphatic: negative: Adenopathy, Tenderness Musculoskeletal: positive: Decreased Range of Motion (left knee with decreased passive and active ROM because of swelling and pain). negative: Normal Inspection Integumentary: positive: Normal Color, Dry, Warm, Erythema (erythematous left knee pain), Rash Neurologic: positive: Fully Oriented, Alert, Normal Mood/Affect, Normal Response , Motor Strength 5/5 Moderate Sedation - Procedure Monitoring Vital Signs: Procedure Monitoring Vital Signs Temperature 97.0 F L 09/29/18 16:51 Pulse Rate 73 09/29/18 16:51 Respiratory Rate 16 09/29/18 16:51 Blood Pressure 120/63 09/29/18 16:51 O2 Sat by Pulse Oximetry (%) 100 09/29/18 16:51 ED Treatment Course - LABORATORY CBC & Chemistry Diagram: 09/29/18 18:20 09/29/18 18:20 Medical Decision Making - Medical Decision Making 68 year old with left knee swelling, erythema, and pain concerning for cellulites and deep space vs. joint infection. US demonstrates subcutaneous cobblestoning but intrarticular space difficult to discern. Knee X ray also corroborating subcutaneous infection. Small leukocytosis at 11.7, ESR and CRP also elevated. Given Vanc + aztreonam and signed out to EVELIA Maza for further workup. 09/29/18 22:17 *DC/Admit/Observation/Transfer Diagnosis at time of Disposition: Swelling of knee joint, left Cellulitis Qualifiers: Site of cellulitis: extremity Site of cellulitis of extremity: lower extremity Laterality: left Qualified Code(s): L03.116 - Cellulitis of left lower limb - Discharge Dispostion Condition at time of disposition: Stable Decision to Admit order: Yes - Referrals Referrals: Ruth Suazo MD [Primary Care Provider] - - Patient Instructions - Post Discharge Activity
--- NOTE | 2018-09-29 18:12 | PDOC ---
Attending Attestation - Resident Resident Name: Logan Rashid - ED Attending Attestation I have performed the following: I have examined & evaluated the patient, The case was reviewed & discussed with the resident, I agree w/resident's findings & plan, Exceptions are as noted - Physicial Exam PE: 09/29/18 18:08 awake alert lungs clear bilaterally heart rrr nomrg abd soft obses nt. ext wwp. bilat pitting brawning edema. left knee with noted fluid collection. erythema warmth. overlying skin breakdown and cellulitis. able to bend knee to 40 degrees , pain with rom. no instability. skin with warmth, redness, breakdown over knee. nuero alrt oriented x 3. - Medical Decision Making 09/29/18 18:10 pt with left knee cellutlitis. differential includes septic arthritis vs. infected bursitis. plan iv abx. focused ed ultrasound performed left knee. fluid collectio noted above joint surrounding cobblestoning with fluid in tissue consistent with cellulitis and edema. poor visualization of joint space due to body habitus. plan labs cbc sed rate crp xray knee, possible ct evaluate fluid collection will require admission, ortho consult. at this point will not tap knee due to concerns for overlying cellulitis. <Amy Castillo - Last Filed: 09/29/18 18:08> - HPI HPI: This patient is 68 M, with PMHx of AFib (on Xarelto), HTN, HLD, DM, Prostate CA , Bladder CA, lymphedema and chronic L knee pain (ambulates intermittently with a walker but now states he is now mostly wheelchair bound) presents to the ED for left knee pain, swelling, erythema and warmth. He states that he fell on Aug 19, 2018 while in [place]. He states he took Tylenol without relief and states he came her today because the pain has not been getting any better. Denies fevers, chills, nausea, vomiting, diarrhea, chest pain, SOB, headaches, palpitations, or other symptoms PCP: Ruth Suazo 09/29/18 18:17 <Penny Duran - Last Filed: 09/29/18 18:17>
[2018-09-29 18:41] LABS: BASO % 0.1 % (0-2.0); EOS % 1.2 % (0-4.5); HEMATOCRIT 33.5 % (35.4-49); HEMOGLOBIN 11.2 GM/dL (11.7-16.9); LYMPH % 4.6 % (8-40); MCH 27.6 pg (25.7-33.7); MCHC 33.5 g/dl (32.0-35.9); MEAN CELL VOLUME 82.4 fl (80-96); MEAN PLT VOLUME 9.2 fl (7.5-11.1); NEUT % 79.1 % (42.8-82.8); PLATELET COUNT 180 K/MM3 (134-434); RBC 4.06 M/mm3 (4.00-5.60); RDW 15.6 % (11.9-15.9); WHITE BLOOD COUNT 11.7 K/mm3 (4.0-10.0)
[2018-09-29] MEDS ORDERED: VANCOMYCIN 1 GRAM (PRE-DOCKED) 1,000 MG/250 ML BAG IVPB ONE ×2 (19:14→21:45)
[2018-09-29] MEDS ORDERED: AZTREONAM 1 GM VIAL (RESTRICTED TO ID) IVPB ONE (19:15)
[2018-09-29 19:23] LABS: INR 1.78 (0.83-1.09); PROTHROMBIN TIME (PATIENT) 21.1 SEC (9.7-13.0)
--- NOTE | 2018-09-29 19:33 | PDOC ---
*Physical Exam - Vital Signs Last Vital Signs Temp Pulse Resp BP Pulse Ox 97.0 F L 73 16 120/63 100 09/29/18 16:51 09/29/18 16:51 09/29/18 16:51 09/29/18 16:51 09/29/18 16:51 <Jessie Rice - Last Filed: 09/29/18 22:29> - Vital Signs Last Vital Signs Temp Pulse Resp BP Pulse Ox 97.0 F L 73 16 120/63 100 09/29/18 16:51 09/29/18 16:51 09/29/18 16:51 09/29/18 16:51 09/29/18 16:51 <Penny Duran - Last Filed: 09/29/18 22:42> Heart Score/ECG Review - ECG Intrepretation Rhythm: Regular Rhythm - [place]: Normal <Jessie Rice - Last Filed: 09/29/18 22:29> ED Treatment Course - LABORATORY CBC & Chemistry Diagram: 09/29/18 18:20 09/29/18 18:20 - ADDITIONAL ORDERS Additional order review: Laboratory Results 09/29/18 09/29/18 18:50 18:20 PT with INR 21.10 H INR 1.78 H C-Reactive Protein Cancelled 09/29/18 18:20 RBC 4.06 MCV 82.4 MCHC 33.5 RDW 15.6 MPV 9.2 Neutrophils % 79.1 Lymphocytes % 4.6 L D Monocytes % 15.0 H Eosinophils % 1.2 Basophils % 0.1 <Jessie Rice - Last Filed: 09/29/18 22:29> - LABORATORY CBC & Chemistry Diagram: 09/29/18 18:20 09/29/18 18:20 - ADDITIONAL ORDERS Additional order review: Laboratory Results 09/29/18 09/29/18 09/29/18 18:50 18:20 18:20 PT with INR INR Sodium 136 Potassium 4.7 Chloride 99 Carbon Dioxide 28 Anion Gap 9 BUN 19 H Creatinine 1.2 Creat Clearance w eGFR > 60 Random Glucose 151 H Calcium 9.1 Total Bilirubin 0.3 AST 20 ALT 15 Alkaline Phosphatase 103 C-Reactive Protein Cancelled 5.1 H Total Protein 7.4 Albumin 3.6 Blood Type Cancelled Antibody Screen Cancelled 12/07/18 18:20 PT with INR 21.10 H INR 1.78 H Sodium Potassium Chloride Carbon Dioxide Anion Gap BUN Creatinine Creat Clearance w eGFR Random Glucose Calcium Total Bilirubin AST ALT Alkaline Phosphatase C-Reactive Protein Total Protein Albumin Blood Type Antibody Screen 09/29/18 18:20 RBC 4.06 MCV 82.4 MCHC 33.5 RDW 15.6 MPV 9.2 Neutrophils % 79.1 Lymphocytes % 4.6 L D Monocytes % 15.0 H Eosinophils % 1.2 Basophils % 0.1 - Medications Given in the ED: ED Medications Discontinued Medications Generic Name Dose Route Start Last Admin Trade Name Jamia PRN Reason Stop Dose Admin Aztreonam 1 gm 09/29/18 19:15 09/29/18 22:00 Azactam (Restricted To Id) - IVPB 09/29/18 19:16 1 gm ONCE ONE Administration Protocol Vancomycin HCl 1,000 mg 09/29/18 19:14 09/29/18 21:44 Vancomycin (Pre-Docked) IVPB 09/29/18 19:15 1,000 mg ONCE ONE Administration Protocol <Penny Duran - Last Filed: 09/29/18 22:42> Medical Decision Making - Medical Decision Making 09/29/18 19:32 Received pt on signout. Pt will be admitted for his cellulitic knee and likely bursitits. He is allergic to PCN, so will be treated with vancomycin and aztreonam. 09/29/18 22:29 Pt states that a few months ago he fell in the bathroom and cut the knee. Since then he has had pain and difficulty bending the knee. He has prepatellar swelling. Elevated WBC count as well as C-RP and sed rate. We will notify ortho line service person of the patient in case they need to take the pt to the OR for joint tap. We will defer from tapping the joint in the ER, as there is no way to place a needle without contacting cellulitic skin <Jessie Rice - Last Filed: 09/29/18 22:29> - Medical Decision Making Placed call to ortho service for Dr. Bedolla/Hi ....was on hold for 15 mins, no answer Called Dr. Bedolla cellphone and left a message. 09/29/18 22:40 <Penny Duran - Last Filed: 09/29/18 22:42> *DC/Admit/Observation/Transfer <RiceJessie - Last Filed: 09/29/18 22:29> <Penny Duran - Last Filed: 09/29/18 22:42> Diagnosis at time of Disposition: Swelling of knee joint, left Cellulitis Qualifiers: Site of cellulitis: extremity Site of cellulitis of extremity: lower extremity Laterality: left Qualified Code(s): L03.116 - Cellulitis of left lower limb - Discharge Dispostion Condition at time of disposition: Stable - Referrals Referrals: Ruth Suazo MD [Primary Care Provider] - - Patient Instructions - Post Discharge Activity
[2018-09-29 19:45] LABS: ALBUMIN 3.6 g/dl (3.4-5.0); ALK PHOS 103 U/L (45-117); ANION GAP 9 MMOL/L (8-16); BILIRUBIN,TOTAL 0.3 mg/dL (0.2-1); BLOOD UREA NITROGEN 19 mg/dL (7-18); CALCIUM 9.1 mg/dL (8.5-10.1); CHLORIDE 99 mmol/L (98-107); CO2 28 mmol/L (21-32); CREATININE 1.2 mg/dL (0.55-1.3); GLUCOSE,RANDOM 151 mg/dL (74-106); POTASSIUM 4.7 mmol/L (3.5-5.1); SGOT/AST 20 U/L (15-37); SGPT/ALT 15 U/L (13-61); SODIUM 136 mmol/L (136-145); TOT PROT 7.4 g/dl (6.4-8.2)
--- NOTE | 2018-09-29 22:35 | HP ---
Admitting History and Physical - Primary Care Physician PCP: Ruth Suazo - Admission Chief Complaint: L-knee pain, swelling History of Present Illness: 68 y/o man from home PMHx of: Afib (on Xarelto), HTN, HLD, Prostate Ca, Bladder Ca, Lymphedema, Chronic L- knee pain (ambulates intermittently with a walker but now states he is now mostly wheelchair bound). Who presents to the ED for increased pain, swelling and redness to L-knee. He states that he fell on Aug 19, 2018 while in [place]. He states he took Tylenol without relief and states he came here today because the pain has not been getting any better. Patient denies fevers, chills, cough, SOB, dizziness, CP, palpitations, AP, N/V/ D, constipation, dysuria. 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 Cardiovascular: Yes: CAD, Deep Vein Thrombosis, HTN, Other (paroxysmal atrial fibrillation) Pulmonary: Yes: COPD Gastrointestinal: Yes: Diverticulosis, Diverticulitis, Other Renal/: Yes: Hematuria, Renal Calculi Heme/Onc: Yes: Cancer (bladder cancer, prostate cancer) Psych: Yes: Anxiety Endocrine: Yes: Diabetes Mellitus - Past Surgical History Past Surgical History: Yes: Hernia Repair, Appendectomy, Joint Replacement, Cholecystectomy - Smoking History Smoking history: Never smoked Have you smoked in the past 12 months: No Aproximately how many cigarettes per day: 0 If you are a former smoker, when did you quit?: 25+ years - Alcohol/Substance Use Hx Alcohol Use: No History of Substance Use: reports: None - Social History ADL: Independent History of Recent Travel: No Home Medications - Allergies Allergies/Adverse Reactions: Allergies Allergy/AdvReac Type Severity Reaction Status Date / Time amoxicillin Allergy Mild Rash Verified 09/29/18 17:01 carbamazepine [From Tegretol] Allergy Mild Rash Verified 09/29/18 17:01 cephalexin [Cephalexin] Allergy Mild Rash Verified 09/29/18 17:01 ciprofloxacin Allergy Mild Rash Verified 09/29/18 17:01 fluconazole Allergy Mild Verified 09/29/18 17:01 lamotrigine [From Lamictal] Allergy Mild Rash Verified 09/29/18 17:01 metronidazole Allergy Mild Rash Verified 09/29/18 17:01 phenobarbital Allergy Mild Rash Verified 09/29/18 17:01 phenytoin sodium Allergy Mild Rash Verified 09/29/18 17:01 [From Dilantin] phenytoin sodium extended Allergy Mild Rash Verified 09/29/18 17:01 [From Dilantin] sulfamethoxazole Allergy Mild Rash Verified 09/29/18 17:01 [From Sulfatrim] trimethoprim [From Sulfatrim] Allergy Mild Rash Verified 09/29/18 17:01 amoxicillin trihydrate Allergy Unknown Verified 09/29/18 17:01 [From Augmentin] potassium clavulanate Allergy Unknown Verified 09/29/18 17:01 [From Augmentin] shrimp Allergy Verified 09/29/18 17:01 SHRIMP Allergy Mild Rash Uncoded 09/29/18 17:01 ciproflux Allergy Uncoded 09/29/18 17:01 shrimp Allergy Uncoded 09/29/18 17:01 - Home Medications Home Medications: Ambulatory Orders Aspirin 81 mg PO DAILY 09/29/18 Atorvastatin Ca [Lipitor] 20 mg PO HS 09/29/18 Bicalutamide 50 mg PO DAILY 09/29/18 Citalopram Hydrobromide [Celexa -] 10 mg PO DAILY 09/29/18 Clonazepam 5 mg PO TID 09/29/18 Divalproex [Depakote -] 500 mg PO BID 09/29/18 Ferrous Sulfate [Ferosul] 220 mg PO BID 09/29/18 Fesoterodine Fumarate [Toviaz] 4 mg PO DAILY 09/29/18 Folic Acid 1 mg PO DAILY 09/29/18 Levetiracetam 1,000 mg PO TID 09/29/18 Lisinopril [Zestril] 5 mg PO DAILY 09/29/18 Magnesium Oxide [Magnesium] 500 mg PO BID 09/29/18 Nitrofurantoin Macrocrystal [Nitrofurantoin] 100 mg PO BID 09/29/18 Oxybutynin Chloride [Ditropan Xl] 10 mg PO DAILY 09/29/18 Ranolazine [Ranexa -] 500 mg PO BID 09/29/18 Rivaroxaban [Xarelto -] 20 mg PO DAILY 09/29/18 Tamsulosin HCl [Flomax] 0.4 mg PO DAILY 09/29/18 Family Disease History - Family Disease History Family Disease History: Diabetes: Mother (htn), CA: Father, Other: Mother Review of Systems - Review of Systems Constitutional: reports: No Symptoms Eyes: reports: No Symptoms HENT: reports: No Symptoms Neck: reports: No Symptoms Cardiovascular: reports: No Symptoms Respiratory: reports: No Symptoms Gastrointestinal: reports: No Symptoms Genitourinary: reports: No Symptoms Breasts: reports: No Symptoms Reported Musculoskeletal: reports: Decreased ROM, Extremity Pain, Joint Pain, Joint Swelling Integumentary: reports: Erythema Neurological: reports: No Symptoms Endocrine: reports: No Symptoms Hematology/Lymphatic: reports: No Symptoms Psychiatric: reports: No Symptoms Physical Examination Vital Signs: Vital Signs Temperature 97.0 F L 09/29/18 16:51 Pulse Rate 73 09/29/18 16:51 Respiratory Rate 16 09/29/18 16:51 Blood Pressure 120/63 09/29/18 16:51 O2 Sat by Pulse Oximetry (%) 100 09/29/18 16:51 Constitutional: Yes: Well Nourished, Calm, Mild Distress, Obese Eyes: Yes: WNL, Conjunctiva Clear, EOM Intact, PERRL HENT: Yes: WNL, Atraumatic, Normocephalic Neck: Yes: WNL, Supple, Trachea Midline Cardiovascular: Yes: WNL, Regular Rate and Rhythm, S1, S2 Respiratory: Yes: WNL, Regular, CTA Bilaterally Gastrointestinal: Yes: Normal Bowel Sounds, Soft, Abdomen, Obese ...Rectal Exam: Yes: Deferred Renal/: Yes: WNL Breast(s): Yes: WNL Musculoskeletal: Yes: Joint Stiffness, Joint Swelling Extremities: Yes: Erythema (hardness, thick, warmth, skin with cobbling around L - knee.) Edema: Yes Edema: LLE: 3+, RLE: 3+ Peripheral Pulses WNL: Yes Integumentary: Yes: Erythema, Venous Stasis Changes Neurological: Yes: WNL, Alert, Oriented, Cran Nerves II-XII Intact ...Motor Strength: WNL Psychiatric: Yes: WNL, Alert, Oriented Labs: CBC, BMP 09/29/18 18:20 09/29/18 18:20 Laboratory Results - last 24 hr 09/29/18 09/29/18 09/29/18 18:20 18:20 18:20 WBC 11.7 H RBC 4.06 Hgb 11.2 L Hct 33.5 L MCV 82.4 MCH 27.6 MCHC 33.5 RDW 15.6 Plt Count 180 D MPV 9.2 Absolute Neuts (auto) 9.2 H Neutrophils % 79.1 Lymphocytes % 4.6 L D Monocytes % 15.0 H Eosinophils % 1.2 Basophils % 0.1 Nucleated RBC % 0 ESR PT with INR 21.10 H INR 1.78 H Sodium 136 Potassium 4.7 Chloride 99 Carbon Dioxide 28 Anion Gap 9 BUN 19 H Creatinine 1.2 Creat Clearance w eGFR > 60 Random Glucose 151 H Calcium 9.1 Total Bilirubin 0.3 AST 20 ALT 15 Alkaline Phosphatase 103 C-Reactive Protein 5.1 H Total Protein 7.4 Albumin 3.6 Blood Type Antibody Screen 09/29/18 09/29/18 09/29/18 18:20 18:50 18:50 WBC RBC Hgb Hct MCV MCH MCHC RDW Plt Count MPV Absolute Neuts (auto) Neutrophils % Lymphocytes % Monocytes % Eosinophils % Basophils % Nucleated RBC % ESR 55 H PT with INR INR Sodium Potassium Chloride Carbon Dioxide Anion Gap BUN Creatinine Creat Clearance w eGFR Random Glucose Calcium Total Bilirubin AST ALT Alkaline Phosphatase C-Reactive Protein Cancelled Total Protein Albumin Blood Type Cancelled Antibody Screen Cancelled Current Medications Generic Name Dose Route Start Last Admin Trade Name Freq PRN Reason Stop Dose Admin Aspirin 81 mg 09/30/18 10:00 Asa - PO DAILY [facility] Atorvastatin Calcium 20 mg 09/29/18 22:00 09/30/18 01:40 Lipitor - PO 20 mg HS MICHEL Administration Bicalutamide 50 mg 09/30/18 10:00 Casodex - PO DAILY [facility] Citalopram Hydrobromide 10 mg 09/30/18 10:00 Celexa - PO DAILY [facility] Divalproex Sodium 500 mg 09/29/18 22:45 09/30/18 01:40 Depakote - PO 500 mg BID MICHEL Administration Ferrous Sulfate 325 mg 09/30/18 10:00 Feosol - PO BID [facility] Folic Acid 1 mg 09/30/18 10:00 Folic Acid - PO DAILY [facility] Aztreonam 1 gm/ Dextrose 50 mls @ 100 mls/hr 09/30/18 18:00 IVPB Q8H-IV MICHEL Protocol Levetiracetam 1,000 mg 09/29/18 22:45 09/30/18 07:04 Keppra - PO Not Given TID [facility] Lisinopril 5 mg 09/30/18 10:00 Prinivil PO DAILY [facility] Magnesium Oxide 400 mg 09/30/18 10:00 Mag-Ox - PO BID [facility] Morphine Sulfate 4 mg 09/30/18 00:37 Morphine Sulfate IVPUSH Q4H PRN PAIN LEVEL 7 - 10 Ranolazine 500 mg 09/30/18 10:00 Ranexa - PO BID [facility] Rivaroxaban 20 mg 09/30/18 10:00 Xarelto - PO DAILY [facility] Solifenacin 5 mg 09/30/18 10:00 Vesicare - PO DAILY [facility] Tolterodine Tartrate 4 mg 09/30/18 10:00 Detrol La - PO DAILY [facility] Intake & Output 09/27/18 09/28/18 09/29/18 09/30/18 23:59 23:59 23:59 23:59 Intake Total 500 Balance 500 Weight 154.221 kg 154.221 kg Problem List - Problems (1) Cellulitis Assessment/Plan: Blood cultures-pending ESR, CRP elevated WBC 11.7 Started on Aztreonam and Vancomycin in ED, will continue Tylenol prn Elevate extremity Appreciate ID consult Monitor CBC, BMP Code(s): L03.90 - CELLULITIS, UNSPECIFIED Qualifiers: Site of cellulitis: extremity Site of cellulitis of extremity: lower extremity Laterality: left Qualified Code(s): L03.116 - Cellulitis of left lower limb (2) Swelling of knee joint, left Assessment/Plan: septic arthritis vs infected bursitis s/p mechanical fall 08/19/18 in [place] Xray- reviewed Appreciate Ortho consult Appreciate ID consult Continue Aztreonam, Vancomycin ESR, CRP elevated Tylenol prn Morphine Sulfate judiciously for severe pain Monitor CBC, BMP Monitor vitals Code(s): M25.462 - EFFUSION, LEFT KNEE (3) CAD (coronary artery disease) of artery bypass graft Assessment/Plan: stable s/p stents continue home meds Code(s): I25.810 - ATHEROSCLEROSIS OF CABG W/O ANGINA PECTORIS (4) CHF (congestive heart failure) Assessment/Plan: stable continue home meds Code(s): I50.9 - HEART FAILURE, UNSPECIFIED (5) COPD (chronic obstructive pulmonary disease) Assessment/Plan: stable continue home meds O2 Code(s): J44.9 - CHRONIC OBSTRUCTIVE PULMONARY DISEASE, UNSPECIFIED (6) History of DVT of lower extremity Assessment/Plan: Continue Xarelto Code(s): Z86.718 - PERSONAL HISTORY OF OTHER VENOUS THROMBOSIS AND EMBOLISM (7) History of ESBL E. coli infection Code(s): Z86.19 - PERSONAL HISTORY OF OTHER INFECTIOUS AND PARASITIC DISEASES (8) Hyperlipidemia Assessment/Plan: Continue home med Monitor LFTs Code(s): E78.5 - HYPERLIPIDEMIA, UNSPECIFIED (9) Hypertension Assessment/Plan: stable Monitor BP Continue home meds Monitor renal function Code(s): I10 - ESSENTIAL (PRIMARY) HYPERTENSION Qualifiers: Hypertension type: essential hypertension Qualified Code(s): I10 - Essential (primary) hypertension (10) Lymphedema Assessment/Plan: Duplex of LE r/o DVT Wells Score 2 Continue Xarelto Consider compression stockings Elevate extremities Code(s): I89.0 - LYMPHEDEMA, NOT ELSEWHERE CLASSIFIED (11) Prostate cancer Assessment/Plan: Continue bicalutamide f/u with Urology in outpatient setting as indicated Code(s): C61 - MALIGNANT NEOPLASM OF PROSTATE (12) Seizure Assessment/Plan: controlled Continue home meds Seizure Precautions Fall precautions Code(s): R56.9 - UNSPECIFIED CONVULSIONS Assessment/Plan 68 y/o man Admitted for L- Knee Cellulitis with pre Patellar Effusion for further evaluation of their emergent condition. Plan: FEN Fluid Restriction 1L Replete lytes prn Low Na Diet DVT ppx OOB Continue Xarelto Dispo: Requires Inpatient Care Visit type - Emergency Visit Emergency Visit: Yes ED Registration Date: 09/29/18 Care time: The patient presented to the Emergency Department on the above date and was hospitalized for further evaluation of their emergent condition. - New Patient This patient is new to me today: Yes Date on this admission: 09/29/18 - Critical Care Critical Care patient: No
[2018-09-30] MEDS ORDERED: morphine SULFATE 4 MG/ML VIAL IVPUSH PRN (00:37)
[2018-09-30] MEDS ORDERED: morphine SULFATE 4 MG/ML VIAL ONE (00:50)
[2018-09-30] MEDS ORDERED: levETIRAcetam 500 MG TABLET (FP) PO ONE (01:33)
[2018-09-30] MEDS ORDERED: ATORVASTATIN CA 10 MG TABLET (FP) ONE (01:34)
[2018-09-30] MEDS ORDERED: DIVALPROEX SODIUM 125 MG TABLET E.C. ONE (01:34)
[2018-09-30] MEDS: DIVALPROEX SODIUM 500 MG TABLET E.C. PO SCH ×3 (01:40→23:01)
[2018-09-30] MEDS: levETIRAcetam 500 MG TABLET (FP) PO SCH ×4 (01:40→23:00)
[2018-09-30] MEDS: ATORVASTATIN CA 20 MG TABLET (FP) PO SCH ×2 (01:40→23:00)
[2018-09-30 05:40] LABS: EOS % 1.5 % (0-4.5); HEMATOCRIT 33.9 % (35.4-49); HEMOGLOBIN 10.7 GM/dL (11.7-16.9); LYMPH % 6.4 % (8-40); MCH 26.3 pg (25.7-33.7); MCHC 31.6 g/dl (32.0-35.9); MEAN CELL VOLUME 83.2 fl (80-96); MEAN PLT VOLUME 8.3 fl (7.5-11.1); MONO % 18.2 % (3.8-10.2); NEUT % 72.9 % (42.8-82.8); PLATELET COUNT 159 K/MM3 (134-434); RBC 4.08 M/mm3 (4.00-5.60); RDW 15.7 % (11.9-15.9); WHITE BLOOD COUNT 8.8 K/mm3 (4.0-10.0)
[2018-09-30] MEDS ORDERED: AZTREONAM 1 GM in DEXTROSE 5%-WATER - 50 ML IVPB ONE (06:00)
[2018-09-30 06:06] LABS: ANION GAP 8 MMOL/L (8-16); BLOOD UREA NITROGEN 15 mg/dL (7-18); CALCIUM 8.5 mg/dL (8.5-10.1); CHLORIDE 99 mmol/L (98-107); CO2 28 mmol/L (21-32); CREATININE 1.1 mg/dL (0.55-1.3); GLUCOSE,RANDOM 110 mg/dL (74-106); POTASSIUM 4.3 mmol/L (3.5-5.1); SODIUM 135 mmol/L (136-145)
[2018-09-30] MEDS: ASPIRIN 81 MG CHEWABLE TABLETS PO SCH (11:14)
[2018-09-30] MEDS: BICALUTAMIDE 50 MG TABLET (FP) PO SCH (11:15)
[2018-09-30] MEDS: CITALOPRAM HYDROBROMIDE 10 MG TABLET (FP) PO SCH (11:15)
[2018-09-30] MEDS: MAGNESIUM OXIDE 400 MG TABLET (FP) PO SCH ×2 (11:16→23:00)
[2018-09-30] MEDS: TOLTERODINE TARTRATE LA 4 MG CAP.SR.24H (FP) PO SCH (11:16)
[2018-09-30] MEDS: SOLIFENACIN SUCCINATE 5 MG TAB (FP) PO SCH (11:16)
[2018-09-30] MEDS: RANOLAZINE E.R. 500 MG TABLET (FP) PO SCH ×2 (11:16→23:00)
[2018-09-30] MEDS: LISINOPRIL 5 MG TABLET (FP) PO SCH (11:16)
[2018-09-30] MEDS: FERROUS SO4 325 MG TABLET (FP) PO SCH ×2 (11:16→23:01)
[2018-09-30] MEDS: FOLIC ACID 1 MG TABLET (FP) PO SCH (11:16)
[2018-09-30] MEDS: RIVAROXABAN 20 MG TABLET PO SCH (11:17)
--- NOTE | 2018-09-30 11:59 | PN ---
Progress Note, Physician - Current Medication List Current Medications: Active Medications Aspirin (Asa -) 81 mg PO DAILY [facility] Last Admin: 09/30/18 11:14 Dose: 81 mg Atorvastatin Calcium (Lipitor -) 20 mg PO HS [facility] Last Admin: 09/30/18 01:40 Dose: 20 mg Bicalutamide (Casodex -) 50 mg PO DAILY [facility] Last Admin: 09/30/18 11:15 Dose: 50 mg Citalopram Hydrobromide (Celexa -) 10 mg PO DAILY [facility] Last Admin: 09/30/18 11:15 Dose: 10 mg Divalproex Sodium (Depakote -) 500 mg PO BID [facility] Last Admin: 09/30/18 11:14 Dose: 500 mg Ferrous Sulfate (Feosol -) 325 mg PO BID [facility] Last Admin: 09/30/18 11:16 Dose: 325 mg Folic Acid (Folic Acid -) 1 mg PO DAILY [facility] Last Admin: 09/30/18 11:16 Dose: 1 mg Aztreonam 1 gm/ Dextrose 50 mls @ 100 mls/hr IVPB Q8H-IV [facility]; Protocol Levetiracetam (Keppra -) 1,000 mg PO TID [facility] Last Admin: 09/30/18 07:04 Dose: Not Given Lisinopril (Prinivil) 5 mg PO DAILY [facility] Last Admin: 09/30/18 11:16 Dose: 5 mg Magnesium Oxide (Mag-Ox -) 400 mg PO BID [facility] Last Admin: 09/30/18 11:16 Dose: 400 mg Morphine Sulfate (Morphine Sulfate) 4 mg IVPUSH Q4H PRN PRN Reason: PAIN LEVEL 7 - 10 Ranolazine (Ranexa -) 500 mg PO BID [facility] Last Admin: 09/30/18 11:16 Dose: 500 mg Rivaroxaban (Xarelto -) 20 mg PO DAILY [facility] Last Admin: 09/30/18 11:17 Dose: 20 mg Solifenacin (Vesicare -) 5 mg PO DAILY [facility] Last Admin: 09/30/18 11:16 Dose: 5 mg Tolterodine Tartrate (Detrol La -) 4 mg PO DAILY [facility] Last Admin: 09/30/18 11:16 Dose: 4 mg - Objective Vital Signs: Vital Signs Temperature 97.4 F L 09/30/18 10:49 Pulse Rate 60 09/30/18 10:49 Respiratory Rate 18 09/30/18 10:49 Blood Pressure 111/56 L 09/30/18 10:49 O2 Sat by Pulse Oximetry (%) 100 09/30/18 10:49 Cardiovascular: Yes: Regular Rate and Rhythm Respiratory: Yes: Regular, CTA Bilaterally Gastrointestinal: Yes: Normal Bowel Sounds, Soft Musculoskeletal: Yes: Joint Stiffness, Joint Swelling (left knee) Edema: Yes Labs: CBC, BMP 09/30/18 05:30 09/30/18 05:30 INR, PTT INR 1.78 (0.83-1.09) H 09/29/18 18:20 Assessment/Plan - Problems (1) Cellulitis Assessment/Plan: Blood cultures-pending ESR, CRP elevated WBC 11.7 Started on Aztreonam and Vancomycin in ED, will continue Tylenol prn Elevate extremity Appreciate ID consult Monitor CBC, BMP Code(s): L03.90 - CELLULITIS, UNSPECIFIED Qualifiers: Site of cellulitis: extremity Site of cellulitis of extremity: lower extremity Laterality: left Qualified Code(s): L03.116 - Cellulitis of left lower limb (2) Swelling of knee joint, left Assessment/Plan: septic arthritis vs infected bursitis s/p mechanical fall 08/19/18 in [place] Xray- reviewed Appreciate Ortho consult Appreciate ID consult Continue Aztreonam, Vancomycin ESR, CRP elevated Tylenol prn Morphine Sulfate judiciously for severe pain Monitor CBC, BMP Monitor vitals Code(s): M25.462 - EFFUSION, LEFT KNEE (3) CAD (coronary artery disease) of artery bypass graft Assessment/Plan: stable s/p stents continue home meds Code(s): I25.810 - ATHEROSCLEROSIS OF CABG W/O ANGINA PECTORIS (4) CHF (congestive heart failure) Assessment/Plan: stable continue home meds Code(s): I50.9 - HEART FAILURE, UNSPECIFIED (5) COPD (chronic obstructive pulmonary disease) Assessment/Plan: stable continue home meds O2 Code(s): J44.9 - CHRONIC OBSTRUCTIVE PULMONARY DISEASE, UNSPECIFIED (6) History of DVT of lower extremity Assessment/Plan: Continue Xarelto Code(s): Z86.718 - PERSONAL HISTORY OF OTHER VENOUS THROMBOSIS AND EMBOLISM (7) History of ESBL E. coli infection Code(s): Z86.19 - PERSONAL HISTORY OF OTHER INFECTIOUS AND PARASITIC DISEASES (8) Hyperlipidemia Assessment/Plan: Continue home med Monitor LFTs Code(s): E78.5 - HYPERLIPIDEMIA, UNSPECIFIED (9) Hypertension Assessment/Plan: stable Monitor BP Continue home meds Monitor renal function Code(s): I10 - ESSENTIAL (PRIMARY) HYPERTENSION Qualifiers: Hypertension type: essential hypertension Qualified Code(s): I10 - Essential (primary) hypertension (10) Lymphedema Assessment/Plan: Duplex of LE r/o DVT Wells Score 2 Continue Xarelto Consider compression stockings Elevate extremities Code(s): I89.0 - LYMPHEDEMA, NOT ELSEWHERE CLASSIFIED (11) Prostate cancer Assessment/Plan: Continue bicalutamide f/u with Urology in outpatient setting as indicated Code(s): C61 - MALIGNANT NEOPLASM OF PROSTATE (12) Seizure Assessment/Plan: controlled Continue home meds Seizure Precautions Fall precautions Code(s): R56.9 - UNSPECIFIED CONVULSIONS
--- NOTE | 2018-09-30 13:09 | PN ---
Progress Note (short form) - Note Progress Note: consult dictated prepatellar bursa aspirated aspirate c/w hematoma, no pus seen cultures sent compressive dressing placed
--- NOTE | 2018-09-30 13:43 | CONS ---
DATE OF CONSULTATION: DATE OF DICTATION: 09/30/2018 CHIEF COMPLAINT: Left knee pain and swelling. HISTORY OF PRESENT ILLNESS: This is a 68-year-old gentleman who was having increasing pain, swelling, and redness over the left knee. He had suffered a fall on August 19 and feels like the pain has been constant if not worsening since then. Pain is felt in the front of the knee. It is worse with motion and is improved at rest. He denies any radiating pain, numbness or tingling. PAST MEDICAL HISTORY: Significant for hypertension, hyperlipidemia, atrial fibrillation, bladder cancer, prostate cancer, lymphedema, chronic left knee pain. SURGICAL HISTORY: Noncontributory. MEDICATIONS: chart. Significant for Xarelto. REVIEW OF SYMPTOMS: Negative for any fever, chills, nausea, vomiting, dysuria, urinary frequency, loss of balance, vertigo, chest pain or palpitations, shortness of breath or dyspnea. PHYSICAL EXAMINATION: Vital Signs: The patient is afebrile and vital signs are stable. Extremities: Examination of the left lower extremity demonstrates diffuse swelling. There is warmth on the anterior portion of the knee. There is fluctuance anterior to the knee. The joint lines are slightly tender. There is painful range of motion from about 10 degrees to 90 degrees. Distally, sensation is intact to light touch. Capillary refill is less than seconds. EHL and FHL are intact. ASSESSMENT: Left knee anterior collection. PLAN: I reviewed today's findings with the patient. I advised that he appears to have cellulitis with a likely collection deep to this. To evaluate the collection for possible infection, I recommend aspiration. I reviewed the risk of aspiration which could potentially spread infection to an uninfected area. The patient elected to proceed. PROCEDURE: The patient was triple-prepped with Betadine. Under sterile technique, an 18-inch needle was inserted into the prepatellar bursa. Next, 20 mL of dark red blood was withdrawn. No martha pus was seen. A compressive dressing was placed. The aspirate was sent for culture and Gram stain. The patient is to continue on IV antibiotics. Follow up cultures. Compressive dressing to limit recurrence of the hematoma present. He should be out of bed to chair and have PT to mobilize his knee. AVE STATON M.D. [id number]
--- NOTE | 2018-09-30 14:51 | PN ---
Progress Note (short form) - Note Progress Note: ID CONSULT DICTATED R/O INFECTED HEMATOMA L KNEE MULTIPLE ANTIBIOTIC ALLERGIES AWAIT C/S EMPIRIC VANCOMYCIN
--- NOTE | 2018-09-30 15:39 | CONS ---
DATE OF CONSULTATION: DATE OF DICTATION: 09/30/2018 INFECTIOUS DISEASE CONSULTATION HISTORY OF PRESENT ILLNESS: This 68-year-old male is evaluated for possible infected prepatellar bursa. The patient was admitted to the hospital with left knee pain, swelling and warmth. He had apparently fallen on August 19, 2018, and sustained trauma to the left knee. He was seen in consultation by Orthopedics, where an aspirate was performed of the prepatellar bursa. No pus was obtained. It was frankly bloody, suggestive of a hematoma. Cultures were obtained. He was empirically treated with vancomycin. He has no complaints of pain at the present time and no fever or chills. White blood cell count was mildly elevated on admission and is now normal. HE HAS A HISTORY OF MULTIPLE ANTIBIOTIC ALLERGIES. PAST MEDICAL HISTORY: Positive for morbid obesity, atrial fibrillation, hypertension, hyperlipidemia, diabetes mellitus, prostate cancer, bladder cancer, lymphedema, coronary artery disease, congestive heart failure, COPD. ALLERGIES: BACTRIM, AMOXICILLIN, CEPHALEXIN, CIPRO, FLUCONAZOLE, CARBAMAZEPINE, FLAGYL. THE PATIENT DEVELOPS A RASH WITH MOST OF THESE AGENTS. MEDICATIONS: At home include aspirin, Lipitor, Celexa, Depakote, folic acid, lisinopril, Ditropan, Xarelto, Flomax. SOCIAL HISTORY: He lives at home. He is wheelchair bound. Nonsmoker. LABORATORY DATA: White count on admission 11.7, presently 8.8; hematocrit 33.9; platelets 159. BUN 15, creatinine 1.1. Cultures pending. ESR 55. PHYSICAL EXAMINATION: General: The patient is awake and alert. He is not acutely toxic appearing. Vital Signs: Temperature 98.0, blood pressure 157/70, pulse 59 and regular, respirations per minute. HEENT: Sclerae anicteric. Cardiac: Heart sounds S1, S2. Lungs: Clear. Abdomen: Obese, soft, nontender. Extremities: Examination of the lower extremities shows bilateral lower extremity edema and chronic venous stasis dermatitis. There is fluctuant swelling over the left patella. It is slightly tender and warm. There is no erythema. IMPRESSION: 1. Rule out infected hematoma of the left knee. 2. Multiple antibiotic allergies. PLAN: Await culture results. Empiric vancomycin pending cultures. Thank you for the kind referral. CRITICAL CARE TIME: 35 minutes. MILTON BURGOS M.D. [id number]
[2018-09-30] MEDS: VANCOMYCIN 1,250 MG in DEXTROSE 5%-WATER - 250 ML IVPB SCH (17:53)
[2018-09-30] MEDS ORDERED: AZTREONAM 1 GM in DEXTROSE 5%-WATER - 50 ML IVPB SCH (18:00)
--- NOTE | 2018-09-30 21:22 | EKG ---
Test Reason : Blood Pressure : / mmHG Vent. Rate : 071 BPM Atrial Rate : 071 BPM P-R Int : 166 ms QRS Dur : 086 ms QT Int : 414 ms P-R-T Axes : 045 -16 066 degrees QTc Int : 449 ms NORMAL SINUS RHYTHM LOW VOLTAGE QRS NONSPECIFIC ST ABNORMALITY ABNORMAL ECG WHEN COMPARED WITH ECG OF 26-MAY-2018 17:32, NO SIGNIFICANT CHANGE WAS FOUND Confirmed by PRIMO HENRY, CHARLA ([id number]) on 09/30/2018 9:22:25 PM Referred By: Confirmed By:CHARLA TILLMAN MD
[2018-10-01] MEDS: VANCOMYCIN 1,250 MG in DEXTROSE 5%-WATER - 250 ML IVPB SCH ×2 (05:43→16:46)
[2018-10-01] MEDS: levETIRAcetam 500 MG TABLET (FP) PO SCH ×3 (05:57→21:20)
[2018-10-01] MEDS: SOLIFENACIN SUCCINATE 5 MG TAB (FP) PO SCH (11:02)
[2018-10-01] MEDS: RANOLAZINE E.R. 500 MG TABLET (FP) PO SCH ×2 (11:02→21:21)
[2018-10-01] MEDS: ASPIRIN 81 MG CHEWABLE TABLETS PO SCH (11:02)
[2018-10-01] MEDS: TOLTERODINE TARTRATE LA 4 MG CAP.SR.24H (FP) PO SCH (11:03)
[2018-10-01] MEDS: FOLIC ACID 1 MG TABLET (FP) PO SCH (11:03)
[2018-10-01] MEDS: RIVAROXABAN 20 MG TABLET PO SCH (11:03)
[2018-10-01] MEDS: LISINOPRIL 5 MG TABLET (FP) PO SCH (11:03)
[2018-10-01] MEDS: FERROUS SO4 325 MG TABLET (FP) PO SCH ×2 (11:03→21:21)
[2018-10-01] MEDS: MAGNESIUM OXIDE 400 MG TABLET (FP) PO SCH ×2 (11:03→21:21)
[2018-10-01] MEDS: DIVALPROEX SODIUM 500 MG TABLET E.C. PO SCH ×2 (11:04→21:21)
[2018-10-01] MEDS: CITALOPRAM HYDROBROMIDE 10 MG TABLET (FP) PO SCH (11:05)
[2018-10-01] MEDS: BICALUTAMIDE 50 MG TABLET (FP) PO SCH (11:05)
[2018-10-01] MEDS ORDERED: PT OWN MED DRAWER 7, Y5N ONE ×2 (12:41→20:38)
--- NOTE | 2018-10-01 14:19 | PN ---
Progress Note, Physician - Current Medication List Current Medications: Active Medications Aspirin (Asa -) 81 mg PO DAILY [facility] Last Admin: 10/01/18 11:02 Dose: 81 mg Atorvastatin Calcium (Lipitor -) 20 mg PO HS [facility] Last Admin: 09/30/18 23:00 Dose: 20 mg Bicalutamide (Casodex -) 50 mg PO DAILY [facility] Last Admin: 10/01/18 11:05 Dose: 50 mg Citalopram Hydrobromide (Celexa -) 10 mg PO DAILY [facility] Last Admin: 10/01/18 11:05 Dose: 10 mg Divalproex Sodium (Depakote -) 500 mg PO BID [facility] Last Admin: 10/01/18 11:04 Dose: 500 mg Ferrous Sulfate (Feosol -) 325 mg PO BID [facility] Last Admin: 10/01/18 11:03 Dose: 325 mg Folic Acid (Folic Acid -) 1 mg PO DAILY [facility] Last Admin: 10/01/18 11:03 Dose: 1 mg Vancomycin HCl 1,250 mg/ (Dextrose) 250 mls @ 166.667 mls/hr IVPB BID@0500, 1700 [facility]; Protocol Last Admin: 10/01/18 05:43 Dose: 166.667 mls/hr Levetiracetam (Keppra -) 1,000 mg PO TID [facility] Last Admin: 10/01/18 05:57 Dose: 1,000 mg Lisinopril (Prinivil) 5 mg PO DAILY [facility] Last Admin: 10/01/18 11:03 Dose: 5 mg Magnesium Oxide (Mag-Ox -) 400 mg PO BID [facility] Last Admin: 10/01/18 11:03 Dose: 400 mg Morphine Sulfate (Morphine Sulfate) 4 mg IVPUSH Q4H PRN PRN Reason: PAIN LEVEL 7 - 10 Last Admin: 09/30/18 12:45 Dose: 4 mg Ranolazine (Ranexa -) 500 mg PO BID [facility] Last Admin: 10/01/18 11:02 Dose: 500 mg Rivaroxaban (Xarelto -) 20 mg PO DAILY [facility] Last Admin: 10/01/18 11:03 Dose: 20 mg Solifenacin (Vesicare -) 5 mg PO DAILY [facility] Last Admin: 10/01/18 11:02 Dose: 5 mg Tolterodine Tartrate (Detrol La -) 4 mg PO DAILY [facility] Last Admin: 10/01/18 11:03 Dose: 4 mg - Objective Vital Signs: Vital Signs Temperature 98.2 F 10/01/18 06:32 Pulse Rate 72 10/01/18 06:32 Respiratory Rate 20 10/01/18 06:32 Blood Pressure 99/56 L 10/01/18 06:32 O2 Sat by Pulse Oximetry (%) 96 09/30/18 21:00 Respiratory: Yes: Regular, CTA Bilaterally Gastrointestinal: Yes: Normal Bowel Sounds, Soft Musculoskeletal: Yes: Joint Stiffness, Joint Swelling Labs: CBC, BMP 09/30/18 05:30 09/30/18 05:30 INR, PTT INR 1.78 (0.83-1.09) H 09/29/18 18:20 Assessment/Plan - Problems (1) Cellulitis Assessment/Plan: Blood cultures-pending ABX per ID Tylenol prn Code(s): L03.90 - CELLULITIS, UNSPECIFIED Qualifiers: Site of cellulitis: extremity Site of cellulitis of extremity: lower extremity Laterality: left Qualified Code(s): L03.116 - Cellulitis of left lower limb (2) Swelling of knee joint, left Assessment/Plan: septic arthritis vs infected bursitis s/p mechanical fall 08/19/18 in [place] Ortho consult noted Appreciate ID consult ABX per ID Code(s): M25.462 - EFFUSION, LEFT KNEE (3) CAD (coronary artery disease) of artery bypass graft Assessment/Plan: stable s/p stents continue home meds Code(s): I25.810 - ATHEROSCLEROSIS OF CABG W/O ANGINA PECTORIS (4) CHF (congestive heart failure) Assessment/Plan: stable continue home meds Code(s): I50.9 - HEART FAILURE, UNSPECIFIED (5) COPD (chronic obstructive pulmonary disease) Assessment/Plan: stable continue home meds O2 Code(s): J44.9 - CHRONIC OBSTRUCTIVE PULMONARY DISEASE, UNSPECIFIED (6) History of DVT of lower extremity Assessment/Plan: Continue Xarelto Code(s): Z86.718 - PERSONAL HISTORY OF OTHER VENOUS THROMBOSIS AND EMBOLISM (7) History of ESBL E. coli infection Code(s): Z86.19 - PERSONAL HISTORY OF OTHER INFECTIOUS AND PARASITIC DISEASES (8) Hyperlipidemia Assessment/Plan: Continue home med Monitor LFTs Code(s): E78.5 - HYPERLIPIDEMIA, UNSPECIFIED (9) Hypertension Assessment/Plan: stable Monitor BP Continue home meds Monitor renal function Code(s): I10 - ESSENTIAL (PRIMARY) HYPERTENSION Qualifiers: Hypertension type: essential hypertension Qualified Code(s): I10 - Essential (primary) hypertension (10) Lymphedema Assessment/Plan: Duplex of LE r/o DVT Wells Score 2 Continue Xarelto Consider compression stockings Elevate extremities Code(s): I89.0 - LYMPHEDEMA, NOT ELSEWHERE CLASSIFIED (11) Prostate cancer Assessment/Plan: Continue bicalutamide f/u with Urology in outpatient setting as indicated Code(s): C61 - MALIGNANT NEOPLASM OF PROSTATE (12) Seizure Assessment/Plan: controlled Continue home meds Seizure Precautions Fall precautions Code(s): R56.9 - UNSPECIFIED CONVULSIONS
[2018-10-01] MEDS: ATORVASTATIN CA 20 MG TABLET (FP) PO SCH (21:21)
[2018-10-02] MEDS: VANCOMYCIN 1,250 MG in DEXTROSE 5%-WATER - 250 ML IVPB SCH (05:27)
[2018-10-02] MEDS: levETIRAcetam 500 MG TABLET (FP) PO SCH ×3 (05:27→22:45)
[2018-10-02 07:50] LABS: EOS % 2.2 % (0-4.5); HEMATOCRIT 32.9 % (35.4-49); HEMOGLOBIN 10.6 GM/dL (11.7-16.9); LYMPH % 5.7 % (8-40); MCH 26.6 pg (25.7-33.7); MCHC 32.2 g/dl (32.0-35.9); MEAN CELL VOLUME 82.6 fl (80-96); MONO % 20.5 % (3.8-10.2); NEUT % 70.6 % (42.8-82.8); PLATELET COUNT 167 K/MM3 (134-434); RBC 3.99 M/mm3 (4.00-5.60); RDW 15.9 % (11.9-15.9); WHITE BLOOD COUNT 9.3 K/mm3 (4.0-10.0)
[2018-10-02 08:47] LABS: ALBUMIN 2.9 g/dl (3.4-5.0); ALK PHOS 84 U/L (45-117); ANION GAP 9 MMOL/L (8-16); BILIRUBIN,TOTAL 0.5 mg/dL (0.2-1); BLOOD UREA NITROGEN 14 mg/dL (7-18); CALCIUM 8.6 mg/dL (8.5-10.1); CHLORIDE 97 mmol/L (98-107); CO2 26 mmol/L (21-32); CREATININE 1.1 mg/dL (0.55-1.3); GLUCOSE,RANDOM 139 mg/dL (74-106); SGOT/AST 16 U/L (15-37); SGPT/ALT 13 U/L (13-61); SODIUM 132 mmol/L (136-145); TOT PROT 6.8 g/dl (6.4-8.2)
[2018-10-02] MEDS: TOLTERODINE TARTRATE LA 4 MG CAP.SR.24H (FP) PO SCH (09:38)
[2018-10-02] MEDS: FERROUS SO4 325 MG TABLET (FP) PO SCH ×2 (09:38→22:45)
[2018-10-02] MEDS: MAGNESIUM OXIDE 400 MG TABLET (FP) PO SCH ×2 (09:38→22:45)
[2018-10-02] MEDS: SOLIFENACIN SUCCINATE 5 MG TAB (FP) PO SCH (09:38)
[2018-10-02] MEDS: FOLIC ACID 1 MG TABLET (FP) PO SCH (09:38)
[2018-10-02] MEDS: RANOLAZINE E.R. 500 MG TABLET (FP) PO SCH ×2 (09:38→22:45)
[2018-10-02] MEDS: ASPIRIN 81 MG CHEWABLE TABLETS PO SCH (09:38)
[2018-10-02] MEDS: RIVAROXABAN 20 MG TABLET PO SCH (09:38)
[2018-10-02] MEDS: LISINOPRIL 5 MG TABLET (FP) PO SCH (09:38)
[2018-10-02] MEDS: BICALUTAMIDE 50 MG TABLET (FP) PO SCH (09:39)
[2018-10-02] MEDS: DIVALPROEX SODIUM 500 MG TABLET E.C. PO SCH ×2 (09:40→22:45)
[2018-10-02] MEDS: CITALOPRAM HYDROBROMIDE 10 MG TABLET (FP) PO SCH (09:40)
--- NOTE | 2018-10-02 11:04 | PN ---
Progress Note (short form) - Note Progress Note: Ortho Pt seen and examined s/p left knee prepatella bursa aspiration- feeling better Selected Entries 10/02/18 10:23 Temperature 97.7 F Pulse Rate 66 Respiratory 20 Rate Blood Pressure 116/64 Laboratory Tests 10/02/18 06:15 WBC 9.3 Hgb 10.6 L Hct 32.9 L Plt Count 167 PE+ erythema, + skin discoloration from chronic PVD, + swelling, minimal ttp, rom 0-90, calf soft, nt, nvi cultures- no growth a/p Abx as per ID PT eval, wbat dvt ppx will follow d/w Dr. Do
--- NOTE | 2018-10-02 11:29 | PN ---
Progress Note, Physician Chief Complaint: Left knee cellulitis History of Present Illness: NAD in bed Seen by ortho for left knee fluid aspiration C&S no growth Seen by ID taken off abx afebrile - Current Medication List Current Medications: Active Medications Aspirin (Asa -) 81 mg PO DAILY [facility] Last Admin: 10/02/18 09:38 Dose: 81 mg Atorvastatin Calcium (Lipitor -) 20 mg PO HS [facility] Last Admin: 10/01/18 21:21 Dose: 20 mg Bicalutamide (Casodex -) 50 mg PO DAILY [facility] Last Admin: 10/02/18 09:39 Dose: 50 mg Citalopram Hydrobromide (Celexa -) 10 mg PO DAILY [facility] Last Admin: 10/02/18 09:40 Dose: 10 mg Divalproex Sodium (Depakote -) 500 mg PO BID [facility] Last Admin: 10/02/18 09:40 Dose: 500 mg Ferrous Sulfate (Feosol -) 325 mg PO BID [facility] Last Admin: 10/02/18 09:38 Dose: 325 mg Folic Acid (Folic Acid -) 1 mg PO DAILY [facility] Last Admin: 10/02/18 09:38 Dose: 1 mg Vancomycin HCl 1,250 mg/ (Dextrose) 250 mls @ 166.667 mls/hr IVPB BID@0500, 1700 [facility]; Protocol Last Admin: 10/02/18 05:27 Dose: 166.667 mls/hr Levetiracetam (Keppra -) 1,000 mg PO TID [facility] Last Admin: 10/02/18 05:27 Dose: 1,000 mg Lisinopril (Prinivil) 5 mg PO DAILY [facility] Last Admin: 10/02/18 09:38 Dose: 5 mg Magnesium Oxide (Mag-Ox -) 400 mg PO BID [facility] Last Admin: 10/02/18 09:38 Dose: 400 mg Morphine Sulfate (Morphine Sulfate) 4 mg IVPUSH Q4H PRN PRN Reason: PAIN LEVEL 7 - 10 Last Admin: 09/30/18 12:45 Dose: 4 mg Ranolazine (Ranexa -) 500 mg PO BID [facility] Last Admin: 10/02/18 09:38 Dose: 500 mg Rivaroxaban (Xarelto -) 20 mg PO DAILY [facility] Last Admin: 10/02/18 09:38 Dose: 20 mg Solifenacin (Vesicare -) 5 mg PO DAILY [facility] Last Admin: 10/02/18 09:38 Dose: 5 mg Tolterodine Tartrate (Detrol La -) 4 mg PO DAILY [facility] Last Admin: 10/02/18 09:38 Dose: 4 mg - Objective Vital Signs: Vital Signs Temperature 97.7 F 10/02/18 10:23 Pulse Rate 66 10/02/18 10:23 Respiratory Rate 20 10/02/18 10:23 Blood Pressure 116/64 10/02/18 10:23 O2 Sat by Pulse Oximetry (%) 96 10/01/18 20:30 Constitutional: Yes: Well Nourished, No Distress, Calm Cardiovascular: Yes: Regular Rate and Rhythm Respiratory: Yes: Regular Gastrointestinal: Yes: Normal Bowel Sounds, Soft, Abdomen, Obese Musculoskeletal: Yes: Joint Swelling (left knee) Extremities: Yes: WNL Edema: No Peripheral Pulses WNL: Yes Wound/Incision: Yes: Dressing Dry and Intact Neurological: Yes: Alert, Oriented Psychiatric: Yes: Alert, Oriented Labs: CBC, BMP 10/02/18 06:15 10/02/18 06:15 INR, PTT INR 1.78 (0.83-1.09) H 09/29/18 18:20 Problem List - Problems (1) Hyponatremia Assessment/Plan: -monitor trend -fluid restriction 1 L Code(s): E87.1 - HYPO-OSMOLALITY AND HYPONATREMIA (2) Prepatellar bursitis of left knee Assessment/Plan: -Seen by ortho for aspiration of left knee -C&S negative -Seen by ortho -Physical therapy Code(s): M70.42 - PREPATELLAR BURSITIS, LEFT KNEE (3) Afib Assessment/Plan: -chronic, rate controlled -On Xarelto Code(s): I48.91 - UNSPECIFIED ATRIAL FIBRILLATION (4) CAD (coronary artery disease) Assessment/Plan: -On Statin, asa Code(s): I25.10 - ATHSCL HEART DISEASE OF [place] CORONARY ARTERY W/O ANG PCTRS (5) Diabetes mellitus type 2 in obese Assessment/Plan: -Recheck A1c -BGM AC HS -Diabetic diet -not on any medications for DM at home? -RD consult Code(s): E11.9 - TYPE 2 DIABETES MELLITUS WITHOUT COMPLICATIONS; E66.9 - OBESITY , UNSPECIFIED Assessment/Plan see problem list Physical therapy d/c home in AM if still off abx and afebrile
[2018-10-02 12:52] LABS: ANISOCYTOSIS 0; MACROCYTOSIS 0; PLATELET ESTIMATE NORMAL
--- NOTE | 2018-10-02 14:26 | PN ---
Progress Note, Physician History of Present Illness: Awake, alert Seated in bed No c/o L knee pain ambulatory No fever/ chills - Current Medication List Current Medications: Active Medications Aspirin (Asa -) 81 mg PO DAILY [facility] Last Admin: 10/02/18 09:38 Dose: 81 mg Atorvastatin Calcium (Lipitor -) 20 mg PO HS [facility] Last Admin: 10/01/18 21:21 Dose: 20 mg Bicalutamide (Casodex -) 50 mg PO DAILY [facility] Last Admin: 10/02/18 09:39 Dose: 50 mg Citalopram Hydrobromide (Celexa -) 10 mg PO DAILY [facility] Last Admin: 10/02/18 09:40 Dose: 10 mg Divalproex Sodium (Depakote -) 500 mg PO BID [facility] Last Admin: 10/02/18 09:40 Dose: 500 mg Ferrous Sulfate (Feosol -) 325 mg PO BID [facility] Last Admin: 10/02/18 09:38 Dose: 325 mg Folic Acid (Folic Acid -) 1 mg PO DAILY [facility] Last Admin: 10/02/18 09:38 Dose: 1 mg Vancomycin HCl 1,250 mg/ (Dextrose) 250 mls @ 166.667 mls/hr IVPB BID@0500, 1700 [facility]; Protocol Last Admin: 10/02/18 05:27 Dose: 166.667 mls/hr Levetiracetam (Keppra -) 1,000 mg PO TID [facility] Last Admin: 10/02/18 13:10 Dose: 1,000 mg Lisinopril (Prinivil) 5 mg PO DAILY [facility] Last Admin: 10/02/18 09:38 Dose: 5 mg Magnesium Oxide (Mag-Ox -) 400 mg PO BID [facility] Last Admin: 10/02/18 09:38 Dose: 400 mg Morphine Sulfate (Morphine Sulfate) 4 mg IVPUSH Q4H PRN PRN Reason: PAIN LEVEL 7 - 10 Last Admin: 09/30/18 12:45 Dose: 4 mg Ranolazine (Ranexa -) 500 mg PO BID [facility] Last Admin: 10/02/18 09:38 Dose: 500 mg Rivaroxaban (Xarelto -) 20 mg PO DAILY [facility] Last Admin: 10/02/18 09:38 Dose: 20 mg Solifenacin (Vesicare -) 5 mg PO DAILY [facility] Last Admin: 10/02/18 09:38 Dose: 5 mg Tolterodine Tartrate (Detrol La -) 4 mg PO DAILY [facility] Last Admin: 10/02/18 09:38 Dose: 4 mg - Objective Vital Signs: Vital Signs Temperature 97.7 F 10/02/18 10:23 Pulse Rate 66 10/02/18 10:23 Respiratory Rate 20 10/02/18 10:23 Blood Pressure 116/64 10/02/18 10:23 O2 Sat by Pulse Oximetry (%) 96 10/01/18 20:30 Constitutional: Yes: Obese Eyes: Yes: Conjunctiva Clear Cardiovascular: Yes: Regular Rate and Rhythm, S1, S2 Respiratory: Yes: CTA Bilaterally Gastrointestinal: Yes: Normal Bowel Sounds, Soft, Abdomen, Obese Musculoskeletal: Yes: Other (L knee with prepatelar fluctuance Non tender. No erythema/ warmth) Integumentary: Yes: Venous Stasis Changes Labs: CBC, BMP 10/02/18 06:15 10/02/18 06:15 INR, PTT INR 1.78 (0.83-1.09) H 09/29/18 18:20 Assessment/Plan L prepatellar bursitis/ hematoma Antibiotic allergies Aspirate c/s no growth Observe off antibiotics Outpatient ortho followup
[2018-10-02] MEDS ORDERED: PT OWN MED DRAWER 7, Y5N ONE (22:37)
[2018-10-02] MEDS: ATORVASTATIN CA 20 MG TABLET (FP) PO SCH (22:45)
[2018-10-02] MEDS ORDERED: ACETAMINOPHEN 325 MG TABLET (FP) PO PRN (22:56)
[2018-10-02] MEDS ORDERED: traMADol HCL 50 MG TABLET PO PRN (22:56)
[2018-10-02] MEDS ORDERED: oxyCODONE HCL 5 MG TABLET PO PRN (22:59)
[2018-10-03] MEDS: levETIRAcetam 500 MG TABLET (FP) PO SCH ×3 (06:31→22:32)
[2018-10-03 07:36] LABS: BASO % 1.1 % (0-2.0); EOS % 1.8 % (0-4.5); HEMATOCRIT 35.2 % (35.4-49); HEMOGLOBIN 11.2 GM/dL (11.7-16.9); LYMPH % 5.2 % (8-40); MCH 26.2 pg (25.7-33.7); MCHC 31.8 g/dl (32.0-35.9); MEAN CELL VOLUME 82.2 fl (80-96); MEAN PLT VOLUME 8.6 fl (7.5-11.1); NEUT % 72.9 % (42.8-82.8); PLATELET COUNT 168 K/MM3 (134-434); RBC 4.28 M/mm3 (4.00-5.60); RDW 15.6 % (11.9-15.9); WHITE BLOOD COUNT 9.8 K/mm3 (4.0-10.0)
[2018-10-03 08:06] LABS: ANION GAP 9 MMOL/L (8-16); BLOOD UREA NITROGEN 16 mg/dL (7-18); CALCIUM 8.8 mg/dL (8.5-10.1); CHLORIDE 97 mmol/L (98-107); CO2 27 mmol/L (21-32); CREATININE 1.1 mg/dL (0.55-1.3); GLUCOSE,RANDOM 108 mg/dL (74-106); POTASSIUM 4.1 mmol/L (3.5-5.1); SODIUM 133 mmol/L (136-145)
--- NOTE | 2018-10-03 09:37 | PN ---
Progress Note, Physician - Current Medication List Current Medications: Active Medications Acetaminophen (Tylenol -) 650 mg PO Q6H PRN PRN Reason: PAIN OR FEVER Aspirin (Asa -) 81 mg PO DAILY [facility] Last Admin: 10/02/18 09:38 Dose: 81 mg Atorvastatin Calcium (Lipitor -) 20 mg PO HS [facility] Last Admin: 10/02/18 22:45 Dose: 20 mg Bicalutamide (Casodex -) 50 mg PO DAILY [facility] Last Admin: 10/02/18 09:39 Dose: 50 mg Citalopram Hydrobromide (Celexa -) 10 mg PO DAILY [facility] Last Admin: 10/02/18 09:40 Dose: 10 mg Divalproex Sodium (Depakote -) 500 mg PO BID [facility] Last Admin: 10/02/18 22:45 Dose: 500 mg Ferrous Sulfate (Feosol -) 325 mg PO BID [facility] Last Admin: 10/02/18 22:45 Dose: 325 mg Folic Acid (Folic Acid -) 1 mg PO DAILY [facility] Last Admin: 10/02/18 09:38 Dose: 1 mg Levetiracetam (Keppra -) 1,000 mg PO TID [facility] Last Admin: 10/03/18 06:31 Dose: 1,000 mg Lisinopril (Prinivil) 5 mg PO DAILY [facility] Last Admin: 10/02/18 09:38 Dose: 5 mg Magnesium Oxide (Mag-Ox -) 400 mg PO BID [facility] Last Admin: 10/02/18 22:45 Dose: 400 mg Oxycodone HCl (Roxicodone -) 5 mg PO Q6H PRN PRN Reason: PAIN LEVEL 7 - 10 Ranolazine (Ranexa -) 500 mg PO BID [facility] Last Admin: 10/02/18 22:45 Dose: 500 mg Rivaroxaban (Xarelto -) 20 mg PO DAILY [facility] Last Admin: 10/02/18 09:38 Dose: 20 mg Solifenacin (Vesicare -) 5 mg PO DAILY [facility] Last Admin: 10/02/18 09:38 Dose: 5 mg Tolterodine Tartrate (Detrol La -) 4 mg PO DAILY [facility] Last Admin: 10/02/18 09:38 Dose: 4 mg Tramadol HCl (Ultram -) 50 mg PO Q6H PRN PRN Reason: PAIN LEVEL 4 - 6 - Objective Vital Signs: Vital Signs Temperature 98.2 F 10/03/18 06:00 Pulse Rate 70 10/03/18 06:00 Respiratory Rate 20 10/03/18 06:00 Blood Pressure 109/61 10/03/18 06:00 O2 Sat by Pulse Oximetry (%) 96 10/01/18 20:30 Cardiovascular: Yes: S1, S2 Respiratory: Yes: Regular, CTA Bilaterally Gastrointestinal: Yes: Normal Bowel Sounds, Soft Musculoskeletal: Yes: Joint Stiffness, Joint Swelling Integumentary: Yes: Venous Stasis Changes Labs: CBC, BMP 10/03/18 07:00 10/03/18 07:00 INR, PTT INR 1.78 (0.83-1.09) H 09/29/18 18:20 Assessment/Plan - Problems (1) Cellulitis Assessment/Plan: Blood cultures- Microbiology 09/29/18 18:20 Blood Culture - Preliminary Blood - Peripheral Venous NO GROWTH OBTAINED AFTER 72 HOURS, INCUBATION TO CONTINUE FOR 2 DAYS. 09/29/18 18:20 Blood Culture - Preliminary Blood - Peripheral Venous NO GROWTH OBTAINED AFTER 72 HOURS, INCUBATION TO CONTINUE FOR 2 DAYS. 09/30/18 13:02 Gram Stain - Final Body Fluid - Other Body Fluid Culture - Final NO GROWTH OF AEROBIC ORGANISMS AFTER 48 HOURS INCUBATION Anaerobic Culture - Final NO ANAEROBES WERE ISOLATED 09/30/18 13:02 Gram Stain - Final Knee - Left Wound Culture - Final NO GROWTH AFTER 48 HOURS INCUBATION off ABX per ID Tylenol prn Code(s): L03.90 - CELLULITIS, UNSPECIFIED Qualifiers: Site of cellulitis: extremity Site of cellulitis of extremity: lower extremity Laterality: left Qualified Code(s): L03.116 - Cellulitis of left lower limb (2) Swelling of knee joint, left Assessment/Plan: s/p mechanical fall 08/19/18 in [place] Ortho consult noted Appreciate ID consult off ABX per ID Code(s): M25.462 - EFFUSION, LEFT KNEE (3) CAD (coronary artery disease) of artery bypass graft Assessment/Plan: stable s/p stents continue home meds Code(s): I25.810 - ATHEROSCLEROSIS OF CABG W/O ANGINA PECTORIS (4) CHF (congestive heart failure) Assessment/Plan: stable continue home meds Code(s): I50.9 - HEART FAILURE, UNSPECIFIED (5) COPD (chronic obstructive pulmonary disease) Assessment/Plan: stable continue home meds O2 Code(s): J44.9 - CHRONIC OBSTRUCTIVE PULMONARY DISEASE, UNSPECIFIED (6) History of DVT of lower extremity Assessment/Plan: Continue Xarelto Code(s): Z86.718 - PERSONAL HISTORY OF OTHER VENOUS THROMBOSIS AND EMBOLISM (7) History of ESBL E. coli infection Code(s): Z86.19 - PERSONAL HISTORY OF OTHER INFECTIOUS AND PARASITIC DISEASES (8) Hyperlipidemia Assessment/Plan: Continue home med Monitor LFTs Code(s): E78.5 - HYPERLIPIDEMIA, UNSPECIFIED (9) Hypertension Assessment/Plan: stable Monitor BP Continue home meds Monitor renal function Code(s): I10 - ESSENTIAL (PRIMARY) HYPERTENSION Qualifiers: Hypertension type: essential hypertension Qualified Code(s): I10 - Essential (primary) hypertension (10) Lymphedema Assessment/Plan: Duplex of LE NEGATIVE Wells Score 2 Continue Xarelto Consider compression stockings Elevate extremities Code(s): I89.0 - LYMPHEDEMA, NOT ELSEWHERE CLASSIFIED (11) Prostate cancer Assessment/Plan: Continue bicalutamide f/u with Urology in outpatient setting as indicated Code(s): C61 - MALIGNANT NEOPLASM OF PROSTATE (12) Seizure Assessment/Plan: controlled Continue home meds Seizure Precautions Fall precautions Code(s): R56.9 - UNSPECIFIED CONVULSIONS Physical therapy
[2018-10-03] MEDS: LISINOPRIL 5 MG TABLET (FP) PO SCH (10:04)
[2018-10-03] MEDS: SOLIFENACIN SUCCINATE 5 MG TAB (FP) PO SCH (10:04)
[2018-10-03] MEDS: RANOLAZINE E.R. 500 MG TABLET (FP) PO SCH ×2 (10:04→22:33)
[2018-10-03] MEDS: FOLIC ACID 1 MG TABLET (FP) PO SCH (10:04)
[2018-10-03] MEDS: FERROUS SO4 325 MG TABLET (FP) PO SCH ×2 (10:04→22:32)
[2018-10-03] MEDS: ASPIRIN 81 MG CHEWABLE TABLETS PO SCH (10:04)
[2018-10-03] MEDS: RIVAROXABAN 20 MG TABLET PO SCH (10:04)
[2018-10-03] MEDS: MAGNESIUM OXIDE 400 MG TABLET (FP) PO SCH ×2 (10:04→22:33)
[2018-10-03] MEDS: TOLTERODINE TARTRATE LA 4 MG CAP.SR.24H (FP) PO SCH (10:04)
[2018-10-03] MEDS: CITALOPRAM HYDROBROMIDE 10 MG TABLET (FP) PO SCH (10:05)
[2018-10-03] MEDS: BICALUTAMIDE 50 MG TABLET (FP) PO SCH (10:05)
[2018-10-03] MEDS: DIVALPROEX SODIUM 500 MG TABLET E.C. PO SCH ×2 (10:05→22:32)
[2018-10-03] MEDS ORDERED: PT OWN MED DRAWER 7, Y5N ONE (22:28)
[2018-10-03] MEDS: ATORVASTATIN CA 20 MG TABLET (FP) PO SCH (22:32)
[2018-10-04] MEDS: levETIRAcetam 500 MG TABLET (FP) PO SCH ×2 (05:28→15:26)
--- NOTE | 2018-10-04 09:06 | DS ---
Physical Examination Vital Signs: Vital Signs Temperature 98.1 F 10/04/18 06:26 Pulse Rate 57 L 10/04/18 06:26 Respiratory Rate 20 10/04/18 06:26 Blood Pressure 88/40 L 10/04/18 06:26 O2 Sat by Pulse Oximetry (%) 98 10/03/18 21:00 Cardiovascular: Yes: S1, S2 Respiratory: Yes: Regular, CTA Bilaterally Gastrointestinal: Yes: Normal Bowel Sounds, Soft Musculoskeletal: Yes: Joint Swelling Labs: CBC, BMP 10/03/18 07:00 10/03/18 07:00 Discharge Summary Reason For Visit: CELLULITIS INFECTION OF LEFT KNEE Current Active Problems Cellulitis (Acute) Hyponatremia (Acute) Prepatellar bursitis of left knee (Acute) Swelling of knee joint, left (Acute) Hospital Course: - Problems (1) Hyponatremia Assessment/Plan: -monitor trend -fluid restriction 1 L Code(s): E87.1 - HYPO-OSMOLALITY AND HYPONATREMIA (2) Prepatellar bursitis of left knee Assessment/Plan: -Seen by ortho for aspiration of left knee -C&S negative -Seen by ortho -Physical therapy Code(s): M70.42 - PREPATELLAR BURSITIS, LEFT KNEE (3) Afib Assessment/Plan: -chronic, rate controlled -On Xarelto Code(s): I48.91 - UNSPECIFIED ATRIAL FIBRILLATION (4) CAD (coronary artery disease) Assessment/Plan: -On Statin, asa Code(s): I25.10 - ATHSCL HEART DISEASE OF [place] CORONARY ARTERY W/O ANG PCTRS (5) Diabetes mellitus type 2 in obese Assessment/Plan: -Recheck A1c -BGM AC HS -Diabetic diet -not on any medications for DM at home? -RD consult Code(s): E11.9 - TYPE 2 DIABETES MELLITUS WITHOUT COMPLICATIONS; E66.9 - OBESITY , UNSPECIFIED Assessment/Plan see problem list Physical therapy d/c snf Condition: Stable - Instructions Referrals: Ruth Suazo MD [Primary Care Provider] - [facility]position: [facility] - Home Medications Comprehensive Discharge Medication List: Ambulatory Orders Aspirin 81 mg PO DAILY 09/29/18 Atorvastatin Ca [Lipitor] 20 mg PO HS 09/29/18 Bicalutamide 50 mg PO DAILY 09/29/18 Citalopram Hydrobromide [Celexa -] 10 mg PO DAILY 09/29/18 Clonazepam 5 mg PO TID 09/29/18 Divalproex [Depakote -] 500 mg PO BID 09/29/18 Ferrous Sulfate [Ferosul] 220 mg PO BID 09/29/18 Fesoterodine Fumarate [Toviaz] 4 mg PO DAILY 09/29/18 Folic Acid 1 mg PO DAILY 09/29/18 Levetiracetam 1,000 mg PO TID 09/29/18 Lisinopril [Zestril] 5 mg PO DAILY 09/29/18 Magnesium Oxide [Magnesium] 500 mg PO BID 09/29/18 Ranolazine [Ranexa -] 500 mg PO BID 09/29/18 Rivaroxaban [Xarelto -] 20 mg PO DAILY 09/29/18 Tamsulosin HCl [Flomax -] 0.4 mg PO DAILY 09/29/18 Acetaminophen [Tylenol .Regular Strength -] 650 mg PO Q6H PRN tablet 10/02/18 oxyCODONE HCL [Roxicodone -] 5 mg PO Q6H PRN #20 tablet MDD 4 10/02/18 Bicalutamide [Casodex -] 50 mg PO DAILY tablet 10/04/18
[2018-10-04] MEDS: FERROUS SO4 325 MG TABLET (FP) PO SCH (11:06)
[2018-10-04] MEDS: ASPIRIN 81 MG CHEWABLE TABLETS PO SCH (11:06)
[2018-10-04] MEDS: MAGNESIUM OXIDE 400 MG TABLET (FP) PO SCH (11:07)
[2018-10-04] MEDS: RIVAROXABAN 20 MG TABLET PO SCH (11:07)
[2018-10-04] MEDS: LISINOPRIL 5 MG TABLET (FP) PO SCH (11:08)
[2018-10-04] MEDS: TOLTERODINE TARTRATE LA 4 MG CAP.SR.24H (FP) PO SCH (11:08)
[2018-10-04] MEDS: SOLIFENACIN SUCCINATE 5 MG TAB (FP) PO SCH (11:08)
[2018-10-04] MEDS: RANOLAZINE E.R. 500 MG TABLET (FP) PO SCH (11:08)
[2018-10-04] MEDS: FOLIC ACID 1 MG TABLET (FP) PO SCH (11:08)
[2018-10-04] MEDS: BICALUTAMIDE 50 MG TABLET (FP) PO SCH (11:09)
[2018-10-04] MEDS: CITALOPRAM HYDROBROMIDE 10 MG TABLET (FP) PO SCH (11:09)
[2018-10-04] MEDS: DIVALPROEX SODIUM 500 MG TABLET E.C. PO SCH (11:10)
[2018-10-04 15:29] VITALS: BP 125/59; PULSE 65; TEMP 97.8
== END 2018-10-04 16:30 | disposition home or self-care (01) | DRG 558 ==
LOC: JER 16:51 → JERBED 22:16 → J8W 09-30 11:24
PROVIDERS: ADMIT Family Medicine; ATTEND Family Medicine
PROC: 0S9D3ZX Drainage of Left Knee Joint, Percutaneous Approach, Diagnostic (ICD-10-PCS; principal; 2018-09-30)
DX: M70.42 Prepatellar bursitis, left knee (principal); L03.116 Cellulitis of left lower limb; E87.1 Hypo-osmolality and hyponatremia; Z68.43 Body mass index [BMI] 50.0-59.9, adult; E66.9 Obesity, unspecified; I48.91 Unspecified atrial fibrillation; E78.5 Hyperlipidemia, unspecified; I11.0 Hypertensive heart disease with heart failure; I50.9 Heart failure, unspecified; M25.462 Effusion, left knee; J44.9 Chronic obstructive pulmonary disease, unspecified; R56.9 Unspecified convulsions; I89.0 Lymphedema, not elsewhere classified; J45.909 Unspecified asthma, uncomplicated; E11.9 Type 2 diabetes mellitus without complications; I25.10 Atherosclerotic heart disease of native coronary artery without angina pectoris; K57.90 Diverticulosis of intestine, part unspecified, without perforation or abscess without bleeding; F41.9 Anxiety disorder, unspecified; Z87.442 Personal history of urinary calculi; Z86.73 Personal history of transient ischemic attack (TIA), and cerebral infarction without residual deficits; Z85.51 Personal history of malignant neoplasm of bladder; Z85.46 Personal history of malignant neoplasm of prostate; Z99.3 Dependence on wheelchair; Z86.718 Personal history of other venous thrombosis and embolism
CPT/HCPCS: 36415; 73562-TC-LT-FY; 80048; 80053; 82962; 83036; 85025; 85610; 85651; 86140; 87040; 87070; 87075; 87205; 93005; 93010; 93970-TC; 97116-GP; 97161-GP; 99284-25

== ENCOUNTER 2018-10-27 16:00 | Inpatient (IN) | payer MEDICARE, OTHER ==
--- NOTE | 2018-10-27 16:21 | PDOC ---
Rapid Medical Evaluation Time Seen by Provider: 10/27/18 16:19 Medical Evaluation: Allergies Allergy/AdvReac Type Severity Reaction Status Date / Time Sulfa (Sulfonamide Allergy Intermediate Verified 10/25/18 08:41 Antibiotics) amoxicillin Allergy Mild Rash Verified 10/25/18 08:41 carbamazepine [From Tegretol] Allergy Mild Rash Verified 10/25/18 08:41 cephalexin [Cephalexin] Allergy Mild Rash Verified 10/25/18 08:41 ciprofloxacin Allergy Mild Rash Verified 10/25/18 08:41 fluconazole Allergy Mild Verified 10/25/18 08:41 lamotrigine [From Lamictal] Allergy Mild Rash Verified 10/25/18 08:41 metronidazole Allergy Mild Rash Verified 10/25/18 08:41 phenobarbital Allergy Mild Rash Verified 10/25/18 08:41 phenytoin sodium extended Allergy Mild Rash Verified 10/25/18 08:41 [From Dilantin] SHRIMP Allergy Mild Rash Uncoded 10/25/18 08:41 10/27/18 16:19 I have performed a brief in-person evaluation of this patient. The patient presents with a chief complaint of: L knee pain and swelling after PT yesterday. No f/c. Morbidly obesed w/ h/o afib on xarelto, HTN, HLD, DM, lymphedema, LE cellulites, chronic L knee pain, ambulates w/ walker, prostate and bladder ca Pertinent physical exam findings: stable, sig swelling diffusely to L knee w/ erythema and warmth I have ordered the following:labs/XR The patient will proceed to the ED for further evaluation. 10/27/18 16:25 10/27/18 16:25 Discharge Disposition - Diagnosis Left knee pain Qualifiers: Chronicity: acute Qualified Code(s): M25.562 - Pain in left knee - Referrals Referrals: Ruth Suazo MD [Primary Care Provider] - - Patient Instructions - Post Discharge Activity
[2018-10-27 16:25] VITALS: BMI 48.2
--- NOTE | 2018-10-27 16:33 | PDOC ---
History of Present Illness - General Chief Complaint: Tremors Stated Complaint: Edema Time Seen by Provider: 10/27/18 16:19 - History of Present Illness Initial Comments: 10/27/18 16:33 Mr. Brunson is a 68 yo male w/ pmh of afib (on xarelto), HTN, HLD, DM, Prostate CA , Bladder CA, morbid obesity, lymphedema, and chronic L knee pain who presents for evaluation of L knee pain exacerbation. Patient has previously had fluid removed from knee for bursitis after admission 09/29-10/04 for similar complaint. Reports pain worsened yesterday after PT, prompting his evaluation. Denies any other symptoms at this time. The patient denies chest pain, shortness of breath, headache and dizziness. Denies fever, chills, nausea, vomit, diarrhea and constipation. Denies dysuria, frequency, urgency and hematuria. Past History - Past Medical History Allergies/Adverse Reactions: Allergies Allergy/AdvReac Type Severity Reaction Status Date / Time Sulfa (Sulfonamide Allergy Intermediate Verified 10/27/18 16:20 Antibiotics) amoxicillin Allergy Mild Rash Verified 10/27/18 16:20 carbamazepine [From Tegretol] Allergy Mild Rash Verified 10/27/18 16:20 cephalexin [Cephalexin] Allergy Mild Rash Verified 10/27/18 16:20 ciprofloxacin Allergy Mild Rash Verified 10/27/18 16:20 fluconazole Allergy Mild Verified 10/27/18 16:20 lamotrigine [From Lamictal] Allergy Mild Rash Verified 10/27/18 16:20 metronidazole Allergy Mild Rash Verified 10/27/18 16:20 phenobarbital Allergy Mild Rash Verified 10/27/18 16:20 phenytoin sodium extended Allergy Mild Rash Verified 10/27/18 16:20 [From Dilantin] SHRIMP Allergy Mild Rash Uncoded 10/27/18 16:20 Home Medications: Ambulatory Orders Aspirin 81 mg PO DAILY 09/29/18 Atorvastatin Ca [Lipitor] 20 mg PO HS 09/29/18 Citalopram Hydrobromide [Celexa -] 10 mg PO DAILY 09/29/18 Clonazepam 5 mg PO TID 09/29/18 Divalproex [Depakote -] 500 mg PO BID 09/29/18 Ferrous Sulfate [Ferosul] 220 mg PO BID 09/29/18 Folic Acid 1 mg PO DAILY 09/29/18 Levetiracetam 1,000 mg PO TID 09/29/18 Lisinopril [Zestril] 5 mg PO DAILY 09/29/18 Magnesium Oxide [Magnesium] 500 mg PO BID 09/29/18 Ranolazine [Ranexa -] 500 mg PO BID 09/29/18 Rivaroxaban [Xarelto -] 20 mg PO DAILY 09/29/18 Tamsulosin HCl [Flomax -] 0.4 mg PO DAILY 09/29/18 Bicalutamide [Casodex -] 50 mg PO DAILY tablet 10/04/18 Fesoterodine Fumarate [Toviaz] 4 mg PO DAILY 10/27/18 Anemia: No Asthma: Yes Cancer: Yes (bladder, prostate) Cardiac Disorders: Yes (ANGINA, RLE DVT) CVA: Yes (rt side) COPD: Yes CHF: (atrial fib,) DVT: Yes Dementia: No Diabetes: Yes Dialysis: No GI Disorders: No Disorders: Yes (renal stones) HTN: Yes Hypercholesterolemia: Yes Kidney Stones: Yes Liver Disease: No Seizures: Yes Thyroid Disease: No Lung CA: No - Surgical History Abdominal Surgery: Yes (Hernia repair) Appendectomy: Yes Cardiac Surgery: Yes (stentx2) Cholecystectomy: Yes Gastric Stapling: No GI Surgery: No Lung Surgery: No Neurologic Surgery: No Orthopedic Surgery: Yes (ORIF LUE) - Immunization History Immunization Up to Date: Yes - Suicide/Smoking/Psychosocial Hx Smoking Status: No Smoking History: Current some day smoker Have you smoked in the past 12 months: No Number of Cigarettes Smoked Daily: 0 If you are a former smoker, when did you quit?: 25+ years Information on smoking cessation initiated: No Hx Alcohol Use: No Drug/Substance Use Hx: No Substance Use Type: None Hx Substance Use Treatment: No Review of Systems - Review of Systems Comments:: 10/27/18 16:55 GENERAL/CONSTITUTIONAL: No fever or chills. No weakness. HEAD, EYES, EARS, NOSE AND THROAT: No change in vision. No ear pain or discharge. No sore throat. CARDIOVASCULAR: No chest pain or shortness of breath RESPIRATORY: No cough, wheezing, or hemoptysis. GASTROINTESTINAL: No nausea, vomiting, diarrhea or constipation. GENITOURINARY: No dysuria, frequency, or change in urination. MUSCULOSKELETAL: +Left knee pain as described. SKIN: No rash NEUROLOGIC: No headache, vertigo, loss of consciousness, or change in strength/ sensation. ENDOCRINE: No increased thirst. No abnormal weight change HEMATOLOGIC/LYMPHATIC: No anemia, easy bleeding, or history of blood clots. ALLERGIC/IMMUNOLOGIC: No hives or skin allergy. *Physical Exam - Vital Signs Last Vital Signs Temp Pulse Resp BP Pulse Ox 97.6 F 71 19 122/44 L 100 10/27/18 16:20 10/27/18 16:20 10/27/18 16:20 10/27/18 16:20 10/27/18 16:20 - Physical Exam Comments: 10/27/18 16:55 GENERAL: +Patient morbidly obese. Awake, alert, and fully oriented, in no acute distress HEAD: No signs of trauma, normocephalic, atraumatic EYES: PERRLA, EOMI, sclera anicteric, conjunctiva clear ENT: Auricles normal inspection, hearing grossly normal, nares patent, oropharynx clear without exudates. Moist mucosa NECK: Normal ROM, supple, no lymphadenopathy, JVD, or masses LUNGS: No distress, speaks full sentences, clear to auscultation bilaterally HEART: Regular rate and rhythm, normal S1 and S2, no murmurs, rubs or gallops, peripheral pulses normal and equal bilaterally. ABDOMEN: Soft, nontender, normoactive bowel sounds. No guarding, no rebound. No masses EXTREMITIES: +YAS lower extremity edema to knees. Left knee warm and TTP. Patient non-tolerant of any motion. NEUROLOGICAL: Cranial nerves II through XII grossly intact. Normal speech, no focal sensorimotor deficits SKIN: Warm, Dry, normal turgor, no rashes or lesions noted. Moderate Sedation - Procedure Monitoring Vital Signs: Procedure Monitoring Vital Signs Temperature 97.6 F 10/27/18 16:20 Pulse Rate 71 10/27/18 16:20 Respiratory Rate 19 10/27/18 16:20 Blood Pressure 122/44 L 10/27/18 16:20 O2 Sat by Pulse Oximetry (%) 100 10/27/18 16:20 ED Treatment Course - LABORATORY CBC & Chemistry Diagram: 10/27/18 16:35 10/27/18 16:35 Medical Decision Making - Medical Decision Making 10/27/18 18:48 Patient is a 68 yo male w/ pmh as described who presents for evaluation of symptoms concerning for septic knee. Patient discussed with orthopedics who will evaluate after admission given patient's inability to walk. Patient labs concerning for elevated WBCs, elevated CRP, elevated ESR. Vancomycin started prophylactically. Morphine given for pain control. Admitting patient for further evaluation. Laboratory Results - last 24 hr 10/27/18 10/27/18 10/27/18 16:35 16:35 16:35 WBC 13.3 H RBC 4.27 Hgb 11.6 L Hct 34.2 L MCV 80.2 MCH 27.2 MCHC 33.9 RDW 15.0 Plt Count 232 D MPV 9.0 Absolute Neuts (auto) 10.7 H Neutrophils % 80.7 Lymphocytes % 3.5 L D Monocytes % 13.5 H Eosinophils % 1.1 Basophils % 1.2 Nucleated RBC % 0 ESR 87 H Sodium Potassium Chloride Carbon Dioxide Anion Gap BUN Creatinine Creat Clearance w eGFR Random Glucose Calcium Total Bilirubin AST ALT Alkaline Phosphatase C-Reactive Protein 11.1 H Total Protein Albumin Urine Color Urine Appearance Urine pH Ur Specific [place] Urine Protein Urine Glucose (UA) Urine Ketones Urine Blood Urine Nitrite Urine Bilirubin Urine Urobilinogen Ur Leukocyte Esterase Urine WBC (Auto) Urine RBC (Auto) Ur Epithelial Cells Urine Mucus 10/27/18 10/27/18 16:35 17:35 WBC RBC Hgb Hct MCV MCH MCHC RDW Plt Count MPV Absolute Neuts (auto) Neutrophils % Lymphocytes % Monocytes % Eosinophils % Basophils % Nucleated RBC % ESR Sodium 131 L Potassium 4.6 Chloride 96 L Carbon Dioxide 27 Anion Gap 8 BUN 18 Creatinine 1.2 Creat Clearance w eGFR > 60 Random Glucose 195 H Calcium 9.1 Total Bilirubin 0.4 AST 21 ALT 20 Alkaline Phosphatase 104 C-Reactive Protein Total Protein 8.0 Albumin 3.4 Urine Color Yellow Urine Appearance Clear Urine pH 6.0 Ur Specific [place] 1.021 Urine Protein Negative Urine Glucose (UA) 2+ H Urine Ketones Negative Urine Blood 1+ H Urine Nitrite Negative Urine Bilirubin Negative Urine Urobilinogen Negative Ur Leukocyte Esterase Negative Urine WBC (Auto) 1 Urine RBC (Auto) 18 Ur Epithelial Cells Rare Urine Mucus Rare *DC/Admit/Observation/Transfer Diagnosis at time of Disposition: Left knee pain Qualifiers: Chronicity: acute Qualified Code(s): M25.562 - Pain in left knee Septic joint Qualifiers: Septic arthritis location: unspecified location Septic arthritis organism: due to unspecified organism Qualified Code(s): M00.9 - Pyogenic arthritis, unspecified - Discharge Dispostion Decision to Admit order: Yes - Referrals Referrals: Ruth Suazo MD [Primary Care Provider] - - Patient Instructions - Post Discharge Activity
--- NOTE | 2018-10-27 16:42 | PDOC ---
Attending Attestation - HPI HPI: 10/27/18 17:33 "The patient is a 68 year old male with a significant PMH of dm, lymphedema, obesity, chronic L knee pain presenting to the ED with left knee pain. Patient has a history of left knee bustitis one month ago and went to physical therapy yesterday prior to noticing the worsening left knee pain. He is unable to bend his left knee due to the pain. Patient denies any trauma to the left knee, fever, chills, numbness/tingling/or weakness. Pt notes the pain is worse in the knee but radiates down the front of his leg down. He is unable to ambulate due to the pain. Patient denies any cp, sob, back pain, hip pain, abd pain, urinary symptoms. Allergies: NKDA Social: No reported drug, alcohol, or cigarette use. Surgeries: None reported. PMD: Gabriele" <Destiny Serrano - Last Filed: 10/27/18 17:33> - Resident Resident Name: Ash Naranjo - ED Attending Attestation I have performed the following: I have examined & evaluated the patient, The case was reviewed & discussed with the resident, I agree w/resident's findings & plan, Exceptions are as noted - Physicial Exam PE: 10/27/18 17:25 GENERAL: The patient is awake, alert, and fully oriented, Nontoxic - in no acute distress. morbidly obese LUNGS: Breath sounds equal, clear to auscultation bilaterally. No wheezes, no rhonchi, no rales. HEART: rrr, no appreciable m/r/g ABDOMEN: Soft, nontender, No guarding, no rebound. . No CVA tenderness EXTREMITIES: L knee - mild erythema, diffuse ttp throughout, but most notably on anterior knee, +b/l pitting edema, neg homans test b/l, limited ROM due to pain. - Medical Decision Making 10/27/18 17:02 68y M dm, lymphedema, obesity, chronic L knee pain presents with complaint of persistent leg pain. hx of bursitits with moderate L knee pain and was following up with PT and the pain is uch worse. denie ssystemic complaints, recent trauma. ddx includes but not limited - recurrence of prepatella bursitits, cellulitis, osteomyelitis, low suspicion for infected joint will ck labs, xray will give pain meds will dw with ortho but anticipate admission for further managemnt 10/28/18 08:45 A portion of this note was documented by scribe services under my direction. I have reviewed the details of the note, within reason, and agree with the documentation with the following case summary and management plan written by me <Raul Manzo - Last Filed: 10/28/18 08:45>
[2018-10-27 16:54] LABS: BASO % 1.2 % (0-2.0); EOS % 1.1 % (0-4.5); HEMATOCRIT 34.2 % (35.4-49); HEMOGLOBIN 11.6 GM/dL (11.7-16.9); LYMPH % 3.5 % (8-40); MCH 27.2 pg (25.7-33.7); MCHC 33.9 g/dl (32.0-35.9); MEAN CELL VOLUME 80.2 fl (80-96); MONO % 13.5 % (3.8-10.2); NEUT % 80.7 % (42.8-82.8); PLATELET COUNT 232 K/MM3 (134-434); RBC 4.27 M/mm3 (4.00-5.60); WHITE BLOOD COUNT 13.3 K/mm3 (4.0-10.0)
[2018-10-27] MEDS ORDERED: morphine CARPU-JECT 4 MG/1 ML DISP.SYRIN IVPUSH ONE (17:19)
[2018-10-27] MEDS ORDERED: morphine SULFATE 4 MG/ML VIAL ONE (17:22)
[2018-10-27] MEDS ORDERED: VANCOMYCIN 1 GRAM (PRE-DOCKED) 1,000 MG/250 ML BAG IVPB ONE ×2 (17:35→17:38)
[2018-10-27] MEDS ORDERED: VANCOMYCIN 1 GRAM (PRE-DOCKED) 2,000 MG/500 ML BAG IVPB ONE (18:01)
[2018-10-27 18:02] LABS: ALBUMIN 3.4 g/dl (3.4-5.0); ALK PHOS 104 U/L (45-117); ANION GAP 8 MMOL/L (8-16); BILIRUBIN,TOTAL 0.4 mg/dL (0.2-1); BLOOD UREA NITROGEN 18 mg/dL (7-18); CALCIUM 9.1 mg/dL (8.5-10.1); CHLORIDE 96 mmol/L (98-107); CO2 27 mmol/L (21-32); CREATININE 1.2 mg/dL (0.55-1.3); GLUCOSE,RANDOM 195 mg/dL (74-106); POTASSIUM 4.6 mmol/L (3.5-5.1); SGOT/AST 21 U/L (15-37); SGPT/ALT 20 U/L (13-61); SODIUM 131 mmol/L (136-145)
[2018-10-27 18:05] LABS: URINE APPEARANCE CLEAR; URINE BILIRUBIN NEGATIVE (<2.0 mg/dL); URINE COLOR YELLOW; URINE GLUCOSE (UA) 2+ (NEGATIVE); URINE KETONE NEGATIVE (NEGATIVE); URINE LEUK ESTERASE NEGATIVE (NEGATIVE); URINE NITRITE NEGATIVE (NEGATIVE); URINE PROTEIN NEGATIVE (NEGATIVE); URINE UROBILINOGEN NEGATIVE mg/dL (0.2-1.0)
[2018-10-27 18:11] LABS: EPI CELLS RARE /HPF (FEW); URINE MUCUS RARE
--- NOTE | 2018-10-27 19:49 | HP ---
CHIEF COMPLAINT: Left knee pain PCP: HISTORY OF PRESENT ILLNESS: Mr. Brunson is a 68 yo male w/ pmh of afib (on xarelto), HTN, HLD, DM, Prostate CA , Bladder CA, morbid obesity, lymphedema, and chronic L knee pain who presents to ED with c/o L knee pain exacerbation. Patient has previously had fluid removed from knee for bursitis after admission 09/29-10/04 for similar complaint. Reports pain worsened yesterday after PT, patient is unable to bend or ambulate due to pain/swelling. Ortho paged and will see patient in AM ER course was notable for: (1) ESR 87 (2)C-reactive 11.1 (3) WBC 13 Recent Travel: PAST MEDICAL HISTORY:Afib, HTN, HLD, DM, Prostate Ca, morbid obesity, lymphedema , CVA, seizures PAST SURGICAL HISTORY: Social History: Smoking:denies Alcohol:denies Drugs: Denies Family History: Allergies Sulfa (Sulfonamide Antibiotics) Allergy (Intermediate, Verified 10/27/18 16:20) amoxicillin Allergy (Mild, Verified 10/27/18 16:20) Rash carbamazepine [From Tegretol] Allergy (Mild, Verified 10/27/18 16:20) Rash cephalexin [Cephalexin] Allergy (Mild, Verified 10/27/18 16:20) Rash ciprofloxacin Allergy (Mild, Verified 10/27/18 16:20) Rash fluconazole Allergy (Mild, Verified 10/27/18 16:20) lamotrigine [From Lamictal] Allergy (Mild, Verified 10/27/18 16:20) Rash metronidazole Allergy (Mild, Verified 10/27/18 16:20) Rash phenobarbital Allergy (Mild, Verified 10/27/18 16:20) Rash phenytoin sodium extended [From Dilantin] Allergy (Mild, Verified 10/27/18 16:20 ) Rash SHRIMP Allergy (Mild, Uncoded 10/27/18 16:20) Rash HOME MEDICATIONS: Home Medications Medication Instructions Recorded Aspirin 81 mg PO DAILY 09/29/18 Atorvastatin Ca [Lipitor] 20 mg PO HS 09/29/18 Citalopram Hydrobromide [Celexa -] 10 mg PO DAILY 09/29/18 Clonazepam 5 mg PO TID 09/29/18 Divalproex [Depakote -] 500 mg PO BID 09/29/18 Ferrous Sulfate [Ferosul] 220 mg PO BID 09/29/18 Folic Acid 1 mg PO DAILY 09/29/18 Levetiracetam 1,000 mg PO TID 09/29/18 Lisinopril [Zestril] 5 mg PO DAILY 09/29/18 Magnesium Oxide [Magnesium] 500 mg PO BID 09/29/18 Ranolazine [Ranexa -] 500 mg PO BID 09/29/18 Rivaroxaban [Xarelto -] 20 mg PO DAILY 09/29/18 Tamsulosin HCl [Flomax -] 0.4 mg PO DAILY 09/29/18 Bicalutamide [Casodex -] 50 mg PO DAILY tablet 10/04/18 Fesoterodine Fumarate [Toviaz] 4 mg PO DAILY 10/27/18 REVIEW OF SYSTEMS CONSTITUTIONAL: Absent: fever, chills, diaphoresis, generalized weakness, malaise, loss of appetite, weight change HEENT: Absent: rhinorrhea, nasal congestion, throat pain, throat swelling, difficulty swallowing, mouth swelling, ear pain, eye pain, visual changes CARDIOVASCULAR: Absent: chest pain, syncope, palpitations, irregular heart rate, lightheadedness , peripheral edema RESPIRATORY: Absent: cough, shortness of breath, dyspnea with exertion, orthopnea, wheezing, stridor, hemoptysis GASTROINTESTINAL: Absent: abdominal pain, abdominal distension, nausea, vomiting, diarrhea, constipation, melena, hematochezia GENITOURINARY: Absent: dysuria, frequency, urgency, hesitancy, hematuria, flank pain, genital pain MUSCULOSKELETAL: Left knee swelling, redness, tender to touch, + joint swelling, Absent: myalgia, arthralgia, back pain, neck pain SKIN: Absent: rash, itching, pallor HEMATOLOGIC/IMMUNOLOGIC: Absent: easy bleeding, easy bruising, lymphadenopathy, frequent infections ENDOCRINE: Absent: unexplained weight gain, unexplained weight loss, heat intolerance, cold intolerance NEUROLOGIC: Absent: headache, focal weakness or paresthesias, dizziness, unsteady gait, seizure, mental status changes, bladder or bowel incontinence PSYCHIATRIC: Absent: anxiety, depression, suicidal or homicidal ideation, hallucinations. PHYSICAL EXAMINATION Vital Signs - 24 hr 10/27/18 10/27/18 16:20 19:03 Temperature 97.6 F Pulse Rate 71 Respiratory 19 Rate Blood Pressure 122/44 L O2 Sat by Pulse 100 98 Oximetry (%) GENERAL: Awake, alert, and fully oriented, in no acute distress. HEAD: Normal with no signs of trauma. EYES: Pupils equal, round and reactive to light, extraocular movements intact, sclera anicteric, conjunctiva clear. No lid lag. EARS, NOSE, THROAT: Ears normal, nares patent, oropharynx clear without exudates. Moist mucous membranes. NECK: Normal range of motion, supple without lymphadenopathy, JVD, or masses. LUNGS: Breath sounds equal, clear to auscultation bilaterally. No wheezes, and no crackles. No accessory muscle use. HEART: Regular rate and rhythm, normal S1 and S2 without murmur, rub or gallop. ABDOMEN: Soft, nontender, not distended, normoactive bowel sounds, no guarding, no rebound, no masses. No hepatomegaly or splenomegaly. MUSCULOSKELETAL: Normal range of motion at all joints. No bony deformities or tenderness. No CVA tenderness. UPPER EXTREMITIES: 2+ pulses, warm, well-perfused. No cyanosis. No clubbing. No peripheral edema. LOWER EXTREMITIES: Left knee swelling, redness, tender to touch, + joint swelling, hx of lymphedema NEUROLOGICAL: Cranial nerves II-XII intact. Normal speech. Normal gait. PSYCHIATRIC: Cooperative. Good eye contact. Appropriate mood and affect. SKIN: Warm, dry, normal turgor, no rashes or lesions noted, normal capillary refill. Laboratory Results - last 24 hr 10/27/18 10/27/18 10/27/18 16:35 16:35 16:35 WBC 13.3 H RBC 4.27 Hgb 11.6 L Hct 34.2 L MCV 80.2 MCH 27.2 MCHC 33.9 RDW 15.0 Plt Count 232 D MPV 9.0 Absolute Neuts (auto) 10.7 H Neutrophils % 80.7 Lymphocytes % 3.5 L D Monocytes % 13.5 H Eosinophils % 1.1 Basophils % 1.2 Nucleated RBC % 0 ESR 87 H Sodium Potassium Chloride Carbon Dioxide Anion Gap BUN Creatinine Creat Clearance w eGFR Random Glucose Calcium Total Bilirubin AST ALT Alkaline Phosphatase C-Reactive Protein 11.1 H Total Protein Albumin Urine Color Urine Appearance Urine pH Ur Specific [place] Urine Protein Urine Glucose (UA) Urine Ketones Urine Blood Urine Nitrite Urine Bilirubin Urine Urobilinogen Ur Leukocyte Esterase Urine WBC (Auto) Urine RBC (Auto) Ur Epithelial Cells Urine Mucus 10/27/18 10/27/18 16:35 17:35 WBC RBC Hgb Hct MCV MCH MCHC RDW Plt Count MPV Absolute Neuts (auto) Neutrophils % Lymphocytes % Monocytes % Eosinophils % Basophils % Nucleated RBC % ESR Sodium 131 L Potassium 4.6 Chloride 96 L Carbon Dioxide 27 Anion Gap 8 BUN 18 Creatinine 1.2 Creat Clearance w eGFR > 60 Random Glucose 195 H Calcium 9.1 Total Bilirubin 0.4 AST 21 ALT 20 Alkaline Phosphatase 104 C-Reactive Protein Total Protein 8.0 Albumin 3.4 Urine Color Yellow Urine Appearance Clear Urine pH 6.0 Ur Specific [place] 1.021 Urine Protein Negative Urine Glucose (UA) 2+ H Urine Ketones Negative Urine Blood 1+ H Urine Nitrite Negative Urine Bilirubin Negative Urine Urobilinogen Negative Ur Leukocyte Esterase Negative Urine WBC (Auto) 1 Urine RBC (Auto) 18 Ur Epithelial Cells Rare Urine Mucus Rare ASSESSMENT/PLAN: Mr. Brunson is a 68 yo male w/ pmh of afib (on xarelto), HTN, HLD, DM, Prostate CA , Bladder CA, morbid obesity, lymphedema, and chronic L knee admitted for Admitting Diagnosis Left knee swelling, Chronic Problems Afib DVT hx Prostate Ca hx of CVA, seizures, HTN HLD A/P: #Left knee swelling r/o sepsis -Ortho consult to see in AM -Xray of knee, degenerative changes -pain mgt -IV vanco will cont -blood cx pending #Hyponatremia,chronic? 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 (carlos eduardo, statin) -on xarelto #Lymphedema -doppler 10/10 neg for DVT -EL stockings -elevate exts #Hx of CVA, Seizures -on ASA, keppra -seizure precautions #Hx of prostate ca -on flomax, casodex, toviaz #CAD s/p stent #CHF, stable -on asa #DM -A1c 6.7 10/10 -no meds on [employer] list -monitor FS -diabetic diet Dispo:requires inpatient treatment GI/DVT prophylaxis Full Code Visit type - Emergency Visit Emergency Visit: Yes ED Registration Date: 10/27/18 Care time: The patient presented to the Emergency Department on the above date and was hospitalized for further evaluation of their emergent condition. - New Patient This patient is new to me today: Yes Date on this admission: 10/27/18 - Critical Care Critical Care patient: No
[2018-10-27] MEDS ORDERED: CLONAZEPAM 5 MG PO SCH (22:00)
[2018-10-27] MEDS ORDERED: levETIRAcetam 500 MG TABLET (FP) PO ONE (23:48)
[2018-10-27] MEDS ORDERED: MAGNESIUM OXIDE 400 MG TABLET (FP) ONE (23:49)
[2018-10-27] MEDS ORDERED: ATORVASTATIN CA 10 MG TABLET (FP) ONE (23:49)
[2018-10-28] MEDS: levETIRAcetam 500 MG TABLET (FP) PO SCH ×4 (01:00→22:41)
[2018-10-28] MEDS: RANOLAZINE E.R. 500 MG TABLET (FP) PO SCH ×3 (01:00→22:41)
[2018-10-28] MEDS: ATORVASTATIN CA 20 MG TABLET (FP) PO SCH ×2 (01:00→22:41)
[2018-10-28] MEDS: DIVALPROEX SODIUM 500 MG TABLET E.C. PO SCH ×3 (01:00→22:41)
[2018-10-28] MEDS: MAGNESIUM OXIDE 400 MG TABLET (FP) PO SCH ×3 (01:00→22:41)
[2018-10-28] MEDS ORDERED: levETIRAcetam 500 MG TABLET (FP) PO ONE ×2 (05:11→22:11)
[2018-10-28] MEDS ORDERED: morphine SULFATE 4 MG/ML VIAL ONE ×2 (05:44→09:55)
[2018-10-28] MEDS: morphine SULFATE 4 MG/ML VIAL IVPUSH PRN ×2 (05:49→10:16)
[2018-10-28 06:18] LABS: HEMATOCRIT 33.1 % (35.4-49); HEMOGLOBIN 10.4 GM/dL (11.7-16.9); MCH 25.5 pg (25.7-33.7); MCHC 31.3 g/dl (32.0-35.9); MEAN CELL VOLUME 81.4 fl (80-96); MEAN PLT VOLUME 8.1 fl (7.5-11.1); PLATELET COUNT 201 K/MM3 (134-434); RBC 4.07 M/mm3 (4.00-5.60); RDW 15.3 % (11.9-15.9); WHITE BLOOD COUNT 9.9 K/mm3 (4.0-10.0)
[2018-10-28 06:55] LABS: ALBUMIN 2.9 g/dl (3.4-5.0); ALK PHOS 89 U/L (45-117); ANION GAP 5 MMOL/L (8-16); BILIRUBIN,TOTAL 0.3 mg/dL (0.2-1); BLOOD UREA NITROGEN 14 mg/dL (7-18); CALCIUM 8.7 mg/dL (8.5-10.1); CHLORIDE 100 mmol/L (98-107); CO2 30 mmol/L (21-32); GLUCOSE,RANDOM 94 mg/dL (74-106); MAGNESIUM 2.3 mg/dL (1.8-2.4); POTASSIUM 4.8 mmol/L (3.5-5.1); SGOT/AST 11 U/L (15-37); SGPT/ALT 17 U/L (13-61); SODIUM 135 mmol/L (136-145); TOT PROT 7.1 g/dl (6.4-8.2)
[2018-10-28] MEDS ORDERED: FERROUS SO4 325 MG TABLET (FP) ONE ×2 (08:40→18:40)
[2018-10-28] MEDS ORDERED: TAMSULOSIN HCL 0.4 MG CAP ONE (08:40)
[2018-10-28] MEDS: FERROUS SO4 325 MG TABLET (FP) PO SCH ×2 (08:45→18:30)
[2018-10-28] MEDS: TAMSULOSIN HCL 0.4 MG CAP PO SCH (08:45)
[2018-10-28] MEDS: TOLTERODINE TARTRATE LA 4 MG CAP.SR.24H (FP) PO SCH (10:00)
[2018-10-28] MEDS: BICALUTAMIDE 50 MG TABLET (FP) PO SCH (10:00)
[2018-10-28] MEDS: ASPIRIN 81 MG CHEWABLE TABLETS PO SCH (10:00)
[2018-10-28] MEDS: FOLIC ACID 1 MG TABLET (FP) PO SCH (10:00)
[2018-10-28] MEDS: LISINOPRIL 5 MG TABLET (FP) PO SCH (10:15)
--- NOTE | 2018-10-28 12:01 | CONSULT ---
Consult Consult Specialty:: orthopedics Reason for Consultation:: left knee - History of Present Illness History of Present Illness: 68 year old male c/o pain in his left knee which began yesterday after attending physical therapy. He states he had a new therapist who make him do more exercises than normal and the pain got worse after his session. He states he had an injury to this knee 30 years ago and has had trouble lifting and using the leg since then. Last month he was admitted for a problem with the same knee but states his pain is different. The pain is worse when he bends the knee and better with rest. The pain also radiates to the hip. 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: CVA, Seizure Cardio/Vascular: Yes: CAD, Deep Vein Thrombosis, HTN, Other (paroxysmal atrial fibrillation) Pulmonary: Yes: COPD Gastrointestinal: Yes: Diverticulosis, Diverticulitis, Other Renal/: Yes: Hematuria, Renal Calculi Psych: Yes: Anxiety Endocrine: Yes: Diabetes Mellitus - Past Surgical History Past Surgical History: Yes: Hernia Repair, Appendectomy, Joint Replacement, Cholecystectomy - Alcohol/Substance Use Hx Alcohol Use: No History of Substance Use: reports: None - Smoking History Smoking history: Current some day smoker Have you smoked in the past 12 months: No Aproximately how many cigarettes per day: 0 If you are a former smoker, when did you quit?: 25+ years - Social History Usual Living Arrangement: Other (roomate) ADL: Independent History of Recent Travel: No Home Medications - Allergies Allergies/Adverse Reactions: Allergies Allergy/AdvReac Type Severity Reaction Status Date / Time Sulfa (Sulfonamide Allergy Intermediate Verified 10/27/18 16:20 Antibiotics) amoxicillin Allergy Mild Rash Verified 10/27/18 16:20 carbamazepine [From Tegretol] Allergy Mild Rash Verified 10/27/18 16:20 cephalexin [Cephalexin] Allergy Mild Rash Verified 10/27/18 16:20 ciprofloxacin Allergy Mild Rash Verified 10/27/18 16:20 fluconazole Allergy Mild Verified 10/27/18 16:20 lamotrigine [From Lamictal] Allergy Mild Rash Verified 10/27/18 16:20 metronidazole Allergy Mild Rash Verified 10/27/18 16:20 phenobarbital Allergy Mild Rash Verified 10/27/18 16:20 phenytoin sodium extended Allergy Mild Rash Verified 10/27/18 16:20 [From Dilantin] SHRIMP Allergy Mild Rash Uncoded 10/27/18 16:20 - Home Medications Home Medications: Ambulatory Orders Aspirin 81 mg PO DAILY 09/29/18 Atorvastatin Ca [Lipitor] 20 mg PO HS 09/29/18 Citalopram Hydrobromide [Celexa -] 10 mg PO DAILY 09/29/18 Clonazepam 5 mg PO TID 09/29/18 Divalproex [Depakote -] 500 mg PO BID 09/29/18 Ferrous Sulfate [Ferosul] 220 mg PO BID 09/29/18 Folic Acid 1 mg PO DAILY 09/29/18 Levetiracetam 1,000 mg PO TID 09/29/18 Lisinopril [Zestril] 5 mg PO DAILY 09/29/18 Magnesium Oxide [Magnesium] 500 mg PO BID 09/29/18 Ranolazine [Ranexa -] 500 mg PO BID 09/29/18 Rivaroxaban [Xarelto -] 20 mg PO DAILY 09/29/18 Tamsulosin HCl [Flomax -] 0.4 mg PO DAILY 09/29/18 Bicalutamide [Casodex -] 50 mg PO DAILY tablet 10/04/18 Fesoterodine Fumarate [Toviaz] 4 mg PO DAILY 10/27/18 Methylprednisolone [Medrol Dose Matteo] 4 mg PO ASDIR #21 tablet 11/01/18 Family Disease History - Family Disease History Family Disease History: Diabetes: Mother (htn), CA: Father, Other: Mother Review of Systems - Review of Systems Constitutional: reports: No Symptoms Eyes: reports: No Symptoms HENT: reports: No Symptoms Neck: reports: No Symptoms Cardiovascular: reports: No Symptoms Respiratory: reports: No Symptoms Gastrointestinal: reports: No Symptoms Genitourinary: reports: No Symptoms Breasts: reports: No Symptoms Reported Musculoskeletal: reports: Extremity Pain, Joint Pain Integumentary: reports: No Symptoms Neurological: reports: No Symptoms Endocrine: reports: No Symptoms Hematology/Lymphatic: reports: No Symptoms Psychiatric: reports: No Symptoms Physical Exam Vital Signs: Vital Signs Temperature 97.6 F 10/28/18 05:35 Pulse Rate 64 10/28/18 11:38 Respiratory Rate 18 10/28/18 11:38 Blood Pressure 109/55 L 10/28/18 11:38 O2 Sat by Pulse Oximetry (%) 99 10/28/18 11:38 Constitutional: Yes: Well Nourished, No Distress, Calm HENT: Yes: Atraumatic, Normocephalic Extremities: Yes: Other (Left knee: No open wounds. Overlying skin changes likely from prior cellulitis. Morbidy obese. There is diffuse TTP along the quadracepts tendon distally and diffusely along the joint spaces medally, laterally and superiorly. He is unable to bend the knee without intense pain. No palpable fluid collection. Mild effusion of the knee. Sensation intact distally. Well perfused.) Labs: CBC, BMP 10/28/18 05:50 10/28/18 05:50 Imaging - Results X-ray: Report Reviewed, Image Reviewed (No fracture, degenerative changes) Assessment/Plan #1 Left knee pain r/o tear, possibly gout/pseudogout, septic joint unlikely -Recommend MRI of the left knee to rule out tear. Pain likely the result of exacerbation at PT and mechanical, septic joint less likely. Afebrile, WBC 9.9 this am. -ESR 87, CRP 11.1, Gout/pseudogout possibly a cause -Also ordered x-ray of left hip and pelvis. -bed rest -If ok with medicine recommend steroid to reduce inflammation
--- NOTE | 2018-10-28 12:48 | EKG ---
Test Reason : Blood Pressure : / mmHG Vent. Rate : 075 BPM Atrial Rate : 075 BPM P-R Int : 158 ms QRS Dur : 084 ms QT Int : 422 ms P-R-T Axes : 054 -18 050 degrees QTc Int : 471 ms NORMAL SINUS RHYTHM NONSPECIFIC ST ABNORMALITY ABNORMAL ECG WHEN COMPARED WITH ECG OF 29-SEP-2018 19:28, NO SIGNIFICANT CHANGE WAS FOUND Confirmed by MD TERESA, YUMIKO ([id number]) on 10/28/2018 12:48:26 PM Referred By: Confirmed By:YUMIKO MOORE MD
--- NOTE | 2018-10-28 14:11 | PN ---
Progress Note, Physician Chief Complaint: EVENTS AND NOTES REVIEWED PATIENT IN MODERATE DISTRESS LEFT LOWER EXTREMITY PAIN - Current Medication List Current Medications: Active Medications Aspirin (Asa -) 81 mg PO DAILY [facility] Last Admin: 10/28/18 10:00 Dose: 81 mg Atorvastatin Calcium (Lipitor -) 20 mg PO HS [facility] Last Admin: 10/28/18 01:00 Dose: 20 mg Bicalutamide (Casodex -) 50 mg PO DAILY [facility] Last Admin: 10/28/18 10:00 Dose: 50 mg Divalproex Sodium (Depakote -) 500 mg PO BID [facility] Last Admin: 10/28/18 10:00 Dose: 500 mg Ferrous Sulfate (Feosol -) 325 mg PO BIDWM [facility] Last Admin: 10/28/18 08:45 Dose: 325 mg Folic Acid (Folic Acid -) 1 mg PO DAILY [facility] Last Admin: 10/28/18 10:00 Dose: 1 mg Levetiracetam (Keppra -) 1,000 mg PO TID [facility] Last Admin: 10/28/18 05:30 Dose: 1,000 mg Lisinopril (Prinivil) 5 mg PO DAILY [facility] Last Admin: 10/28/18 10:15 Dose: Not Given Magnesium Oxide (Mag-Ox -) 400 mg PO BID [facility] Last Admin: 10/28/18 10:00 Dose: 400 mg Morphine Sulfate (Morphine Sulfate) 4 mg IVPUSH Q4H PRN PRN Reason: PAIN LEVEL 7 - 10 Last Admin: 10/28/18 10:16 Dose: 4 mg Ranolazine (Ranexa -) 500 mg PO BID [facility] Last Admin: 10/28/18 10:00 Dose: 500 mg Tamsulosin HCl (Flomax -) 0.4 mg PO 0830 [facility] Last Admin: 10/28/18 08:45 Dose: 0.4 mg Tolterodine Tartrate (Detrol La -) 4 mg PO DAILY [facility] Last Admin: 10/28/18 10:00 Dose: 4 mg - Objective Vital Signs: Vital Signs Temperature 97.6 F 10/28/18 05:35 Pulse Rate 64 10/28/18 11:38 Respiratory Rate 18 10/28/18 11:38 Blood Pressure 109/55 L 10/28/18 11:38 O2 Sat by Pulse Oximetry (%) 99 10/28/18 11:38 Constitutional: Yes: Moderate Distress Eyes: Yes: WNL HENT: Yes: WNL Neck: Yes: WNL Cardiovascular: Yes: Pulse Irregular Respiratory: Yes: CTA Bilaterally Gastrointestinal: Yes: Abdomen, Obese Genitourinary: Yes: Other Musculoskeletal: Yes: Back Pain, Joint Stiffness, Joint Swelling, Muscle Pain Extremities: Yes: Deformity Edema: Yes Edema: LLE: 2+, RLE: 2+ Peripheral Pulses WNL: Yes Integumentary: Yes: Venous Stasis Changes Wound/Incision: Yes: Open to air Neurological: Yes: Numbness, Paresthesia, Pre-Existing Deficit, Unsteady Gait, Weakness ...Motor Strength: LLE, RLE Psychiatric: Yes: Other Labs: CBC, BMP 10/28/18 05:50 10/28/18 05:50 Problem List - Problems (1) Left knee pain Code(s): M25.562 - PAIN IN LEFT KNEE Qualifiers: Chronicity: acute Qualified Code(s): M25.562 - Pain in left knee (2) Septic joint Code(s): M00.9 - PYOGENIC ARTHRITIS, UNSPECIFIED Qualifiers: Septic arthritis location: unspecified location Septic arthritis organism: due to unspecified organism Qualified Code(s): M00.9 - Pyogenic arthritis, unspecified (3) Afib Code(s): I48.91 - UNSPECIFIED ATRIAL FIBRILLATION (4) Anxiety Code(s): F41.9 - ANXIETY DISORDER, UNSPECIFIED (5) Arthritis of knee, left Code(s): M19.90 - UNSPECIFIED OSTEOARTHRITIS, UNSPECIFIED SITE (6) CAD (coronary artery disease) of artery bypass graft Code(s): I25.810 - ATHEROSCLEROSIS OF CABG W/O ANGINA PECTORIS (7) Diabetes mellitus type 2 in obese Code(s): E11.9 - TYPE 2 DIABETES MELLITUS WITHOUT COMPLICATIONS; E66.9 - OBESITY , UNSPECIFIED (8) Fall Code(s): W19.XXXA - UNSPECIFIED FALL, INITIAL ENCOUNTER Qualifiers: Encounter type: initial encounter Qualified Code(s): W19.XXXA - Unspecified fall, initial encounter (9) History of DVT of lower extremity Code(s): Z86.718 - PERSONAL HISTORY OF OTHER VENOUS THROMBOSIS AND EMBOLISM (10) History of ESBL E. coli infection Code(s): Z86.19 - PERSONAL HISTORY OF OTHER INFECTIOUS AND PARASITIC DISEASES (11) Hyperlipidemia Code(s): E78.5 - HYPERLIPIDEMIA, UNSPECIFIED (12) Hypertension Code(s): I10 - ESSENTIAL (PRIMARY) HYPERTENSION Qualifiers: Hypertension type: essential hypertension Qualified Code(s): I10 - Essential (primary) hypertension (13) Venous stasis Code(s): I87.8 - OTHER SPECIFIED DISORDERS OF VEINS Assessment/Plan PAIN CONTROL WILL NEED KNEE ASPIRATION/TAP WITH ORTHOPEDICS CHECK URIC ACID LEVEL DVT PROPHYLAXIS STOP ELIQUIS UNTIL KNEE TAP OVERALL NON-COMPLIANT PATIENT TO MEDICATIONS AND DIET. 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
--- NOTE | 2018-10-28 17:34 | PN ---
Progress Note (short form) - Note Progress Note: Patient examined History noted Obese male, cooperative Left knee: large effusion, tender, warm to touch, no cellulitis, chronic venous stasis changes in tibia and ankle Extensor mechanism appears intact Xray: No fracture Labs: WBC 9.9, CRP/ESR elevated Under sterile prep, left knee tapped yielding 40cc non purulent, cloudy, yellow fluid -sent for cell count/Gram stain/Cultures/Crystals/Lyme -Likely gout but will follow up results -will review MRI when available
[2018-10-28 18:35] LABS: SYNOVIAL FLUID RBC 13363 /mm3; SYNOVIAL FLUID SOURCE SYNOVIAL
[2018-10-28 19:58] LABS: SYNOVIAL FLUID LYMPHOCYTES 1 %; SYNOVIAL FLUID MACROPHAGES 2 %; SYNOVIAL FLUID MONOCYTES 6 %; SYNOVIAL FLUID NEUTROPHILS 91 %
[2018-10-28] MEDS ORDERED: DIVALPROEX SODIUM 500 MG TABLET E.C. ONE (22:10)
[2018-10-28] MEDS ORDERED: MAGNESIUM OXIDE 400 MG TABLET (FP) ONE (22:11)
[2018-10-28] MEDS ORDERED: ATORVASTATIN CA 10 MG TABLET (FP) ONE (22:11)
--- NOTE | 2018-10-28 23:03 | PN ---
Progress Note (short form) - Note Progress Note: Synovial Fluid Analysis reviewed WBC 53,000, 91% neutrophils Gram stain pending Crystals pending Cell count is elevated but not definitive for infection, although 91% neutrophils is concerning Patient is afevrile with white count of 9.9 (ESR/CRP elevated as previously noted, although this can also happen with inflammatory knee effusions) Still awaiting crystal analysis and Gram stain In any case, knee arthrocentesis already done to relieve joint pressure, will reassess in the morning and review test results Patient has extensive medical comorbidities and is on anticoagulation
[2018-10-29] MEDS: levETIRAcetam 500 MG TABLET (FP) PO SCH ×3 (06:00→22:40)
[2018-10-29] MEDS ORDERED: levETIRAcetam 500 MG TABLET (FP) PO ONE ×3 (06:05→22:33)
[2018-10-29 06:28] LABS: EOS % 2.5 % (0-4.5); HEMATOCRIT 34.5 % (35.4-49); HEMOGLOBIN 10.9 GM/dL (11.7-16.9); MCH 25.6 pg (25.7-33.7); MCHC 31.7 g/dl (32.0-35.9); MEAN CELL VOLUME 80.6 fl (80-96); MEAN PLT VOLUME 8.7 fl (7.5-11.1); MONO % 17.2 % (3.8-10.2); NEUT % 75.3 % (42.8-82.8); PLATELET COUNT 208 K/MM3 (134-434); RBC 4.28 M/mm3 (4.00-5.60); RDW 15.5 % (11.9-15.9); WHITE BLOOD COUNT 10.3 K/mm3 (4.0-10.0)
[2018-10-29 06:49] LABS: ANION GAP 5 MMOL/L (8-16); BLOOD UREA NITROGEN 14 mg/dL (7-18); CALCIUM 8.8 mg/dL (8.5-10.1); CHLORIDE 98 mmol/L (98-107); CO2 30 mmol/L (21-32); GLUCOSE,RANDOM 112 mg/dL (74-106); POTASSIUM 4.5 mmol/L (3.5-5.1); SODIUM 134 mmol/L (136-145); URIC ACID 4.4 mg/dL (2.6-7.2)
[2018-10-29] MEDS: BICALUTAMIDE 50 MG TABLET (FP) PO SCH (10:37)
[2018-10-29] MEDS: FOLIC ACID 1 MG TABLET (FP) PO SCH (10:37)
[2018-10-29] MEDS: DIVALPROEX SODIUM 500 MG TABLET E.C. PO SCH ×2 (10:37→22:40)
[2018-10-29] MEDS: MAGNESIUM OXIDE 400 MG TABLET (FP) PO SCH ×2 (10:37→22:40)
[2018-10-29] MEDS: ASPIRIN 81 MG CHEWABLE TABLETS PO SCH (10:37)
[2018-10-29] MEDS: FERROUS SO4 325 MG TABLET (FP) PO SCH ×2 (10:37→22:40)
[2018-10-29] MEDS: LISINOPRIL 5 MG TABLET (FP) PO SCH (10:37)
[2018-10-29] MEDS: TAMSULOSIN HCL 0.4 MG CAP PO SCH (10:37)
[2018-10-29] MEDS: RANOLAZINE E.R. 500 MG TABLET (FP) PO SCH ×2 (10:37→23:04)
[2018-10-29] MEDS: TOLTERODINE TARTRATE LA 4 MG CAP.SR.24H (FP) PO SCH (10:37)
--- NOTE | 2018-10-29 13:37 | PN ---
Progress Note, Physician Chief Complaint: POSITIVE GRAM NEG LEFT KNEE FLUID PATIENT STILL IN PAIN - Current Medication List Current Medications: Active Medications Aspirin (Asa -) 81 mg PO DAILY [facility] Last Admin: 10/29/18 10:37 Dose: 81 mg Atorvastatin Calcium (Lipitor -) 20 mg PO HS [facility] Last Admin: 10/28/18 22:41 Dose: 20 mg Bicalutamide (Casodex -) 50 mg PO DAILY [facility] Last Admin: 10/29/18 10:37 Dose: 50 mg Divalproex Sodium (Depakote -) 500 mg PO BID [facility] Last Admin: 10/29/18 10:37 Dose: 500 mg Ferrous Sulfate (Feosol -) 325 mg PO BIDWM [facility] Last Admin: 10/29/18 10:37 Dose: 325 mg Folic Acid (Folic Acid -) 1 mg PO DAILY [facility] Last Admin: 10/29/18 10:37 Dose: 1 mg Levetiracetam (Keppra -) 1,000 mg PO TID [facility] Last Admin: 10/29/18 06:00 Dose: 1,000 mg Lisinopril (Prinivil) 5 mg PO DAILY [facility] Last Admin: 10/29/18 10:37 Dose: 5 mg Magnesium Oxide (Mag-Ox -) 400 mg PO BID [facility] Last Admin: 10/29/18 10:37 Dose: 400 mg Morphine Sulfate (Morphine Sulfate) 4 mg IVPUSH Q4H PRN PRN Reason: PAIN LEVEL 7 - 10 Last Admin: 10/28/18 10:16 Dose: 4 mg Ranolazine (Ranexa -) 500 mg PO BID [facility] Last Admin: 10/29/18 10:37 Dose: 500 mg Tamsulosin HCl (Flomax -) 0.4 mg PO 0830 [facility] Last Admin: 10/29/18 10:37 Dose: 0.4 mg Tolterodine Tartrate (Detrol La -) 4 mg PO DAILY [facility] Last Admin: 10/29/18 10:37 Dose: 4 mg - Objective Vital Signs: Vital Signs Temperature 99.1 F 10/29/18 05:30 Pulse Rate 63 10/29/18 10:00 Respiratory Rate 16 10/29/18 10:00 Blood Pressure 129/67 10/29/18 10:00 O2 Sat by Pulse Oximetry (%) 98 10/29/18 10:00 Constitutional: Yes: Mild Distress Eyes: Yes: WNL HENT: Yes: WNL Neck: Yes: WNL Cardiovascular: Yes: Pulse Irregular Respiratory: Yes: Other Gastrointestinal: Yes: Abdomen, Obese Genitourinary: Yes: WNL Musculoskeletal: Yes: Joint Stiffness, Joint Swelling, Muscle Weakness Extremities: Yes: Deformity Edema: Yes Edema: LLE: 2+, RLE: 2+ Peripheral Pulses WNL: Yes Integumentary: Yes: Rash, Venous Stasis Changes Wound/Incision: Yes: Dressing Dry and Intact Neurological: Yes: Pre-Existing Deficit, Weakness ...Motor Strength: LLE Psychiatric: Yes: Other Labs: CBC, BMP 10/29/18 05:30 10/29/18 05:30 Problem List - Problems (1) Left knee pain Code(s): M25.562 - PAIN IN LEFT KNEE Qualifiers: Chronicity: acute Qualified Code(s): M25.562 - Pain in left knee (2) Septic joint Code(s): M00.9 - PYOGENIC ARTHRITIS, UNSPECIFIED Qualifiers: Septic arthritis location: unspecified location Septic arthritis organism: due to unspecified organism Qualified Code(s): M00.9 - Pyogenic arthritis, unspecified (3) Afib Code(s): I48.91 - UNSPECIFIED ATRIAL FIBRILLATION (4) Anxiety Code(s): F41.9 - ANXIETY DISORDER, UNSPECIFIED (5) Arthritis of knee, left Code(s): M19.90 - UNSPECIFIED OSTEOARTHRITIS, UNSPECIFIED SITE (6) CAD (coronary artery disease) of artery bypass graft Code(s): I25.810 - ATHEROSCLEROSIS OF CABG W/O ANGINA PECTORIS (7) Diabetes mellitus type 2 in obese Code(s): E11.9 - TYPE 2 DIABETES MELLITUS WITHOUT COMPLICATIONS; E66.9 - OBESITY , UNSPECIFIED (8) Fall Code(s): W19.XXXA - UNSPECIFIED FALL, INITIAL ENCOUNTER Qualifiers: Encounter type: initial encounter Qualified Code(s): W19.XXXA - Unspecified fall, initial encounter (9) History of DVT of lower extremity Code(s): Z86.718 - PERSONAL HISTORY OF OTHER VENOUS THROMBOSIS AND EMBOLISM (10) History of ESBL E. coli infection Code(s): Z86.19 - PERSONAL HISTORY OF OTHER INFECTIOUS AND PARASITIC DISEASES (11) Hyperlipidemia Code(s): E78.5 - HYPERLIPIDEMIA, UNSPECIFIED (12) Hypertension Code(s): I10 - ESSENTIAL (PRIMARY) HYPERTENSION Qualifiers: Hypertension type: essential hypertension Qualified Code(s): I10 - Essential (primary) hypertension (13) Venous stasis Code(s): I87.8 - OTHER SPECIFIED DISORDERS OF VEINS Assessment/Plan IV ABX FOR SEPTIC JOINT LEFT KNEE ID FOLLOW UP CHECK SENS WILL NEED ABX FOR EXTENDED PERIOD BGM CHECKS PT EVAL SNF
--- NOTE | 2018-10-29 15:02 | PN ---
Progress Note (short form) - Note Progress Note: ID CONSULT DICTATED R/O SEPTIC ARTHRITIS MULTIPLE ANTIBIOTICS ALLERGIES AWAIT C/S, CRYSTALS EMPIRIC VANCOMYCIN/ AZTREONAM
--- NOTE | 2018-10-29 15:06 | PN ---
Progress Note (short form) - Note Progress Note: Patient evaluated states knee pain much better, was able to walk to the bathroom and bear weight with minimal pain Gram stain negative for organisms Synovial Crystals: pending, spoke with lab who have been dealing with technical issues over the past 24hrs and they will be doing the test as soon as possible WBC10.3 Afebrile Knee: still with effusion. Much less tender than yesterday. Able to lift entire leg off bed without difficulty. No redness. Still warm to touch. Imp: Likely inflammatory arthritis given significant improvement overnight -certainly improved clinical exam leans away from joint infection -will follow crystal results -no indication for emergent I&D given clinical picture, negative Gram Stain. Patient has extensive medical comorbidities and on anticoagulation. -will await culture results, follow clinical exam
[2018-10-29] MEDS ORDERED: VANCOMYCIN 1 GRAM (PRE-DOCKED) 1,000 MG/250 ML BAG IVPB ONE (15:22)
--- NOTE | 2018-10-29 15:25 | CONS ---
DATE OF CONSULTATION: DATE OF DICTATION: 10/29/2018 The patient is a 68-year-old male who is evaluated for possible septic arthritis of the left knee. History was obtained primarily from the chart. He reports developing swelling over the left knee after attending physical therapy. He developed worsening pain in the left knee associated with erythema and warmth. He presented to the emergency room, where an MRI was performed and showed a torn medial meniscus and large joint effusion. An arthrocentesis was performed and 40 mL of cloudy, not grossly purulent fluid was obtained. Initial analysis showed 53,000 white cells, of which 91% were polys. Crystal analysis is pending. Gram stain showed many polys; no organisms. He denies any recent febrile illness. No other joint involvement. PAST MEDICAL HISTORY: Positive for morbid obesity, atrial fibrillation, hypertension, hyperlipidemia, diabetes mellitus. ALLERGIES: Multiple medications, including SULFA, AMOXICILLIN, KEFLEX, CIPRO, TEGRETOL, FLUCONAZOLE, FLAGYL. Patient reports developing a rash with all of these agents. SOCIAL HISTORY: He lives in the community. He is a smoker. No history of alcohol abuse or illicit drug use. SYSTEMS REVIEW: Neurologic: No loss of consciousness, seizure activity, focal weakness. Cardiac: Negative chest pain or palpitations. Respiratory: Negative cough or sputum production. Gastrointestinal: Negative vomiting or diarrhea. Genitourinary: Negative for urinary tract infection. LABORATORY DATA: White count 10.3, hematocrit 34.5, platelet count 208. ESR 87. Creatinine 1.0. PHYSICAL EXAMINATION: General: He is morbidly obese, in no acute distress. Vital Signs: Temperature 99.1, blood pressure 129/67, pulse 63 and regular, respirations 18/min. HEENT: Sclerae anicteric. Heart Sounds: S1, S2, irregular. Lungs: Clear. Abdomen: Obese, soft, nontender. Lower Extremities: Bilateral lower extremity edema. There is swelling and warmth of the left knee. It is tender to flexion and with decreased range of motion. IMPRESSION: 1. Rule out septic arthritis, left knee. 2. Multiple antibiotic allergies. Synovial fluid was sent for culture as well as crystals. Pending additional laboratory data, empiric antibiotic coverage in this patient with multiple antibiotic allergies with vancomycin and Azactam. Will follow. Thank you for the kind referral. MILTON BURGOS M.D. [id number]
[2018-10-29] MEDS: AZTREONAM 1 GM in DEXTROSE 5%-WATER - 50 ML IVPB SCH ×2 (15:47→18:22)
[2018-10-29] MEDS: VANCOMYCIN 1 GRAM (PRE-DOCKED) 1,000 MG/250 ML BAG IVPB SCH (16:13)
[2018-10-29] MEDS ORDERED: ATORVASTATIN CA 10 MG TABLET (FP) ONE (22:33)
[2018-10-29] MEDS ORDERED: DIVALPROEX SODIUM 500 MG TABLET E.C. ONE (22:33)
[2018-10-29] MEDS ORDERED: MAGNESIUM OXIDE 400 MG TABLET (FP) ONE (22:33)
[2018-10-29] MEDS ORDERED: FERROUS SO4 325 MG TABLET (FP) ONE (22:34)
[2018-10-29] MEDS: ATORVASTATIN CA 20 MG TABLET (FP) PO SCH (22:40)
[2018-10-30] MEDS: AZTREONAM 1 GM in DEXTROSE 5%-WATER - 50 ML IVPB SCH ×2 (02:24→11:17)
[2018-10-30] MEDS ORDERED: VANCOMYCIN 1 GRAM (PRE-DOCKED) 1,000 MG/250 ML BAG IVPB ONE ×2 (03:53→13:52)
[2018-10-30] MEDS: VANCOMYCIN 1 GRAM (PRE-DOCKED) 1,000 MG/250 ML BAG IVPB SCH ×2 (03:54→15:00)
[2018-10-30] MEDS ORDERED: levETIRAcetam 500 MG TABLET (FP) PO ONE (06:21)
[2018-10-30] MEDS: levETIRAcetam 500 MG TABLET (FP) PO SCH ×3 (06:26→21:09)
[2018-10-30] MEDS ORDERED: FERROUS SO4 325 MG TABLET (FP) ONE (08:14)
[2018-10-30] MEDS ORDERED: TAMSULOSIN HCL 0.4 MG CAP ONE (08:14)
[2018-10-30] MEDS: TAMSULOSIN HCL 0.4 MG CAP PO SCH (08:16)
[2018-10-30] MEDS: FERROUS SO4 325 MG TABLET (FP) PO SCH ×2 (08:16→18:58)
[2018-10-30] MEDS: ASPIRIN 81 MG CHEWABLE TABLETS PO SCH (09:36)
[2018-10-30] MEDS: DIVALPROEX SODIUM 500 MG TABLET E.C. PO SCH ×2 (09:36→21:09)
[2018-10-30] MEDS: TOLTERODINE TARTRATE LA 4 MG CAP.SR.24H (FP) PO SCH (09:36)
[2018-10-30] MEDS: FOLIC ACID 1 MG TABLET (FP) PO SCH (09:36)
[2018-10-30] MEDS: RANOLAZINE E.R. 500 MG TABLET (FP) PO SCH ×2 (09:37→21:10)
[2018-10-30] MEDS: LISINOPRIL 5 MG TABLET (FP) PO SCH (09:37)
[2018-10-30] MEDS: MAGNESIUM OXIDE 400 MG TABLET (FP) PO SCH ×2 (09:37→21:10)
[2018-10-30] MEDS: BICALUTAMIDE 50 MG TABLET (FP) PO SCH (09:38)
[2018-10-30] MEDS ORDERED: PT OWN MED DRAWER 7, Y5N ONE ×2 (18:08→20:55)
--- NOTE | 2018-10-30 18:39 | PN ---
Progress Note (short form) - Note Progress Note: Pt lying comf in bed. States knee has minimal pain now. Last Vital Signs Temp Pulse Resp BP Pulse Ox 98.3 F 68 18 125/58 L 100 10/30/18 18:21 10/30/18 18:21 10/30/18 18:21 10/30/18 18:21 10/30/18 16:53 LLE knee with small palpable effusion nontender mildly warm ROM 0-110 comfortably calves soft nt NVID Cx NGTD a/p: L knee effusion -exact source of effusion not clear -cx and gram stain negative -if infected would not be expected to have such a positive response to aspiration even in the setting of abx, septic arthritis unlikely -no evidence for crystals -? arthritis flare -clinically much improved -f/u wbc
[2018-10-30] MEDS: ATORVASTATIN CA 20 MG TABLET (FP) PO SCH (21:10)
[2018-10-31] MEDS ORDERED: PT OWN MED DRAWER 7, Y5N ONE (01:41)
[2018-10-31] MEDS: AZTREONAM 1 GM in DEXTROSE 5%-WATER - 50 ML IVPB SCH ×3 (01:52→10:39)
[2018-10-31] MEDS: VANCOMYCIN 1 GRAM (PRE-DOCKED) 1,000 MG/250 ML BAG IVPB SCH (02:59)
[2018-10-31] MEDS: levETIRAcetam 500 MG TABLET (FP) PO SCH ×3 (05:59→21:19)
[2018-10-31 07:21] LABS: HEMATOCRIT 33.6 % (35.4-49); HEMOGLOBIN 10.5 GM/dL (11.7-16.9); MCH 25.2 pg (25.7-33.7); MCHC 31.3 g/dl (32.0-35.9); MEAN CELL VOLUME 80.5 fl (80-96); MEAN PLT VOLUME 8.3 fl (7.5-11.1); PLATELET COUNT 200 K/MM3 (134-434); RBC 4.17 M/mm3 (4.00-5.60); RDW 15.2 % (11.9-15.9); WHITE BLOOD COUNT 11.3 K/mm3 (4.0-10.0)
--- NOTE | 2018-10-31 10:39 | PN ---
Progress Note, Physician Chief Complaint: in bed states no knee pain wants to shower niece in room will help him shower today wbc still elevated cultures negative on iv abx afebrile - Current Medication List Current Medications: Active Medications Aspirin (Asa -) 81 mg PO DAILY [facility] Last Admin: 10/30/18 09:36 Dose: 81 mg Atorvastatin Calcium (Lipitor -) 20 mg PO HS [facility] Last Admin: 10/30/18 21:10 Dose: 20 mg Bicalutamide (Casodex -) 50 mg PO DAILY [facility] Last Admin: 10/30/18 09:38 Dose: 50 mg Divalproex Sodium (Depakote -) 500 mg PO BID [facility] Last Admin: 10/30/18 21:09 Dose: 500 mg Ferrous Sulfate (Feosol -) 325 mg PO BIDWM [facility] Last Admin: 10/30/18 18:58 Dose: 325 mg Folic Acid (Folic Acid -) 1 mg PO DAILY [facility] Last Admin: 10/30/18 09:36 Dose: 1 mg Vancomycin HCl (Vancomycin (Pre-Docked)) 1,000 mg in 250 mls @ 166.667 mls/hr IVPB Q12H [facility]; Protocol Last Admin: 10/31/18 02:59 Dose: 166.667 mls/hr Aztreonam 1 gm/ Dextrose 50 mls @ 100 mls/hr IVPB Q8H-IV [facility]; Protocol Last Admin: 10/31/18 02:14 Dose: 100 mls/hr Levetiracetam (Keppra -) 1,000 mg PO TID [facility] Last Admin: 10/31/18 05:59 Dose: 1,000 mg Lisinopril (Prinivil) 5 mg PO DAILY [facility] Last Admin: 10/30/18 09:37 Dose: 5 mg Magnesium Oxide (Mag-Ox -) 400 mg PO BID [facility] Last Admin: 10/30/18 21:10 Dose: 400 mg Ranolazine (Ranexa -) 500 mg PO BID [facility] Last Admin: 10/30/18 21:10 Dose: 500 mg Tamsulosin HCl (Flomax -) 0.4 mg PO 0830 [facility] Last Admin: 10/30/18 08:16 Dose: 0.4 mg Tolterodine Tartrate (Detrol La -) 4 mg PO DAILY [facility] Last Admin: 10/30/18 09:36 Dose: 4 mg - Objective Vital Signs: Vital Signs Temperature 98.2 F 10/31/18 06:00 Pulse Rate 68 10/31/18 06:00 Respiratory Rate 20 10/31/18 06:00 Blood Pressure 112/50 L 10/31/18 06:00 O2 Sat by Pulse Oximetry (%) 100 10/30/18 16:53 Constitutional: Yes: Calm Cardiovascular: Yes: Regular Rate and Rhythm, S1, S2 Respiratory: Yes: CTA Bilaterally Gastrointestinal: Yes: Normal Bowel Sounds, Soft Extremities: Yes: Other (chronic skin changes on legs) Edema: Yes Neurological: Yes: Alert, Oriented Labs: CBC, BMP 10/31/18 07:00 10/29/18 05:30 Problem List - Problems (1) Left knee pain Assessment/Plan: cultures negative elevated wbc count on iv abx- durations depends on ID ortho note appreciated PT eval Microbiology 10/28/18 17:30 Synovial Fluid - Knee Gram Stain - Final 10/28/18 17:30 Synovial Fluid - Knee Anaerobic Culture - Final NO GROWTH OF AEROBIC ORGANISMS AFTER 48 HOURS INCUBATION NO ANAEROBES WERE ISOLATED 10/29/18 17:50 Blood - Peripheral Venous Blood Culture - Preliminary NO GROWTH OBTAINED AFTER 24 HOURS, INCUBATION TO CONTINUE FOR 4 DAYS. 10/29/18 17:45 Blood - Peripheral Venous Blood Culture - Preliminary NO GROWTH OBTAINED AFTER 24 HOURS, INCUBATION TO CONTINUE FOR 4 DAYS. Code(s): M25.562 - PAIN IN LEFT KNEE Qualifiers: Chronicity: acute Qualified Code(s): M25.562 - Pain in left knee (2) Hyperlipidemia Assessment/Plan: statin Code(s): E78.5 - HYPERLIPIDEMIA, UNSPECIFIED (3) Prostate cancer Assessment/Plan: casodex flomax Code(s): C61 - MALIGNANT NEOPLASM OF PROSTATE (4) Seizure Assessment/Plan: keprra Code(s): R56.9 - UNSPECIFIED CONVULSIONS Assessment/Plan PT eval ID follow up for Iv abx duration monitor wbc
[2018-10-31] MEDS: FOLIC ACID 1 MG TABLET (FP) PO SCH (10:40)
[2018-10-31] MEDS: TAMSULOSIN HCL 0.4 MG CAP PO SCH (10:40)
[2018-10-31] MEDS: LISINOPRIL 5 MG TABLET (FP) PO SCH (10:40)
[2018-10-31] MEDS: TOLTERODINE TARTRATE LA 4 MG CAP.SR.24H (FP) PO SCH (10:40)
[2018-10-31] MEDS: ASPIRIN 81 MG CHEWABLE TABLETS PO SCH (10:40)
[2018-10-31] MEDS: RANOLAZINE E.R. 500 MG TABLET (FP) PO SCH ×2 (10:40→21:19)
[2018-10-31] MEDS: MAGNESIUM OXIDE 400 MG TABLET (FP) PO SCH ×2 (10:40→21:19)
[2018-10-31] MEDS: FERROUS SO4 325 MG TABLET (FP) PO SCH ×2 (10:40→17:18)
[2018-10-31] MEDS: DIVALPROEX SODIUM 500 MG TABLET E.C. PO SCH ×2 (10:41→21:19)
[2018-10-31] MEDS: BICALUTAMIDE 50 MG TABLET (FP) PO SCH (10:42)
--- NOTE | 2018-10-31 12:30 | PN ---
Progress Note, Physician History of Present Illness: No c/o knee pain Ambulatory w/o pain No fever/ chills Cultures negative - Current Medication List Current Medications: Active Medications Aspirin (Asa -) 81 mg PO DAILY [facility] Last Admin: 10/31/18 10:40 Dose: 81 mg Atorvastatin Calcium (Lipitor -) 20 mg PO HS [facility] Last Admin: 10/30/18 21:10 Dose: 20 mg Bicalutamide (Casodex -) 50 mg PO DAILY [facility] Last Admin: 10/31/18 10:42 Dose: 50 mg Divalproex Sodium (Depakote -) 500 mg PO BID [facility] Last Admin: 10/31/18 10:41 Dose: 500 mg Ferrous Sulfate (Feosol -) 325 mg PO BIDWM [facility] Last Admin: 10/31/18 10:40 Dose: 325 mg Folic Acid (Folic Acid -) 1 mg PO DAILY [facility] Last Admin: 10/31/18 10:40 Dose: 1 mg Levetiracetam (Keppra -) 1,000 mg PO TID [facility] Last Admin: 10/31/18 05:59 Dose: 1,000 mg Lisinopril (Prinivil) 5 mg PO DAILY [facility] Last Admin: 10/31/18 10:40 Dose: 5 mg Magnesium Oxide (Mag-Ox -) 400 mg PO BID [facility] Last Admin: 10/31/18 10:40 Dose: 400 mg Ranolazine (Ranexa -) 500 mg PO BID [facility] Last Admin: 10/31/18 10:40 Dose: 500 mg Tamsulosin HCl (Flomax -) 0.4 mg PO 0830 [facility] Last Admin: 10/31/18 10:40 Dose: 0.4 mg Tolterodine Tartrate (Detrol La -) 4 mg PO DAILY [facility] Last Admin: 10/31/18 10:40 Dose: 4 mg - Objective Vital Signs: Vital Signs Temperature 98.1 F 10/31/18 10:00 Pulse Rate 72 10/31/18 10:00 Respiratory Rate 18 10/31/18 10:00 Blood Pressure 124/60 10/31/18 10:00 O2 Sat by Pulse Oximetry (%) 100 10/30/18 16:53 Constitutional: Yes: No Distress, Obese Eyes: Yes: Conjunctiva Clear Cardiovascular: Yes: Regular Rate and Rhythm, S1, S2 Respiratory: Yes: CTA Bilaterally Gastrointestinal: Yes: Normal Bowel Sounds, Soft. No: Tenderness Extremities: Yes: Other (L knee slightly warm but no erythema/ tenderness. Able to fully flex w/o pain) Labs: CBC, BMP 10/31/18 07:00 10/29/18 05:30 Assessment/Plan Low likelihood septic arthritis L knee D/C antibiotics, observe off
--- NOTE | 2018-10-31 18:13 | PN ---
Progress Note, Physician History of Present Illness: he feels much better. no pain in the left knee. was able to walk - Current Medication List Current Medications: Active Medications Aspirin (Asa -) 81 mg PO DAILY [facility] Last Admin: 10/31/18 10:40 Dose: 81 mg Atorvastatin Calcium (Lipitor -) 20 mg PO HS [facility] Last Admin: 10/30/18 21:10 Dose: 20 mg Bicalutamide (Casodex -) 50 mg PO DAILY [facility] Last Admin: 10/31/18 10:42 Dose: 50 mg Divalproex Sodium (Depakote -) 500 mg PO BID [facility] Last Admin: 10/31/18 10:41 Dose: 500 mg Ferrous Sulfate (Feosol -) 325 mg PO BIDWM [facility] Last Admin: 10/31/18 17:18 Dose: 325 mg Folic Acid (Folic Acid -) 1 mg PO DAILY [facility] Last Admin: 10/31/18 10:40 Dose: 1 mg Levetiracetam (Keppra -) 1,000 mg PO TID [facility] Last Admin: 10/31/18 15:19 Dose: 1,000 mg Lisinopril (Prinivil) 5 mg PO DAILY [facility] Last Admin: 10/31/18 10:40 Dose: 5 mg Magnesium Oxide (Mag-Ox -) 400 mg PO BID [facility] Last Admin: 10/31/18 10:40 Dose: 400 mg Ranolazine (Ranexa -) 500 mg PO BID [facility] Last Admin: 10/31/18 10:40 Dose: 500 mg Tamsulosin HCl (Flomax -) 0.4 mg PO 0830 [facility] Last Admin: 10/31/18 10:40 Dose: 0.4 mg Tolterodine Tartrate (Detrol La -) 4 mg PO DAILY [facility] Last Admin: 10/31/18 10:40 Dose: 4 mg - Objective Vital Signs: Vital Signs Temperature 98 F 10/31/18 16:20 Pulse Rate 66 10/31/18 16:20 Respiratory Rate 18 10/31/18 16:20 Blood Pressure 121/58 L 10/31/18 16:20 O2 Sat by Pulse Oximetry (%) 100 10/30/18 16:53 Constitutional: Yes: Well Nourished, No Distress, Calm Musculoskeletal: Yes: Other (no effusion of the knee. no tenderness. rom 0-90 without pain. patella centrally tracking. compartments soft. Calf nontender. NVID.) Labs: CBC, BMP 10/31/18 07:00 10/29/18 05:30 Assessment/Plan #1 left knee effusion/pain, resolved -WBAT -Observation -February d/c from orthopedic standpoint.
[2018-10-31] MEDS: ATORVASTATIN CA 20 MG TABLET (FP) PO SCH (21:19)
[2018-11-01] MEDS: levETIRAcetam 500 MG TABLET (FP) PO SCH ×2 (05:20→16:13)
[2018-11-01] MEDS ORDERED: PT OWN MED DRAWER 7, Y5N ONE (10:19)
[2018-11-01] MEDS: FERROUS SO4 325 MG TABLET (FP) PO SCH (10:31)
[2018-11-01] MEDS: TAMSULOSIN HCL 0.4 MG CAP PO SCH (10:32)
[2018-11-01] MEDS: BICALUTAMIDE 50 MG TABLET (FP) PO SCH (10:32)
[2018-11-01] MEDS: ASPIRIN 81 MG CHEWABLE TABLETS PO SCH (10:32)
[2018-11-01] MEDS: MAGNESIUM OXIDE 400 MG TABLET (FP) PO SCH (10:33)
[2018-11-01] MEDS: FOLIC ACID 1 MG TABLET (FP) PO SCH (10:33)
[2018-11-01] MEDS: LISINOPRIL 5 MG TABLET (FP) PO SCH (10:33)
[2018-11-01] MEDS: DIVALPROEX SODIUM 500 MG TABLET E.C. PO SCH (10:33)
[2018-11-01] MEDS: RANOLAZINE E.R. 500 MG TABLET (FP) PO SCH (10:34)
[2018-11-01] MEDS: TOLTERODINE TARTRATE LA 4 MG CAP.SR.24H (FP) PO SCH (10:35)
[2018-11-01 14:46] VITALS: BP 117/59; PULSE 69; TEMP 97.8
--- NOTE | 2018-11-01 14:56 | DS ---
Physical Examination Vital Signs: Vital Signs Temperature 97.8 F 11/01/18 14:44 Pulse Rate 69 11/01/18 14:44 Respiratory Rate 18 11/01/18 14:44 Blood Pressure 117/59 L 11/01/18 14:44 O2 Sat by Pulse Oximetry (%) 99 11/01/18 02:00 Findings/Remarks: Mr. Brunson is a 68 yo male w/ pmh of afib (on xarelto), HTN, HLD, DM, Prostate CA , Bladder CA, morbid obesity, lymphedema, and chronic L knee pain who presents to ED with c/o L knee pain exacerbation. Patient has previously had fluid removed from knee for bursitis after admission 09/29-10/04 for similar complaint. Reports pain worsened yesterday after PT, patient is unable to bend or ambulate due to pain/swelling. Ortho paged and will see patient in AM Constitutional: Yes: Well Nourished, No Distress, Obese Cardiovascular: Yes: Regular Rate and Rhythm Respiratory: Yes: Regular Gastrointestinal: Yes: Normal Bowel Sounds, Soft, Abdomen, Obese Musculoskeletal: Yes: Muscle Weakness Extremities: Yes: WNL Edema: No Peripheral Pulses WNL: Yes Neurological: Yes: Alert, Oriented Psychiatric: Yes: Alert, Oriented Labs: CBC, BMP 10/31/18 07:00 10/29/18 05:30 Discharge Summary Reason For Visit: SEPTIC ARTHRITIS/ LEFT KNEE PAIN Current Active Problems Left knee pain (Acute) Septic joint (Acute) Hospital Course: Laboratory Last Values WBC 11.3 K/mm3 (4.0-10.0) H 10/31/18 07:00 RBC 4.17 M/mm3 (4.00-5.60) 10/31/18 07:00 Hgb 10.5 GM/dL (11.7-16.9) L 10/31/18 07:00 Hct 33.6 % (35.4-49) L 10/31/18 07:00 MCV 80.5 fl (80-96) 10/31/18 07:00 MCH 25.2 pg (25.7-33.7) L 10/31/18 07:00 MCHC 31.3 g/dl (32.0-35.9) L 10/31/18 07:00 RDW 15.2 % (11.9-15.9) 10/31/18 07:00 Plt Count 200 K/MM3 (134-434) 10/31/18 07:00 MPV 8.3 fl (7.5-11.1) 10/31/18 07:00 Absolute Neuts (auto) 7.8 K/mm3 (1.5-8.0) 10/29/18 05:30 Neutrophils % 75.3 % (42.8-82.8) 10/29/18 05:30 Lymphocytes % 4.0 % (8-40) L 10/29/18 05:30 Monocytes % 17.2 % (3.8-10.2) H 10/29/18 05:30 Eosinophils % 2.5 % (0-4.5) D 10/29/18 05:30 Basophils % 1.0 % (0-2.0) 10/29/18 05:30 Nucleated RBC % 0 % (0-0) 10/29/18 05:30 ESR 87 mm/hr (0-20) H 10/27/18 16:35 Sodium 134 mmol/L (136-145) L 10/29/18 05:30 Potassium 4.5 mmol/L (3.5-5.1) 10/29/18 05:30 Chloride 98 mmol/L (98-107) 10/29/18 05:30 Carbon Dioxide 30 mmol/L (21-32) 10/29/18 05:30 Anion Gap 5 MMOL/L (8-16) L 10/29/18 05:30 BUN 14 mg/dL (7-18) 10/29/18 05:30 Creatinine 1.0 mg/dL (0.55-1.3) 10/29/18 05:30 Creat Clearance w eGFR > 60 (>60) 10/29/18 05:30 POC Glucometer 130 UNITS (80-120) 11/01/18 12:03 Random Glucose 112 mg/dL (74-106) H 10/29/18 05:30 Uric Acid 4.4 mg/dL (2.6-7.2) 10/29/18 05:30 Calcium 8.8 mg/dL (8.5-10.1) 10/29/18 05:30 Magnesium 2.3 mg/dL (1.8-2.4) 10/28/18 05:50 Total Bilirubin 0.3 mg/dL (0.2-1) 10/28/18 05:50 AST 11 U/L (15-37) L 10/28/18 05:50 ALT 17 U/L (13-61) 10/28/18 05:50 Alkaline Phosphatase 89 U/L (45-117) 10/28/18 05:50 C-Reactive Protein 11.1 MG/DL (0.00-0.3) H 10/27/18 16:35 Total Protein 7.1 g/dl (6.4-8.2) 10/28/18 05:50 Albumin 2.9 g/dl (3.4-5.0) L 10/28/18 05:50 Urine Color Yellow 10/27/18 17:35 Urine Appearance Clear 10/27/18 17:35 Urine pH 6.0 (5.0-8.0) 10/27/18 17:35 Ur Specific [place] 1.021 (1.010-1.035) 10/27/18 17:35 Urine Protein Negative (NEGATIVE) 10/27/18 17:35 Urine Glucose (UA) 2+ (NEGATIVE) H 10/27/18 17:35 Urine Ketones Negative (NEGATIVE) 10/27/18 17:35 Urine Blood 1+ (NEGATIVE) H 10/27/18 17:35 Urine Nitrite Negative (NEGATIVE) 10/27/18 17:35 Urine Bilirubin Negative (<2.0 mg/dL) 10/27/18 17:35 Urine Urobilinogen Negative mg/dL (0.2-1.0) 10/27/18 17:35 Ur Leukocyte Esterase Negative (NEGATIVE) 10/27/18 17:35 Urine WBC (Auto) 1 /hpf (3-5) 10/27/18 17:35 Urine RBC (Auto) 18 /hpf (0-3) 10/27/18 17:35 Ur Epithelial Cells Rare /HPF (FEW) 10/27/18 17:35 Urine Mucus Rare 10/27/18 17:35 Synovial Source Synovial 10/28/18 17:27 Synovial WBC 66856 /mm3 10/28/18 17:27 Synovial RBC 85998 /mm3 10/28/18 17:27 Synovial Neutrophils 91 % 10/28/18 17:27 Synovial Lymphocytes 1 % 10/28/18 17:27 Synovial Monocytes 6 % 10/28/18 17:27 Synovial Macrophages 2 % 10/28/18 17:27 Synovial Crystals Negative 10/28/18 17:30 Microbiology 10/29/18 17:50 Blood - Peripheral Venous Blood Culture - Preliminary NO GROWTH OBTAINED AFTER 48 HOURS, INCUBATION TO CONTINUE FOR 3 DAYS. 10/29/18 17:45 Blood - Peripheral Venous Blood Culture - Preliminary NO GROWTH OBTAINED AFTER 48 HOURS, INCUBATION TO CONTINUE FOR 3 DAYS. 10/28/18 17:30 Synovial Fluid - Knee Gram Stain - Final 10/28/18 17:30 Synovial Fluid - Knee Body Fluid Culture - Final NO GROWTH OF AEROBIC ORGANISMS AFTER 48 HOURS INCUBATION 10/28/18 17:30 Synovial Fluid - Knee Anaerobic Culture - Final NO ANAEROBES WERE ISOLATED Condition: Stable - Instructions Referrals: Ruth Suazo MD [Primary Care Provider] - Disposition: HOME - Home Medications Comprehensive Discharge Medication List: Ambulatory Orders Aspirin 81 mg PO DAILY 09/29/18 Atorvastatin Ca [Lipitor] 20 mg PO HS 09/29/18 Citalopram Hydrobromide [Celexa -] 10 mg PO DAILY 09/29/18 Clonazepam 5 mg PO TID 09/29/18 Divalproex [Depakote -] 500 mg PO BID 09/29/18 Ferrous Sulfate [Ferosul] 220 mg PO BID 09/29/18 Folic Acid 1 mg PO DAILY 09/29/18 Levetiracetam 1,000 mg PO TID 09/29/18 Lisinopril [Zestril] 5 mg PO DAILY 09/29/18 Magnesium Oxide [Magnesium] 500 mg PO BID 09/29/18 Ranolazine [Ranexa -] 500 mg PO BID 09/29/18 Rivaroxaban [Xarelto -] 20 mg PO DAILY 09/29/18 Tamsulosin HCl [Flomax -] 0.4 mg PO DAILY 09/29/18 Bicalutamide [Casodex -] 50 mg PO DAILY tablet 10/04/18 Fesoterodine Fumarate [Toviaz] 4 mg PO DAILY 10/27/18
== END 2018-11-01 16:26 | disposition home or self-care (01) | DRG 549 ==
LOC: JER 16:00 → JERBED 19:47 → J8W 10-30 18:00
PROVIDERS: ADMIT Internal Medicine; ATTEND Family Medicine
PROC: 0S9D3ZX Drainage of Left Knee Joint, Percutaneous Approach, Diagnostic (ICD-10-PCS; principal; 2018-10-28)
DX: M00.862 Arthritis due to other bacteria, left knee (principal); Z68.42 Body mass index [BMI] 45.0-49.9, adult; E87.1 Hypo-osmolality and hyponatremia; C61 Malignant neoplasm of prostate; E66.01 Morbid (severe) obesity due to excess calories; I25.10 Atherosclerotic heart disease of native coronary artery without angina pectoris; E11.9 Type 2 diabetes mellitus without complications; I10 Essential (primary) hypertension; M19.90 Unspecified osteoarthritis, unspecified site; E87.8 Other disorders of electrolyte and fluid balance, not elsewhere classified; M25.562 Pain in left knee; E78.5 Hyperlipidemia, unspecified; I89.0 Lymphedema, not elsewhere classified; Z85.46 Personal history of malignant neoplasm of prostate; Z85.51 Personal history of malignant neoplasm of bladder; J45.909 Unspecified asthma, uncomplicated; Z95.5 Presence of coronary angioplasty implant and graft; F17.210 Nicotine dependence, cigarettes, uncomplicated; Z86.73 Personal history of transient ischemic attack (TIA), and cerebral infarction without residual deficits; R56.9 Unspecified convulsions; I48.0 Paroxysmal atrial fibrillation; Z86.718 Personal history of other venous thrombosis and embolism; I87.8 Other specified disorders of veins; B96.89 Other specified bacterial agents as the cause of diseases classified elsewhere
CPT/HCPCS: 36415; 71045-TC-FY; 73523-TC-FY; 73560-TC-LT-FY; 73718-LT; 80048; 80053; 81003; 81015; 82962; 83735; 84550; 85025; 85027; 85651; 86140; 87040; 87070; 87075; 87205; 87476; 89051; 89060; 93005; 93010; 97116-GP; 97161-GP; 99285-25

== ENCOUNTER 2018-11-20 10:43 | Inpatient (IN) | payer MEDICARE, OTHER ==
[2018-11-20 11:18] VITALS: BMI 51.9
--- NOTE | 2018-11-20 11:52 | PDOC ---
Attending Attestation - HPI HPI: 11/20/18 12:05 The patient is a year old with a past medical history of afib (on xarelto), HTN , HLD, diabetes, prostate cancer, bladder cancer, morbid obesity, lymphedema, and chronic left knee pain here today for evaluation of worsening left knee pain. The patient reports that his left knee pain has been getting worse over the past 7 days, has been warm and edematous, is a 10/10 in severity, and radiates down the left leg. Patient also notes that he has had left leg paralysis since 08/10. The patients home health assistant reports that his left knee has had darkening skin coloration over the past 7 days as well. Patient reports that he fell this morning but denies any loss of consciousness. Patient denies headache, lightheadedness. Denies fever, chills. Denies chest pain, shortness of breath. Denies nausea, vomiting, diarrhea, abdominal pain. PCP: Ruth Suazo - Medical Decision Making 11/20/18 12:05 Documentation prepared by KEVIN Brock, acting as medical office receptionist for Deidre Garcia MD. <Nik Jett - Last Filed: 11/20/18 12:05> - Resident Resident Name: Jos Stokes - ED Attending Attestation I have performed the following: I have examined & evaluated the patient, The case was reviewed & discussed with the resident, I agree w/resident's findings & plan, Exceptions are as noted - Physicial Exam PE: GENERAL: Awake, alert, and fully oriented, in no acute distress HEAD: No signs of trauma EYES: PERRLA, EOMI, sclera anicteric, conjunctiva clear ENT: Auricles normal inspection, hearing grossly normal, nares patent, oropharynx clear without exudates. Moist mucosa NECK: Normal ROM, supple, no lymphadenopathy, JVD, or masses LUNGS: Breath sounds equal, clear to auscultation bilaterally. No wheezes, and no crackles HEART: Regular rate and rhythm, normal S1 and S2, no murmurs, rubs or gallops ABDOMEN: Soft, nontender, normoactive bowel sounds. No guarding, no rebound. No masses EXTREMITIES: L knee with warmth, dec ROM due to severe pain. No erythema. Remainder of extremities with normal range of motion. 3+ edema with chronic stasis changes to BLE. No clubbing or cyanosis. No cords, erythema. NEUROLOGICAL: Cranial nerves II through XII grossly intact. Normal speech. Motor and sensation intact SKIN: Warm, Dry, normal turgor, no rashes or lesions noted. - Medical Decision Making Difficult to assess for effusion, as patient has a large body habitus and both legs are large. Bedside ultrasound shows soft tissue swelling but not a significant effusion. Will treat as cellulitis. Called ortho to discuss, as patient had a recent arthrocentesis and he is on Xarelto. Will evaluate. <Deidre Garcia - Last Filed: 11/20/18 16:18>
--- NOTE | 2018-11-20 12:05 | PDOC ---
History of Present Illness - General Chief Complaint: Injury Stated Complaint: Injury Time Seen by Provider: 11/20/18 11:12 History Source: Patient Exam Limitations: No Limitations - History of Present Illness Initial Comments: 11/20/18 13:37 68 yo M with a hx of afib (on xarelto), HTN, HLD, DM, prostate cancer, bladder cancer, morbid obesity, and chronic left knee pain with a recent admission for suspected septic joint presents to the emergency department with acute on chronic left knee pain with skin changes. Patient states that his knee pain has been worsening for 7 days. Described as 10/10 in severity, with radiation distal to the knee, and has associative warmth and swelling. He states he is unable to move his left leg, which is a chronic issue dating back to 07/2018. Subsequently, he fell this morning without LOC, but endorses head trauma. Denies the following: fever, chills, headache, lightheadedness, visual changes, chest pain, SOB, abdominal pain, dysuria, hematuria, nausea, vomiting, hematuria , diarrhea, and hematochezia. Past History - Past Medical History Allergies/Adverse Reactions: Allergies Allergy/AdvReac Type Severity Reaction Status Date / Time Sulfa (Sulfonamide Allergy Intermediate Verified 11/20/18 11:12 Antibiotics) amoxicillin Allergy Mild Rash Verified 11/20/18 11:12 carbamazepine [From Tegretol] Allergy Mild Rash Verified 11/20/18 11:12 cephalexin [Cephalexin] Allergy Mild Rash Verified 11/20/18 11:12 ciprofloxacin Allergy Mild Rash Verified 11/20/18 11:12 fluconazole Allergy Mild Verified 11/20/18 11:12 lamotrigine [From Lamictal] Allergy Mild Rash Verified 11/20/18 11:12 metronidazole Allergy Mild Rash Verified 11/20/18 11:12 phenobarbital Allergy Mild Rash Verified 11/20/18 11:12 phenytoin sodium extended Allergy Mild Rash Verified 11/20/18 11:12 [From Dilantin] SHRIMP Allergy Mild Rash Uncoded 11/20/18 11:12 Home Medications: Ambulatory Orders Aspirin 81 mg PO DAILY 11/20/18 Atorvastatin Ca [Lipitor] 20 mg PO HS 11/20/18 Bicalutamide 50 mg PO DAILY 11/20/18 Citalopram Hydrobromide [Citalopram HBr] 10 mg PO DAILY 11/20/18 Clonazepam 0.5 mg PO TID 11/20/18 Divalproex Sodium [Divalproex Sodium ER] 500 mg PO BID 11/20/18 Ferrous Sulfate 325 mg PO BID 11/20/18 Fesoterodine Fumarate [Toviaz] 4 mg PO DAILY 11/20/18 Folic Acid 1 mg PO DAILY 11/20/18 Lisinopril 5 mg PO DAILY 11/20/18 Magnesium Oxide [Laxative Dietary Supplement] 500 mg PO BID 11/20/18 Ranolazine [Ranexa] 500 mg PO BID 11/20/18 Rivaroxaban [Xarelto -] 20 mg PO DAILY 11/20/18 Tamsulosin HCl [Flomax -] 0.4 mg PO DAILY 11/20/18 levETIRAcetam [Keppra -] 200 mg PO TID 11/20/18 Prednisone 10 mg PO ASDIR #32 tablet 11/22/18 oxyCODONE HCL [Roxicodone -] 5 mg PO Q6H PRN #20 tablet MDD 4 11/22/18 Anemia: No Asthma: Yes Cancer: Yes (bladder, prostate) Cardiac Disorders: Yes (ANGINA, RLE DVT) CVA: Yes (rt side) COPD: Yes CHF: (atrial fib,) DVT: Yes Dementia: No Diabetes: Yes Dialysis: No GI Disorders: No Disorders: Yes (renal stones) HTN: Yes Hypercholesterolemia: Yes Kidney Stones: Yes Liver Disease: No Seizures: Yes Thyroid Disease: No Lung CA: No - Surgical History Abdominal Surgery: Yes (Hernia repair) Appendectomy: Yes Cardiac Surgery: Yes (stentx2) Cholecystectomy: Yes Gastric Stapling: No GI Surgery: No Lung Surgery: No Neurologic Surgery: No Orthopedic Surgery: Yes (ORIF LUE) - Immunization History Immunization Up to Date: Yes - Suicide/Smoking/Psychosocial Hx Smoking Status: No Smoking History: Never smoked Have you smoked in the past 12 months: No Number of Cigarettes Smoked Daily: 0 If you are a former smoker, when did you quit?: 25+ years Hx Alcohol Use: No Drug/Substance Use Hx: No Substance Use Type: None Hx Substance Use Treatment: No Review of Systems - Review of Systems Able to Perform ROS?: Yes Is the patient limited Persian proficient: No Constitutional: Yes: Weakness. No: Chills, Diaphoresis, Fever HEENTM: No: Eye Pain, Recent change in vision, Ear Pain, Nose Pain, Throat Pain , Mouth Pain Respiratory: No: Cough, Shortness of Breath, SOB with Exertion, Hemoptysis Cardiac (ROS): No: Chest Pain, Lightheadedness, Palpitations, Syncope, Chest Tightness ABD/GI: No: Constipated, Diarrhea, Nausea, Rectal Bleeding, Vomiting, Tarry Stools : No: Burning, Dysuria, Frequency, Hematuria Musculoskeletal: Yes: Joint Pain (left knee pain), Joint Swelling (left knee). No: Back Pain, Neck Pain Integumentary: No: Bruising, Dryness, Rash Neurological: No: Headache, Numbness, Tingling, Tremors, Ataxia, Dizziness Psychiatric: No: Change in Appetite Endocrine: No: Unexplained Weight Gain Hematologic/Lymphatic: No: Anemia *Physical Exam - Vital Signs Last Vital Signs Temp Pulse Resp BP Pulse Ox 97.4 F L 63 15 130/60 100 11/20/18 11:13 11/20/18 11:13 11/20/18 11:13 11/20/18 11:13 11/20/18 11:13 - Physical Exam General Appearance: Yes: Nourished, Appropriately Dressed. No: Apparent Distress, Intoxicated HEENT: positive: EOMI, JULIETA, Normal Voice, Symmetrical, Pharynx Normal, Hearing Grossly Normal. negative: Pale Conjunctivae, Photophobia, Scleral Icterus (R), Scleral Icterus (L), Muffled/Hoarse voice, Pharyngeal Erythema, Tonsillar Exudate, Tonsillar Erythema, Nasal Congestion, Rhinorrhea, Excessive drooling Neck: positive: Trachea midline, Supple. negative: Tender, Lymphadenopathy (R) , Lymphadenopathy (L), Tender lateral, Tender midline Respiratory/Chest: positive: Lungs Clear, Normal Breath Sounds. negative: Chest Tender, Respiratory Distress, Accessory Muscle Use Cardiovascular: positive: Regular Rhythm, Regular Rate, S1, S2. negative: Systolic Murmur Gastrointestinal/Abdominal: positive: Normal Bowel Sounds, Flat, Soft. negative : Tender Lymphatic: negative: Adenopathy Musculoskeletal: negative: Normal Inspection, CVA Tenderness, Vertebral Tenderness Extremity: positive: Normal Capillary Refill, Tender (left knee. ), Other (Left knee has warmth with black skin changes on the ventral aspect. chronic venous stasis changes noted in bilateral leg extremities. decreased sensation in the left leg chronic. decreased motor function in left leg chronic. ). negative: Normal Inspection, Normal Range of Motion Integumentary: positive: Normal Color, Dry, Warm Neurologic: positive: city designer II-XII NML intact, Fully Oriented, Alert, Normal Mood/ Affect, Normal Response. negative: EOM Palsy, Facial Droop Moderate Sedation - Procedure Monitoring Vital Signs: Procedure Monitoring Vital Signs Temperature 97.4 F L 11/20/18 11:13 Pulse Rate 63 11/20/18 11:13 Respiratory Rate 15 11/20/18 11:13 Blood Pressure 130/60 11/20/18 11:13 O2 Sat by Pulse Oximetry (%) 100 11/20/18 11:13 ED Treatment Course - LABORATORY CBC & Chemistry Diagram: 11/22/18 06:00 11/22/18 06:00 Medical Decision Making - Medical Decision Making 11/20/18 68 yo M with a hx of afib (on xarelto), HTN, HLD, DM, prostate cancer, bladder cancer, morbid obesity, and chronic left knee pain with a recent admission for suspected septic joint presents to the emergency department with acute on chronic left knee pain with skin changes. Initial vitals: Initial Vital Signs Temp Pulse Resp BP Pulse Ox 97.4 F L 63 15 130/60 100 11/20/18 11:13 11/20/18 11:13 11/20/18 11:13 11/20/18 11:13 11/20/18 11:13 Work up: ddx: cellulitis vs septic arthritis vs inflammatory arthritis Laboratory Tests 11/20/18 11/20/18 11/20/18 12:41 13:20 13:20 WBC 9.9 RBC 4.18 Hgb 11.6 L Hct 34.3 L MCV 81.9 MCH 27.6 MCHC 33.7 RDW 16.5 H Plt Count 154 D MPV 8.6 Absolute Neuts (auto) 7.7 Neutrophils % 77.7 Lymphocytes % 5.1 L D Monocytes % 14.7 H Eosinophils % 1.3 Basophils % 1.2 Nucleated RBC % 0 ESR PT with INR 23.60 H INR 1.99 H PTT (Actin FS) 37.9 H VBG pH POC VBG pCO2 POC VBG pO2 Mixed VBG HCO3 Sodium Potassium Chloride Carbon Dioxide Anion Gap BUN Creatinine Creat Clearance w eGFR Random Glucose Lactic Acid Uric Acid Calcium Total Bilirubin AST ALT Alkaline Phosphatase Troponin I C-Reactive Protein Total Protein Albumin Urine Color Yellow Urine Appearance Clear Urine pH 6.0 Ur Specific [place] 1.018 Urine Protein Negative Urine Glucose (UA) 1+ H Urine Ketones Negative Urine Blood 2+ H Urine Nitrite Negative Urine Bilirubin Negative Urine Urobilinogen Negative Ur Leukocyte Esterase Negative Urine WBC (Auto) <1 Urine RBC (Auto) 83 Ur Epithelial Cells Rare Urine Mucus Rare 11/20/18 11/20/18 11/20/18 13:20 13:20 13:20 WBC RBC Hgb Hct MCV MCH MCHC RDW Plt Count MPV Absolute Neuts (auto) Neutrophils % Lymphocytes % Monocytes % Eosinophils % Basophils % Nucleated RBC % ESR PT with INR INR PTT (Actin FS) VBG pH 7.27 L POC VBG pCO2 60.6 H* POC VBG pO2 39.6 Mixed VBG HCO3 26.8 H Sodium 136 Potassium 4.1 Chloride 100 Carbon Dioxide 29 Anion Gap 7 L BUN 11 Creatinine 0.9 Creat Clearance w eGFR > 60 Random Glucose 100 Lactic Acid 4.2 H* Uric Acid 3.6 Calcium 8.5 Total Bilirubin 0.4 AST 19 ALT 16 Alkaline Phosphatase 93 Troponin I < 0.02 C-Reactive Protein 5.2 H Total Protein 7.2 Albumin 3.3 L Urine Color Urine Appearance Urine pH Ur Specific [place] Urine Protein Urine Glucose (UA) Urine Ketones Urine Blood Urine Nitrite Urine Bilirubin Urine Urobilinogen Ur Leukocyte Esterase Urine WBC (Auto) Urine RBC (Auto) Ur Epithelial Cells Urine Mucus 11/20/18 13:20 WBC RBC Hgb Hct MCV MCH MCHC RDW Plt Count MPV Absolute Neuts (auto) Neutrophils % Lymphocytes % Monocytes % Eosinophils % Basophils % Nucleated RBC % ESR 63 H PT with INR INR PTT (Actin FS) VBG pH POC VBG pCO2 POC VBG pO2 Mixed VBG HCO3 Sodium Potassium Chloride Carbon Dioxide Anion Gap BUN Creatinine Creat Clearance w eGFR Random Glucose Lactic Acid Uric Acid Calcium Total Bilirubin AST ALT Alkaline Phosphatase Troponin I C-Reactive Protein Total Protein Albumin Urine Color Urine Appearance Urine pH Ur Specific [place] Urine Protein Urine Glucose (UA) Urine Ketones Urine Blood Urine Nitrite Urine Bilirubin Urine Urobilinogen Ur Leukocyte Esterase Urine WBC (Auto) Urine RBC (Auto) Ur Epithelial Cells Urine Mucus ESR and CRP elevated. lactic acid elevated. cxr within nrmal limits. bedside US shows skin changes consistent with cellulitis but no definitive significant effusion. patient will be admitted for cellulitis. 11/20/18 16:[address] Taveras who followed with him in the last admission. He does not think the knee needs to be tapped given negative septic arthritis in the past with negative WBC and afebrile. Will follow once patient is admitted. 11/20/18 16:[address] Nolan regarding admission of the patient. Patient was accepted for admission *DC/Admit/Observation/Transfer Diagnosis at time of Disposition: Left knee pain Qualifiers: Chronicity: unspecified Qualified Code(s): M25.562 - Pain in left knee - Discharge Dispostion Disposition: VNS/HOME HEALTH CARE Condition at time of disposition: Stable - Prescriptions - Referrals - Patient Instructions - Post Discharge Activity
[2018-11-20] MEDS ORDERED: SODIUM CHLORIDE 1,000 ML IV STA (12:14)
[2018-11-20] MEDS ORDERED: ACETAMINOPHEN 1000 MG/100 ML VIAL (NON FORMULARY) IVPB ONE (12:14)
[2018-11-20 13:37] LABS: BASO % 1.2 % (0-2.0); EOS % 1.3 % (0-4.5); HEMATOCRIT 34.3 % (35.4-49); HEMOGLOBIN 11.6 GM/dL (11.7-16.9); LYMPH % 5.1 % (8-40); MCH 27.6 pg (25.7-33.7); MCHC 33.7 g/dl (32.0-35.9); MEAN CELL VOLUME 81.9 fl (80-96); MEAN PLT VOLUME 8.6 fl (7.5-11.1); MONO % 14.7 % (3.8-10.2); NEUT % 77.7 % (42.8-82.8); PLATELET COUNT 154 K/MM3 (134-434); RBC 4.18 M/mm3 (4.00-5.60); RDW 16.5 % (11.9-15.9); WHITE BLOOD COUNT 9.9 K/mm3 (4.0-10.0)
[2018-11-20 13:41] LABS: VENOUS PC02 60.6 mmHg (38-52); VENOUS PH 7.27 (7.32-7.42); VENOUS PO2 39.6 mmHg (28-48)
--- NOTE | 2018-11-20 13:42 | EKG ---
Test Reason : Blood Pressure : / mmHG Vent. Rate : 064 BPM Atrial Rate : 064 BPM P-R Int : 182 ms QRS Dur : 092 ms QT Int : 426 ms P-R-T Axes : 053 -22 053 degrees QTc Int : 439 ms NORMAL SINUS RHYTHM LOW VOLTAGE QRS BORDERLINE ECG WHEN COMPARED WITH ECG OF 27-OCT-2018 18:55, NO SIGNIFICANT CHANGE WAS FOUND Confirmed by MARY OSBORNE MD ([id number]) on 11/20/2018 1:42:03 PM Referred By: Confirmed By:MARY OSBORNE MD
[2018-11-20 14:00] LABS: INR 1.99 (0.83-1.09); PROTHROMBIN TIME (PATIENT) 23.6 SEC (9.7-13.0)
[2018-11-20 14:02] LABS: ACTIVATED PTT 37.9 SECONDS (25.2-36.5)
[2018-11-20] MEDS ORDERED: ACETAMINOPHEN INJECTION 100 ML IVPB ONE (14:23)
[2018-11-20 14:41] LABS: ALBUMIN 3.3 g/dl (3.4-5.0); ALK PHOS 93 U/L (45-117); ANION GAP 7 MMOL/L (8-16); BILIRUBIN,TOTAL 0.4 mg/dL (0.2-1); BLOOD UREA NITROGEN 11 mg/dL (7-18); CALCIUM 8.5 mg/dL (8.5-10.1); CHLORIDE 100 mmol/L (98-107); CO2 29 mmol/L (21-32); CREATININE 0.9 mg/dL (0.55-1.3); GLUCOSE,RANDOM 100 mg/dL (74-106); POTASSIUM 4.1 mmol/L (3.5-5.1); SGOT/AST 19 U/L (15-37); SGPT/ALT 16 U/L (13-61); SODIUM 136 mmol/L (136-145); TOT PROT 7.2 g/dl (6.4-8.2)
[2018-11-20 15:55] LABS: URINE APPEARANCE CLEAR; URINE BILIRUBIN NEGATIVE (<2.0 mg/dL); URINE COLOR YELLOW; URINE GLUCOSE (UA) 1+ (NEGATIVE); URINE KETONE NEGATIVE (NEGATIVE); URINE LEUK ESTERASE NEGATIVE (NEGATIVE); URINE NITRITE NEGATIVE (NEGATIVE); URINE PROTEIN NEGATIVE (NEGATIVE); URINE UROBILINOGEN NEGATIVE mg/dL (0.2-1.0)
[2018-11-20 16:15] LABS: EPI CELLS RARE /HPF (FEW); URINE MUCUS RARE
--- NOTE | 2018-11-20 16:19 | HP ---
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 Cardiovascular: Yes: CAD, Deep Vein Thrombosis, HTN, Other (paroxysmal atrial fibrillation) Pulmonary: Yes: COPD Gastrointestinal: Yes: Diverticulosis, Diverticulitis, Other Renal/: Yes: Hematuria, Renal Calculi Heme/Onc: Yes: Cancer (bladder cancer, prostate cancer) Psych: Yes: Anxiety Endocrine: Yes: Diabetes Mellitus - Past Surgical History Past Surgical History: Yes: Hernia Repair, Appendectomy, Joint Replacement, Cholecystectomy - Smoking History Smoking history: Never smoked Have you smoked in the past 12 months: No Aproximately how many cigarettes per day: 0 If you are a former smoker, when did you quit?: 25+ years - Alcohol/Substance Use Hx Alcohol Use: No History of Substance Use: reports: None - Social History ADL: Independent History of Recent Travel: No Home Medications - Allergies Allergies/Adverse Reactions: Allergies Allergy/AdvReac Type Severity Reaction Status Date / Time Sulfa (Sulfonamide Allergy Intermediate Verified 11/20/18 11:12 Antibiotics) amoxicillin Allergy Mild Rash Verified 11/20/18 11:12 carbamazepine [From Tegretol] Allergy Mild Rash Verified 11/20/18 11:12 cephalexin [Cephalexin] Allergy Mild Rash Verified 11/20/18 11:12 ciprofloxacin Allergy Mild Rash Verified 11/20/18 11:12 fluconazole Allergy Mild Verified 11/20/18 11:12 lamotrigine [From Lamictal] Allergy Mild Rash Verified 11/20/18 11:12 metronidazole Allergy Mild Rash Verified 11/20/18 11:12 phenobarbital Allergy Mild Rash Verified 11/20/18 11:12 phenytoin sodium extended Allergy Mild Rash Verified 11/20/18 11:12 [From Dilantin] SHRIMP Allergy Mild Rash Uncoded 11/20/18 11:12 - Home Medications Home Medications: Ambulatory Orders Aspirin 81 mg PO DAILY 11/20/18 Atorvastatin Ca [Lipitor] 20 mg PO HS 11/20/18 Bicalutamide 50 mg PO DAILY 11/20/18 Citalopram Hydrobromide [Citalopram HBr] 10 mg PO DAILY 11/20/18 Clonazepam 0.5 mg PO TID 11/20/18 Divalproex Sodium [Divalproex Sodium ER] 500 mg PO BID 11/20/18 Ferrous Sulfate 325 mg PO BID 11/20/18 Fesoterodine Fumarate [Toviaz] 4 mg PO DAILY 11/20/18 Folic Acid 1 mg PO DAILY 11/20/18 Lisinopril 5 mg PO DAILY 11/20/18 Magnesium Oxide [Laxative Dietary Supplement] 500 mg PO BID 11/20/18 Ranolazine [Ranexa] 500 mg PO BID 11/20/18 Rivaroxaban [Xarelto -] 20 mg PO DAILY 11/20/18 Tamsulosin HCl [Flomax] 0.4 mg PO DAILY 11/20/18 levETIRAcetam [Keppra -] 200 mg PO TID 11/20/18 Family Disease History - Family Disease History Family Disease History: Diabetes: Mother (htn), CA: Father, Other: Mother Review of Systems - Review of Systems Musculoskeletal: reports: Joint Pain, Joint Swelling (left knee pain) Physical Examination Vital Signs: Vital Signs Temperature 97.4 F L 11/20/18 11:13 Pulse Rate 63 11/20/18 11:13 Respiratory Rate 15 11/20/18 11:13 Blood Pressure 130/60 11/20/18 11:13 O2 Sat by Pulse Oximetry (%) 100 11/20/18 11:13 Constitutional: Yes: Calm Cardiovascular: Yes: Regular Rate and Rhythm, S1, S2 Respiratory: Yes: CTA Bilaterally Gastrointestinal: Yes: Normal Bowel Sounds, Soft Musculoskeletal: Yes: Joint Stiffness, Joint Swelling, Other (left knee joint swelling and pain) Extremities: Yes: Other Edema: Yes Labs: CBC, BMP 11/20/18 13:20 11/20/18 13:20 Problem List - Problems (1) Left knee pain Assessment/Plan: ortho for possible aspiration of effusion mri of knee w/o contrast pain control ID lorraine camacho fawad Code(s): M25.562 - PAIN IN LEFT KNEE Qualifiers: Chronicity: unspecified Qualified Code(s): M25.562 - Pain in left knee (2) Afib Assessment/Plan: xarelto 20 mg daily Code(s): I48.91 - UNSPECIFIED ATRIAL FIBRILLATION (3) Seizure Assessment/Plan: depakote and keppra Code(s): R56.9 - UNSPECIFIED CONVULSIONS
[2018-11-20] MEDS ORDERED: PIPERACILLIN/TAZOB 3.375 GM 3.375 GM in DEXTROSE 5%-WATER - 50 ML IVPB ONE (16:24)
[2018-11-20] MEDS ORDERED: ACETAMINOPHEN 325 MG TABLET (FP) PO PRN (16:26)
[2018-11-20] MEDS ORDERED: VANCOMYCIN 1 GRAM (PRE-DOCKED) 1,000 MG/250 ML BAG IVPB ONE ×2 (17:00→17:49)
[2018-11-20] MEDS ORDERED: FERROUS SO4 325 MG TABLET (FP) ONE (18:31)
[2018-11-20] MEDS: FERROUS SO4 325 MG TABLET (FP) PO SCH (18:38)
[2018-11-20 19:35] LABS: SYNOVIAL FLUID SOURCE LEFT KNEE
[2018-11-20 19:57] LABS: SYNOVIAL FLUID LYMPHOCYTES 3 %; SYNOVIAL FLUID NEUTROPHILS 97 %
[2018-11-20 21:04] LABS: URIC ACID 3.6 mg/dL (2.6-7.2)
--- NOTE | 2018-11-20 21:13 | CON.ORTH ---
Consult Reason for Consultation:: 68y M here for recurrent L knee pain. -prev admit w prepatellar hematoma. -last admit for r/o septic knee with negative gram stain , cx, improved off abx. -now with worsening L knee pain over past few days. - felt from knee down to foot. -worse with motion or trying to walk. -denies numbness/tingling. 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 Cardio/Vascular: Yes: CAD, Deep Vein Thrombosis, HTN, Other (paroxysmal atrial fibrillation) Pulmonary: Yes: COPD Gastrointestinal: Yes: Diverticulosis, Diverticulitis, Other Renal/: Yes: Hematuria, Renal Calculi Psych: Yes: Anxiety Endocrine: Yes: Diabetes Mellitus - Past Surgical History Past Surgical History: Yes: Hernia Repair, Appendectomy, Joint Replacement, Cholecystectomy - Alcohol/Substance Use Hx Alcohol Use: No History of Substance Use: reports: None - Smoking History Smoking history: Never smoked Have you smoked in the past 12 months: No Aproximately how many cigarettes per day: 0 If you are a former smoker, when did you quit?: 25+ years - Social History Usual Living Arrangement: Other (roomate) ADL: Independent History of Recent Travel: No Home Medications - Allergies Allergies/Adverse Reactions: Allergies Allergy/AdvReac Type Severity Reaction Status Date / Time Sulfa (Sulfonamide Allergy Intermediate Verified 11/20/18 11:12 Antibiotics) amoxicillin Allergy Mild Rash Verified 11/20/18 11:12 carbamazepine [From Tegretol] Allergy Mild Rash Verified 11/20/18 11:12 cephalexin [Cephalexin] Allergy Mild Rash Verified 11/20/18 11:12 ciprofloxacin Allergy Mild Rash Verified 11/20/18 11:12 fluconazole Allergy Mild Verified 11/20/18 11:12 lamotrigine [From Lamictal] Allergy Mild Rash Verified 11/20/18 11:12 metronidazole Allergy Mild Rash Verified 11/20/18 11:12 phenobarbital Allergy Mild Rash Verified 11/20/18 11:12 phenytoin sodium extended Allergy Mild Rash Verified 11/20/18 11:12 [From Dilantin] SHRIMP Allergy Mild Rash Uncoded 11/20/18 11:12 - Home Medications Home Medications: Ambulatory Orders Aspirin 81 mg PO DAILY 11/20/18 Atorvastatin Ca [Lipitor] 20 mg PO HS 11/20/18 Bicalutamide 50 mg PO DAILY 11/20/18 Citalopram Hydrobromide [Citalopram HBr] 10 mg PO DAILY 11/20/18 Clonazepam 0.5 mg PO TID 11/20/18 Divalproex Sodium [Divalproex Sodium ER] 500 mg PO BID 11/20/18 Ferrous Sulfate 325 mg PO BID 11/20/18 Fesoterodine Fumarate [Toviaz] 4 mg PO DAILY 11/20/18 Folic Acid 1 mg PO DAILY 11/20/18 Lisinopril 5 mg PO DAILY 11/20/18 Magnesium Oxide [Laxative Dietary Supplement] 500 mg PO BID 11/20/18 Ranolazine [Ranexa] 500 mg PO BID 11/20/18 Rivaroxaban [Xarelto -] 20 mg PO DAILY 11/20/18 Tamsulosin HCl [Flomax] 0.4 mg PO DAILY 11/20/18 levETIRAcetam [Keppra -] 200 mg PO TID 11/20/18 Family Disease History - Family Disease History Family Disease History: Diabetes: Mother (htn), CA: Father, Other: Mother Physical Exam for Ortho Vital Signs: Vital Signs Temperature 97.4 F L 11/20/18 11:13 Pulse Rate 63 11/20/18 11:13 Respiratory Rate 15 11/20/18 11:13 Blood Pressure 130/60 11/20/18 11:13 O2 Sat by Pulse Oximetry (%) 100 11/20/18 11:13 Constitutional: Yes: Well Nourished, No Distress, Calm, Obese Respiratory: Yes: Regular Extremities: Yes: Other (LLE - chronic venous stasis changes, knee shows mild- moderate effusion with focal warmth, pain with any rom, tender medially and laterally.) Edema: Yes Integumentary: Yes: Venous Stasis Changes Labs: CBC, BMP 11/20/18 13:20 11/20/18 13:20 INR, PTT INR 1.99 (0.83-1.09) H 11/20/18 13:20 Other Findings/Remarks: Grossly intact distal neurovascular exam. Imaging - Results X-ray: Report Reviewed, Image Reviewed (L knee DJD) Problem List - Problems (1) Left knee pain Assessment/Plan: I reviewed today's findings with Guilherme -advised that I do not feel septic knee is highly likely but given his elevated infectious parameters it is worth aspiration to r/o infection -pt agreed -L knee was prepped with betadine and alcohol -20g needle inserted and 30cc of red tinged, cloudy fluid were withdrawn -dressing placed -labs show wbc 17k, NOT consistent with infection -pt may have DJD flare, can work on PT, not a good candidate for NSAIDs and can consider short course of steroids to relieve inflammation if DM is well controlled and no other infection found Code(s): M25.562 - PAIN IN LEFT KNEE Qualifiers: Chronicity: unspecified Qualified Code(s): M25.562 - Pain in left knee
[2018-11-20] MEDS ORDERED: levETIRAcetam 500 MG TABLET (FP) PO SCH (22:00)
[2018-11-20] MEDS ORDERED: levETIRAcetam 500 MG TABLET (FP) PO ONE (22:17)
[2018-11-20] MEDS ORDERED: ATORVASTATIN CA 40 MG TABLET (FP) ONE (22:18)
[2018-11-20] MEDS: ATORVASTATIN CA 20 MG TABLET (FP) PO SCH (22:22)
[2018-11-20] MEDS: levETIRAcetam 500 MG TABLET (FP) PO SCH (22:22)
[2018-11-20] MEDS: RANOLAZINE E.R. 500 MG TABLET (FP) PO SCH (22:22)
[2018-11-20] MEDS: DIVALPROEX SODIUM 500 MG TABLET E.C. PO SCH (22:22)
[2018-11-21] MEDS: levETIRAcetam 500 MG TABLET (FP) PO SCH ×3 (05:53→21:19)
[2018-11-21 07:47] LABS: ALBUMIN 2.9 g/dl (3.4-5.0); ALK PHOS 82 U/L (45-117); ANION GAP 5 MMOL/L (8-16); BILIRUBIN,TOTAL 0.4 mg/dL (0.2-1); BLOOD UREA NITROGEN 9 mg/dL (7-18); CALCIUM 8.4 mg/dL (8.5-10.1); CHLORIDE 102 mmol/L (98-107); CO2 29 mmol/L (21-32); GLUCOSE,RANDOM 84 mg/dL (74-106); MAGNESIUM 2.1 mg/dL (1.8-2.4); PHOSPHOROUS 2.7 mg/dL (2.5-4.9); SGOT/AST 11 U/L (15-37); SGPT/ALT 14 U/L (13-61); SODIUM 137 mmol/L (136-145); TOT PROT 6.4 g/dl (6.4-8.2)
[2018-11-21 07:53] LABS: BASO % 1.1 % (0-2.0); EOS % 1.9 % (0-4.5); HEMOGLOBIN 10.4 GM/dL (11.7-16.9); LYMPH % 3.9 % (8-40); MCH 27.3 pg (25.7-33.7); MCHC 33.7 g/dl (32.0-35.9); MEAN CELL VOLUME 81.2 fl (80-96); MEAN PLT VOLUME 8.9 fl (7.5-11.1); MONO % 14.8 % (3.8-10.2); NEUT % 78.3 % (42.8-82.8); PLATELET COUNT 155 K/MM3 (134-434); RBC 3.82 M/mm3 (4.00-5.60); RDW 16.4 % (11.9-15.9); WHITE BLOOD COUNT 8.1 K/mm3 (4.0-10.0)
[2018-11-21] MEDS ORDERED: PT OWN MED DRAWER 7, Y5N ONE ×4 (09:55→18:11)
[2018-11-21] MEDS: FERROUS SO4 325 MG TABLET (FP) PO SCH ×2 (09:56→17:34)
[2018-11-21] MEDS: ASPIRIN 81 MG CHEWABLE TABLETS PO SCH (09:56)
[2018-11-21] MEDS: RANOLAZINE E.R. 500 MG TABLET (FP) PO SCH ×2 (09:57→21:18)
[2018-11-21] MEDS: FOLIC ACID 1 MG TABLET (FP) PO SCH (09:57)
[2018-11-21] MEDS: TOLTERODINE TARTRATE LA 4 MG CAP.SR.24H (FP) PO SCH (09:57)
[2018-11-21] MEDS: LISINOPRIL 5 MG TABLET (FP) PO SCH (09:57)
[2018-11-21] MEDS: DIVALPROEX SODIUM 500 MG TABLET E.C. PO SCH ×2 (09:57→21:19)
[2018-11-21] MEDS: BICALUTAMIDE 50 MG TABLET (FP) PO SCH (09:58)
--- NOTE | 2018-11-21 11:09 | PN ---
Progress Note, Physician Chief Complaint: LEFT KNEE INTRACTABLE PAIN FALL - Current Medication List Current Medications: Active Medications Acetaminophen (Tylenol -) 650 mg PO Q6HPO PRN PRN Reason: FEVER Aspirin (Asa -) 81 mg PO DAILY [facility] Last Admin: 11/21/18 09:56 Dose: 81 mg Atorvastatin Calcium (Lipitor -) 20 mg PO HS [facility] Last Admin: 11/20/18 22:22 Dose: 20 mg Bicalutamide (Casodex -) 50 mg PO DAILY [facility] Last Admin: 11/21/18 09:58 Dose: 50 mg Divalproex Sodium (Depakote -) 500 mg PO BID [facility] Last Admin: 11/21/18 09:57 Dose: 500 mg Ferrous Sulfate (Feosol -) 325 mg PO BIDWM [facility] Last Admin: 11/21/18 09:56 Dose: 325 mg Folic Acid (Folic Acid -) 1 mg PO DAILY [facility] Last Admin: 11/21/18 09:57 Dose: 1 mg Levetiracetam (Keppra -) 1,000 mg PO TID [facility] Last Admin: 11/21/18 05:53 Dose: 1,000 mg Lisinopril (Prinivil) 5 mg PO DAILY [facility] Last Admin: 11/21/18 09:57 Dose: 5 mg Prednisone (Deltasone -) 40 mg PO DAILY [facility] Ranolazine (Ranexa -) 500 mg PO BID [facility] Last Admin: 11/21/18 09:57 Dose: 500 mg Tolterodine Tartrate (Detrol La -) 4 mg PO DAILY [facility] Last Admin: 11/21/18 09:57 Dose: 4 mg - Objective Vital Signs: Vital Signs Temperature 97.9 F 11/21/18 05:20 Pulse Rate 73 11/21/18 05:20 Respiratory Rate 18 11/21/18 05:20 Blood Pressure 127/73 11/21/18 05:20 O2 Sat by Pulse Oximetry (%) 98 11/21/18 04:52 Constitutional: Yes: Well Nourished, No Distress, Calm, Obese Cardiovascular: Yes: Regular Rate and Rhythm Respiratory: Yes: Regular Gastrointestinal: Yes: Normal Bowel Sounds, Soft, Abdomen, Obese Genitourinary: Yes: WNL Musculoskeletal: Yes: Joint Swelling (LEFT KNEE) Extremities: Yes: WNL Edema: No Peripheral Pulses WNL: Yes Neurological: Yes: Alert, Oriented Psychiatric: Yes: Alert, Oriented Labs: CBC, BMP 11/21/18 05:25 11/21/18 05:25 INR, PTT INR 1.99 (0.83-1.09) H 11/20/18 13:20 Problem List - Problems (1) Left knee pain Assessment/Plan: -Seen by orthopedic sx -Left knee drained, cultures pending -Pain management- oxycodone 5 mg po Q6H PRn -Prednisone 40 mg po daily, taper -Physical therapy, did well Code(s): M25.562 - PAIN IN LEFT KNEE Qualifiers: Chronicity: unspecified Qualified Code(s): M25.562 - Pain in left knee (2) Afib Assessment/Plan: -resume xarelto Code(s): I48.91 - UNSPECIFIED ATRIAL FIBRILLATION (3) Lactic acidosis Assessment/Plan: -repeat LA resolved Code(s): E87.2 - ACIDOSIS (4) Diabetes mellitus type 2 in obese Assessment/Plan: -Last A1c 09/2018 at 6.7 -BGM AC HS -Novolog sliding scale -diabetic low sodium diet -RD consult Code(s): E11.9 - TYPE 2 DIABETES MELLITUS WITHOUT COMPLICATIONS; E66.9 - OBESITY , UNSPECIFIED (5) Anemia Assessment/Plan: -check B12, thyroid+ iron profile + stool ob+FA -monitor trend Code(s): D64.9 - ANEMIA, UNSPECIFIED (6) Morbid obesity Assessment/Plan: -Encouraged weight loss -RD consult Code(s): E66.01 - MORBID (SEVERE) OBESITY DUE TO EXCESS CALORIES Assessment/Plan See problem list Physical therapy
[2018-11-21] MEDS: oxyCODONE HCL 5 MG TABLET PO PRN (11:40)
[2018-11-21] MEDS: predniSONE 20 MG TABLET (UD) PO SCH (11:40)
--- NOTE | 2018-11-21 12:18 | CONSULT ---
- Consultation REQUESTING PROVIDER: CONSULT REQUEST: We have been asked to surgically evaluate this patient for ( vasculitis). PCP: Ruth Suazo HISTORY OF PRESENT ILLNESS: 68 y/o M w/ PMHx afib (on xarelto), CAD, HTN, HLD, DM, prostate cancer, bladder cancer, hypothyroidism, COPD, prior GI bleed, morbid obesity, chronic left knee pain, h/o multiple DVTs, dating back to 2013 ( initial DVT thought to be provoked from groin compression s/p cardiac cath), s/ p IVC filter placement, pt with a recent admission for suspected septic joint now admitted for acute on chronic left knee pain with effusion. Vascular consulted for evaluation of vasculitis. Pt reports severe 10/10 pain at knee and anterior tibia with movement of leg. Reports barely being able to ambulate due to pain. In regards to h/o dvts, pt is unsure of cause or hematology evaluation. Per EMR pt has been on Coumadin and Lovenox with apparent subsequent development of further dvts. Denies h/o tobacco abuse. PMHx: as above PSHx: as above Home Medications Medication Instructions Recorded Aspirin 81 mg PO DAILY 11/20/18 Atorvastatin Ca [Lipitor] 20 mg PO HS 11/20/18 Bicalutamide 50 mg PO DAILY 11/20/18 Citalopram Hydrobromide 10 mg PO DAILY 11/20/18 [Citalopram HBr] Clonazepam 0.5 mg PO TID 11/20/18 Divalproex Sodium [Divalproex 500 mg PO BID 11/20/18 Sodium ER] Ferrous Sulfate 325 mg PO BID 11/20/18 Fesoterodine Fumarate [Toviaz] 4 mg PO DAILY 11/20/18 Folic Acid 1 mg PO DAILY 11/20/18 Lisinopril 5 mg PO DAILY 11/20/18 Magnesium Oxide [Laxative Dietary 500 mg PO BID 11/20/18 Supplement] Ranolazine [Ranexa] 500 mg PO BID 11/20/18 Rivaroxaban [Xarelto -] 20 mg PO DAILY 11/20/18 Tamsulosin HCl [Flomax] 0.4 mg PO DAILY 11/20/18 levETIRAcetam [Keppra -] 200 mg PO TID 11/20/18 Allergies Allergy/AdvReac Type Severity Reaction Status Date / Time Sulfa (Sulfonamide Allergy Intermediate Verified 11/20/18 11:12 Antibiotics) amoxicillin Allergy Mild Rash Verified 11/20/18 11:12 carbamazepine [From Tegretol] Allergy Mild Rash Verified 11/20/18 11:12 cephalexin [Cephalexin] Allergy Mild Rash Verified 11/20/18 11:12 ciprofloxacin Allergy Mild Rash Verified 11/20/18 11:12 fluconazole Allergy Mild Verified 11/20/18 11:12 lamotrigine [From Lamictal] Allergy Mild Rash Verified 11/20/18 11:12 metronidazole Allergy Mild Rash Verified 11/20/18 11:12 phenobarbital Allergy Mild Rash Verified 11/20/18 11:12 phenytoin sodium extended Allergy Mild Rash Verified 11/20/18 11:12 [From Dilantin] SHRIMP Allergy Mild Rash Uncoded 11/20/18 11:12 REVIEW OF SYSTEMS: CONSTITUTIONAL: Absent: fever, chills CARDIOVASCULAR: Absent: chest pain RESPIRATORY: Absent: cough, shortness of breath MUSCULOSKELETAL: ++L knee pain PHYSICAL EXAM: GENERAL: Awake, alert, and fully oriented, in no acute distress. HEAD: Normal with no signs of trauma. LOWER EXTREMITIES: B/L le's with hyperpigmentation, no ulcerations. RLE with 1+ pitting edema to mid calf, LLE with 2+ pitting edema to mid calf. +ttp along knee and anterior tibia. Compartments full but soft. No significantly increased pain with dorsi/plantar flexion. B/L feet with significant xeroderma and onychomycosis. No erythema. Feet warm, cap refill intact. Vasc: 2+ b/l fem. Palpable dp b/l, unable to appreciate pt b/l secondary to lymphadema. Vital Signs Temperature 98 F 11/21/18 10:00 Pulse Rate 72 11/21/18 10:00 Respiratory Rate 18 11/21/18 10:00 Blood Pressure 130/70 11/21/18 10:00 O2 Sat by Pulse Oximetry (%) 98 11/21/18 09:00 Lab Results WBC 8.1 K/mm3 (4.0-10.0) 11/21/18 05:25 RBC 3.82 M/mm3 (4.00-5.60) L 11/21/18 05:25 Hgb 10.4 GM/dL (11.7-16.9) L 11/21/18 05:25 Hct 31.0 % (35.4-49) L 11/21/18 05:25 MCV 81.2 fl (80-96) 11/21/18 05:25 MCHC 33.7 g/dl (32.0-35.9) 11/21/18 05:25 RDW 16.4 % (11.9-15.9) H 11/21/18 05:25 Plt Count 155 K/MM3 (134-434) 11/21/18 05:25 Sodium 137 mmol/L (136-145) 11/21/18 05:25 Potassium 4.0 mmol/L (3.5-5.1) 11/21/18 05:25 Chloride 102 mmol/L (98-107) 11/21/18 05:25 Carbon Dioxide 29 mmol/L (21-32) 11/21/18 05:25 Anion Gap 5 MMOL/L (8-16) L 11/21/18 05:25 BUN 9 mg/dL (7-18) 11/21/18 05:25 Creatinine 1.0 mg/dL (0.55-1.3) 11/21/18 05:25 Random Glucose 84 mg/dL (74-106) 11/21/18 05:25 Calcium 8.4 mg/dL (8.5-10.1) L 11/21/18 05:25 INR 1.99 (0.83-1.09) H 11/20/18 13:20 A/P: 68 y/o M w/ PMHx afib (on xarelto), CAD, HTN, HLD, DM, prostate cancer, bladder cancer, hypothyroidism, COPD, prior GI bleed, morbid obesity, chronic left knee pain, h/o multiple DVTs, dating back to 2013 (initial DVT thought to be provoked from groin compression s/p cardiac cath), s/p IVC filter placement, pt with a recent admission for suspected septic joint now admitted for acute on chronic left knee pain with effusion. Vascular consulted for evaluation of vasculitis. Pt with severe L knee pain, s/p needle aspiration by orthopedics for r/o septic joint -Recommend venous duplex for r/o dvt due to pts history -Continue AC per primary team -B/L le elevation while at rest -Skin care with moisturizer -Consider hematology evaluation for h/o multiple dvts d/w attending Dr Bundy regarding above Addendum: venous duplex negative for dvt Please page [phone] with any questions/concerns
--- NOTE | 2018-11-21 15:03 | PN ---
Progress Note (short form) - Note Progress Note: ID CONSULT DICTATED R/O SEPTIC ARTHRITIS L KNEE PCN ALLERGY LACTIC ACIDOSIS DM PENDING C/S EMPIRIC VANCOMYCIN/ AZTREONAM
--- NOTE | 2018-11-21 15:57 | CONS ---
DATE OF CONSULTATION: DATE OF DICTATION: 11/18/2018 HISTORY OF PRESENT ILLNESS: The patient is a 68-year-old male diabetic with multiple antibiotic allergies, evaluated for possible septic arthritis of the left knee. The patient was hospitalized at [facility] from October 27 through November 01, 2018. At that time, he had complained of left knee pain and swelling. He had reported developing swelling of the left knee after attending physical therapy. He presented to the emergency room where an MRI was performed and showed a torn meniscus and large joint effusion. An arthrocentesis was performed at that time and 40 mL of cloudy fluid were obtained. Fluid analysis revealed 53,000 white cells, of which 90% were polys. Cultures were negative, as were crystals. He now returns with recurrent left knee pain. He reports that over the past several days, he has had increased pain, warmth and swelling of the left knee. He does not give a reliable history. When questioned, he did report having fallen on his knee. He denies any associated fever or chills. An arthrocentesis was performed this admission yielding 30 mL of red, cloudy fluid. The cell count was 17,062, 97% neutrophils. Crystals were negative. Gram stain revealed many polys and no organisms. Cultures are pending. He was empirically treated with antibiotics. PAST MEDICAL HISTORY: Positive for morbid obesity, atrial fibrillation, hypertension, hyperlipidemia, diabetes mellitus, prostate cancer, bladder cancer, lymphedema. PAST SURGICAL HISTORY: Status post right total hip replacement. ALLERGIES: SULFA, AMOXICILLIN, KEFLEX, CIPRO, TEGRETOL, FLUCONAZOLE, FLAGYL. The patient reports developing rash with these agents. MEDICATIONS: Tylenol, aspirin, Lipitor, Depakote, folic acid, Keppra, prednisone, Ranexa. SOCIAL HISTORY: He lives at home in the community. Nonsmoker, nondrinker. REVIEW OF SYSTEMS: Neurologic: No loss of consciousness, seizure activity or focal weakness. Cardiac: Negative for chest pain or palpitations. Respiratory: Negative for cough or sputum production. Gastrointestinal: Negative for vomiting or diarrhea. Genitourinary: Negative for upper tract infection. LABORATORY DATA: White count 8.1, hematocrit 31.0, platelet count 155, BUN 9, creatinine 1.0, lactic acid 4.2, sed rate 63. PHYSICAL EXAMINATION: General: The patient is awake and alert, out of bed to chair. Vital Signs: Temperature 98, pulse 72 and regular, blood pressure 130/70, respiratory rate 18 per minute. HEENT: Sclerae anicteric. Heart: Heart sounds S1, S2. Lungs: Clear. Abdomen: Obese, soft, nontender. Extremities: Bilateral lower extremity edema. The left knee is slightly warm to touch. There is no appreciable swelling. The knee is slightly tender to flexion. No erythema. Positive for chronic venous stasis dermatitis in the lower extremities bilaterally. IMPRESSION: 1. Rule out septic arthritis, left knee. 2. PENICILLIN ALLERGY. 3. Lactic acidosis. 4. Diabetes mellitus. PLAN: 1. His cell count is low for septic arthritis. Gram stain negative. Cultures pending. Await blood and synovial fluid cultures. Will empirically treat with vancomycin and aztreonam in this PENICILLIN-ALLERGIC patient. Further recommendations pending culture results. 2. Orthopedic followup. Thank you for the kind referral. MILTON BURGOS M.D. [id number]
[2018-11-21] MEDS: AZTREONAM 1 GM in DEXTROSE 5%-WATER - 50 ML IVPB SCH ×2 (17:25→20:35)
[2018-11-21] MEDS: RIVAROXABAN 20 MG TABLET PO SCH (17:34)
[2018-11-21] MEDS: VANCOMYCIN 1 GRAM (PRE-DOCKED) 1,000 MG/250 ML BAG IVPB SCH (17:34)
[2018-11-21] MEDS: DOCUSATE SODIUM 100 MG CAPSULE (FP) PO SCH (21:18)
[2018-11-21] MEDS: ATORVASTATIN CA 20 MG TABLET (FP) PO SCH (21:19)
[2018-11-22] MEDS: AZTREONAM 1 GM in DEXTROSE 5%-WATER - 50 ML IVPB SCH ×3 (01:35→20:16)
[2018-11-22] MEDS: VANCOMYCIN 1 GRAM (PRE-DOCKED) 1,000 MG/250 ML BAG IVPB SCH ×2 (03:35→17:08)
[2018-11-22] MEDS: levETIRAcetam 500 MG TABLET (FP) PO SCH ×3 (05:57→21:08)
[2018-11-22 07:20] LABS: BASO % 0.5 % (0-2.0); EOS % 0.4 % (0-4.5); HEMATOCRIT 34.3 % (35.4-49); HEMOGLOBIN 11.3 GM/dL (11.7-16.9); LYMPH % 3.3 % (8-40); MCH 26.9 pg (25.7-33.7); MCHC 32.9 g/dl (32.0-35.9); MEAN CELL VOLUME 81.8 fl (80-96); MEAN PLT VOLUME 8.7 fl (7.5-11.1); MONO % 13.1 % (3.8-10.2); NEUT % 82.7 % (42.8-82.8); PLATELET COUNT 148 K/MM3 (134-434); RDW 16.5 % (11.9-15.9)
[2018-11-22 07:53] LABS: ANION GAP 9 MMOL/L (8-16); BLOOD UREA NITROGEN 10 mg/dL (7-18); CALCIUM 8.6 mg/dL (8.5-10.1); CHLORIDE 101 mmol/L (98-107); CO2 24 mmol/L (21-32); GLUCOSE,RANDOM 177 mg/dL (74-106); POTASSIUM 4.3 mmol/L (3.5-5.1); SODIUM 134 mmol/L (136-145)
[2018-11-22 08:07] LABS: SERUM IRON SATURATION 17 % (15-55); TOTAL IRON BINDING CAPACITY 240 ug/dL (250-450); UIBC 200 ug/dL (111-343)
[2018-11-22] MEDS ORDERED: PT OWN MED DRAWER 7, Y5N ONE ×3 (09:46→21:04)
[2018-11-22] MEDS: FERROUS SO4 325 MG TABLET (FP) PO SCH ×2 (09:56→17:08)
[2018-11-22] MEDS: ASPIRIN 81 MG CHEWABLE TABLETS PO SCH (09:57)
[2018-11-22] MEDS: BICALUTAMIDE 50 MG TABLET (FP) PO SCH (09:58)
[2018-11-22] MEDS: DIVALPROEX SODIUM 500 MG TABLET E.C. PO SCH ×2 (09:58→21:08)
[2018-11-22] MEDS: predniSONE 20 MG TABLET (UD) PO SCH (09:58)
[2018-11-22] MEDS: TOLTERODINE TARTRATE LA 4 MG CAP.SR.24H (FP) PO SCH (09:59)
[2018-11-22] MEDS: FOLIC ACID 1 MG TABLET (FP) PO SCH (09:59)
[2018-11-22] MEDS: LISINOPRIL 5 MG TABLET (FP) PO SCH (09:59)
[2018-11-22] MEDS: RANOLAZINE E.R. 500 MG TABLET (FP) PO SCH ×2 (09:59→21:10)
--- NOTE | 2018-11-22 12:42 | PN ---
Progress Note, Physician History of Present Illness: REPORTS LESS L KNEE PAIN NO F/C AFEBRILE BC, SYNOVIAL FLUID C/S (-) WBC WNL - Current Medication List Current Medications: Active Medications Acetaminophen (Tylenol -) 650 mg PO Q6HPO PRN PRN Reason: FEVER Aspirin (Asa -) 81 mg PO DAILY [facility] Last Admin: 11/22/18 09:57 Dose: 81 mg Atorvastatin Calcium (Lipitor -) 20 mg PO [facility] Last Admin: 11/21/18 21:19 Dose: 20 mg Bicalutamide (Casodex -) 50 mg PO DAILY [facility] Last Admin: 11/22/18 09:58 Dose: 50 mg Divalproex Sodium (Depakote -) 500 mg PO BID [facility] Last Admin: 11/22/18 09:58 Dose: 500 mg Docusate Sodium (Colace -) 300 mg PO [facility] Last Admin: 11/21/18 21:18 Dose: 300 mg Ferrous Sulfate (Feosol -) 325 mg PO BIDWM [facility] Last Admin: 11/22/18 09:56 Dose: 325 mg Folic Acid (Folic Acid -) 1 mg PO DAILY [facility] Last Admin: 11/22/18 09:59 Dose: 1 mg Vancomycin HCl (Vancomycin (Pre-Docked)) 1,000 mg in 250 mls @ 166.667 mls/hr IVPB Q12H [facility]; Protocol Last Admin: 11/22/18 03:35 Dose: 166.667 mls/hr Aztreonam 1 gm/ Dextrose 50 mls @ 100 mls/hr IVPB Q8H-IV [facility]; Protocol Last Admin: 11/22/18 09:57 Dose: 100 mls/hr Levetiracetam (Keppra -) 1,000 mg PO TID [facility] Last Admin: 11/22/18 05:57 Dose: 1,000 mg Lisinopril (Prinivil) 5 mg PO DAILY [facility] Last Admin: 11/22/18 09:59 Dose: 5 mg Oxycodone HCl (Roxicodone -) 5 mg PO Q6H PRN PRN Reason: PAIN LEVEL 6-10 Last Admin: 11/21/18 11:40 Dose: 5 mg Prednisone (Deltasone -) 40 mg PO DAILY [facility] Last Admin: 11/22/18 09:58 Dose: 40 mg Ranolazine (Ranexa -) 500 mg PO BID [facility] Last Admin: 11/22/18 09:59 Dose: 500 mg Rivaroxaban (Xarelto -) 20 mg PO DAILY@1800 [facility] Last Admin: 11/21/18 17:34 Dose: 20 mg Tolterodine Tartrate (Detrol La -) 4 mg PO DAILY [facility] Last Admin: 11/22/18 09:59 Dose: 4 mg - Objective Vital Signs: Vital Signs Temperature 97.8 F 11/21/18 20:31 Pulse Rate 68 11/21/18 20:31 Respiratory Rate 18 11/21/18 20:31 Blood Pressure 116/60 11/21/18 20:31 O2 Sat by Pulse Oximetry (%) 98 11/21/18 21:00 Constitutional: Yes: No Distress, Obese Cardiovascular: Yes: Regular Rate and Rhythm, S1, S2 Respiratory: Yes: CTA Bilaterally Gastrointestinal: Yes: Normal Bowel Sounds, Soft. No: Tenderness Extremities: Yes: Other (SLIGHT SWELLING/WARMTH L KNEE. LESS TENDER. NO ERYTHEMA ) Labs: CBC, BMP 11/22/18 06:00 11/22/18 06:00 INR, PTT INR 1.99 (0.83-1.09) H 11/20/18 13:20 Assessment/Plan LOW PROBABILITY SEPTIC ARTHRITIS L KNEE IF C/S NEGATIVE AT 48H WILL D/C ANTIBIOTICS
--- NOTE | 2018-11-22 15:08 | PN ---
Progress Note, Physician Chief Complaint: LEFT KNEE INTRACTABLE PAIN FALL History of Present Illness: C/O left knee pain Synovial culture negative so far Seen by orthopedic surgery and ID Walked with Physical therapy afebrile started on PO steroids - Current Medication List Current Medications: Active Medications Acetaminophen (Tylenol -) 650 mg PO Q6HPO PRN PRN Reason: FEVER Aspirin (Asa -) 81 mg PO DAILY [facility] Last Admin: 11/22/18 09:57 Dose: 81 mg Atorvastatin Calcium (Lipitor -) 20 mg PO [facility] Last Admin: 11/21/18 21:19 Dose: 20 mg Bicalutamide (Casodex -) 50 mg PO DAILY [facility] Last Admin: 11/22/18 09:58 Dose: 50 mg Divalproex Sodium (Depakote -) 500 mg PO BID [facility] Last Admin: 11/22/18 09:58 Dose: 500 mg Docusate Sodium (Colace -) 300 mg PO [facility] Last Admin: 11/21/18 21:18 Dose: 300 mg Ferrous Sulfate (Feosol -) 325 mg PO BIDWM [facility] Last Admin: 11/22/18 09:56 Dose: 325 mg Folic Acid (Folic Acid -) 1 mg PO DAILY [facility] Last Admin: 11/22/18 09:59 Dose: 1 mg Vancomycin HCl (Vancomycin (Pre-Docked)) 1,000 mg in 250 mls @ 166.667 mls/hr IVPB Q12H [facility]; Protocol Last Admin: 11/22/18 03:35 Dose: 166.667 mls/hr Aztreonam 1 gm/ Dextrose 50 mls @ 100 mls/hr IVPB Q8H-IV [facility]; Protocol Last Admin: 11/22/18 09:57 Dose: 100 mls/hr Levetiracetam (Keppra -) 1,000 mg PO TID [facility] Last Admin: 11/22/18 14:31 Dose: 1,000 mg Lisinopril (Prinivil) 5 mg PO DAILY [facility] Last Admin: 11/22/18 09:59 Dose: 5 mg Oxycodone HCl (Roxicodone -) 5 mg PO Q6H PRN PRN Reason: PAIN LEVEL 6-10 Last Admin: 11/21/18 11:40 Dose: 5 mg Prednisone (Deltasone -) 40 mg PO DAILY [facility] Last Admin: 11/22/18 09:58 Dose: 40 mg Ranolazine (Ranexa -) 500 mg PO BID [facility] Last Admin: 11/22/18 09:59 Dose: 500 mg Rivaroxaban (Xarelto -) 20 mg PO DAILY@1800 [facility] Last Admin: 11/21/18 17:34 Dose: 20 mg Tolterodine Tartrate (Detrol La -) 4 mg PO DAILY [facility] Last Admin: 11/22/18 09:59 Dose: 4 mg - Objective Vital Signs: Vital Signs Temperature 97.2 F L 11/22/18 14:55 Pulse Rate 64 11/22/18 14:55 Respiratory Rate 22 H 11/22/18 14:55 Blood Pressure 123/58 L 11/22/18 14:55 O2 Sat by Pulse Oximetry (%) 98 11/22/18 09:00 Constitutional: Yes: Well Nourished, No Distress, Calm, Obese Cardiovascular: Yes: Regular Rate and Rhythm Respiratory: Yes: Regular Gastrointestinal: Yes: Normal Bowel Sounds, Soft, Abdomen, Obese Musculoskeletal: Yes: Joint Swelling (left knee) Extremities: Yes: WNL Edema: No Peripheral Pulses WNL: Yes Neurological: Yes: Alert, Oriented Psychiatric: Yes: Alert, Oriented Labs: CBC, BMP 11/22/18 06:00 11/22/18 06:00 INR, PTT INR 1.99 (0.83-1.09) H 11/20/18 13:20 Problem List - Problems (1) Left knee pain Assessment/Plan: -Seen by orthopedic sx -Left knee drained, cultures pending -Pain management- oxycodone 5 mg po Q6H PRn -Prednisone 40 mg po daily, taper -Physical therapy, did well Code(s): M25.562 - PAIN IN LEFT KNEE Qualifiers: Chronicity: unspecified Qualified Code(s): M25.562 - Pain in left knee (2) Afib Assessment/Plan: -resume xarelto Code(s): I48.91 - UNSPECIFIED ATRIAL FIBRILLATION (3) Lactic acidosis Assessment/Plan: -repeat LA resolved Code(s): E87.2 - ACIDOSIS (4) Diabetes mellitus type 2 in obese Assessment/Plan: -Last A1c 09/2018 at 6.7 -BGM AC HS -Novolog sliding scale -diabetic low sodium diet -RD consult Code(s): E11.9 - TYPE 2 DIABETES MELLITUS WITHOUT COMPLICATIONS; E66.9 - OBESITY , UNSPECIFIED (5) Anemia Assessment/Plan: -check B12, thyroid+ iron profile +FA-unremarkable -stool ob pending -monitor trend Code(s): D64.9 - ANEMIA, UNSPECIFIED (6) Morbid obesity Assessment/Plan: -Encouraged weight loss -RD consult Code(s): E66.01 - MORBID (SEVERE) OBESITY DUE TO EXCESS CALORIES Assessment/Plan See problem list Physical therapy
[2018-11-22] MEDS: PANTOPRAZOLE 40 MG TABLET (FP) PO SCH (17:08)
[2018-11-22] MEDS: RIVAROXABAN 20 MG TABLET PO SCH (17:08)
[2018-11-22] MEDS: ATORVASTATIN CA 20 MG TABLET (FP) PO SCH (21:07)
[2018-11-22] MEDS: DOCUSATE SODIUM 100 MG CAPSULE (FP) PO SCH (21:07)
[2018-11-23] MEDS ORDERED: PT OWN MED DRAWER 7, Y5N ONE ×2 (01:42→10:00)
[2018-11-23] MEDS: AZTREONAM 1 GM in DEXTROSE 5%-WATER - 50 ML IVPB SCH ×2 (02:02→10:11)
[2018-11-23] MEDS: VANCOMYCIN 1 GRAM (PRE-DOCKED) 1,000 MG/250 ML BAG IVPB SCH (04:32)
[2018-11-23] MEDS: levETIRAcetam 500 MG TABLET (FP) PO SCH ×2 (05:26→14:12)
[2018-11-23] MEDS: DIVALPROEX SODIUM 500 MG TABLET E.C. PO SCH (10:11)
[2018-11-23] MEDS: BICALUTAMIDE 50 MG TABLET (FP) PO SCH (10:12)
[2018-11-23] MEDS: oxyCODONE HCL 5 MG TABLET PO PRN (10:12)
[2018-11-23] MEDS: RANOLAZINE E.R. 500 MG TABLET (FP) PO SCH (10:12)
[2018-11-23] MEDS: FERROUS SO4 325 MG TABLET (FP) PO SCH ×2 (10:13→17:18)
[2018-11-23] MEDS: predniSONE 20 MG TABLET (UD) PO SCH (10:13)
[2018-11-23] MEDS: LISINOPRIL 5 MG TABLET (FP) PO SCH (10:13)
[2018-11-23] MEDS: PANTOPRAZOLE 40 MG TABLET (FP) PO SCH (10:13)
[2018-11-23] MEDS: TOLTERODINE TARTRATE LA 4 MG CAP.SR.24H (FP) PO SCH (10:13)
[2018-11-23] MEDS: FOLIC ACID 1 MG TABLET (FP) PO SCH (10:13)
[2018-11-23] MEDS: ASPIRIN 81 MG CHEWABLE TABLETS PO SCH (10:13)
--- NOTE | 2018-11-23 10:32 | DS ---
Physical Examination Vital Signs: Vital Signs Temperature 97.9 F 11/23/18 09:20 Pulse Rate 60 11/23/18 09:20 Respiratory Rate 18 11/23/18 09:20 Blood Pressure 133/74 11/23/18 09:20 O2 Sat by Pulse Oximetry (%) 98 11/22/18 20:54 Findings/Remarks: 68 yo M with a hx of afib (on xarelto), HTN, HLD, DM, prostate cancer, bladder cancer, morbid obesity, and chronic left knee pain with a recent admission for suspected septic joint presents to the emergency department with acute on chronic left knee pain with effusion in ER elevated lactic acid and ESR Constitutional: Yes: Well Nourished, No Distress, Calm Cardiovascular: Yes: Regular Rate and Rhythm Respiratory: Yes: Regular Gastrointestinal: Yes: Normal Bowel Sounds, Soft, Abdomen, Obese Musculoskeletal: Yes: Joint Swelling (left knee-improving) Extremities: Yes: WNL Edema: No Peripheral Pulses WNL: Yes Neurological: Yes: Alert, Oriented Psychiatric: Yes: Alert, Oriented Labs: CBC, BMP 11/22/18 06:00 11/22/18 06:00 Discharge Summary Reason For Visit: LEFT KNEE PAIN Current Active Problems Anemia (Acute) Lactic acidosis (Acute) Left knee pain (Acute) Morbid obesity (Acute) Hospital Course: Laboratory Last Values WBC 9.0 K/mm3 (4.0-10.0) 11/22/18 06:00 RBC 4.20 M/mm3 (4.00-5.60) 11/22/18 06:00 Hgb 11.3 GM/dL (11.7-16.9) L 11/22/18 06:00 Hct 34.3 % (35.4-49) L 11/22/18 06:00 MCV 81.8 fl (80-96) 11/22/18 06:00 MCH 26.9 pg (25.7-33.7) 11/22/18 06:00 MCHC 32.9 g/dl (32.0-35.9) 11/22/18 06:00 RDW 16.5 % (11.9-15.9) H 11/22/18 06:00 Plt Count 148 K/MM3 (134-434) 11/22/18 06:00 MPV 8.7 fl (7.5-11.1) 11/22/18 06:00 Absolute Neuts (auto) 7.5 K/mm3 (1.5-8.0) 11/22/18 06:00 Neutrophils % 82.7 % (42.8-82.8) 11/22/18 06:00 Lymphocytes % 3.3 % (8-40) L 11/22/18 06:00 Monocytes % 13.1 % (3.8-10.2) H 11/22/18 06:00 Eosinophils % 0.4 % (0-4.5) 11/22/18 06:00 Basophils % 0.5 % (0-2.0) 11/22/18 06:00 Nucleated RBC % 0 % (0-0) 11/22/18 06:00 ESR 63 mm/hr (0-20) H 11/20/18 13:20 PT with INR 23.60 SEC (9.7-13.0) H 11/20/18 13:20 INR 1.99 (0.83-1.09) H 11/20/18 13:20 PTT (Actin FS) 37.9 SECONDS (25.2-36.5) H 11/20/18 13:20 VBG pH 7.27 (7.32-7.42) L 11/20/18 13:20 POC VBG pCO2 60.6 mmHg (38-52) H* 11/20/18 13:20 POC VBG pO2 39.6 mmHg (28-48) 11/20/18 13:20 Mixed VBG HCO3 26.8 meq/L (19-25) H 11/20/18 13:20 Sodium 134 mmol/L (136-145) L 11/22/18 06:00 Potassium 4.3 mmol/L (3.5-5.1) 11/22/18 06:00 Chloride 101 mmol/L (98-107) 11/22/18 06:00 Carbon Dioxide 24 mmol/L (21-32) 11/22/18 06:00 Anion Gap 9 MMOL/L (8-16) 11/22/18 06:00 BUN 10 mg/dL (7-18) 11/22/18 06:00 Creatinine 1.0 mg/dL (0.55-1.3) 11/22/18 06:00 Creat Clearance w eGFR > 60 (>60) 11/22/18 06:00 Random Glucose 177 mg/dL (74-106) H 11/22/18 06:00 Lactic Acid 1.7 mmol/L (0.4-2.0) 11/21/18 05:25 Uric Acid Cancelled 11/20/18 20:10 Calcium 8.6 mg/dL (8.5-10.1) 11/22/18 06:00 Phosphorus 2.7 mg/dL (2.5-4.9) 11/21/18 05:25 Magnesium 2.1 mg/dL (1.8-2.4) 11/21/18 05:25 Iron 40 ug/dL (38-169) 11/21/18 11:40 TIBC 240 ug/dL (250-450) L 11/21/18 11:40 Iron Saturation 17 % (15-55) 11/21/18 11:40 Ferritin 95.3 ng/ml (8-388) 11/22/18 06:00 Total Bilirubin 0.4 mg/dL (0.2-1) 11/21/18 05:25 AST 11 U/L (15-37) L 11/21/18 05:25 ALT 14 U/L (13-61) 11/21/18 05:25 Alkaline Phosphatase 82 U/L (45-117) 11/21/18 05:25 Troponin I < 0.02 ng/ml (0.00-0.05) 11/20/18 13:20 C-Reactive Protein 5.2 MG/DL (0.00-0.3) H 11/20/18 13:20 Total Protein 6.4 g/dl (6.4-8.2) 11/21/18 05:25 Albumin 2.9 g/dl (3.4-5.0) L 11/21/18 05:25 Vitamin B12 964 pg/ml (193-986) 11/21/18 11:40 Serum Folate 13 ng/mL (3.1-17.5) 11/21/18 11:40 TSH 1.15 uIU/ml (0.358-3.74) D 11/21/18 11:40 Free T4 1.02 ng/dl (0.76-1.16) 11/21/18 11:40 Urine Color Yellow 11/20/18 12:41 Urine Appearance Clear 11/20/18 12:41 Urine pH 6.0 (5.0-8.0) 11/20/18 12:41 Ur Specific [place] 1.018 (1.010-1.035) 11/20/18 12:41 Urine Protein Negative (NEGATIVE) 11/20/18 12:41 Urine Glucose (UA) 1+ (NEGATIVE) H 11/20/18 12:41 Urine Ketones Negative (NEGATIVE) 11/20/18 12:41 Urine Blood 2+ (NEGATIVE) H 11/20/18 12:41 Urine Nitrite Negative (NEGATIVE) 11/20/18 12:41 Urine Bilirubin Negative (<2.0 mg/dL) 11/20/18 12:41 Urine Urobilinogen Negative mg/dL (0.2-1.0) 11/20/18 12:41 Ur Leukocyte Esterase Negative (NEGATIVE) 11/20/18 12:41 Urine WBC (Auto) <1 /hpf (3-5) 11/20/18 12:41 Urine RBC (Auto) 83 /hpf (0-3) 11/20/18 12:41 Ur Epithelial Cells Rare /HPF (FEW) 11/20/18 12:41 Urine Mucus Rare 11/20/18 12:41 Synovial Source Left knee 11/20/18 19:10 Synovial WBC 17,062 /mm3 11/20/18 19:10 Synovial RBC 42,096 /mm3 11/20/18 19:10 Synovial Neutrophils 97 % 11/20/18 19:10 Synovial Lymphocytes 3 % 11/20/18 19:10 Synovial Crystals Negative 11/20/18 19:10 Microbiology 11/20/18 19:10 Synovial Fluid - Knee Gram Stain - Final 11/20/18 19:10 Synovial Fluid - Knee Body Fluid Culture - Final NO GROWTH OF AEROBIC ORGANISMS AFTER 48 HOURS INCUBATION 11/20/18 19:10 Synovial Fluid - Knee Anaerobic Culture - Final NO ANAEROBES WERE ISOLATED 11/20/18 13:20 Blood - Peripheral Venous Blood Culture - Preliminary NO GROWTH OBTAINED AFTER 48 HOURS, INCUBATION TO CONTINUE FOR 3 DAYS. 11/20/18 13:20 Blood - Peripheral Venous Blood Culture - Preliminary NO GROWTH OBTAINED AFTER 48 HOURS, INCUBATION TO CONTINUE FOR 3 DAYS. 11/20/18 12:42 Urine - Urine Clean Catch Urine Culture - Final Condition: Stable - Instructions Diet, Activity, Other Instructions: Prednisone: 40 mg daily in AM for 2 days, then 30 mg daily in AM for 2 days, then 20 mg daily in AM for 2 days, then 10 mg daily in AM for 2 days, then 5 mg daily in AM for 2 days, then stop Follow up with orthopedic surgery Dr Taveras Referrals: Lex Taveras MD [Staff Physician] - Ruth Suazo MD [Primary Care Provider] - Disposition: VNS/HOME HEALTH CARE - Home Medications Comprehensive Discharge Medication List: Ambulatory Orders Aspirin 81 mg PO DAILY 11/20/18 Atorvastatin Ca [Lipitor] 20 mg PO HS 11/20/18 Bicalutamide 50 mg PO DAILY 11/20/18 Citalopram Hydrobromide [Citalopram HBr] 10 mg PO DAILY 11/20/18 Clonazepam 0.5 mg PO TID 11/20/18 Divalproex Sodium [Divalproex Sodium ER] 500 mg PO BID 11/20/18 Ferrous Sulfate 325 mg PO BID 11/20/18 Fesoterodine Fumarate [Toviaz] 4 mg PO DAILY 11/20/18 Folic Acid 1 mg PO DAILY 11/20/18 Lisinopril 5 mg PO DAILY 11/20/18 Magnesium Oxide [Laxative Dietary Supplement] 500 mg PO BID 11/20/18 Ranolazine [Ranexa] 500 mg PO BID 11/20/18 Rivaroxaban [Xarelto -] 20 mg PO DAILY 11/20/18 Tamsulosin HCl [Flomax -] 0.4 mg PO DAILY 11/20/18 levETIRAcetam [Keppra -] 200 mg PO TID 11/20/18 Prednisone 10 mg PO ASDIR #32 tablet 11/22/18 oxyCODONE HCL [Roxicodone -] 5 mg PO Q6H PRN #20 tablet MDD 4 11/22/18
--- NOTE | 2018-11-23 14:32 | PN ---
Progress Note, Physician History of Present Illness: REPORTS LESS L KNEE PAIN NO F/C AFEBRILE BC, SYNOVIAL FLUID C/S (-) WBC WNL - Current Medication List Current Medications: Active Medications Acetaminophen (Tylenol -) 650 mg PO Q6HPO PRN PRN Reason: FEVER Aspirin (Asa -) 81 mg PO DAILY [facility] Last Admin: 11/23/18 10:13 Dose: 81 mg Atorvastatin Calcium (Lipitor -) 20 mg PO HS [facility] Last Admin: 11/22/18 21:07 Dose: 20 mg Bicalutamide (Casodex -) 50 mg PO DAILY [facility] Last Admin: 11/23/18 10:12 Dose: 50 mg Divalproex Sodium (Depakote -) 500 mg PO BID [facility] Last Admin: 11/23/18 10:11 Dose: 500 mg Docusate Sodium (Colace -) 300 mg PO [facility] Last Admin: 11/22/18 21:07 Dose: 300 mg Ferrous Sulfate (Feosol -) 325 mg PO BIDWM [facility] Last Admin: 11/23/18 10:13 Dose: 325 mg Folic Acid (Folic Acid -) 1 mg PO DAILY [facility] Last Admin: 11/23/18 10:13 Dose: 1 mg Vancomycin HCl (Vancomycin (Pre-Docked)) 1,000 mg in 250 mls @ 166.667 mls/hr IVPB Q12H [facility]; Protocol Last Admin: 11/23/18 04:32 Dose: 166.667 mls/hr Aztreonam 1 gm/ Dextrose 50 mls @ 100 mls/hr IVPB Q8H-IV [facility]; Protocol Last Admin: 11/23/18 10:11 Dose: 100 mls/hr Levetiracetam (Keppra -) 1,000 mg PO TID [facility] Last Admin: 11/23/18 14:12 Dose: 1,000 mg Lisinopril (Prinivil) 5 mg PO DAILY [facility] Last Admin: 11/23/18 10:13 Dose: 5 mg Oxycodone HCl (Roxicodone -) 5 mg PO Q6H PRN PRN Reason: PAIN LEVEL 6-10 Last Admin: 11/23/18 10:12 Dose: 5 mg Pantoprazole Sodium (Protonix -) 40 mg PO DAILY [facility] Last Admin: 11/23/18 10:13 Dose: 40 mg Prednisone (Deltasone -) 40 mg PO DAILY [facility] Last Admin: 11/23/18 10:13 Dose: 40 mg Ranolazine (Ranexa -) 500 mg PO BID [facility] Last Admin: 11/23/18 10:12 Dose: 500 mg Rivaroxaban (Xarelto -) 20 mg PO DAILY@1800 [facility] Last Admin: 11/22/18 17:08 Dose: 20 mg Tolterodine Tartrate (Detrol La -) 4 mg PO DAILY [facility] Last Admin: 11/23/18 10:13 Dose: 4 mg - Objective Vital Signs: Vital Signs Temperature 97.9 F 11/23/18 09:20 Pulse Rate 60 11/23/18 09:20 Respiratory Rate 18 11/23/18 09:20 Blood Pressure 133/74 11/23/18 09:20 O2 Sat by Pulse Oximetry (%) 100 11/23/18 10:13 Constitutional: Yes: No Distress Eyes: Yes: Conjunctiva Clear Cardiovascular: Yes: Regular Rate and Rhythm, S1, S2 Respiratory: Yes: CTA Bilaterally Gastrointestinal: Yes: Normal Bowel Sounds, Soft. No: Tenderness Extremities: Yes: Other (NO L KNEE ERYTHEMA/WARMTH. ABLE TO PASSIVELY FLEX KNEE W/O PAIN) Labs: CBC, BMP 11/22/18 06:00 11/22/18 06:00 INR, PTT INR 1.99 (0.83-1.09) H 11/20/18 13:20 Assessment/Plan LOW PROBABILITY SEPTIC ARTHRITIS L KNEE C/S NEGATIVE D/C ANTIBIOTICS
[2018-11-23] MEDS: RIVAROXABAN 20 MG TABLET PO SCH (17:18)
[2018-11-23 17:39] VITALS: BP 143/77; PULSE 75; TEMP 97.8
== END 2018-11-23 18:42 | disposition home health service (06) | DRG 554 ==
LOC: JER 10:43 → JERBED 16:08 → J8W 11-21 04:21
PROVIDERS: ADMIT Family Medicine; ATTEND Family Medicine
PROC: 0S9D3ZX Drainage of Left Knee Joint, Percutaneous Approach, Diagnostic (ICD-10-PCS; principal; 2018-11-20)
DX: M17.12 Unilateral primary osteoarthritis, left knee (principal); Z68.43 Body mass index [BMI] 50.0-59.9, adult; E87.2 Acidosis; L03.116 Cellulitis of left lower limb; E11.9 Type 2 diabetes mellitus without complications; E66.01 Morbid (severe) obesity due to excess calories; R56.9 Unspecified convulsions; Z85.46 Personal history of malignant neoplasm of prostate; Z85.51 Personal history of malignant neoplasm of bladder; Z79.01 Long term (current) use of anticoagulants; I89.0 Lymphedema, not elsewhere classified; Z86.718 Personal history of other venous thrombosis and embolism; E78.5 Hyperlipidemia, unspecified; Z95.5 Presence of coronary angioplasty implant and graft; Z87.891 Personal history of nicotine dependence; I48.0 Paroxysmal atrial fibrillation; I25.10 Atherosclerotic heart disease of native coronary artery without angina pectoris; K57.30 Diverticulosis of large intestine without perforation or abscess without bleeding; J44.9 Chronic obstructive pulmonary disease, unspecified; L85.0 Acquired ichthyosis; B35.1 Tinea unguium; M25.462 Effusion, left knee
CPT/HCPCS: 36415; 70450-TC; 71045-TC-FY; 72125-TC; 73562-TC-LT-FY; 73718-LT; 80048; 80053; 81003; 81015; 82607; 82728; 82746; 82803; 83540; 83550; 83605; 83735; 84100; 84439; 84443; 84484; 84550; 85025; 85027; 85610; 85651; 85730; 86140; 86618; 87040; 87070; 87075; 87086; 87205; 89051; 89060; 93005; 93010; 93970-TC; 97116-GP; 99283-25; J0131; J7030

== ENCOUNTER 2019-01-22 16:28 | Inpatient (IN) | payer MEDICARE, OTHER ==
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
[2019-01-22] MEDS ORDERED: SODIUM CHLORIDE 1,000 ML IV STA (18:32)
[2019-01-22 18:49] LABS: HEMATOCRIT 39.1 % (35.4-49); HEMOGLOBIN 12.8 GM/dL (11.7-16.9); MCH 27.9 pg (25.7-33.7); MCHC 32.6 g/dl (32.0-35.9); MEAN CELL VOLUME 85.7 fl (80-96); MEAN PLT VOLUME 9.2 fl (7.5-11.1); PLATELET COUNT 152 K/MM3 (134-434); RBC 4.57 M/mm3 (4.00-5.60); RDW 17.6 % (11.9-15.9); WHITE BLOOD COUNT 18.2 K/mm3 (4.0-10.0)
[2019-01-22 19:21] LABS: ALBUMIN 3.8 g/dl (3.4-5.0); ALK PHOS 117 U/L (45-117); ANION GAP 9 MMOL/L (8-16); BILIRUBIN,TOTAL 0.3 mg/dL (0.2-1); BLOOD UREA NITROGEN 19 mg/dL (7-18); CALCIUM 9.2 mg/dL (8.5-10.1); CHLORIDE 105 mmol/L (98-107); CO2 24 mmol/L (21-32); CREATININE 1.2 mg/dL (0.55-1.3); GLUCOSE,RANDOM 125 mg/dL (74-106); POTASSIUM 4.2 mmol/L (3.5-5.1); SGOT/AST 21 U/L (15-37); SGPT/ALT 16 U/L (13-61); SODIUM 138 mmol/L (136-145); TOT PROT 7.4 g/dl (6.4-8.2)
--- NOTE | 2019-01-22 22:04 | PDOC ---
*Physical Exam - Vital Signs Last Vital Signs Temp Pulse Resp BP Pulse Ox 97.7 F 72 16 123/72 100 01/22/19 16:28 01/22/19 16:28 01/22/19 16:28 01/22/19 16:28 01/22/19 16:28 ED Treatment Course - LABORATORY CBC & Chemistry Diagram: 01/22/19 18:30 01/22/19 18:30 - ADDITIONAL ORDERS Additional order review: Laboratory Results 01/22/19 18:30 Sodium 138 Potassium 4.2 Chloride 105 Carbon Dioxide 24 Anion Gap 9 BUN 19 H Creatinine 1.2 Creat Clearance w eGFR 60.03 Random Glucose 125 H Calcium 9.2 Total Bilirubin 0.3 AST 21 ALT 16 Alkaline Phosphatase 117 Troponin I < 0.02 Total Protein 7.4 Albumin 3.8 01/22/19 18:30 RBC 4.57 MCV 85.7 MCHC 32.6 RDW 17.6 H MPV 9.2 - RADIOLOGY Radiology Studies Ordered: Category Date Time Status CHEST PA & LAT [RAD] Stat Radiology 01/22/19 19:26 Ordered Medical Decision Making - Medical Decision Making Patient signed out to me from Dr. Zamora pending fall/syncope workup and then admit to Tele Obs Patient is extremely difficult IV Access. - Multiple nurses failed over 10 attempts - Placed a 20 gauge IV in the Right AC under US guided assistance. Will admit patient to Tele Obs for fall/syncope. *DC/Admit/Observation/Transfer Diagnosis at time of Disposition: Fall Qualifiers: Encounter type: initial encounter Qualified Code(s): W19.XXXA - Unspecified fall, initial encounter - Discharge Dispostion Condition at time of disposition: Stable Decision to Admit order: Yes - Referrals - Patient Instructions - Post Discharge Activity
[2019-01-22 22:08] LABS: URINE APPEARANCE Clear; URINE BILIRUBIN Negative (NEGATIVE); URINE COLOR Yellow; URINE GLUCOSE (UA) Trace (NEGATIVE); URINE KETONE Trace (NEGATIVE); URINE LEUK ESTERASE Negative (NEGATIVE); URINE NITRITE Negative (NEGATIVE); URINE PROTEIN Trace (NEGATIVE); URINE UROBILINOGEN 0.2 mg/dL (0.2-1.0)
--- NOTE | 2019-01-22 22:32 | HP ---
Admitting History and Physical - Primary Care Physician PCP: Ruth Suazo - Admission Chief Complaint: Syncope, R- Knee Pain History of Present Illness: This is a 69 y/o man with significant medical history of HTN, HLD, Afib (on Xarelto), DM, Seizure Disorder, Bladder Ca, Prostate Ca (completed RT), Severe Obesity (uses motor scooter), recent admission 10/2018 for Septic L- knee. Who presents to the ED for Dizziness, Syncope s/p fall with right knee pain. Patient is [place] speaking [employer] used # [id number], name Umu. Patient reports feeling dizzy and he fell out of his scooter. He reports this happens frequently, 25 times in the last few months. He does not know why he is feeling dizzy. He hit his head and lost consciousness for 30 minutes. He lives alone and his next door neighbor found him. He has a bump on his head now and reports it hurts where the bump is. He has some pain in his right knee. He has a lot of pain in his whole left leg but reports it is chronic, reports his left leg is "" from an accident many years ago in [place]. He denies fever, chills, cough, SOB, CP, palpitations, AP, N/V/D, constipation. 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 Cardiovascular: Yes: CAD, Deep Vein Thrombosis, HTN, Other (paroxysmal atrial fibrillation) Pulmonary: Yes: COPD Gastrointestinal: Yes: Diverticulosis, Diverticulitis, Other Renal/: Yes: Hematuria, Renal Calculi Heme/Onc: Yes: Cancer (bladder cancer, prostate cancer) Psych: Yes: Anxiety Endocrine: Yes: Diabetes Mellitus - Past Surgical History Past Surgical History: Yes: Hernia Repair, Appendectomy, Joint Replacement, Cholecystectomy - Smoking History Smoking history: Never smoked Have you smoked in the past 12 months: No Aproximately how many cigarettes per day: 0 If you are a former smoker, when did you quit?: 25+ years - Alcohol/Substance Use Hx Alcohol Use: No History of Substance Use: reports: None - Social History Usual Living Arrangement: Yes: Alone ADL: Independent History of Recent Travel: No Home Medications - Allergies Allergies/Adverse Reactions: Allergies Allergy/AdvReac Type Severity Reaction Status Date / Time Sulfa (Sulfonamide Allergy Intermediate Verified 01/22/19 16:53 Antibiotics) amoxicillin Allergy Mild Rash Verified 01/22/19 16:53 carbamazepine [From Tegretol] Allergy Mild Rash Verified 01/22/19 16:53 cephalexin [Cephalexin] Allergy Mild Rash Verified 01/22/19 16:53 ciprofloxacin Allergy Mild Rash Verified 01/22/19 16:53 fluconazole Allergy Mild Verified 01/22/19 16:53 lamotrigine [From Lamictal] Allergy Mild Rash Verified 01/22/19 16:53 metronidazole Allergy Mild Rash Verified 01/22/19 16:53 phenobarbital Allergy Mild Rash Verified 01/22/19 16:53 phenytoin sodium extended Allergy Mild Rash Verified 01/22/19 16:53 [From Dilantin] SHRIMP Allergy Mild Rash Uncoded 01/22/19 16:53 - Home Medications Home Medications: Ambulatory Orders Aspirin 81 mg PO DAILY 11/20/18 Atorvastatin Ca [Lipitor] 20 mg PO HS 11/20/18 Bicalutamide 50 mg PO DAILY 11/20/18 Citalopram Hydrobromide [Citalopram HBr] 10 mg PO DAILY 11/20/18 Clonazepam 0.5 mg PO TID 11/20/18 Divalproex Sodium [Divalproex Sodium ER] 500 mg PO BID 11/20/18 Ferrous Sulfate 325 mg PO BID 11/20/18 Fesoterodine Fumarate [Toviaz] 4 mg PO DAILY 11/20/18 Folic Acid 1 mg PO DAILY 11/20/18 Lisinopril 5 mg PO DAILY 11/20/18 Magnesium Oxide [Laxative Dietary Supplement] 500 mg PO BID 11/20/18 Ranolazine [Ranexa] 500 mg PO BID 11/20/18 Rivaroxaban [Xarelto -] 20 mg PO DAILY 11/20/18 Tamsulosin HCl [Flomax -] 0.4 mg PO DAILY 11/20/18 levETIRAcetam [Keppra -] 200 mg PO TID 11/20/18 Family Disease History - Family Disease History Family Disease History: Diabetes: Mother (htn), CA: Father, Other: Mother Review of Systems - Review of Systems Constitutional: reports: No Symptoms Eyes: reports: No Symptoms HENT: reports: No Symptoms Neck: reports: No Symptoms Cardiovascular: reports: No Symptoms Respiratory: reports: No Symptoms Gastrointestinal: reports: No Symptoms Genitourinary: reports: No Symptoms Breasts: reports: No Symptoms Reported Musculoskeletal: reports: Extremity Pain, Joint Pain, Joint Swelling Integumentary: reports: Lump Neurological: reports: Dizziness, Syncope Endocrine: reports: No Symptoms Hematology/Lymphatic: reports: No Symptoms Psychiatric: reports: No Symptoms Physical Examination Vital Signs: Vital Signs Temperature 97.7 F 01/22/19 16:28 Pulse Rate 72 01/22/19 16:28 Respiratory Rate 16 01/22/19 16:28 Blood Pressure 123/72 01/22/19 16:28 O2 Sat by Pulse Oximetry (%) 100 01/22/19 16:28 Findings/Remarks: This is a 69 y/o man with significant past medical history of HTN, HLD, Afib ( on Xarelto), dM, Seizure Disorder, Bladder Ca, Prostate Ca (completed RT), Severe Obesity (uses motorized scooter), recent admission 10/2018 for Septic L- Knee Joint. Who presents to the ED for Syncope, s/p fall L- knee pain x today. Constitutional: Yes: Well Nourished, No Distress, Calm, Obese Eyes: Yes: WNL, Conjunctiva Clear, EOM Intact, PERRL HENT: Yes: WNL, Atraumatic, Normocephalic Neck: Yes: WNL, Supple, Trachea Midline Cardiovascular: Yes: Regular Rate and Rhythm, Murmur, S1, S2 Respiratory: Yes: Regular, CTA Bilaterally Gastrointestinal: Yes: Normal Bowel Sounds, Soft, Abdomen, Obese ...Rectal Exam: Yes: Deferred Renal/: Yes: WNL Breast(s): Yes: WNL Musculoskeletal: Yes: Joint Swelling Extremities: Yes: Other (venous stasis to BLE) Edema: Yes Edema: LLE: 2+, RLE: 2+ Peripheral Pulses WNL: Yes Peripheral Pulses: Left Doralis Pedis: 1+, Right Dorsalis Pedis: 1+ Integumentary: Yes: Bruising (left knee), Venous Stasis Changes Neurological: Yes: WNL, Alert, Oriented, Cran Nerves II-XII Intact Psychiatric: Yes: WNL, Alert, Oriented Labs: CBC, BMP 01/22/19 18:30 01/22/19 18:30 Imaging - Results Chest X-ray: Image Reviewed X-ray: Image Reviewed EKG: Image Reviewed Problem List - Problems (1) Syncope Code(s): R55 - SYNCOPE AND COLLAPSE (2) Fall Code(s): W19.XXXA - UNSPECIFIED FALL, INITIAL ENCOUNTER Qualifiers: Encounter type: initial encounter Qualified Code(s): W19.XXXA - Unspecified fall, initial encounter (3) Afib Code(s): I48.91 - UNSPECIFIED ATRIAL FIBRILLATION (4) CAD (coronary artery disease) Code(s): I25.10 - ATHSCL HEART DISEASE OF [place] CORONARY ARTERY W/O ANG PCTRS (5) CHF (congestive heart failure) Code(s): I50.9 - HEART FAILURE, UNSPECIFIED (6) COPD (chronic obstructive pulmonary disease) Code(s): J44.9 - CHRONIC OBSTRUCTIVE PULMONARY DISEASE, UNSPECIFIED (7) Diabetes mellitus type 2 in obese Code(s): E11.9 - TYPE 2 DIABETES MELLITUS WITHOUT COMPLICATIONS; E66.9 - OBESITY , UNSPECIFIED (8) Hypertension Code(s): I10 - ESSENTIAL (PRIMARY) HYPERTENSION Qualifiers: Hypertension type: essential hypertension Qualified Code(s): I10 - Essential (primary) hypertension (9) Hyperlipidemia Code(s): E78.5 - HYPERLIPIDEMIA, UNSPECIFIED (10) Lymphedema Code(s): I89.0 - LYMPHEDEMA, NOT ELSEWHERE CLASSIFIED (11) Venous stasis Code(s): I87.8 - OTHER SPECIFIED DISORDERS OF VEINS (12) Prostate cancer Code(s): C61 - MALIGNANT NEOPLASM OF PROSTATE (13) Anemia Code(s): D64.9 - ANEMIA, UNSPECIFIED (14) Morbid obesity Code(s): E66.01 - MORBID (SEVERE) OBESITY DUE TO EXCESS CALORIES Assessment/Plan This is a 69 y/o man with a PMHx of: HTN, HLD, Afib (on Xarelto), DM, Seizure Disorder, Bladder Ca, Prostate Ca (RT completed), Chronic Left Knee Pain, Severe Obesity (uses motorized scooter) Recent admission 11/12/18 for Acute Septic L- Knee. Placed in Telemetry Observation for Syncope for further evaluation of their emergent condition. Plan: 1. Cardiovascular: Syncope HTN HLD Afib Continue Cardiac monitoring Serial Enzymes neg x1, will trend Head CT- no evidence of intracranial pathology Chest Xray image- cardiomegaly, clear lungs no acute process appreciated EKG- NSR, nonspecific ST abnormality no change compared to 10/27/18 study Echo 10/25/18- LVSF nl, Wall Motion nl, trace TR, trace MR, Stress 10/25/18- small area of mildly intense apical ischemia Continue home meds [id number] Monitor CBC, BMP Neurochecks Fall Precautions 2. Neuro: Seizure Disorder Continue home meds Seizure Precautions 3. Endocrinology: Diabetes Mellitus Controlled BGMs ISS Monitor renal function 4. : BPH Bladder Ca Prostate Ca s/p RT Continue Flomax 5. Ortho: Chronic L- Knee Pain s/p fall L- knee Xray- image reviewed, awaiting official report Tramadol x1 ordered for pain control Elevate extremity Icepack prn Consider Ortho Consult if pain worsens FEN- PO fluids as tolerated, Replete lytes prn DVT ppx- TEDs, SCDs, Continue Xarelto Dispo: Observation Visit type - Emergency Visit Emergency Visit: Yes ED Registration Date: 01/22/19 Care time: The patient presented to the Emergency Department on the above date and was hospitalized for further evaluation of their emergent condition. - New Patient This patient is new to me today: Yes Date on this admission: 01/22/19 - Critical Care Critical Care patient: No
[2019-01-22 23:28] LABS: PLATELET ESTIMATE ADEQUATE
[2019-01-23] MEDS ORDERED: ATORVASTATIN CA 10 MG TABLET (FP) ONE (00:44)
[2019-01-23] MEDS: ATORVASTATIN CA 20 MG TABLET (FP) PO SCH ×2 (00:52→23:00)
[2019-01-23] MEDS ORDERED: traMADol HCL 50 MG TABLET PO ONE (01:57)
[2019-01-23] MEDS ORDERED: levETIRAcetam 500 MG/5 ML ORAL SOLUTION (UNIT-DOSE CUPS) PO SCH (06:00)
[2019-01-23 07:59] LABS: BASO % 1.1 % (0-2.0); EOS % 1.1 % (0-4.5); HEMATOCRIT 36.6 % (35.4-49); LYMPH % 2.7 % (8-40); MCH 28.1 pg (25.7-33.7); MCHC 32.9 g/dl (32.0-35.9); MEAN CELL VOLUME 85.6 fl (80-96); MEAN PLT VOLUME 9.2 fl (7.5-11.1); MONO % 17.9 % (3.8-10.2); NEUT % 77.2 % (42.8-82.8); PLATELET COUNT 154 K/MM3 (134-434); RBC 4.28 M/mm3 (4.00-5.60); RDW 18.1 % (11.9-15.9)
[2019-01-23 09:13] LABS: ANION GAP 5 MMOL/L (8-16); BLOOD UREA NITROGEN 14 mg/dL (7-18); CALCIUM 9.1 mg/dL (8.5-10.1); CHLORIDE 104 mmol/L (98-107); CO2 27 mmol/L (21-32); GLUCOSE,RANDOM 117 mg/dL (74-106); MAGNESIUM 2.5 mg/dL (1.8-2.4); PHOSPHOROUS 3.5 mg/dL (2.5-4.9); POTASSIUM 4.5 mmol/L (3.5-5.1); SODIUM 136 mmol/L (136-145)
[2019-01-23] MEDS: DIVALPROEX SODIUM 500 MG TABLET E.C. PO SCH ×2 (09:44→23:00)
[2019-01-23] MEDS: TAMSULOSIN HCL 0.4 MG CAP PO SCH (09:44)
[2019-01-23] MEDS: BICALUTAMIDE 50 MG TABLET (FP) PO SCH (09:44)
[2019-01-23] MEDS: TOLTERODINE TARTRATE LA 4 MG CAP.SR.24H (FP) PO SCH (09:45)
[2019-01-23] MEDS: FOLIC ACID 1 MG TABLET (FP) PO SCH (09:45)
[2019-01-23] MEDS: LISINOPRIL 5 MG TABLET (FP) PO SCH (09:46)
[2019-01-23] MEDS: RANOLAZINE E.R. 500 MG TABLET (FP) PO SCH ×2 (09:46→23:00)
--- NOTE | 2019-01-23 09:50 | CON.CARD ---
Consult Consult Specialty:: Cardiology Referred by:: Dr. Suazo Reason for Consultation:: Fall, possible syncope - History of Present Illness Chief Complaint: fall History of Present Illness: 69 year old man with pmh HTN, HLD, PAfib on Xarelto, DMII, Seizure disorder, Bladder Ca, Prostate Ca, Obesity, chronic venous insufficiency, h/o LE DVT, h/o Septic L knee 10/2018, uses a motor scooter admitted with dizziness and a fall with reported loss of consciousness for 30 minutes and injury to knee. As per report pt was found on the ground by his neighbor. Pt was seen and examined today in nad. Pt states that yesterday while on his motorized scooter he felt lightheaded and fell hitting his head and knee. denies LOC prior to falling but states that after he hit his head he lost consciousness. Denies chest pain, sob, palpitations prior to or after the event. Currently only c/o Knee pain and head pain where he hit his head. 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 Cardio/Vascular: Yes: CAD, Deep Vein Thrombosis, HTN, Other (paroxysmal atrial fibrillation) Pulmonary: Yes: COPD Gastrointestinal: Yes: Diverticulosis, Diverticulitis, Other Renal/: Yes: Hematuria, Renal Calculi Psych: Yes: Anxiety Endocrine: Yes: Diabetes Mellitus - Past Surgical History Past Surgical History: Yes: Hernia Repair, Appendectomy, Joint Replacement, Cholecystectomy - Alcohol/Substance Use Hx Alcohol Use: No History of Substance Use: reports: None - Smoking History Smoking history: Never smoked Have you smoked in the past 12 months: No Aproximately how many cigarettes per day: 0 If you are a former smoker, when did you quit?: 25+ years - Social History Usual Living Arrangement: Other (roomate) ADL: Independent History of Recent Travel: No Home Medications - Allergies Allergies/Adverse Reactions: Allergies Allergy/AdvReac Type Severity Reaction Status Date / Time Sulfa (Sulfonamide Allergy Intermediate Verified 01/22/19 16:53 Antibiotics) amoxicillin Allergy Mild Rash Verified 01/22/19 16:53 carbamazepine [From Tegretol] Allergy Mild Rash Verified 01/22/19 16:53 cephalexin [Cephalexin] Allergy Mild Rash Verified 01/22/19 16:53 ciprofloxacin Allergy Mild Rash Verified 01/22/19 16:53 fluconazole Allergy Mild Verified 01/22/19 16:53 lamotrigine [From Lamictal] Allergy Mild Rash Verified 01/22/19 16:53 metronidazole Allergy Mild Rash Verified 01/22/19 16:53 phenobarbital Allergy Mild Rash Verified 01/22/19 16:53 phenytoin sodium extended Allergy Mild Rash Verified 01/22/19 16:53 [From Dilantin] SHRIMP Allergy Mild Rash Uncoded 01/22/19 16:53 - Home Medications Home Medications: Ambulatory Orders Aspirin 81 mg PO DAILY 11/20/18 Atorvastatin Ca [Lipitor] 20 mg PO HS 11/20/18 Bicalutamide 50 mg PO DAILY 11/20/18 Citalopram Hydrobromide [Citalopram HBr] 10 mg PO DAILY 11/20/18 Clonazepam 0.5 mg PO TID 11/20/18 Divalproex Sodium [Divalproex Sodium ER] 500 mg PO BID 11/20/18 Ferrous Sulfate 325 mg PO BID 11/20/18 Fesoterodine Fumarate [Toviaz] 4 mg PO DAILY 11/20/18 Folic Acid 1 mg PO DAILY 11/20/18 Lisinopril 5 mg PO DAILY 11/20/18 Magnesium Oxide [Laxative Dietary Supplement] 500 mg PO BID 11/20/18 Ranolazine [Ranexa] 500 mg PO BID 11/20/18 Rivaroxaban [Xarelto -] 20 mg PO DAILY 11/20/18 Tamsulosin HCl [Flomax -] 0.4 mg PO DAILY 11/20/18 levETIRAcetam [Keppra -] 200 mg PO TID 11/20/18 Family Disease History - Family Disease History Family Disease History: Diabetes: Mother (htn), CA: Father, Other: Mother Review of Systems - Review of Systems Constitutional: denies: No Symptoms, Chills, Diaphoresis, Fever, Lethargy, Loss of Appetite, Malaise, Night Sweats, Unintentional Wgt. Loss, Weakness, Other Eyes: denies: No Symptoms, Blind Spots, Blurred Vision, Double Vision, Eye Pain , Floaters, Photophobia, Recent Change in Vision, Other HENT: denies: No Symptoms, Difficult Swallowing, Ear Discharge, Ear Pain, Epistaxis, Gingival Bleeding, Hearing Loss, Mouth Swelling, Nasal Congestion, Ocular Prosthesis, Throat Pain, Toothache, Ringing in Ears, Other Neck: denies: No Symptoms, Decreased ROM, Lumps, Pain on Movement, Stiffness, Swollen Glands, Tenderness, Other Cardiovascular: denies: No Symptoms, Chest Pain, Edema, Palpitations, Shortness of Breath, Other Respiratory: denies: No Symptoms, Cough, Exercise Intolerance, Hemoptysis, Orthopnea, PND, Snoring, SOB, SOB on Exertion, Wheezing, Other Gastrointestinal: denies: No Symptoms, Abdominal Pain, Bloating, Constipation, Diarrhea, Dysphagia, Indigestion, Melena, Nausea, Rectal Bleeding, Vomiting, Vomiting Blood, Other Genitourinary: denies: No Symptoms, Burning, Discharge, Dysuria, Flank Pain, Frequency, Hematuria, Incontinence, Lesions, Menses, Pain, Testicular Mass, Testicular Pain, Testicular Swelling, Urgency, Vaginal Bleeding, Other Breasts: denies: No Symptoms Reported, See HPI, Breast Implants, Discharge from Nipple, Lumps, Pain, Skin Changes, Other Musculoskeletal: reports: Decreased ROM, Extremity Pain, Joint Pain, Joint Swelling, Muscle Weakness. denies: No Symptoms, Back Pain, Crepitus, Muscle Pain, Muscle Cramps, Other Integumentary: denies: No Symptoms, Blister, Bruising, Change in Color, Eczema, Erythema, Incision, Lesions, Lump, Pallor, Pruritis, Rash, Wound, Other Neurological: reports: Dizziness, Headache, Syncope. denies: No Symptoms, Change in LOC, Change in Speech, Confusion, Incoordination, Numbness, Parasthesia, Pre-Existing Deficit, Seizure, Tremors, Unsteady Gait, Weakness, Other Endocrine: denies: No Symptoms, Excessive Sweating, Flushing, Increased Hunger, Increased Thirst, Intolerance to Cold, Intolerance to Heat, Unexplained Weight Gain, Unexplained Weight Loss, Other Hematology/Lymphatic: denies: No Symptoms, Easily Bruised, Excessive Bleeding, Swollen Glands, Other Psychiatric: denies: No Symptoms, Altered Sleep Pattern, Anxiety, Depression, Hallucinations, Panic, Paranoia, Suicidal, Other - Risk Factors Known Risk Factors: Yes: Diabetes Mellitus, Hypercholesterolemia, Hypertension, Physical Inactivity Vital Signs: Vital Signs Temperature 97.8 F 01/23/19 07:50 Pulse Rate 62 01/23/19 07:50 Respiratory Rate 18 01/23/19 07:50 Blood Pressure 129/45 L 01/23/19 07:50 O2 Sat by Pulse Oximetry (%) 99 01/23/19 07:50 Constitutional: Yes: No Distress, Calm, Obese Eyes: Yes: Conjunctiva Clear, EOM Intact Respiratory: Yes: Regular, CTA Bilaterally. No: Rales, Rhonchi, SOB, Wheezes Gastrointestinal: Yes: Normal Bowel Sounds, Soft. No: Distention, Tenderness Cardiovascular: Yes: Regular Rate and Rhythm. No: Bradycardia, Tachycardia, Pulse Irregular, Gallop, Rub, Varicosities JVD: No Carotid Bruit: No PMI: Non-Displaced Heart Sounds: Yes: S1, S2. No: Split S2, S3, S4, Clicks, Gallop, Rub, Bruit Murmur: No: Systolic Murmur, Diastolic Murmur Edema: Yes Edema: LLE: 1+, RLE: 1+ Peripheral Pulses: 2+ Left Doralis Pedis, 2+ Right Dorsalis Pedis Integumentary: Yes: Venous Stasis Changes Neurological: Yes: Alert, Oriented Psychiatric: Yes: Alert, Oriented - Other Data Labs, Other Data: CBC, BMP 01/23/19 07:35 01/23/19 07:35 Troponin, BNP 01/22/19 01/23/19 18:30 07:35 Troponin I < 0.02 < 0.02 Troponin, BNP 01/22/19 01/23/19 18:30 07:35 Troponin I < 0.02 < 0.02 ekg-nsr 76bpm. normal ecg. Echo: Report Reviewed Imaging - Results Chest X-ray: Report Reviewed, Image Reviewed EKG: Report Reviewed, Image Reviewed Other: Report Reviewed, Image Reviewed Assessment/Plan 69 year old man with pmh HTN, HLD, PAfib on Xarelto, DMII, Seizure disorder, Bladder Ca, Prostate Ca, Obesity, chronic venous insufficiency, h/o LE DVT, h/o Septic L knee 10/2018, uses a motor scooter admitted with dizziness and a fall with reported loss of consciousness for 30 minutes and injury to knee. As per report pt was found on the ground by his neighbor. Pt was seen and examined today in nad. Pt states that yesterday while on his motorized scooter he felt lightheaded and fell hitting his head and knee. denies LOC prior to falling but states that after he hit his head he lost consciousness. Denies chest pain, sob, palpitations prior to or after the event. Currently only c/o Knee pain and head pain where he hit his head. Loss of consciousness -pt reports recurrent lightheadedness, near syncope -uncertain if loss of consciousness occurred prior to his fall or after falling and hitting his head -cardiac enzymes wnl, no ischemia on ekg, no signs of ACS or ischemia -prior inpatient syncope work up has been unrevealing -Echo 10/25/18 showed Normal LV/RV size and systolic function, trace MR/TR -Holter monitor 10/25/18 showed Sinus rhythm with occasional APCs and PVCs and no significant arrhythmias -Antoinette nuclear stress test 10/25/18 showed small, mild apical ischemia LVEF 72% -no sig events on tele overnight -head CT showed no intracranial bleed (on xarelto) -elevated WBC to be evaluated -Neuro to evaluate, h/o seizure/pseudoseizures based on prior Neuro notes -does not require additional inpatient cardiac work up for syncope -would recommend close outpatient fup and longer term event monitor +/- ILR for further evaluation of cardiac sources of syncope. Will follow up prn. Please call with any additional questions.
[2019-01-23] MEDS ORDERED: DIVALPROEX NA *ER* EXTEND REL 500 MG TABLET.SA (FP) PO SCH (10:00)
--- NOTE | 2019-01-23 11:46 | CONSULT ---
Consult - text type - Consultation Consultation Note: NEUROLOGY CONSULT APPRECIATED: This 69 yo RH, M man lives with his family. Has [facility] 5 hours/week 7 days a week. Now using automated scooter. Last consulted by me for similar events 05/05/2018. Extensive PMH of HTN, DM, Chol, ASHD, hx DVT, paroxysmal AFib, S/P stents, CVA , seizure disorder and Prostate CA. Maintained on ASA, Xarelto, atorvastatin, citalopram, lisinopril, ranexa, tamsulosin, toviaz, bicalutamide, clonazepam, depakote (500 BID) and keppra ( 250 TID). Was ambulating in scooter yesterday when he had unwitnessed fall forward with reported head trauma and LOC for approximately 30 minutes. No seizure activity was reported. Patient denies dizziness or other prodromata. He reports his cousin found him and called the ambulance. In ER: WBC=18.[address] of head (reviewed): Mild atrophy, chronic, diffuse, microvascular changes. UA neg. TSH 2.19 LILLIAM: Obese. neck supple. R carotid bruit. Cor reg. Lymphedema and venous status. No evidence of external head trauma. Urinal appears stacey. Bruising to right forearm and right knee. NEURO: awake, alert, cooperative. Speech fluent. O x 3 but a mild OMS is likely present. CN: II-XII: normal. No facial. Motor: No drift. Normal strength. Areflexic in legs. Plantars silent. Coord: No FTN dystaxia. Sensory: No vibration to the mid-calf. Cannot lift left leg off bed. Gait not tested. IMP: 1. Syncope with head trauma possible related to seizure disorder seizure 2. Diabetic Peripheral neuropathy 3 Chronic, progressive (?) proximal weakness right leg. Etiology uncertain. Cosider LS Radiculopathy; diabetic Femoral mononeuropathy, DM Amotrophy. SUGGEST: Await UA/Urine C&S or other occult infection (seizure can also cause elevatged WBC). Check B12, RPR Await carotid duplex Continue depakote 500 mg q 12 hrs. Empirically increase levetiracetam to 500 mg q 12 hrs (while awaiting levels of both AED's). Out of bed to chair. PT eval of gait safety with walker. Continue telemetry and cardiac workup. Thank you very much, Jeffrey Escalante MD
--- NOTE | 2019-01-23 14:42 | EKG ---
Test Reason : Blood Pressure : / mmHG Vent. Rate : 076 BPM Atrial Rate : 076 BPM P-R Int : 164 ms QRS Dur : 086 ms QT Int : 418 ms P-R-T Axes : 061 -21 052 degrees QTc Int : 470 ms POOR DATA QUALITY, INTERPRETATION MAY BE ADVERSELY AFFECTED NORMAL SINUS RHYTHM LOW VOLTAGE QRS NONSPECIFIC ST ABNORMALITY ABNORMAL ECG WHEN COMPARED WITH ECG OF 20-NOV-2018 11:01, NO SIGNIFICANT CHANGE WAS FOUND Confirmed by Kishan Porter ([id number]) on 01/23/2019 2:42:42 PM Referred By: Confirmed By:Kishan Porter
--- NOTE | 2019-01-23 17:27 | PN ---
Progress Note, Physician Chief Complaint: Syncope S/P Fall History of Present Illness: Previous notes and events reviewed awake and alert NAD complain of LLE pain denies chest pain, SOB, dizziness - Current Medication List Current Medications: Active Medications Atorvastatin Calcium (Lipitor -) 20 mg PO HS [facility] Last Admin: 01/23/19 00:52 Dose: 20 mg Bicalutamide (Casodex -) 50 mg PO DAILY [facility] Last Admin: 01/23/19 09:44 Dose: 50 mg Divalproex Sodium (Depakote -) 500 mg PO BID [facility] Last Admin: 01/23/19 09:44 Dose: 500 mg Folic Acid (Folic Acid -) 1 mg PO DAILY [facility] Last Admin: 01/23/19 09:45 Dose: 1 mg Levetiracetam (Keppra Oral Solution -) 500 mg PO BID [facility] Lisinopril (Prinivil) 5 mg PO DAILY [facility] Last Admin: 01/23/19 09:46 Dose: 5 mg Ranolazine (Ranexa -) 500 mg PO BID [facility] Last Admin: 01/23/19 09:46 Dose: 500 mg Rivaroxaban (Xarelto -) 20 mg PO DAILY@1800 [facility] Tamsulosin HCl (Flomax -) 0.4 mg PO DAILY@0830 [facility] Last Admin: 01/23/19 09:44 Dose: 0.4 mg Tolterodine Tartrate (Detrol La -) 4 mg PO DAILY [facility] Last Admin: 01/23/19 09:45 Dose: 4 mg - Objective Vital Signs: Vital Signs Temperature 97.9 F 01/23/19 16:42 Pulse Rate 70 01/23/19 16:42 Respiratory Rate 20 01/23/19 16:42 Blood Pressure 115/72 01/23/19 16:42 O2 Sat by Pulse Oximetry (%) 99 01/23/19 16:42 Constitutional: Yes: No Distress, Calm Eyes: Yes: Conjunctiva Clear HENT: Yes: Atraumatic Cardiovascular: Yes: Regular Rate and Rhythm Respiratory: Yes: Regular, Wheezes (B/L lower bases) Gastrointestinal: Yes: Normal Bowel Sounds, Soft, Abdomen, Obese Musculoskeletal: Yes: Muscle Weakness Extremities: Yes: Calf Tenderness (LLE) Integumentary: Yes: Venous Stasis Changes Neurological: Yes: Alert, Oriented Psychiatric: Yes: Alert, Oriented Labs: CBC, BMP 01/23/19 07:35 01/23/19 07:35 Problem List - Problems (1) Fall Assessment/Plan: -fall precaution -PT Code(s): W19.XXXA - UNSPECIFIED FALL, INITIAL ENCOUNTER Qualifiers: Encounter type: initial encounter Qualified Code(s): W19.XXXA - Unspecified fall, initial encounter (2) Afib Assessment/Plan: -cardiology on board -continue xarelto Code(s): I48.91 - UNSPECIFIED ATRIAL FIBRILLATION (3) CHF (congestive heart failure) Assessment/Plan: -cardiology on board -continue ranexa -1L fluid restriction Code(s): I50.9 - HEART FAILURE, UNSPECIFIED (4) Diabetes mellitus type 2 in obese Assessment/Plan: -[facility] ACHS -ISS Code(s): E11.9 - TYPE 2 DIABETES MELLITUS WITHOUT COMPLICATIONS; E66.9 - OBESITY , UNSPECIFIED (5) Hyperlipidemia Assessment/Plan: -continue with atorvastatin Code(s): E78.5 - HYPERLIPIDEMIA, UNSPECIFIED (6) Hypertension Assessment/Plan: -continue with lisinopril -low Na diet Code(s): I10 - ESSENTIAL (PRIMARY) HYPERTENSION Qualifiers: Hypertension type: essential hypertension Qualified Code(s): I10 - Essential (primary) hypertension (7) Seizure Assessment/Plan: -continue with keppra -keppra level ordered -neurology on board Code(s): R56.9 - UNSPECIFIED CONVULSIONS (8) Syncope Assessment/Plan: -cardiology on board -Carotid US reviewed -tele monitoring -neurology on board Code(s): R55 - SYNCOPE AND COLLAPSE
[2019-01-23] MEDS ORDERED: ALBUTEROL SO4 0.083% IH SOL 2.5 MG/3 ML VIAL.NEB. NEB PRN (17:36)
[2019-01-23] MEDS: RIVAROXABAN 20 MG TABLET PO SCH (19:03)
[2019-01-23] MEDS: levETIRAcetam 500 MG/5 ML ORAL SOLUTION (UNIT-DOSE CUPS) PO SCH (23:00)
[2019-01-23] MEDS ORDERED: DIVALPROEX SODIUM 500 MG TABLET E.C. ONE (23:37)
[2019-01-23] MEDS ORDERED: levETIRAcetam 500 MG TABLET (FP) PO ONE (23:38)
[2019-01-24 07:56] LABS: HEMATOCRIT 38.7 % (35.4-49); HEMOGLOBIN 12.5 GM/dL (11.7-16.9); MCH 27.5 pg (25.7-33.7); MCHC 32.2 g/dl (32.0-35.9); MEAN CELL VOLUME 85.4 fl (80-96); MEAN PLT VOLUME 9.2 fl (7.5-11.1); PLATELET COUNT 170 K/MM3 (134-434); RBC 4.53 M/mm3 (4.00-5.60); WHITE BLOOD COUNT 16.4 K/mm3 (4.0-10.0)
[2019-01-24 08:12] LABS: ALBUMIN 3.6 g/dl (3.4-5.0); ALK PHOS 112 U/L (45-117); ANION GAP 9 MMOL/L (8-16); BILIRUBIN,TOTAL 0.6 mg/dL (0.2-1); BLOOD UREA NITROGEN 10 mg/dL (7-18); CALCIUM 8.6 mg/dL (8.5-10.1); CHLORIDE 101 mmol/L (98-107); CO2 26 mmol/L (21-32); CREATININE 1.1 mg/dL (0.55-1.3); GLUCOSE,RANDOM 131 mg/dL (74-106); POTASSIUM 4.1 mmol/L (3.5-5.1); SGOT/AST 14 U/L (15-37); SGPT/ALT 15 U/L (13-61); SODIUM 137 mmol/L (136-145); TOT PROT 7.4 g/dl (6.4-8.2)
--- NOTE | 2019-01-24 09:41 | PN ---
Progress Note, Physician - Current Medication List Current Medications: Active Medications Albuterol Sulfate (Ventolin 0.083% Nebulizer Soln -) 1 amp NEB Q6H PRN PRN Reason: SHORT OF BREATH/WHEEZING Atorvastatin Calcium (Lipitor -) 20 mg PO HS [facility] Last Admin: 01/23/19 23:00 Dose: 20 mg Bicalutamide (Casodex -) 50 mg PO DAILY [facility] Last Admin: 01/23/19 09:44 Dose: 50 mg Divalproex Sodium (Depakote -) 500 mg PO BID [facility] Last Admin: 01/23/19 23:00 Dose: 500 mg Folic Acid (Folic Acid -) 1 mg PO DAILY [facility] Last Admin: 01/23/19 09:45 Dose: 1 mg Levetiracetam (Keppra Oral Solution -) 500 mg PO BID [facility] Last Admin: 01/23/19 23:00 Dose: 500 mg Lisinopril (Prinivil) 5 mg PO DAILY [facility] Last Admin: 01/23/19 09:46 Dose: 5 mg Ranolazine (Ranexa -) 500 mg PO BID [facility] Last Admin: 01/23/19 23:00 Dose: 500 mg Rivaroxaban (Xarelto -) 20 mg PO DAILY@1800 [facility] Last Admin: 01/23/19 19:03 Dose: 20 mg Tamsulosin HCl (Flomax -) 0.4 mg PO DAILY@0830 [facility] Last Admin: 01/23/19 09:44 Dose: 0.4 mg Tolterodine Tartrate (Detrol La -) 4 mg PO DAILY [facility] Last Admin: 01/23/19 09:45 Dose: 4 mg - Objective Vital Signs: Vital Signs Temperature 98.7 F 01/24/19 09:29 Pulse Rate 68 01/24/19 09:29 Respiratory Rate 20 01/24/19 09:29 Blood Pressure 117/55 L 01/24/19 09:29 O2 Sat by Pulse Oximetry (%) 98 01/24/19 05:30 Cardiovascular: Yes: S1, S2 Respiratory: Yes: Regular, CTA Bilaterally Gastrointestinal: Yes: Normal Bowel Sounds, Soft Musculoskeletal: Yes: Joint Stiffness, Muscle Weakness Integumentary: Yes: Venous Stasis Changes Neurological: Yes: Alert, Oriented, Pre-Existing Deficit, Weakness (left leg) Labs: CBC, BMP 01/24/19 07:20 01/24/19 07:20 Assessment/Plan - Problems (1) Fall Assessment/Plan: -fall precaution -PT Code(s): W19.XXXA - UNSPECIFIED FALL, INITIAL ENCOUNTER Qualifiers: Encounter type: initial encounter Qualified Code(s): W19.XXXA - Unspecified fall, initial encounter (2) Afib Assessment/Plan: -cardiology on board -continue xarelto Code(s): I48.91 - UNSPECIFIED ATRIAL FIBRILLATION (3) CHF (congestive heart failure) Assessment/Plan: -cardiology on board -continue ranexa -1L fluid restriction Code(s): I50.9 - HEART FAILURE, UNSPECIFIED (4) Diabetes mellitus type 2 in obese Assessment/Plan: -[facility] ACHS -ISS Code(s): E11.9 - TYPE 2 DIABETES MELLITUS WITHOUT COMPLICATIONS; E66.9 - OBESITY , UNSPECIFIED (5) Knee pain Assessment/Plan: -xray noted -Ortho (6) Hypertension Assessment/Plan: -continue with lisinopril -low Na diet Code(s): I10 - ESSENTIAL (PRIMARY) HYPERTENSION Qualifiers: Hypertension type: essential hypertension Qualified Code(s): I10 - Essential (primary) hypertension (7) Seizure Assessment/Plan: -continue with keppra -keppra level ordered -neurology on board Code(s): R56.9 - UNSPECIFIED CONVULSIONS (8) Syncope Assessment/Plan: -cardiology on board -Carotid US reviewed -tele monitoring -neurology on board Code(s): R55 - SYNCOPE AND COLLAPSE
--- NOTE | 2019-01-24 11:09 | PN ---
Progress Note (short form) - Note Progress Note: NEUROLOGY PROGRESS: Events reviewed and discussed with staff. Cardiology and orthopedics consults read and appreciated. Pt reports aspiration of fluid from left knee in . Carotid duplex noted with RCC stenosis 50-69%. Today without reports of head pain or "dizziness." Reporting pain to Left knee, improved with use of pain medication. WBC 18.2 -> 16.4 UC < 10,000 VPA= 57.8 EKG NSR LILLIAM: B/L edema and atrophic skin changes. Left knee tender to palpation and all ROM. Left leg rests everted. NEURO: awake, alert, cooperative. Speech fluent. O x 3. 1 out of 3 recall @ 3. CN: II-XII: normal. No facial. Motor: No drift. Normal arm strength and right leg strength. Cannot elevate left leg but CAN extend the knee with the leg elevated. Normal Left foot plantar and dorsiflexion with c/o knee pain.Areflexic in legs. Plantars silent. Coord: No FTN dystaxia. Sensory: No vibration to the ankles Gait not tested. IMP: 1. Syncope vs. seizure worsened by Toxic-Metabolic Encephalopathy (? Occult infection) 2. Diabetic Peripheral neuropathy 3. R/o septic left knee arthropathy. SUGGEST: R.O infection. Check B12, RPR, ESR, CRP Continue depakote 500 mg q 12 hrs. Continue levetiracetam 500 mg q 12 hrs (while awaiting levels of both AED's). Await MRI of left knee as per ortho and further Rx if indicated. Thank you very much, Jeffrey Escalante MD
[2019-01-24] MEDS: DIVALPROEX SODIUM 500 MG TABLET E.C. PO SCH ×2 (11:21→21:32)
[2019-01-24] MEDS: TOLTERODINE TARTRATE LA 4 MG CAP.SR.24H (FP) PO SCH (11:21)
[2019-01-24] MEDS: LISINOPRIL 5 MG TABLET (FP) PO SCH (11:22)
[2019-01-24] MEDS: FOLIC ACID 1 MG TABLET (FP) PO SCH (11:22)
[2019-01-24] MEDS: RANOLAZINE E.R. 500 MG TABLET (FP) PO SCH ×2 (11:22→21:32)
[2019-01-24] MEDS: TAMSULOSIN HCL 0.4 MG CAP PO SCH (11:22)
[2019-01-24] MEDS: BICALUTAMIDE 50 MG TABLET (FP) PO SCH (11:23)
[2019-01-24] MEDS: levETIRAcetam 500 MG/5 ML ORAL SOLUTION (UNIT-DOSE CUPS) PO SCH ×2 (11:23→21:32)
--- NOTE | 2019-01-24 13:14 | CON.ORTH ---
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 Cardio/Vascular: Yes: CAD, Deep Vein Thrombosis, HTN, Other (paroxysmal atrial fibrillation) Pulmonary: Yes: COPD Gastrointestinal: Yes: Diverticulosis, Diverticulitis, Other Renal/: Yes: Hematuria, Renal Calculi Psych: Yes: Anxiety Endocrine: Yes: Diabetes Mellitus - Past Surgical History Past Surgical History: Yes: Hernia Repair, Appendectomy, Joint Replacement, Cholecystectomy - Alcohol/Substance Use Hx Alcohol Use: No History of Substance Use: reports: None - Smoking History Smoking history: Former smoker Have you smoked in the past 12 months: No Aproximately how many cigarettes per day: 0 If you are a former smoker, when did you quit?: 25+ years - Social History Usual Living Arrangement: Other (roomate) ADL: Independent History of Recent Travel: No Home Medications - Allergies Allergies/Adverse Reactions: Allergies Allergy/AdvReac Type Severity Reaction Status Date / Time Sulfa (Sulfonamide Allergy Intermediate Verified 01/22/19 16:53 Antibiotics) amoxicillin Allergy Mild Rash Verified 01/22/19 16:53 carbamazepine [From Tegretol] Allergy Mild Rash Verified 01/22/19 16:53 cephalexin [Cephalexin] Allergy Mild Rash Verified 01/22/19 16:53 ciprofloxacin Allergy Mild Rash Verified 01/22/19 16:53 fluconazole Allergy Mild Verified 01/22/19 16:53 lamotrigine [From Lamictal] Allergy Mild Rash Verified 01/22/19 16:53 metronidazole Allergy Mild Rash Verified 01/22/19 16:53 phenobarbital Allergy Mild Rash Verified 01/22/19 16:53 phenytoin sodium extended Allergy Mild Rash Verified 01/22/19 16:53 [From Dilantin] SHRIMP Allergy Mild Rash Uncoded 01/22/19 16:53 - Home Medications Home Medications: Ambulatory Orders Aspirin 81 mg PO DAILY 11/20/18 Atorvastatin Ca [Lipitor] 20 mg PO HS 11/20/18 Bicalutamide 50 mg PO DAILY 11/20/18 Citalopram Hydrobromide [Citalopram HBr] 10 mg PO DAILY 11/20/18 Clonazepam 0.5 mg PO TID 11/20/18 Divalproex Sodium [Divalproex Sodium ER] 500 mg PO BID 11/20/18 Ferrous Sulfate 325 mg PO BID 11/20/18 Fesoterodine Fumarate [Toviaz] 4 mg PO DAILY 11/20/18 Folic Acid 1 mg PO DAILY 11/20/18 Lisinopril 5 mg PO DAILY 11/20/18 Magnesium Oxide [Laxative Dietary Supplement] 500 mg PO BID 11/20/18 Ranolazine [Ranexa] 500 mg PO BID 11/20/18 Rivaroxaban [Xarelto -] 20 mg PO DAILY 11/20/18 Tamsulosin HCl [Flomax -] 0.4 mg PO DAILY 11/20/18 levETIRAcetam [Keppra -] 200 mg PO TID 11/20/18 Family Disease History - Family Disease History Family Disease History: Diabetes: Mother (htn), CA: Father, Other: Mother Physical Exam for Ortho Vital Signs: Vital Signs Temperature 98.7 F 01/24/19 09:29 Pulse Rate 68 01/24/19 09:29 Respiratory Rate 20 01/24/19 09:29 Blood Pressure 117/55 L 01/24/19 09:29 O2 Sat by Pulse Oximetry (%) 100 01/24/19 08:00 Constitutional: Yes: Obese Labs: CBC, BMP 01/24/19 07:20 01/24/19 07:20 - Lower Extremity Knee: Yes: Left, Ecchymosis, Limited ROM, Pain, Swelling, Tenderness, Other (+ ttp diffusely, no active ROM, unable to SLR, nvi) Imaging - Results X-ray: Report Reviewed, Image Reviewed Assessment/Plan 69 year old male, with a significant past medical history of afib (on xarelto) , HTN, HLD, diabetes, prostate cancer, bladder cancer, morbid obesity, lymphedema, and chronic left knee pain, who presents to the emergency department s/p fall. As per patient, he felt dizzy subsequently syncopizing falling falling out of his motorized scooter losing consciousness and his neighbor found him prompting his arrival. Patient notes approximately 27 prior falls within the past month. Pt has had chronic left knee pain but has been unable to bear weight and cannot straight leg raise since his fall on Tuesday. a/p ? quad tendon rupture will order MRI pain control ice ,elevation f/u after MRI d/w Dr. Do
--- NOTE | 2019-01-24 13:22 | CONSULT ---
Consult Consult Specialty:: PM&R Dr Mckeon for Dr Pascual - History of Present Illness Chief Complaint: L>R knee pain History of Present Illness: This is a 69 year old man with a medical history of seizure disorder, morbid obesity, anxiety, CAD, A fib on Xarelto, HTN, HLD, COPD, diverticulosis/ diverticulitis, renal stones, bladder/ prostate cancer, DM, chronic LLE weakness , who had recently been admitted 10/2018 for septic L knee, who presented to the ED 01/22/19 following a fall due to syncope. Of note, he reported over 20 episodes of syncope in the past month causing falls. CT head showed no acute pathology; R wrist XR was unremarkable, and R knee XR showed prominant soft tissues without bony pathology. Cardiology was consulted for syncope, who ruled out ischemia/ ACS. Carotid US showed 50-69% R common carotid bifurcation stenosis. Neurology was consulted for syncope, who adjusted seizure medications and recommended infectious work-up. Ortho was consulted for L knee pain. Physiatry is being consulted for further recommendations. 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 Cardio/Vascular: Yes: CAD, Deep Vein Thrombosis, HTN, Other (paroxysmal atrial fibrillation) Pulmonary: Yes: COPD Gastrointestinal: Yes: Diverticulosis, Diverticulitis, Other Renal/: Yes: Hematuria, Renal Calculi Psych: Yes: Anxiety Endocrine: Yes: Diabetes Mellitus - Past Surgical History Past Surgical History: Yes: Hernia Repair, Appendectomy, Joint Replacement, Cholecystectomy - Alcohol/Substance Use Hx Alcohol Use: No History of Substance Use: reports: None - Smoking History Smoking history: Former smoker Have you smoked in the past 12 months: No Aproximately how many cigarettes per day: 0 If you are a former smoker, when did you quit?: 25+ years - Social History Usual Living Arrangement: Other (roommate; apartment) 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, 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) History of Recent Travel: No Home Medications - Allergies Allergies/Adverse Reactions: Allergies Allergy/AdvReac Type Severity Reaction Status Date / Time Sulfa (Sulfonamide Allergy Intermediate Verified 01/22/19 16:53 Antibiotics) amoxicillin Allergy Mild Rash Verified 01/22/19 16:53 carbamazepine [From Tegretol] Allergy Mild Rash Verified 01/22/19 16:53 cephalexin [Cephalexin] Allergy Mild Rash Verified 01/22/19 16:53 ciprofloxacin Allergy Mild Rash Verified 01/22/19 16:53 fluconazole Allergy Mild Verified 01/22/19 16:53 lamotrigine [From Lamictal] Allergy Mild Rash Verified 01/22/19 16:53 metronidazole Allergy Mild Rash Verified 01/22/19 16:53 phenobarbital Allergy Mild Rash Verified 01/22/19 16:53 phenytoin sodium extended Allergy Mild Rash Verified 01/22/19 16:53 [From Dilantin] SHRIMP Allergy Mild Rash Uncoded 01/22/19 16:53 - Home Medications Home Medications: Ambulatory Orders Aspirin 81 mg PO DAILY 11/20/18 Atorvastatin Ca [Lipitor] 20 mg PO HS 11/20/18 Bicalutamide 50 mg PO DAILY 11/20/18 Citalopram Hydrobromide [Citalopram HBr] 10 mg PO DAILY 11/20/18 Clonazepam 0.5 mg PO TID 11/20/18 Divalproex Sodium [Divalproex Sodium ER] 500 mg PO BID 11/20/18 Ferrous Sulfate 325 mg PO BID 11/20/18 Fesoterodine Fumarate [Toviaz] 4 mg PO DAILY 11/20/18 Folic Acid 1 mg PO DAILY 11/20/18 Lisinopril 5 mg PO DAILY 11/20/18 Magnesium Oxide [Laxative Dietary Supplement] 500 mg PO BID 11/20/18 Ranolazine [Ranexa] 500 mg PO BID 11/20/18 Rivaroxaban [Xarelto -] 20 mg PO DAILY 11/20/18 Tamsulosin HCl [Flomax -] 0.4 mg PO DAILY 11/20/18 levETIRAcetam [Keppra -] 200 mg PO TID 11/20/18 Family Disease History - Family Disease History Family Disease History: Diabetes: Mother (htn), CA: Father, Other: Mother Review of Systems Findings/Remarks: Denies fevers, CP, SOB, abdominal pain, dysuria Notes R wrist and B knee pain, LLE weakness Physical Exam Vital Signs: Vital Signs Temperature 98.7 F 01/24/19 09:29 Pulse Rate 68 01/24/19 09:29 Respiratory Rate 20 01/24/19 09:29 Blood Pressure 117/55 L 01/24/19 09:29 O2 Sat by Pulse Oximetry (%) 100 01/24/19 08:00 Musculoskeletal: Yes: Other (General: calm elderly morbidly obese HM lying in bed NAD at rest, grimacing with movement N/M: R shoulder flexion to 45 degrees , L shoulder flexion to 90 degrees, 3/5 R FF then declines RUE due to pain, 4+/ 5 LUE; 4/5 R HF, 4+/5 R KE/ DF/ EHL; 2/5 L HF/ KE, 3/5 L DF/ EHL, with R HF/ KF to 90 degrees, unable to range L hip/ knee due to pain Extremities: no BLE pitting edema, chronic BLE skin changes, extensive R anteriolateral wrist hematoma, extensive B knee hematoma) Labs: CBC, BMP 01/24/19 07:20 01/24/19 07:20 Imaging - Results X-ray: Report Reviewed (as per HPI) Cat Scan: Report Reviewed (as per HPI) Ultrasound: Report Reviewed (as per HPI) Assessment/Plan Impression: 1) Deficits mobility/ ADLs 2) Deconditioning 3) Gait abnormality 4) Multiple episodes syncope causing falls 5) R wrist/ knee pain possibly 2/2 hematoma with negative XR 6) Chronic LLE weakness/ pain with L knee hematoma and recent L septic knee 7) Seizure disorder 8) Morbid obesity 9) hx anxiety 10) hx CAD, A fib on Xarelto, HTN, HLD 11) hx COPD 12) Diverticulosis/ diverticulitis 13) hx renal stones 14) hx bladder/ prostate cancer 15) DM 16) Up to date flu shot/ pneumovax Recommendations: 1) PT for stretching strengthening ROM and functional mobility 2) Falls, safety precautions 3) Cardiopulmonary precautions, diabetic precautions 4) Seizure precautions 5) Ice R wrist/ B knees prn 6) Skin protection: float heels, frequent turning 7) DVT ppx: Xarelto 8) Nutrition consult for obesity 9) Pending Ortho consult 10) Continue care per primary team 11) Discharge planning: he would benefit from inpatient rehabilitation once medically stable Thank you for this referral.
[2019-01-24] MEDS: RIVAROXABAN 20 MG TABLET PO SCH (17:39)
[2019-01-24] MEDS ORDERED: traMADol HCL 50 MG TABLET PO ONE (19:30)
[2019-01-24] MEDS: ATORVASTATIN CA 20 MG TABLET (FP) PO SCH (21:32)
[2019-01-25] MEDS ORDERED: PT OWN MED DRAWER 7, Y5N ONE (09:58)
[2019-01-25] MEDS: TAMSULOSIN HCL 0.4 MG CAP PO SCH (10:11)
[2019-01-25] MEDS: DIVALPROEX SODIUM 500 MG TABLET E.C. PO SCH ×2 (10:11→21:36)
[2019-01-25] MEDS: TOLTERODINE TARTRATE LA 4 MG CAP.SR.24H (FP) PO SCH (10:12)
[2019-01-25] MEDS: RANOLAZINE E.R. 500 MG TABLET (FP) PO SCH ×2 (10:12→21:37)
[2019-01-25] MEDS: BICALUTAMIDE 50 MG TABLET (FP) PO SCH (10:12)
[2019-01-25] MEDS: LISINOPRIL 5 MG TABLET (FP) PO SCH (10:13)
[2019-01-25] MEDS: FOLIC ACID 1 MG TABLET (FP) PO SCH (10:13)
[2019-01-25] MEDS: levETIRAcetam 500 MG/5 ML ORAL SOLUTION (UNIT-DOSE CUPS) PO SCH ×2 (10:13→21:37)
--- NOTE | 2019-01-25 13:31 | PN ---
Progress Note, Physician Chief Complaint: patient seen and examined complaining of knee pain and not able to straighten he left leg aviating MRI cardiology input appreciated - Current Medication List Current Medications: Active Medications Albuterol Sulfate (Ventolin 0.083% Nebulizer Soln -) 1 amp NEB Q6H PRN PRN Reason: SHORT OF BREATH/WHEEZING Atorvastatin Calcium (Lipitor -) 20 mg PO HS [facility] Last Admin: 01/24/19 21:32 Dose: 20 mg Bicalutamide (Casodex -) 50 mg PO DAILY [facility] Last Admin: 01/25/19 10:12 Dose: 50 mg Divalproex Sodium (Depakote -) 500 mg PO BID [facility] Last Admin: 01/25/19 10:11 Dose: 500 mg Folic Acid (Folic Acid -) 1 mg PO DAILY [facility] Last Admin: 01/25/19 10:13 Dose: 1 mg Levetiracetam (Keppra Oral Solution -) 500 mg PO BID [facility] Last Admin: 01/25/19 10:13 Dose: 500 mg Lisinopril (Prinivil) 5 mg PO DAILY [facility] Last Admin: 01/25/19 10:13 Dose: 5 mg Ranolazine (Ranexa -) 500 mg PO BID [facility] Last Admin: 01/25/19 10:12 Dose: 500 mg Rivaroxaban (Xarelto -) 20 mg PO DAILY@1800 [facility] Last Admin: 01/24/19 17:39 Dose: 20 mg Tamsulosin HCl (Flomax -) 0.4 mg PO DAILY@0830 [facility] Last Admin: 01/25/19 10:11 Dose: 0.4 mg Tolterodine Tartrate (Detrol La -) 4 mg PO DAILY [facility] Last Admin: 01/25/19 10:12 Dose: 4 mg - Objective Vital Signs: Vital Signs Temperature 98.7 F 01/25/19 09:00 Pulse Rate 76 01/25/19 09:00 Respiratory Rate 18 01/25/19 09:00 Blood Pressure 127/55 L 01/25/19 09:00 O2 Sat by Pulse Oximetry (%) 96 01/25/19 09:00 Constitutional: Yes: Calm Cardiovascular: Yes: Regular Rate and Rhythm, S1, S2 Respiratory: Yes: CTA Bilaterally Gastrointestinal: Yes: Soft Musculoskeletal: Yes: Other (left knee swelling bruising not tenderness) Labs: CBC, BMP 01/24/19 07:20 01/24/19 07:20 Problem List - Problems (1) Fall Assessment/Plan: cardiology input appreciated Neurology on board started on keppra MRI of the knee pending inc WBC esr crp - ID consult ortho on board PT transfer to med surg Code(s): W19.XXXA - UNSPECIFIED FALL, INITIAL ENCOUNTER Qualifiers: Encounter type: initial encounter Qualified Code(s): W19.XXXA - Unspecified fall, initial encounter (2) Afib Assessment/Plan: paroxysmall afib on xarelto Code(s): I48.91 - UNSPECIFIED ATRIAL FIBRILLATION
--- NOTE | 2019-01-25 17:06 | PN ---
Progress Note (short form) - Note Progress Note: ID consult dictated syncope multiple falls no fever leukocytosis bilateral knee pain left greater then right prior left knee arthrocentesis-no crystals, cultures negative suspect knee pain secondary to trauma no fevers observe off antibiotics blood cultures given elevated wbc, repeat cbc in am
[2019-01-25] MEDS: RIVAROXABAN 20 MG TABLET PO SCH (17:09)
--- NOTE | 2019-01-25 20:12 | CONS ---
DATE OF CONSULTATION: DATE OF DICTATION: 01/25/2019 REQUESTED BY: This is a 69-year-old man who was admitted with syncope and right knee pain. He apparently had dizziness and he sustained a fall, injuring his right knee. He apparently has a scooter and he falls out multiple times and has had multiple falls over the last several months. He has chronic pain in both his knees that has been evaluated in the past, including left knee arthrocentesis in October. I am asked to see him because he has an elevated white count. He denies fevers, chills, cough, chest pain, abdominal pain, dysuria, diarrhea, or constipation. He has a good appetite. He notes both his knees hurt. Past medical history is notable for fever, CVA, seizures, coronary artery disease, DVT, hypertension, paroxysmal atrial fibrillation, COPD, diverticulitis, diverticulosis, hematuria, renal calculi, bladder and prostate cancer, anxiety, and diabetes. Surgical history is notable for hernia repair, appendectomy, joint replacement, and cholecystectomy. SOCIAL HISTORY: Lives alone. He uses an electric scooter. There is no history of cigarette or substance use. HE HAS MULTIPLE ALLERGIES INCLUDING SULFA, AMOXICILLIN, CARBAMAZEPINE, CEPHALEXIN, CIPRO, FLUCONAZOLE, LAMICTAL, METRONIDAZOLE, PHENOBARBITAL, PHENYTOIN, AND SHRIMP. Medications at home include aspirin, atorvastatin, bicalutamide, Celexa, clonazepam, divalproex, ferrous sulfate, fesoterodine, folic acid, lisinopril, magnesium oxide, Ranexa, Xarelto, Flomax, and Keppra. Family history is notable for diabetes and hypertension. REVIEW OF SYSTEMS: As per HPI. PHYSICAL EXAMINATION: General: He is awake and alert, he is resting comfortably. Vital Signs: Temperature is 98.9. He has had no fever since admission. Pulse is 72. Blood pressure 118/55. Respiratory rate 20. He is saturating 96%. He is 127 kg. HEENT: Normocephalic. His eyes are anicteric. Neck: Supple. Lungs: Clear to auscultation. Heart: Regular rate and rhythm. Abdomen: Soft, nontender. Extremities: Notable for ecchymoses on both right and left knee and he has pain on movement of both knee joints. He had x-ray of the right knee that showed no fracture. He had a chest x-ray that was unremarkable that showed increased markings at the bases with a large heart and a left shoulder replacement, and his urine culture is negative. In summary, this is a 69-year-old man with multiple falls, with bilateral knee pain, on anticoagulation. He has had prior arthrocentesis of the knees for pain that has been unremarkable, both for culture and for crystals. Orthopedics has ordered further imaging at this time of his knees. I suspect his knee pain is secondary to all his trauma and the multiple falls. His leukocytosis is another issue. I am not sure quite why the white count is elevated. Would obtain blood cultures, he has no fever, and observe for now. Further recommendations to follow. ZANA MARTINEZ M.D. [id number]
[2019-01-25] MEDS: ATORVASTATIN CA 20 MG TABLET (FP) PO SCH (21:37)
[2019-01-26 07:28] LABS: BASO % 0.4 % (0-2.0); EOS % 1.1 % (0-4.5); HEMATOCRIT 34.6 % (35.4-49); HEMOGLOBIN 11.3 GM/dL (11.7-16.9); MCH 27.4 pg (25.7-33.7); MCHC 32.7 g/dl (32.0-35.9); MEAN CELL VOLUME 83.7 fl (80-96); MEAN PLT VOLUME 9.3 fl (7.5-11.1); MONO % 21.1 % (3.8-10.2); NEUT % 75.4 % (42.8-82.8); PLATELET COUNT 144 K/MM3 (134-434); RBC 4.14 M/mm3 (4.00-5.60); RDW 17.2 % (11.9-15.9); WHITE BLOOD COUNT 15.5 K/mm3 (4.0-10.0)
[2019-01-26] MEDS: TAMSULOSIN HCL 0.4 MG CAP PO SCH (08:13)
[2019-01-26 08:15] LABS: ALBUMIN 2.8 g/dl (3.4-5.0); ALK PHOS 90 U/L (45-117); ANION GAP 9 MMOL/L (8-16); BILIRUBIN,TOTAL 0.7 mg/dL (0.2-1); BLOOD UREA NITROGEN 12 mg/dL (7-18); CALCIUM 8.6 mg/dL (8.5-10.1); CHLORIDE 98 mmol/L (98-107); CO2 27 mmol/L (21-32); GLUCOSE,RANDOM 134 mg/dL (74-106); POTASSIUM 3.7 mmol/L (3.5-5.1); SGOT/AST 7 U/L (15-37); SGPT/ALT 11 U/L (13-61); SODIUM 134 mmol/L (136-145); TOT PROT 6.4 g/dl (6.4-8.2)
--- NOTE | 2019-01-26 09:46 | PN ---
Progress Note, Physician - Current Medication List Current Medications: Active Medications Albuterol Sulfate (Ventolin 0.083% Nebulizer Soln -) 1 amp NEB Q6H PRN PRN Reason: SHORT OF BREATH/WHEEZING Atorvastatin Calcium (Lipitor -) 20 mg PO HS [facility] Last Admin: 01/25/19 21:37 Dose: 20 mg Bicalutamide (Casodex -) 50 mg PO DAILY [facility] Last Admin: 01/25/19 10:12 Dose: 50 mg Divalproex Sodium (Depakote -) 500 mg PO BID [facility] Last Admin: 01/25/19 21:36 Dose: 500 mg Folic Acid (Folic Acid -) 1 mg PO DAILY [facility] Last Admin: 01/25/19 10:13 Dose: 1 mg Levetiracetam (Keppra Oral Solution -) 500 mg PO BID [facility] Last Admin: 01/25/19 21:37 Dose: 500 mg Lisinopril (Prinivil) 5 mg PO DAILY [facility] Last Admin: 01/25/19 10:13 Dose: 5 mg Ranolazine (Ranexa -) 500 mg PO BID [facility] Last Admin: 01/25/19 21:37 Dose: 500 mg Rivaroxaban (Xarelto -) 20 mg PO DAILY@1800 [facility] Last Admin: 01/25/19 17:09 Dose: 20 mg Tamsulosin HCl (Flomax -) 0.4 mg PO DAILY@0830 [facility] Last Admin: 01/26/19 08:13 Dose: 0.4 mg Tolterodine Tartrate (Detrol La -) 4 mg PO DAILY [facility] Last Admin: 01/25/19 10:12 Dose: 4 mg - Objective Vital Signs: Vital Signs Temperature 98.3 F 01/26/19 09:11 Pulse Rate 73 01/26/19 09:11 Respiratory Rate 20 01/26/19 09:11 Blood Pressure 118/61 01/26/19 09:11 O2 Sat by Pulse Oximetry (%) 96 01/26/19 05:00 Cardiovascular: Yes: S1, S2 Respiratory: Yes: Regular, CTA Bilaterally Gastrointestinal: Yes: Normal Bowel Sounds, Soft Musculoskeletal: Yes: Joint Stiffness, Joint Swelling (left knee) Edema: Yes Neurological: Yes: Unsteady Gait, Weakness Labs: CBC, BMP 01/26/19 06:00 01/26/19 06:00 Assessment/Plan - Problems (1) Fall Assessment/Plan: -fall precaution -PT -Mri -ortho on case Code(s): W19.XXXA - UNSPECIFIED FALL, INITIAL ENCOUNTER Qualifiers: Encounter type: initial encounter Qualified Code(s): W19.XXXA - Unspecified fall, initial encounter (2) Afib Assessment/Plan: -cardiology on board -continue xarelto Code(s): I48.91 - UNSPECIFIED ATRIAL FIBRILLATION (3) CHF (congestive heart failure) Assessment/Plan: -cardiology on board -continue ranexa -1L fluid restriction Code(s): I50.9 - HEART FAILURE, UNSPECIFIED (4) Diabetes mellitus type 2 in obese Assessment/Plan: -[facility] ACHS -ISS Code(s): E11.9 - TYPE 2 DIABETES MELLITUS WITHOUT COMPLICATIONS; E66.9 - OBESITY , UNSPECIFIED (5) Knee pain Assessment/Plan: -xray noted--awaiting MRI -Ortho (6) Hypertension Assessment/Plan: -continue with lisinopril -low Na diet Code(s): I10 - ESSENTIAL (PRIMARY) HYPERTENSION Qualifiers: Hypertension type: essential hypertension Qualified Code(s): I10 - Essential (primary) hypertension (7) Seizure Assessment/Plan: -continue with keppra -keppra level ordered -neurology on board Code(s): R56.9 - UNSPECIFIED CONVULSIONS (8) Syncope Assessment/Plan: cardiology input appreciated Neurology on board started on keppra MRI of the knee pending
[2019-01-26] MEDS: LISINOPRIL 5 MG TABLET (FP) PO SCH (09:58)
[2019-01-26] MEDS: RANOLAZINE E.R. 500 MG TABLET (FP) PO SCH ×2 (09:58→22:03)
[2019-01-26] MEDS: BICALUTAMIDE 50 MG TABLET (FP) PO SCH (09:59)
[2019-01-26] MEDS: TOLTERODINE TARTRATE LA 4 MG CAP.SR.24H (FP) PO SCH (10:00)
[2019-01-26] MEDS: DIVALPROEX SODIUM 500 MG TABLET E.C. PO SCH ×2 (10:00→22:03)
[2019-01-26] MEDS: levETIRAcetam 500 MG/5 ML ORAL SOLUTION (UNIT-DOSE CUPS) PO SCH ×2 (10:01→22:03)
[2019-01-26] MEDS: FOLIC ACID 1 MG TABLET (FP) PO SCH (10:01)
[2019-01-26] MEDS: oxyCODONE HCL 5 MG TABLET PO PRN ×2 (10:32→17:21)
[2019-01-26] MEDS ORDERED: oxyCODONE HCL 5 MG TABLET ONE (10:38)
--- NOTE | 2019-01-26 11:03 | PN ---
Progress Note (short form) - Note Progress Note: Ortho Pt seen and examined c/o b/l knee pain l>R, still has not had MRI of left knee. Selected Entries 01/26/19 09:11 Temperature 98.3 F Pulse Rate 73 Respiratory 20 Rate Blood Pressure 118/61 + effusion, limited ROM, unable to SLR nvi a/p MRI of left knee r/o quad tendon tear vs intraarticular pathology will advise further after MRI d/w Dr. Bedolla
[2019-01-26] MEDS ORDERED: ALBUTEROL SO4 0.083% IH SOL 2.5 MG/3 ML VIAL.NEB. NEB PRN (14:08)
[2019-01-26] MEDS: RIVAROXABAN 20 MG TABLET PO SCH (17:21)
[2019-01-26] MEDS ORDERED: PT OWN MED DRAWER 7, Y5N ONE (21:23)
[2019-01-26] MEDS: ATORVASTATIN CA 20 MG TABLET (FP) PO SCH (22:03)
[2019-01-27] MEDS ORDERED: PT OWN MED DRAWER 7, Y5N ONE ×2 (07:49→09:26)
[2019-01-27] MEDS: TAMSULOSIN HCL 0.4 MG CAP PO SCH (09:22)
[2019-01-27] MEDS: DIVALPROEX SODIUM 500 MG TABLET E.C. PO SCH ×2 (09:22→22:13)
[2019-01-27] MEDS: levETIRAcetam 500 MG/5 ML ORAL SOLUTION (UNIT-DOSE CUPS) PO SCH ×2 (09:23→22:14)
[2019-01-27] MEDS: FOLIC ACID 1 MG TABLET (FP) PO SCH (09:29)
[2019-01-27] MEDS: TOLTERODINE TARTRATE LA 4 MG CAP.SR.24H (FP) PO SCH (09:30)
[2019-01-27] MEDS: BICALUTAMIDE 50 MG TABLET (FP) PO SCH (09:31)
[2019-01-27] MEDS: RANOLAZINE E.R. 500 MG TABLET (FP) PO SCH ×2 (09:36→22:13)
[2019-01-27] MEDS: LISINOPRIL 5 MG TABLET (FP) PO SCH (09:40)
[2019-01-27] MEDS: oxyCODONE HCL 5 MG TABLET PO PRN (13:19)
--- NOTE | 2019-01-27 13:58 | PN ---
Progress Note, Physician - Current Medication List Current Medications: Active Medications Albuterol Sulfate (Ventolin 0.083% Nebulizer Soln -) 1 amp NEB Q6H PRN PRN Reason: SHORT OF BREATH/WHEEZING Last Admin: 01/26/19 19:45 Dose: 1 amp Atorvastatin Calcium (Lipitor -) 20 mg PO HS [facility] Last Admin: 01/26/19 22:03 Dose: 20 mg Bicalutamide (Casodex -) 50 mg PO DAILY [facility] Last Admin: 01/27/19 09:31 Dose: 50 mg Divalproex Sodium (Depakote -) 500 mg PO BID [facility] Last Admin: 01/27/19 09:22 Dose: 500 mg Folic Acid (Folic Acid -) 1 mg PO DAILY [facility] Last Admin: 01/27/19 09:29 Dose: 1 mg Levetiracetam (Keppra Oral Solution -) 500 mg PO BID [facility] Last Admin: 01/27/19 09:23 Dose: 500 mg Lisinopril (Prinivil) 5 mg PO DAILY [facility] Last Admin: 01/27/19 09:40 Dose: Not Given Oxycodone HCl (Roxicodone -) 10 mg PO Q6H PRN PRN Reason: PAIN LEVEL 6-10 Last Admin: 01/27/19 13:19 Dose: 10 mg Ranolazine (Ranexa -) 500 mg PO BID [facility] Last Admin: 01/27/19 09:36 Dose: 500 mg Rivaroxaban (Xarelto -) 20 mg PO DAILY@1800 [facility] Last Admin: 01/26/19 17:21 Dose: 20 mg Tamsulosin HCl (Flomax -) 0.4 mg PO DAILY@0830 [facility] Last Admin: 01/27/19 09:22 Dose: 0.4 mg Tolterodine Tartrate (Detrol La -) 4 mg PO DAILY [facility] Last Admin: 01/27/19 09:30 Dose: 4 mg - Objective Vital Signs: Vital Signs Temperature 98.0 F 01/27/19 06:00 Pulse Rate 77 01/27/19 06:00 Respiratory Rate 20 01/27/19 06:00 Blood Pressure 101/51 L 01/27/19 06:00 O2 Sat by Pulse Oximetry (%) 95 01/26/19 21:00 Cardiovascular: Yes: S1, S2 Respiratory: Yes: Regular, CTA Bilaterally Gastrointestinal: Yes: Normal Bowel Sounds, Soft Musculoskeletal: Yes: Joint Stiffness, Joint Swelling Labs: CBC, BMP 01/26/19 06:00 01/26/19 06:00 Assessment/Plan - Problems (1) Fall Assessment/Plan: -fall precaution -PT -Mri pending -ortho on case Code(s): W19.XXXA - UNSPECIFIED FALL, INITIAL ENCOUNTER Qualifiers: Encounter type: initial encounter Qualified Code(s): W19.XXXA - Unspecified fall, initial encounter (2) Afib Assessment/Plan: -cardiology on board -continue xarelto Code(s): I48.91 - UNSPECIFIED ATRIAL FIBRILLATION (3) CHF (congestive heart failure) Assessment/Plan: -cardiology on board -continue ranexa -1L fluid restriction Code(s): I50.9 - HEART FAILURE, UNSPECIFIED (4) Diabetes mellitus type 2 in obese Assessment/Plan: -[facility] ACHS -ISS Code(s): E11.9 - TYPE 2 DIABETES MELLITUS WITHOUT COMPLICATIONS; E66.9 - OBESITY , UNSPECIFIED (5) Knee pain Assessment/Plan: -xray noted--awaiting MRI -Ortho (6) Hypertension Assessment/Plan: -continue with lisinopril -low Na diet Code(s): I10 - ESSENTIAL (PRIMARY) HYPERTENSION Qualifiers: Hypertension type: essential hypertension Qualified Code(s): I10 - Essential (primary) hypertension (7) Seizure Assessment/Plan: -continue with keppra -keppra level ordered -neurology on board Code(s): R56.9 - UNSPECIFIED CONVULSIONS (8) Syncope Assessment/Plan: cardiology input appreciated Neurology on board started on keppra MRI of the knee pending
[2019-01-27 15:27] VITALS: BMI 46.5
[2019-01-27] MEDS: RIVAROXABAN 20 MG TABLET PO SCH (17:39)
[2019-01-27] MEDS: ATORVASTATIN CA 20 MG TABLET (FP) PO SCH (22:14)
[2019-01-28] MEDS: TAMSULOSIN HCL 0.4 MG CAP PO SCH (08:27)
[2019-01-28] MEDS ORDERED: PT OWN MED DRAWER 7, Y5N ONE (09:44)
[2019-01-28] MEDS: RANOLAZINE E.R. 500 MG TABLET (FP) PO SCH ×2 (10:06→22:16)
[2019-01-28] MEDS: LISINOPRIL 5 MG TABLET (FP) PO SCH (10:06)
[2019-01-28] MEDS: FOLIC ACID 1 MG TABLET (FP) PO SCH (10:06)
[2019-01-28] MEDS: DIVALPROEX SODIUM 500 MG TABLET E.C. PO SCH ×2 (10:07→22:16)
[2019-01-28] MEDS: TOLTERODINE TARTRATE LA 4 MG CAP.SR.24H (FP) PO SCH (10:08)
[2019-01-28] MEDS: BICALUTAMIDE 50 MG TABLET (FP) PO SCH (10:09)
[2019-01-28] MEDS: levETIRAcetam 500 MG/5 ML ORAL SOLUTION (UNIT-DOSE CUPS) PO SCH ×2 (10:09→22:16)
[2019-01-28] MEDS: oxyCODONE HCL 5 MG TABLET PO PRN ×2 (10:12→16:20)
--- NOTE | 2019-01-28 11:44 | PN ---
Progress Note, Physician - Current Medication List Current Medications: Active Medications Albuterol Sulfate (Ventolin 0.083% Nebulizer Soln -) 1 amp NEB Q6H PRN PRN Reason: SHORT OF BREATH/WHEEZING Last Admin: 01/26/19 19:45 Dose: 1 amp Atorvastatin Calcium (Lipitor -) 20 mg PO HS [facility] Last Admin: 01/27/19 22:14 Dose: 20 mg Bicalutamide (Casodex -) 50 mg PO DAILY [facility] Last Admin: 01/28/19 10:09 Dose: 50 mg Divalproex Sodium (Depakote -) 500 mg PO BID [facility] Last Admin: 01/28/19 10:07 Dose: 500 mg Folic Acid (Folic Acid -) 1 mg PO DAILY [facility] Last Admin: 01/28/19 10:06 Dose: 1 mg Levetiracetam (Keppra Oral Solution -) 500 mg PO BID [facility] Last Admin: 01/28/19 10:09 Dose: 500 mg Lisinopril (Prinivil) 5 mg PO DAILY [facility] Last Admin: 01/28/19 10:06 Dose: 5 mg Oxycodone HCl (Roxicodone -) 10 mg PO Q6H PRN PRN Reason: PAIN LEVEL 6-10 Last Admin: 01/28/19 10:12 Dose: 10 mg Ranolazine (Ranexa -) 500 mg PO BID [facility] Last Admin: 01/28/19 10:06 Dose: 500 mg Rivaroxaban (Xarelto -) 20 mg PO DAILY@1800 [facility] Last Admin: 01/27/19 17:39 Dose: 20 mg Tamsulosin HCl (Flomax -) 0.4 mg PO DAILY@0830 [facility] Last Admin: 01/28/19 08:27 Dose: 0.4 mg Tolterodine Tartrate (Detrol La -) 4 mg PO DAILY [facility] Last Admin: 01/28/19 10:08 Dose: 4 mg - Objective Vital Signs: Vital Signs Temperature 97.4 F L 01/28/19 06:00 Pulse Rate 91 H 01/28/19 06:00 Respiratory Rate 20 01/28/19 06:00 Blood Pressure 96/53 L 01/28/19 06:00 O2 Sat by Pulse Oximetry (%) 98 01/27/19 21:00 Cardiovascular: Yes: Regular Rate and Rhythm Respiratory: Yes: Regular, CTA Bilaterally Gastrointestinal: Yes: Normal Bowel Sounds, Soft Musculoskeletal: Yes: Joint Stiffness, Joint Swelling Labs: CBC, BMP 01/26/19 06:00 01/26/19 06:00 Assessment/Plan - Problems (1) Fall Assessment/Plan: -fall precaution -PT -Mri pending -ortho on case Code(s): W19.XXXA - UNSPECIFIED FALL, INITIAL ENCOUNTER Qualifiers: Encounter type: initial encounter Qualified Code(s): W19.XXXA - Unspecified fall, initial encounter (2) Afib Assessment/Plan: -cardiology on board -continue xarelto Code(s): I48.91 - UNSPECIFIED ATRIAL FIBRILLATION (3) CHF (congestive heart failure) Assessment/Plan: -cardiology on board -continue ranexa -1L fluid restriction Code(s): I50.9 - HEART FAILURE, UNSPECIFIED (4) Diabetes mellitus type 2 in obese Assessment/Plan: -[facility] ACHS -ISS Code(s): E11.9 - TYPE 2 DIABETES MELLITUS WITHOUT COMPLICATIONS; E66.9 - OBESITY , UNSPECIFIED (5) Knee pain Assessment/Plan: -xray noted--awaiting MRI -Ortho (6) Hypertension Assessment/Plan: -continue with lisinopril -low Na diet Code(s): I10 - ESSENTIAL (PRIMARY) HYPERTENSION Qualifiers: Hypertension type: essential hypertension Qualified Code(s): I10 - Essential (primary) hypertension (7) Seizure Assessment/Plan: -continue with keppra -keppra level ordered -neurology on board Code(s): R56.9 - UNSPECIFIED CONVULSIONS (8) Syncope Assessment/Plan: cardiology input appreciated Neurology on board started on keppra MRI of the knee pending
[2019-01-28] MEDS: RIVAROXABAN 20 MG TABLET PO SCH (18:15)
[2019-01-28] MEDS: ATORVASTATIN CA 20 MG TABLET (FP) PO SCH (22:16)
--- NOTE | 2019-01-29 08:56 | PN ---
Progress Note (short form) - Note Progress Note: Ortho Pt seen and examined- states that pain has improved and would like to go home. MRI machine is damaged so pt has not been able to have test. Still unable to SLR. Selected Entries 01/29/19 06:00 Temperature 97.7 F Pulse Rate 69 Respiratory 20 Rate Blood Pressure 100/49 L decr pain, + effusion, rom 5-40, unable to SLR nvi a/p- r/o quad tendon tear vs intraarticular pathology Pt has not had MRI as of yet, Issue with MRI machine Pt can be dc'd and have MRI as outpt if medically stable would put in knee immobilizer but given pts size will not fit PT eval d/w Dr. Bedolla
[2019-01-29] MEDS: TAMSULOSIN HCL 0.4 MG CAP PO SCH (09:06)
[2019-01-29] MEDS: RANOLAZINE E.R. 500 MG TABLET (FP) PO SCH ×2 (10:19→23:01)
[2019-01-29] MEDS: levETIRAcetam 500 MG/5 ML ORAL SOLUTION (UNIT-DOSE CUPS) PO SCH ×2 (10:19→23:00)
[2019-01-29] MEDS: LISINOPRIL 5 MG TABLET (FP) PO SCH (10:19)
[2019-01-29] MEDS: FOLIC ACID 1 MG TABLET (FP) PO SCH (10:19)
[2019-01-29] MEDS: BICALUTAMIDE 50 MG TABLET (FP) PO SCH (10:20)
[2019-01-29] MEDS: DIVALPROEX SODIUM 500 MG TABLET E.C. PO SCH ×2 (10:20→23:00)
[2019-01-29] MEDS: TOLTERODINE TARTRATE LA 4 MG CAP.SR.24H (FP) PO SCH (10:21)
[2019-01-29] MEDS: RIVAROXABAN 20 MG TABLET PO SCH (18:08)
--- NOTE | 2019-01-29 18:12 | PN ---
Progress Note, Physician Chief Complaint: Syncope S/P Fall History of Present Illness: Previous notes and events reviewed awake and alert NAD complain of LLE pain denies chest pain, SOB, dizziness leukocytosis with WBC 15.5--BC neg, afebrile - Current Medication List Current Medications: Active Medications Albuterol Sulfate (Ventolin 0.083% Nebulizer Soln -) 1 amp NEB Q6H PRN PRN Reason: SHORT OF BREATH/WHEEZING Last Admin: 01/26/19 19:45 Dose: 1 amp Atorvastatin Calcium (Lipitor -) 20 mg PO HS [facility] Last Admin: 01/28/19 22:16 Dose: 20 mg Bicalutamide (Casodex -) 50 mg PO DAILY [facility] Last Admin: 01/29/19 10:20 Dose: 50 mg Divalproex Sodium (Depakote -) 500 mg PO BID [facility] Last Admin: 01/29/19 10:20 Dose: 500 mg Folic Acid (Folic Acid -) 1 mg PO DAILY [facility] Last Admin: 01/29/19 10:19 Dose: 1 mg Levetiracetam (Keppra Oral Solution -) 500 mg PO BID [facility] Last Admin: 01/29/19 10:19 Dose: 500 mg Lisinopril (Prinivil) 5 mg PO DAILY [facility] Last Admin: 01/29/19 10:19 Dose: Not Given Ranolazine (Ranexa -) 500 mg PO BID [facility] Last Admin: 01/29/19 10:19 Dose: 500 mg Rivaroxaban (Xarelto -) 20 mg PO DAILY@1800 [facility] Last Admin: 01/28/19 18:15 Dose: 20 mg Tamsulosin HCl (Flomax -) 0.4 mg PO DAILY@0830 [facility] Last Admin: 01/29/19 09:06 Dose: 0.4 mg Tolterodine Tartrate (Detrol La -) 4 mg PO DAILY [facility] Last Admin: 01/29/19 10:21 Dose: 4 mg - Objective Vital Signs: Vital Signs Temperature 97.7 F 01/29/19 14:47 Pulse Rate 70 01/29/19 14:47 Respiratory Rate 20 01/29/19 14:47 Blood Pressure 109/55 L 01/29/19 14:47 O2 Sat by Pulse Oximetry (%) 98 01/28/19 21:00 Constitutional: Yes: No Distress, Calm, Obese Eyes: Yes: Conjunctiva Clear HENT: Yes: Atraumatic Cardiovascular: Yes: Regular Rate and Rhythm Respiratory: Yes: Regular, CTA Bilaterally Gastrointestinal: Yes: Normal Bowel Sounds, Soft, Abdomen, Obese Musculoskeletal: Yes: Muscle Weakness Extremities: Yes: WNL Edema: Yes (B/L lower extremity) Neurological: Yes: Alert, Oriented Psychiatric: Yes: Alert, Oriented Labs: CBC, BMP 01/26/19 06:00 01/26/19 06:00 Problem List - Problems (1) Fall Assessment/Plan: -fall precaution -PT Code(s): W19.XXXA - UNSPECIFIED FALL, INITIAL ENCOUNTER Qualifiers: Encounter type: initial encounter Qualified Code(s): W19.XXXA - Unspecified fall, initial encounter (2) Afib Assessment/Plan: -cardiology on board -continue xarelto Code(s): I48.91 - UNSPECIFIED ATRIAL FIBRILLATION (3) CHF (congestive heart failure) Assessment/Plan: -cardiology on board -continue ranexa -1L fluid restriction Code(s): I50.9 - HEART FAILURE, UNSPECIFIED (4) Diabetes mellitus type 2 in obese Assessment/Plan: -[facility] ACHS -ISS Code(s): E11.9 - TYPE 2 DIABETES MELLITUS WITHOUT COMPLICATIONS; E66.9 - OBESITY , UNSPECIFIED (5) Hyperlipidemia Assessment/Plan: -continue with atorvastatin Code(s): E78.5 - HYPERLIPIDEMIA, UNSPECIFIED (6) Hypertension Assessment/Plan: -continue with lisinopril -low Na diet Code(s): I10 - ESSENTIAL (PRIMARY) HYPERTENSION Qualifiers: Hypertension type: essential hypertension Qualified Code(s): I10 - Essential (primary) hypertension (7) Seizure Assessment/Plan: -continue with keppra and depakote -keppra level ordered -neurology on board Code(s): R56.9 - UNSPECIFIED CONVULSIONS (8) Syncope Assessment/Plan: -cardiology on board -Carotid US reviewed -neurology on board Code(s): R55 - SYNCOPE AND COLLAPSE (9) Left knee pain Assessment/Plan: -Xray reveal no subluxation or acute fracture -Ortho on board -pending MRI of L knee Code(s): M25.562 - PAIN IN LEFT KNEE Qualifiers: Chronicity: chronic Qualified Code(s): M25.562 - Pain in left knee; G89.29 - Other chronic pain (10) Prostate cancer Assessment/Plan: -continue Casodex and Tamsulosin Code(s): C61 - MALIGNANT NEOPLASM OF PROSTATE Assessment/Plan see problem list dvt ppx
[2019-01-29] MEDS ORDERED: PT OWN MED DRAWER 7, Y5N ONE (22:41)
[2019-01-29] MEDS: ATORVASTATIN CA 20 MG TABLET (FP) PO SCH (23:01)
[2019-01-30 07:48] LABS: HEMATOCRIT 33.3 % (35.4-49); HEMOGLOBIN 11.2 GM/dL (11.7-16.9); MCHC 33.5 g/dl (32.0-35.9); MEAN CELL VOLUME 83.6 fl (80-96); MEAN PLT VOLUME 8.8 fl (7.5-11.1); PLATELET COUNT 198 K/MM3 (134-434); RBC 3.99 M/mm3 (4.00-5.60); RDW 16.8 % (11.9-15.9); WHITE BLOOD COUNT 12.8 K/mm3 (4.0-10.0)
[2019-01-30 08:36] LABS: ALBUMIN 2.8 g/dl (3.4-5.0); ALK PHOS 93 U/L (45-117); ANION GAP 5 MMOL/L (8-16); BILIRUBIN,TOTAL 0.6 mg/dL (0.2-1); BLOOD UREA NITROGEN 18 mg/dL (7-18); CALCIUM 9.7 mg/dL (8.5-10.1); CHLORIDE 95 mmol/L (98-107); CO2 31 mmol/L (21-32); GLUCOSE,RANDOM 125 mg/dL (74-106); POTASSIUM 4.2 mmol/L (3.5-5.1); SGOT/AST 13 U/L (15-37); SGPT/ALT 10 U/L (13-61); SODIUM 131 mmol/L (136-145); TOT PROT 6.8 g/dl (6.4-8.2)
[2019-01-30] MEDS: TAMSULOSIN HCL 0.4 MG CAP PO SCH (08:52)
[2019-01-30 09:28] LABS: ERYTHROCYTE SEDIMENTATION RATE 93 mm/hr (0-20)
--- NOTE | 2019-01-30 09:54 | PN ---
Progress Note, Physician - Current Medication List Current Medications: Active Medications Albuterol Sulfate (Ventolin 0.083% Nebulizer Soln -) 1 amp NEB Q6H PRN PRN Reason: SHORT OF BREATH/WHEEZING Last Admin: 01/26/19 19:45 Dose: 1 amp Atorvastatin Calcium (Lipitor -) 20 mg PO HS [facility] Last Admin: 01/29/19 23:01 Dose: 20 mg Bicalutamide (Casodex -) 50 mg PO DAILY [facility] Last Admin: 01/29/19 10:20 Dose: 50 mg Divalproex Sodium (Depakote -) 500 mg PO BID [facility] Last Admin: 01/29/19 23:00 Dose: 500 mg Folic Acid (Folic Acid -) 1 mg PO DAILY [facility] Last Admin: 01/29/19 10:19 Dose: 1 mg Levetiracetam (Keppra Oral Solution -) 500 mg PO BID [facility] Last Admin: 01/29/19 23:00 Dose: 500 mg Lisinopril (Prinivil) 5 mg PO DAILY [facility] Last Admin: 01/29/19 10:19 Dose: Not Given Ranolazine (Ranexa -) 500 mg PO BID [facility] Last Admin: 01/29/19 23:01 Dose: 500 mg Rivaroxaban (Xarelto -) 20 mg PO DAILY@1800 [facility] Last Admin: 01/29/19 18:08 Dose: 20 mg Tamsulosin HCl (Flomax -) 0.4 mg PO DAILY@0830 [facility] Last Admin: 01/29/19 09:06 Dose: 0.4 mg Tolterodine Tartrate (Detrol La -) 4 mg PO DAILY [facility] Last Admin: 01/29/19 10:21 Dose: 4 mg - Objective Vital Signs: Vital Signs Temperature 98.5 F 01/30/19 06:00 Pulse Rate 74 01/30/19 06:00 Respiratory Rate 18 01/30/19 06:00 Blood Pressure 114/59 L 01/30/19 06:00 O2 Sat by Pulse Oximetry (%) 98 01/29/19 09:00 Cardiovascular: Yes: S1, S2 Respiratory: Yes: Regular, CTA Bilaterally Gastrointestinal: Yes: Normal Bowel Sounds, Soft Musculoskeletal: Yes: Joint Stiffness, Joint Swelling Edema: Yes Labs: CBC, BMP 01/30/19 07:00 01/30/19 07:00 Assessment/Plan - Problems (1) Fall Assessment/Plan: -fall precaution -PT Code(s): W19.XXXA - UNSPECIFIED FALL, INITIAL ENCOUNTER Qualifiers: Encounter type: initial encounter Qualified Code(s): W19.XXXA - Unspecified fall, initial encounter (2) Afib Assessment/Plan: -cardiology on board -continue xarelto Code(s): I48.91 - UNSPECIFIED ATRIAL FIBRILLATION (3) CHF (congestive heart failure) Assessment/Plan: -cardiology on board -continue ranexa -1L fluid restriction Code(s): I50.9 - HEART FAILURE, UNSPECIFIED (4) Diabetes mellitus type 2 in obese Assessment/Plan: -[facility] ACHS -ISS Code(s): E11.9 - TYPE 2 DIABETES MELLITUS WITHOUT COMPLICATIONS; E66.9 - OBESITY , UNSPECIFIED (5) Hyperlipidemia Assessment/Plan: -continue with atorvastatin Code(s): E78.5 - HYPERLIPIDEMIA, UNSPECIFIED (6) Hypertension Assessment/Plan: -continue with lisinopril -low Na diet Code(s): I10 - ESSENTIAL (PRIMARY) HYPERTENSION Qualifiers: Hypertension type: essential hypertension Qualified Code(s): I10 - Essential (primary) hypertension (7) Seizure Assessment/Plan: -continue with keppra and depakote -keppra level ordered -neurology on board Code(s): R56.9 - UNSPECIFIED CONVULSIONS (8) Syncope Assessment/Plan: -cardiology on board -Carotid US reviewed -neurology on board Code(s): R55 - SYNCOPE AND COLLAPSE (9) Left knee pain Assessment/Plan: -Xray reveal no subluxation or acute fracture -Ortho on board -pending MRI of L knee Code(s): M25.562 - PAIN IN LEFT KNEE Qualifiers: Chronicity: chronic Qualified Code(s): M25.562 - Pain in left knee; G89.29 - Other chronic pain (10) Prostate cancer Assessment/Plan: -continue Casodex and Tamsulosin Code(s): C61 - MALIGNANT NEOPLASM OF PROSTATE
[2019-01-30] MEDS ORDERED: PT OWN MED DRAWER 7, Y5N ONE ×2 (10:20→21:48)
[2019-01-30] MEDS: levETIRAcetam 500 MG/5 ML ORAL SOLUTION (UNIT-DOSE CUPS) PO SCH ×2 (11:48→21:54)
[2019-01-30] MEDS: BICALUTAMIDE 50 MG TABLET (FP) PO SCH (11:53)
[2019-01-30] MEDS: DIVALPROEX SODIUM 500 MG TABLET E.C. PO SCH ×2 (11:53→21:54)
[2019-01-30] MEDS: TOLTERODINE TARTRATE LA 4 MG CAP.SR.24H (FP) PO SCH (11:53)
[2019-01-30] MEDS: FOLIC ACID 1 MG TABLET (FP) PO SCH (11:54)
[2019-01-30] MEDS: LISINOPRIL 5 MG TABLET (FP) PO SCH (11:54)
[2019-01-30] MEDS: RANOLAZINE E.R. 500 MG TABLET (FP) PO SCH ×2 (11:54→21:54)
[2019-01-30] MEDS: RIVAROXABAN 20 MG TABLET PO SCH (17:48)
[2019-01-30] MEDS: ATORVASTATIN CA 20 MG TABLET (FP) PO SCH (21:54)
[2019-01-31] MEDS: TAMSULOSIN HCL 0.4 MG CAP PO SCH (08:52)
--- NOTE | 2019-01-31 09:37 | PN ---
Progress Note, Physician - Current Medication List Current Medications: Active Medications Albuterol Sulfate (Ventolin 0.083% Nebulizer Soln -) 1 amp NEB Q6H PRN PRN Reason: SHORT OF BREATH/WHEEZING Last Admin: 01/26/19 19:45 Dose: 1 amp Atorvastatin Calcium (Lipitor -) 20 mg PO HS [facility] Last Admin: 01/30/19 21:54 Dose: 20 mg Bicalutamide (Casodex -) 50 mg PO DAILY [facility] Last Admin: 01/30/19 11:53 Dose: 50 mg Divalproex Sodium (Depakote -) 500 mg PO BID [facility] Last Admin: 01/30/19 21:54 Dose: 500 mg Folic Acid (Folic Acid -) 1 mg PO DAILY [facility] Last Admin: 01/30/19 11:54 Dose: 1 mg Levetiracetam (Keppra Oral Solution -) 500 mg PO BID [facility] Last Admin: 01/30/19 21:54 Dose: 500 mg Lisinopril (Prinivil) 5 mg PO DAILY [facility] Last Admin: 01/30/19 11:54 Dose: 5 mg Ranolazine (Ranexa -) 500 mg PO BID [facility] Last Admin: 01/30/19 21:54 Dose: 500 mg Rivaroxaban (Xarelto -) 20 mg PO DAILY@1800 [facility] Last Admin: 01/30/19 17:48 Dose: 20 mg Tamsulosin HCl (Flomax -) 0.4 mg PO DAILY@0830 [facility] Last Admin: 01/31/19 08:52 Dose: 0.4 mg Tolterodine Tartrate (Detrol La -) 4 mg PO DAILY [facility] Last Admin: 01/30/19 11:53 Dose: 4 mg - Objective Vital Signs: Vital Signs Temperature 98 F 01/31/19 06:00 Pulse Rate 75 01/31/19 06:00 Respiratory Rate 18 01/31/19 06:00 Blood Pressure 125/55 L 01/31/19 06:00 O2 Sat by Pulse Oximetry (%) 98 01/29/19 09:00 Cardiovascular: Yes: S1, S2 Respiratory: Yes: Regular, CTA Bilaterally Gastrointestinal: Yes: Normal Bowel Sounds, Soft Labs: CBC, BMP 01/30/19 07:00 01/30/19 07:00 Assessment/Plan - Problems (1) Fall Assessment/Plan: -fall precaution -PT Code(s): W19.XXXA - UNSPECIFIED FALL, INITIAL ENCOUNTER Qualifiers: Encounter type: initial encounter Qualified Code(s): W19.XXXA - Unspecified fall, initial encounter (2) Afib Assessment/Plan: -cardiology on board -continue xarelto Code(s): I48.91 - UNSPECIFIED ATRIAL FIBRILLATION (3) CHF (congestive heart failure) Assessment/Plan: -cardiology on board -continue ranexa -1L fluid restriction Code(s): I50.9 - HEART FAILURE, UNSPECIFIED (4) Diabetes mellitus type 2 in obese Assessment/Plan: -[facility] ACHS -ISS Code(s): E11.9 - TYPE 2 DIABETES MELLITUS WITHOUT COMPLICATIONS; E66.9 - OBESITY , UNSPECIFIED (5) Hyperlipidemia Assessment/Plan: -continue with atorvastatin Code(s): E78.5 - HYPERLIPIDEMIA, UNSPECIFIED (6) Hypertension Assessment/Plan: -continue with lisinopril -low Na diet Code(s): I10 - ESSENTIAL (PRIMARY) HYPERTENSION Qualifiers: Hypertension type: essential hypertension Qualified Code(s): I10 - Essential (primary) hypertension (7) Seizure Assessment/Plan: -continue with keppra and depakote -keppra level ordered -neurology on board Code(s): R56.9 - UNSPECIFIED CONVULSIONS (8) Syncope Assessment/Plan: -cardiology on board -Carotid US reviewed -neurology on board Code(s): R55 - SYNCOPE AND COLLAPSE (9) Left knee pain Assessment/Plan: -Xray reveal no subluxation or acute fracture -Ortho on board -pending MRI of L knee---fracture Code(s): M25.562 - PAIN IN LEFT KNEE Qualifiers: Chronicity: chronic Qualified Code(s): M25.562 - Pain in left knee; G89.29 - Other chronic pain (10) Prostate cancer Assessment/Plan: -continue Casodex and Tamsulosin Code(s): C61 - MALIGNANT NEOPLASM OF PROSTATE will need snf--d/w pt
[2019-01-31] MEDS ORDERED: PT OWN MED DRAWER 7, Y5N ONE (10:34)
[2019-01-31] MEDS: LISINOPRIL 5 MG TABLET (FP) PO SCH (10:37)
[2019-01-31] MEDS: DIVALPROEX SODIUM 500 MG TABLET E.C. PO SCH ×2 (10:37→21:53)
[2019-01-31] MEDS: FOLIC ACID 1 MG TABLET (FP) PO SCH (10:37)
[2019-01-31] MEDS: TOLTERODINE TARTRATE LA 4 MG CAP.SR.24H (FP) PO SCH (10:37)
[2019-01-31] MEDS: RANOLAZINE E.R. 500 MG TABLET (FP) PO SCH ×2 (10:37→21:52)
[2019-01-31] MEDS: levETIRAcetam 500 MG/5 ML ORAL SOLUTION (UNIT-DOSE CUPS) PO SCH ×2 (10:38→21:52)
[2019-01-31] MEDS: BICALUTAMIDE 50 MG TABLET (FP) PO SCH (10:38)
--- NOTE | 2019-01-31 11:33 | PN ---
Progress Note (short form) - Note Progress Note: Ortho Pt seen and examined-pain has improved Selected Entries 01/31/19 09:58 Temperature 98.1 F Pulse Rate 70 Respiratory 16 Rate Blood Pressure 123/62 decr pain, + effusion, rom 5-40, unable to SLR nvi MRI- + lateral tibial plateau fx with minimal depression, MMT, LMT, djd, area of red marrow in distal femur metaphysis that is unchanged since previous MRI in 3 months ago. a/p- discussed MRI with pt in detail No surgical intervention NWB LLE ROM as tolerated pain control ok to d/c from ortho pov d/w Dr. Do
[2019-01-31] MEDS: RIVAROXABAN 20 MG TABLET PO SCH (17:28)
[2019-01-31] MEDS: ATORVASTATIN CA 20 MG TABLET (FP) PO SCH (21:52)
[2019-02-01] MEDS: TAMSULOSIN HCL 0.4 MG CAP PO SCH (08:54)
[2019-02-01] MEDS ORDERED: PT OWN MED DRAWER 7, Y5N ONE (10:09)
[2019-02-01] MEDS: LISINOPRIL 5 MG TABLET (FP) PO SCH (10:14)
[2019-02-01] MEDS: RANOLAZINE E.R. 500 MG TABLET (FP) PO SCH (10:14)
[2019-02-01] MEDS: FOLIC ACID 1 MG TABLET (FP) PO SCH (10:14)
[2019-02-01] MEDS: DIVALPROEX SODIUM 500 MG TABLET E.C. PO SCH (10:15)
[2019-02-01] MEDS: BICALUTAMIDE 50 MG TABLET (FP) PO SCH (10:15)
[2019-02-01] MEDS: TOLTERODINE TARTRATE LA 4 MG CAP.SR.24H (FP) PO SCH (10:15)
[2019-02-01] MEDS: levETIRAcetam 500 MG/5 ML ORAL SOLUTION (UNIT-DOSE CUPS) PO SCH (10:16)
--- NOTE | 2019-02-01 10:50 | DS ---
Physical Examination Vital Signs: Vital Signs Temperature 98.5 F 02/01/19 08:57 Pulse Rate 71 02/01/19 08:57 Respiratory Rate 20 02/01/19 08:57 Blood Pressure 139/74 02/01/19 08:57 O2 Sat by Pulse Oximetry (%) 98 01/31/19 21:00 AWAKE ALERT AWARE MRI LOWER EXTREMITY Constitutional: Yes: Mild Distress Eyes: Yes: WNL HENT: Yes: WNL Neck: Yes: WNL Cardiovascular: Yes: Regular Rate and Rhythm Respiratory: Yes: WNL Gastrointestinal: Yes: Abdomen, Obese Renal/: Yes: Other Musculoskeletal: Yes: Back Pain, Joint Stiffness, Joint Swelling, Muscle Pain, Muscle Weakness Extremities: Yes: Other Edema: Yes Edema: LLE: 2+, RLE: 2+ Peripheral Pulses WNL: Yes Integumentary: Yes: WNL Wound/Incision: Yes: Clean/Dry Neurological: Yes: Pre-Existing Deficit, Unsteady Gait, Weakness ...Motor Strength: LLE, RLE Psychiatric: Yes: Other Labs: CBC, BMP 01/30/19 07:00 01/30/19 07:00 Discharge Summary Reason For Visit: FALL Current Active Problems Fall (Acute) LEFT KNEE PCL TEAR JOINT EFFUSION WITH HEMATOMA Procedures: Principal: MRI LEFT EXTREMITY Hospital Course: LABS, S/P FALL MRI LEFT KNE SHOWS TIBIA FRACTURE WITH HEMATOMA LEFT KNEE WITH EFFUSION PCL TEAR. WILL NEED SNF AND LIKELY [facility] Condition: Stable - Instructions Diet, Activity, Other Instructions: LEFT KNEE PCL TEAR/TIBIA LEFT SIDED FRACTURE/KNEE HEMATOMA EFFUSION WILL NEED REHAB AND MONITORING ORTHOPEDIC FOLLOW UP MONITOR LABS Disposition: [facility] - Home Medications Comprehensive Discharge Medication List: Ambulatory Orders Aspirin 81 mg PO DAILY 11/20/18 Atorvastatin Ca [Lipitor] 20 mg PO HS 11/20/18 Bicalutamide 50 mg PO DAILY 11/20/18 Citalopram Hydrobromide [Citalopram HBr] 10 mg PO DAILY 11/20/18 Clonazepam 0.5 mg PO TID 11/20/18 Divalproex Sodium [Divalproex Sodium ER] 500 mg PO BID 11/20/18 Ferrous Sulfate 325 mg PO BID 11/20/18 Fesoterodine Fumarate [Toviaz] 4 mg PO DAILY 11/20/18 Folic Acid 1 mg PO DAILY 11/20/18 Lisinopril 5 mg PO DAILY 11/20/18 Magnesium Oxide [Laxative Dietary Supplement] 500 mg PO BID 11/20/18 Ranolazine [Ranexa] 500 mg PO BID 11/20/18 Rivaroxaban [Xarelto -] 20 mg PO DAILY 11/20/18 Tamsulosin HCl [Flomax -] 0.4 mg PO DAILY 11/20/18 levETIRAcetam [Keppra -] 200 mg PO TID 11/20/18 Albuterol 0.083% Nebulizer Michelle [Ventolin 0.083% Nebulizer Soln -] 1 amp NEB Q6H PRN amp 02/01/19 Divalproex [Depakote -] 500 mg PO BID tablet.ec 02/01/19
[2019-02-01] MEDS: RIVAROXABAN 20 MG TABLET PO SCH (17:27)
[2019-02-01 18:27] VITALS: BP 105/59; PULSE 73; TEMP 97.6
== END 2019-02-01 18:42 | DRG 85 ==
LOC: JER 16:28 → JERBED 22:05 → J4W 01-24 05:29 → OBSVTOIN 01-24 15:05 → J5S 01-26 13:54
PROVIDERS: ADMIT Family Medicine; ATTEND Family Medicine
DX: S06.9X1A Unspecified intracranial injury with loss of consciousness of 30 minutes or less, initial encounter (principal); G93.41 Metabolic encephalopathy; Z68.42 Body mass index [BMI] 45.0-49.9, adult; R55 Syncope and collapse; G40.909 Epilepsy, unspecified, not intractable, without status epilepticus; E66.01 Morbid (severe) obesity due to excess calories; E11.40 Type 2 diabetes mellitus with diabetic neuropathy, unspecified; S83.522A Sprain of posterior cruciate ligament of left knee, initial encounter; C61 Malignant neoplasm of prostate; I50.9 Heart failure, unspecified; Z79.01 Long term (current) use of anticoagulants; I10 Essential (primary) hypertension; E78.5 Hyperlipidemia, unspecified; Z85.51 Personal history of malignant neoplasm of bladder; I48.0 Paroxysmal atrial fibrillation; I25.10 Atherosclerotic heart disease of native coronary artery without angina pectoris; Z86.718 Personal history of other venous thrombosis and embolism; F41.9 Anxiety disorder, unspecified; Z87.891 Personal history of nicotine dependence; V00.811A Fall from moving wheelchair (powered), initial encounter; Y93.89 Activity, other specified; Y92.038 Other place in apartment as the place of occurrence of the external cause; Y99.8 Other external cause status; E11.42 Type 2 diabetes mellitus with diabetic polyneuropathy; R29.6 Repeated falls; Z95.5 Presence of coronary angioplasty implant and graft; K57.30 Diverticulosis of large intestine without perforation or abscess without bleeding
CPT/HCPCS: 36415; 70450-TC; 71046-TC-FY; 73110-TC-RT-FY; 73560-TC-RT-FY; 73718-TC-LT; 80048; 80053; 80164; 80177; 81003; 82607; 83735; 84100; 84443; 84484; 85025; 85027; 85651; 86140; 86593; 87040; 87086; 93005; 93010; 93880-TC; 94640; 97116-GP; 97161-GP; 99285-25; G0378; J7030

== ENCOUNTER 2019-02-02 10:43 | Emergency (ER) | payer MEDICARE, OTHER ==
--- NOTE | 2019-02-02 10:48 | PDOC ---
History of Present Illness - General Stated Complaint: RE EVAL Time Seen by Provider: 02/02/19 10:47 - History of Present Illness Initial Comments: 02/02/19 11:02 The patient is a 69 year old male with a history of HTN, HLD, CHF, COPD, Afib, CAD, CVA, CA who presents for re-evaluation from [facility]. The patient was recently admitted following a fall and discharged 1 day ago to Rehab. The patient was sent to the ED for re-evaluation for prior positive VRE cultures in 2016. The patient has no complaints at this time and otherwise denies fevers, chills, SOB, chest pain, nausea, vomiting, abdominal pain, or changes with urination or bowel movements. Past History - Past Medical History Allergies/Adverse Reactions: Allergies Allergy/AdvReac Type Severity Reaction Status Date / Time Sulfa (Sulfonamide Allergy Intermediate Verified 01/22/19 16:53 Antibiotics) amoxicillin Allergy Mild Rash Verified 01/22/19 16:53 carbamazepine [From Tegretol] Allergy Mild Rash Verified 01/22/19 16:53 cephalexin [Cephalexin] Allergy Mild Rash Verified 01/22/19 16:53 ciprofloxacin Allergy Mild Rash Verified 01/22/19 16:53 fluconazole Allergy Mild Verified 01/22/19 16:53 lamotrigine [From Lamictal] Allergy Mild Rash Verified 01/22/19 16:53 metronidazole Allergy Mild Rash Verified 01/22/19 16:53 phenobarbital Allergy Mild Rash Verified 01/22/19 16:53 phenytoin sodium extended Allergy Mild Rash Verified 01/22/19 16:53 [From Dilantin] SHRIMP Allergy Mild Rash Uncoded 01/22/19 16:53 Home Medications: Ambulatory Orders Aspirin 81 mg PO DAILY 11/20/18 Atorvastatin Ca [Lipitor] 20 mg PO HS 11/20/18 Bicalutamide 50 mg PO DAILY 11/20/18 Citalopram Hydrobromide [Citalopram HBr] 10 mg PO DAILY 11/20/18 Clonazepam 0.5 mg PO TID 11/20/18 Divalproex Sodium [Divalproex Sodium ER] 500 mg PO BID 11/20/18 Ferrous Sulfate 325 mg PO BID 11/20/18 Fesoterodine Fumarate [Toviaz] 4 mg PO DAILY 11/20/18 Folic Acid 1 mg PO DAILY 11/20/18 Lisinopril 5 mg PO DAILY 11/20/18 Magnesium Oxide [Laxative Dietary Supplement] 500 mg PO BID 11/20/18 Ranolazine [Ranexa] 500 mg PO BID 11/20/18 Rivaroxaban [Xarelto -] 20 mg PO DAILY 11/20/18 Tamsulosin HCl [Flomax -] 0.4 mg PO DAILY 11/20/18 levETIRAcetam [Keppra -] 200 mg PO TID 11/20/18 Albuterol 0.083% Nebulizer Michelle [Ventolin 0.083% Nebulizer Soln -] 1 amp NEB Q6H PRN amp 02/01/19 Divalproex [Depakote -] 500 mg PO BID tablet.ec 02/01/19 Anemia: No Asthma: Yes Cancer: Yes (bladder, prostate) Cardiac Disorders: Yes (ANGINA, RLE DVT, A FIB) CVA: Yes (rt side) COPD: Yes CHF: Yes DVT: Yes Dementia: No Diabetes: Yes Dialysis: No GI Disorders: No Disorders: Yes (renal stones) HTN: Yes Hypercholesterolemia: Yes Kidney Stones: Yes Liver Disease: No Seizures: Yes Thyroid Disease: No Lung CA: No - Surgical History Abdominal Surgery: Yes (Hernia repair) Appendectomy: Yes Cardiac Surgery: Yes (stentx2) Cholecystectomy: Yes Gastric Stapling: No GI Surgery: No Lung Surgery: No Neurologic Surgery: No Orthopedic Surgery: Yes (ORIF LUE) - Immunization History Immunization Up to Date: Yes - Suicide/Smoking/Psychosocial Hx Smoking Status: No Smoking History: Never smoked Have you smoked in the past 12 months: No Number of Cigarettes Smoked Daily: 0 If you are a former smoker, when did you quit?: 25+ years Hx Alcohol Use: No Drug/Substance Use Hx: No Substance Use Type: None Hx Substance Use Treatment: No Review of Systems - Review of Systems Comments:: 02/02/19 11:07 Constitutional: No fevers, chills, fatigue, malaise HEENT: No Rhinorrhea, nasal congestion, visual changes Cardiovascular: No chest pain, syncope, palpitations, lightheadedness Respiratory: No Cough, SOB, Hemoptysis, Gastrointestinal: No Abdominal pain, Nausea, Vomiting, Constipation, Diarrhea, Melena Genitourinary: No Dysuria, Frequency, Urgency, Hesitancy, Hematuria, Flank pain Musculoskeletal: No Myalgia, arthralgia Skin: No rashes, itching, bruising, pallor Neurologic: No Headache, Dizziness, Numbness, Weakness, or Tingling Psychiatric: No Hallucinations. No SI or HI *Physical Exam - Physical Exam Comments: 02/02/19 11:07 General Appearance: Nourished. No Apparent Distress HEENT: No Pharyngeal Erythema, Tonsillar Exudate, Tonsillar Erythema Neck: No Cervical Lymphadenopathy Respiratory/Chest: Lungs Clear, Normal Breath Sounds. No Crackles, Rales, Rhonchi, Wheezing Cardiovascular: Regular Rhythm, Regular Rate. No Murmur, Gallops, Rubs Gastrointestinal/Abdominal: Normal Bowel Sounds, Soft. No Guarding, Rebound, Tenderness Musculoskeletal: No CVA Tenderness Extremity: Normal Capillary Refill Integumentary: Normal Color, Dry, Warm Neurologic: Fully Oriented, Alert, Normal Mood/Affect, Normal Response, Medical Decision Making - Medical Decision Making 02/02/19 11:07 The patient is a 69 year old male with a history of HTN, HLD, CHF, COPD, Afib, CAD, CVA, CA who presents for re-evaluation from [facility]. The patient was sent for evaluation of possible VRE positive culture. Per review of the patient's records and his most recent cultures, the patient is cleared of VRE and no longer on contact precautions. The patient appears clinically stable at this time with no complaints. We are comfortable discharging the patient back to his rehab facility. We discussed the plan and return precautions with the patient who voiced understanding and is agreeable with the plan. 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 Please call tomorrow to schedule a follow up appointment. If you cannot follow up with your doctor within 1 week please return to the Emergency Department for any urgent issues. 2) If you have any worsening of symptoms or any other concerns please return to the ER immediately. Return if worsening symptoms including fevers, headache, vomiting, visual or hearing disturbances, abdominal pain, chest pain, shortness of breath, syncope, dehydration, inability to take things by mouth/vomiting, altered mental status, or worsening concerning symptoms. 3) Please continue taking your home medications as directed. - Post Discharge Activity
[2019-02-02 11:08] VITALS: BP 119/54; PULSE 75; TEMP 97.6; BMI 45.1
--- NOTE | 2019-02-02 12:38 | PDOC ---
Attending Attestation - Resident Resident Name: Nik Sevilla - ED Attending Attestation I have performed the following: I have examined & evaluated the patient, The case was reviewed & discussed with the resident, I agree w/resident's findings & plan, Exceptions are as noted - HPI HPI: 02/02/19 14:24 Reviewed Residents HPI - Physicial Exam PE: 02/02/19 14:24 Reviewed Residents PE - Medical Decision Making 02/02/19 14:25 Patient sent to group home that was unable to accommodate his VRE isolation status They did not properly read the MARCIO report No new complaints Patient sent back to the emergency department care management has arrange for a different facility for him we'll be transferred at 4 PM.
== END 2019-02-02 18:01 ==
LOC: JER 10:43
DX: Z86.19 Personal history of other infectious and parasitic diseases (principal); I25.119 Atherosclerotic heart disease of native coronary artery with unspecified angina pectoris; I11.0 Hypertensive heart disease with heart failure; I10 Essential (primary) hypertension; I48.91 Unspecified atrial fibrillation; Z79.01 Long term (current) use of anticoagulants; Z86.718 Personal history of other venous thrombosis and embolism; G40.909 Epilepsy, unspecified, not intractable, without status epilepticus; E78.00 Pure hypercholesterolemia, unspecified; Z87.442 Personal history of urinary calculi; Z91.81 History of falling
CPT/HCPCS: 99282-25

== ENCOUNTER 2019-08-08 07:23 | Day surgery (SDC) | payer MEDICARE, OTHER ==
[2019-08-07 15:37] VITALS: BMI 41.3
[~2019-08-08 07:23] MED LIST changes: -CHONDROITIN SU A/HYALUR SOD 1 KIT IO ONE; -CIPROFLOXACIN HCL 0.3% OPHTH 2.5ML BOTTLE OP SCH; -FLURBIPROFEN 0.03% OPHTH SOLN 2.5 ML BOTTLE OP SCH; +KETOROLAC TROMETHAMINE 0.5% EYE DROP 1 DROP DROPS OP SCH; +OFLOXACIN 0.3% OPHTHALMIC SOLUTION 5 ML BOTTLE OP SCH; -PHENYLEPHRINE/KETOROLAC 4 ML VIAL IO ONE
[2019-08-08] MEDS ORDERED: MIDAZOLAM HCL 2 MG/2 ML SINGLE DOSE VIAL ONE (07:42)
[2019-08-08] MEDS ORDERED: CYCLOPENTOLATE HCL 1% OPHTH SOLN 2 ML BOTTLE ONE (08:22)
[2019-08-08] MEDS ORDERED: KETOROLAC TROMETHAMINE 0.5% EYE DROP 1 DROP DROPS ONE (08:22)
[2019-08-08] MEDS ORDERED: OFLOXACIN 0.3% OPHTHALMIC SOLUTION 5 ML BOTTLE ONE (08:22)
[2019-08-08] MEDS ORDERED: TROPICAMIDE 1% OPHTH SOLN 15 ML BOTTLE ONE (08:22)
[2019-08-08] MEDS ORDERED: PHENYLEPHRINE 2.5% OPHTH SOLN 15 ML BOTTLE ONE (08:22)
[2019-08-08] MEDS ORDERED: KETOROLAC TROMETHAMINE 0.5% EYE DROP 1 DROP DROPS OD ONE ×3 (08:35→08:50)
[2019-08-08] MEDS ORDERED: OFLOXACIN 0.3% OPHTHALMIC SOLUTION 5 ML BOTTLE OD ONE ×3 (08:35→08:50)
[2019-08-08] MEDS ORDERED: CYCLOPENTOLATE HCL 1% OPHTH SOLN 2 ML BOTTLE OD ONE ×3 (08:35→08:50)
[2019-08-08] MEDS ORDERED: TROPICAMIDE 1% OPHTH SOLN 15 ML BOTTLE OD ONE ×3 (08:35→08:50)
[2019-08-08 08:36] VITALS: TEMP 98.3
[2019-08-08] MEDS ORDERED: PHENYLEPHRINE 2.5% OPHTH SOLN 15 ML BOTTLE OD ONE ×2 (08:45→08:50)
[2019-08-08] MEDS ORDERED: PHENYLEPHRINE/KETOROLAC 4 ML VIAL IO ONE ×2 (09:00→10:31)
[2019-08-08] MEDS ORDERED: TETRACAINE 0.5% OPHTH SOLN 2 ML BOTTLE OD ONE (10:17)
[2019-08-08] MEDS ORDERED: POVIDONE-IODINE 5% OPHTHALMIC PREP 30 ML SOLUTION OD ONE (10:18)
[2019-08-08] MEDS ORDERED: BSS (NA/CA/MG/K) BALANCED SALT SOLUTION OPHTH SOLN 15 ML BOTTLE OD ONE (10:25)
[2019-08-08] MEDS ORDERED: CHONDROITIN SU A/HYALUR SOD 1 KIT IO ONE (10:25)
[2019-08-08] MEDS ORDERED: LIDOCAINE HCL 1% PRESERVATIVE FREE - 30ML VIAL IO ONE (10:25)
[2019-08-08 11:19] VITALS: PULSE 60
[2019-08-08 12:41] VITALS: BP 120/60
--- NOTE | 2019-08-13 15:54 | SPEC ---
DATE OF OPERATION: 08/08/2019 OPERATION: Phacoemulsification with posterior chamber intraocular lens implantation, right eye. Lens used [id number], 21.5 Diopter power, Serial No. [id number]. PREOPERATIVE DIAGNOSIS: Cataract, right eye. POSTOPERATIVE DIAGNOSIS: Cataract, right eye. SURGEON: Susu Harrell M.D. ANESTHESIA: Topical MAC. COMPLICATIONS: None. PROCEDURE: The patient was brought to the operating room and correctly identified along with the operative site and the correct intraocular lens silveira. The patient was then prepped and draped in the usual sterile fashion including 5% Betadine solution in the conjunctival sac and an eyelid drape. An eyelid speculum was then placed in the eye. A paracentesis port was created and approximately 0.5 mL of preservative free Lidocaine was then injected into the eye. Viscoelastic was then injected to inflate the anterior chamber. A temporal clear corneal wound was created. A continuous circular capsulorrhexis was performed. The nucleus was then hydrodissected with BSS and removed with phacoemulsification. The remaining cortical material was irrigated and aspirated. Viscoelastic was injected to inflate the capsular bag and the intraocular lens was then implanted into the capsular bag. The remaining Viscoelastic was irrigated and aspirated from the eye. The IOL was noted to be well centered and completely covered by the anterior capsulorrhexis. Topical vancomycin was placed and the eye patched and shielded. All wounds were tested and found to be watertight. No suture was placed. The eye was then shielded. The patient was then discharged from the operating room in stable condition. SUSU HARRELL M.D. [id number]
== END 2019-08-08 11:30 | disposition home or self-care (01) ==
LOC: JASU-SURG 07:23
PROVIDERS: ATTEND Ophthalmology
PROC: 08RJ3JZ Replacement of Right Lens with Synthetic Substitute, Percutaneous Approach (ICD-10-PCS; principal; 2019-08-08 09:30)
DX: H26.9 Unspecified cataract (principal)
CPT/HCPCS: J1097

== ENCOUNTER 2023-06-16 17:22 | Inpatient (IN) | payer MEDICARE, OTHER ==
[2023-06-16] MEDS ORDERED: MIDAZOLAM HCL 5 MG/1 ML Single Dose Vial IVPUSH ONE (18:12)
[2023-06-16] MEDS ORDERED: MIDAZOLAM HCL 5 MG/1 ML Single Dose Vial ONE (18:13)
[2023-06-16 18:43] LABS: VENOUS BASE EXCESS -1.3 mmol/L (-2-2); VENOUS O2 SATURATION 80.8 % (70-80); VENOUS PCO2 49.7 mmHg (38-52); VENOUS PH 7.322 (7.310-7.410)
[2023-06-16 18:45] LABS: BASO % 2.2 % (0-2.0); EOS % 1.7 % (0-4.5); HEMATOCRIT 35.2 % (35.4-49); HEMOGLOBIN 11.4 GM/dL (11.7-16.9); LYMPH % 12.7 % (8-40); MCH 26.5 pg (25.7-33.7); MCHC 32.5 g/dl (32.0-35.9); MEAN CELL VOLUME 81.3 fl (80-96); MEAN PLT VOLUME 9.4 fl (7.5-11.1); MONO % 15.9 % (3.8-10.2); NEUT % 67.5 % (42.8-82.8); PLATELET COUNT 180 10^3/uL (134-434); RBC 4.32 M/mm3 (4.00-5.60); RDW 18.7 % (11.9-15.9); WHITE BLOOD COUNT 7.9 K/mm3 (4.0-10.0)
[2023-06-16 18:53] LABS: INR 1.11 (0.83-1.09); PROTHROMBIN TIME (PATIENT) 12.9 SEC (9.7-13.0)
[2023-06-16 19:10] LABS: POTASSIUM 5.5 mmol/L (3.5-5.1)
[2023-06-16 19:13] LABS: ALBUMIN 3.9 g/dl (3.4-5.0); BLOOD UREA NITROGEN 33.7 mg/dL (7-18); CALCIUM 9.9 mg/dL (8.5-10.1); MAGNESIUM 2.3 mg/dL (1.8-2.4)
[2023-06-16 19:15] LABS: CREATININE 2.4 mg/dL (0.55-1.3)
[2023-06-16 19:18] LABS: BILIRUBIN,TOTAL 0.3 mg/dL (0.2-1); TOT PROT 7.8 g/dl (6.4-8.2)
[2023-06-16] MEDS ORDERED: INSULIN REGULAR HUMAN 100 UNITS/ML *VIAL SQ ONE (20:09)
[2023-06-16] MEDS ORDERED: DEXTROSE 50%-WATER - 25 GM/50 ML VIAL IVPUSH ONE ×2 (20:10→20:11)
[2023-06-16] MEDS ORDERED: levETIRAcetam 500 MG/5 ML INJECTION VIAL IVPB ONE ×2 (20:10→20:19)
[2023-06-16] MEDS ORDERED: SODIUM CHLORIDE 1,000 ML IV STA (20:11)
[2023-06-16] MEDS ORDERED: CALCIUM GLUC IN NACL, ISO-OSM 1 GM/50 ML BAG IVPB ONE ×2 (20:12→20:19)
[2023-06-16 20:15] LABS: PH,URINE 5.5 (5.0-8.0); URINE APPEARANCE CLEAR; URINE BILIRUBIN NEGATIVE (NEGATIVE); URINE COLOR YELLOW; URINE GLUCOSE (UA) 3+ (NEGATIVE); URINE KETONE TRACE (NEGATIVE); URINE LEUK ESTERASE NEGATIVE (NEGATIVE); URINE NITRITE NEGATIVE (NEGATIVE); URINE PROTEIN TRACE (NEGATIVE); URINE UROBILINOGEN 0.2 mg/dL (0.2-1.0)
[2023-06-16] MEDS ORDERED: DEXTROSE 50%-WATER 25 GM/50 ML DISP.SYRIN ONE ×2 (20:19→22:21)
[2023-06-16] MEDS ORDERED: FUROSEMIDE 40 MG/4 ML INJECTABLE VIAL ONE (20:21)
[2023-06-16] MEDS ORDERED: ALBUTEROL SO4 2.5/IPRATROPIUM 0.5 INH SOL 3 ML VIAL.NEB. NEB ONE (20:45)
[2023-06-16] MEDS: ALBUTEROL SO4 2.5/IPRATROPIUM 0.5 INH SOL 3 ML VIAL.NEB. NEB SCH (20:52)
[2023-06-16] MEDS: FUROSEMIDE 40 MG/4 ML INJECTABLE VIAL IVPUSH ONE ×2 (20:53→20:54)
[2023-06-16] MEDS ORDERED: ACETAMINOPHEN 325 MG TABLET (FP) PO PRN (21:56)
[2023-06-16] MEDS: INSULIN SLIDING SCALE (NOVOLOG) 1 VIAL SQ SCH (22:10)
[2023-06-16] MEDS: SODIUM CHLORIDE 1,000 ML IV SCH (22:15)
[2023-06-16] MEDS ORDERED: DEXTROSE 50%-WATER 25 GM/50 ML DISP.SYRIN IVPUSH ONE (22:20)
[2023-06-16 22:26] LABS: ALBUMIN 2.8 g/dl (3.4-5.0); BILIRUBIN,TOTAL 0.2 mg/dL (0.2-1); BLOOD UREA NITROGEN 28.9 mg/dL (7-18); CALCIUM 8.7 mg/dL (8.5-10.1); CREATININE 1.8 mg/dL (0.55-1.3); POTASSIUM 3.9 mmol/L (3.5-5.1); TOT PROT 5.6 g/dl (6.4-8.2)
[2023-06-17] MEDS ORDERED: SODIUM CHLORIDE 250 ML IV STA ×2 (00:33→00:35)
[2023-06-17] MEDS ORDERED: VALPROATE SODIUM 500 MG/5 ML VIAL IVPB ONE (02:37)
[2023-06-17] MEDS ORDERED: VALPROATE SODIUM INJECTION 500 MG in SODIUM CHLORIDE 100 ML IVPB ONE (03:45)
[2023-06-17 04:22] VITALS: BMI 31.4
[2023-06-17] MEDS: SODIUM CHLORIDE 1,000 ML IV SCH (04:47)
[2023-06-17] MEDS: INSULIN SLIDING SCALE (NOVOLOG) 1 VIAL SQ SCH ×4 (06:23→21:43)
[2023-06-17] MEDS: levETIRAcetam 500 MG TABLET (FP) PO SCH ×2 (09:12→21:39)
[2023-06-17 10:15] LABS: BASO % 2.1 % (0-2.0); EOS % 1.4 % (0-4.5); HEMATOCRIT 28.6 % (35.4-49); HEMOGLOBIN 9.2 GM/dL (11.7-16.9); LYMPH % 9.4 % (8-40); MCH 26.3 pg (25.7-33.7); MCHC 32.2 g/dl (32.0-35.9); MEAN CELL VOLUME 81.7 fl (80-96); MEAN PLT VOLUME 9.5 fl (7.5-11.1); MONO % 17.8 % (3.8-10.2); NEUT % 69.3 % (42.8-82.8); PLATELET COUNT 129 10^3/uL (134-434); RDW 18.7 % (11.9-15.9)
[2023-06-17 10:32] LABS: POTASSIUM 5.5 mmol/L (3.5-5.1)
[2023-06-17 10:33] LABS: CALCIUM 8.7 mg/dL (8.5-10.1)
[2023-06-17 10:34] LABS: BLOOD UREA NITROGEN 24.4 mg/dL (7-18)
[2023-06-17 10:37] LABS: CREATININE 1.5 mg/dL (0.55-1.3)
[2023-06-17 10:38] LABS: PHOSPHOROUS 3.8 mg/dL (2.5-4.9)
[2023-06-17] MEDS ORDERED: SODIUM CHLORIDE 0.45% 1,000 ML IV SCH (18:00)
[2023-06-17] MEDS: SODIUM ZIRCONIUM CYCLOSILICATE (LOKELMA) 5 GM PACKET PO SCH (18:29)
[2023-06-17] MEDS: ATORVASTATIN CA 20 MG TABLET (FP) PO SCH (21:38)
[2023-06-17] MEDS: DIVALPROEX SODIUM 500 MG TABLET E.C. PO SCH (23:00)
[2023-06-18] MEDS: INSULIN SLIDING SCALE (NOVOLOG) 1 VIAL SQ SCH ×4 (06:31→22:11)
[2023-06-18] MEDS: levETIRAcetam 500 MG TABLET (FP) PO SCH ×2 (09:51→22:10)
[2023-06-18] MEDS: ASPIRIN 81 MG CHEWABLE TABLETS PO SCH (09:52)
[2023-06-18] MEDS: SODIUM ZIRCONIUM CYCLOSILICATE (LOKELMA) 5 GM PACKET PO SCH (09:52)
[2023-06-18] MEDS: DIVALPROEX SODIUM 500 MG TABLET E.C. PO SCH ×2 (09:52→22:09)
[2023-06-18 11:04] LABS: BASO % 1.1 % (0-2.0); EOS % 1.2 % (0-4.5); HEMATOCRIT 29.9 % (35.4-49); HEMOGLOBIN 9.7 GM/dL (11.7-16.9); LYMPH % 9.4 % (8-40); MCH 26.6 pg (25.7-33.7); MCHC 32.4 g/dl (32.0-35.9); MEAN CELL VOLUME 82.1 fl (80-96); MEAN PLT VOLUME 9.7 fl (7.5-11.1); MONO % 13.8 % (3.8-10.2); NEUT % 74.5 % (42.8-82.8); PLATELET COUNT 133 10^3/uL (134-434); RBC 3.64 M/mm3 (4.00-5.60); RDW 18.2 % (11.9-15.9); WHITE BLOOD COUNT 7.9 K/mm3 (4.0-10.0)
[2023-06-18 11:10] LABS: POTASSIUM 4.5 mmol/L (3.5-5.1)
[2023-06-18 11:13] LABS: ALBUMIN 2.9 g/dl (3.4-5.0); BLOOD UREA NITROGEN 20.9 mg/dL (7-18)
[2023-06-18 11:17] LABS: CREATININE 1.3 mg/dL (0.55-1.3)
[2023-06-18 11:18] LABS: TOT PROT 5.9 g/dl (6.4-8.2)
[2023-06-18 11:19] LABS: BILIRUBIN,TOTAL 0.4 mg/dL (0.2-1)
[2023-06-18] MEDS: RIVAROXABAN 20 MG TABLET PO SCH (17:32)
[2023-06-18] MEDS: ATORVASTATIN CA 20 MG TABLET (FP) PO SCH (22:10)
[2023-06-19] MEDS: INSULIN SLIDING SCALE (NOVOLOG) 1 VIAL SQ SCH ×4 (06:28→21:21)
[2023-06-19] MEDS: ASPIRIN 81 MG CHEWABLE TABLETS PO SCH (09:39)
[2023-06-19] MEDS: levETIRAcetam 500 MG TABLET (FP) PO SCH ×2 (09:40→21:16)
[2023-06-19] MEDS: DIVALPROEX SODIUM 500 MG TABLET E.C. PO SCH ×2 (09:40→21:16)
[2023-06-19] MEDS: RIVAROXABAN 20 MG TABLET PO SCH (17:40)
[2023-06-19] MEDS ORDERED: INSULIN (NOVOLOG) ASPART 100 UNITS/ML 10ML VIAL ONE (21:01)
[2023-06-19] MEDS: ATORVASTATIN CA 20 MG TABLET (FP) PO SCH (21:16)
[2023-06-20] MEDS: INSULIN SLIDING SCALE (NOVOLOG) 1 VIAL SQ SCH ×4 (06:24→22:04)
[2023-06-20] MEDS: levETIRAcetam 500 MG TABLET (FP) PO SCH ×2 (11:15→22:00)
[2023-06-20] MEDS: ASPIRIN 81 MG CHEWABLE TABLETS PO SCH (11:15)
[2023-06-20] MEDS: DIVALPROEX SODIUM 500 MG TABLET E.C. PO SCH ×2 (11:16→22:00)
[2023-06-20] MEDS: RIVAROXABAN 20 MG TABLET PO SCH (17:27)
[2023-06-20] MEDS: ATORVASTATIN CA 20 MG TABLET (FP) PO SCH (22:00)
[2023-06-21 04:41] VITALS: PULSE 66
[2023-06-21] MEDS: INSULIN SLIDING SCALE (NOVOLOG) 1 VIAL SQ SCH ×2 (06:21→11:58)
[2023-06-21] MEDS: levETIRAcetam 500 MG TABLET (FP) PO SCH (10:01)
[2023-06-21] MEDS: DIVALPROEX SODIUM 500 MG TABLET E.C. PO SCH (10:01)
[2023-06-21] MEDS: ASPIRIN 81 MG CHEWABLE TABLETS PO SCH (10:01)
[2023-06-21 11:36] LABS: POTASSIUM 4.5 mmol/L (3.5-5.1)
[2023-06-21 11:42] LABS: CALCIUM 9.1 mg/dL (8.5-10.1)
[2023-06-21 11:43] LABS: ALBUMIN 2.9 g/dl (3.4-5.0); BLOOD UREA NITROGEN 25.5 mg/dL (7-18)
[2023-06-21 11:46] LABS: CREATININE 1.3 mg/dL (0.55-1.3)
[2023-06-21 11:48] LABS: BILIRUBIN,TOTAL 0.4 mg/dL (0.2-1); TOT PROT 6.4 g/dl (6.4-8.2)
[2023-06-21 12:09] VITALS: BP 109/63; RESP 20; TEMP 98.9
== END 2023-06-21 16:25 | disposition home or self-care (01) | DRG 101 ==
LOC: JER 17:22 → JERBED 20:44 → J6S 06-17 01:15 → OBSVTOIN 06-17 10:39
PROVIDERS: ADMIT Internal Medicine; ATTEND Family Medicine
DX: G40.909 Epilepsy, unspecified, not intractable, without status epilepticus (principal); N17.9 Acute kidney failure, unspecified; J44.9 Chronic obstructive pulmonary disease, unspecified; G47.33 Obstructive sleep apnea (adult) (pediatric); I10 Essential (primary) hypertension; F17.210 Nicotine dependence, cigarettes, uncomplicated; I25.10 Atherosclerotic heart disease of native coronary artery without angina pectoris; I48.0 Paroxysmal atrial fibrillation; I25.2 Old myocardial infarction; E11.40 Type 2 diabetes mellitus with diabetic neuropathy, unspecified; N20.0 Calculus of kidney; E87.5 Hyperkalemia; R09.02 Hypoxemia; E03.9 Hypothyroidism, unspecified; Z86.718 Personal history of other venous thrombosis and embolism
CPT/HCPCS: 0241U-QW; 36415; 70450-TC; 71045-TC-FY; 80048; 80053; 80164; 80177; 81003; 82550; 82553; 82728; 82803; 82962; 83540; 83550; 83605; 83735; 84100; 84439; 84443; 84466; 84484; 85025; 85045; 85610; 85730; 87086; 93005; 93010; 93970-TC; 99285-25; G0378